=== PATIENT | male | born 1945 | race Caucasian/White ===

== ENCOUNTER → 2016-09-01 | Outpatient (CLI) | payer MEDICARE, OTHER ==
[2016-09-01 11:27] LABS: Non-African American GFR(MDRD) >60 (>60 ml/min/1.73 sqM)
--- NOTE | 2016-09-01 15:11 | MR ---
EXAMINATION TYPE: MR lumbar spine wo/w con DATE OF EXAM: 09/01/2016 12:59 PM COMPARISON: NONE HISTORY: Low back pain TECHNIQUE: T1 and T2 axial and sagittal images of the lumbar spine are submitted. FINDINGS: There is no abnormal signal seen within the visualized spinal cord or paraspinal soft tissu es. At L1-2 there is mild facet arthropathy but no disc herniation or canal stenosis. No foraminal encroa chment. At L2-3 there is abnormal signal within the L4 vertebral body may be related to a hemangioma. There i s a superior endplate chronic appearing compression fracture. Neural foramina are patent. There is br oad-based central minimal disc bulging but no canal stenosis or foraminal encroachment. Mild facet ar thropathy. At L3-4 there is degenerative disc disease and facet arthropathy. No disc herniation or foraminal enc roachment. No Canal stenosis At L4-5 there is no disc herniation or canal stenosis. No foraminal encroachment. At L5-S1 there is no disc herniation or canal stenosis. No foraminal encroachment. IMPRESSION: 1. Multilevel mild degenerative disc disease and facet arthropathy with no discrete herniation or can al stenosis. 2. Chronic appearing superior endplate compression fracture L3. Marrow signal within the L3 vertebral body suggesting hemangioma. 3. Minimal disc bulging L2-L3 but no canal stenosis or nerve root impingement.
--- NOTE | 2016-09-01 15:23 | MR ---
EXAMINATION TYPE: MR cervical spine wo/w con DATE OF EXAM: 09/01/2016 12:59 PM COMPARISON: NONE HISTORY: Neck pain, baudilio disc, hx of surgery on c spine TECHNIQUE: Multiplanar, multisequence images of the cervical spine were acquired utilizing 15 mL intravenous Mul tiHance gadolinium contrast. C2-C3: No evidence for degenerative disc disease. No disc bulge/herniation or protrusion. No Canal stenosis. Foramina are patent bilaterally. C3-C4: There is central broad-based disc bulging with uncovertebral joint hypertrophy and facet arthr opathy. Moderate to severe bilateral foraminal encroachment mild/moderate canal stenosis or disc bulg ing or protrusion is capped by spur encroaches upon and abuts the anterior margin of the spinal cord. C4-C5: Postsurgical change and uncovertebral joint hypertrophy with facet arthropathy and moderate bi lateral foraminal encroachment. C5-C6: Motion artifact. Cannot exclude central disc bulging. There is facet arthropathy and uncoverte bral joint hypertrophy with moderate bilateral foraminal encroachment. Could not exclude a degree of Canal stenosis based on the axial image. There does appear to be artifact from the surgical hardware. C6-C7: Right paracentral disc bulging or small protrusion which abuts the anterior margin the spinal cord. Facet arthropathy is seen. Mild bilateral foraminal encroachment. C7-T1: No evidence for degenerative disc disease. No disc bulge/herniation or protrusion. No Canal stenosis. Foramina are patent bilaterally. Cervical segments are intact. There is normal alignment. Artifact from levels C4-C6 limits evaluatio n obscures these levels vertebral bodies. Spinal canal at this level is limited. Assessment spinal co rd limited due to motion artifact and artifact from the patient's surgical hardware. No obvious area of abnormal enhancement. IMPRESSION: 1. Markedly limited exam due to artifact from the patient's surgical hardware. Disc protrusion C3-C4 results in canal stenosis. Hypertrophic changes at this level result in foraminal encroachment as dis cussed above. 2. Findings are suspicious for right paracentral disc bulging or small protrusion C6-C7 which abuts t he anterior margin of the spinal cord. 3. Cannot exclude central disc bulging or canal stenosis at C5-C6 which is a surgical level. Extensiv e artifact.
== END | disposition home or self-care (01) ==
LOC: RADMRIMAIN 10:32
PROVIDERS: ATTEND Family Medicine
DX: M51.26 Other intervertebral disc displacement, lumbar region (principal); M48.02 Spinal stenosis, cervical region; M50.21 Other cervical disc displacement, high cervical region; M51.36 Other intervertebral disc degeneration, lumbar region; M48.56XA Collapsed vertebra, not elsewhere classified, lumbar region, initial encounter for fracture; M46.86 Other specified inflammatory spondylopathies, lumbar region
CPT/HCPCS: 82565; 72156; 72158; A9577

== ENCOUNTER 2018-05-03 20:19 | Inpatient (IN) | payer MEDICARE, OTHER ==
[2018-05-03] MEDS ORDERED: NITROGLYCERIN OINT 1 INCH/GM PACKET TOPICAL STA (20:52)
[2018-05-03] MEDS ORDERED: ASPIRIN 81 MG PO STA (20:52)
--- NOTE | 2018-05-03 20:55 | ED ---
General Adult HPI - General Chief complaint: Chest Pain Stated complaint: Chest Pain Time Seen by Provider: 05/03/18 20:45 Source: patient, EMS, RN notes reviewed Mode of arrival: EMS Limitations: no limitations - History of Present Illness Initial comments: Patient is a pleasant 72-year-old male presenting to the emergency Department with complaints of chest discomfort. Onset of symptoms was prior to arrival. Symptoms lasted around a half an hour and then resolved following nitroglycerin provided by staff at the rehab facility. Patient states discomfort felt sharp with some radiation towards the arm. No associated dyspnea, nausea, diaphoresis. No history of similar symptoms previously. Patient is currently symptom-free. Patient states he was also in the emergency department this morning for generalized fatigue. Patient states he did have left hip surgery done around 3 weeks ago. No confusion or isolated area of weakness. - Related Data Home Medications Medication Instructions Recorded Confirmed Aspirin 81 mg PO DAILY@1700 04/12/16 05/03/18 Atorvastatin [Lipitor] 40 mg PO HS@2100 05/03/18 05/03/18 Bisacodyl [Dulcolax] 10 mg RECTAL DAILY PRN 05/03/18 05/03/18 Carbidopa-Levodopa 25-100 mg 1 tab PO TID@0600,1400,209905/03/18 05/03/18 [Sinemet 25-100 mg] Cyanocobalamin [Vitamin B-12] 1,000 mcg PO DAILY@1700 05/03/18 05/03/18 Dexlansoprazole [Dexilant] 60 mg PO DAILY 05/03/18 05/03/18 Docusate [Colace] 100 mg PO BID@0800,1700 05/03/18 05/03/18 Dutasteride 0.5 mg PO DAILY@0800 05/03/18 05/03/18 Ergocalciferol [Vitamin D2] 50,000 unit PO MO 05/03/18 05/03/18 Ezetimibe [Zetia] 10 mg PO DAILY@2100 05/03/18 05/03/18 FLUoxetine HCL [PROzac] 20 mg PO DAILY@0800 05/03/18 05/03/18 Ferrous Sulfate [Feosol] 325 mg PO BID@0800,1700 05/03/18 05/03/18 HYDROcodone/APAP 10-325MG [Culver 1 tab PO Q4HR PRN 05/03/18 05/03/18 10-325] Ipratropium-Albuterol Nebulize 3 ml INHALATION RT-QID PRN 05/03/18 05/03/18 [Duoneb 0.5 mg-3 mg/3 ml Soln] Lactose-Reduced Food [Ensure Plus] 1 can PO TID 05/03/18 05/03/18 Magnesium Hydroxide [Milk of 30 ml PO DAILY PRN 05/03/18 05/03/18 Magnesia] Meclizine [Antivert] 12.5 mg PO BID PRN 05/03/18 05/03/18 Melatonin 3 mg PO HS PRN 05/03/18 05/03/18 Metoprolol Tartrate [Lopressor] 25 mg PO BID@0800,1700 05/03/18 05/03/18 Multivitamins, Thera [Multivitamin 1 tab PO DAILY 05/03/18 05/03/18 (formulary)] Na Phos,M-B/Na Phos,Di-Ba [Fleet 1 unit RECTAL DAILY PRN 05/03/18 05/03/18 Adult] Pregabalin [Lyrica] 100 mg PO BID@0800,2100 05/03/18 05/03/18 Primidone [Mysoline] 50 mg PO Q8HR 05/03/18 05/03/18 QUEtiapine XR [SEROquel XR] 200 mg PO HS@2100 05/03/18 05/03/18 Ranitidine HCl [Zantac] 150 mg PO BID@0800,1700 05/03/18 05/03/18 Sennosides [Senna] 11.2 mg PO BID@0800,1700 05/03/18 05/03/18 Umeclidinium Brm/Vilanterol Tr 1 puff INHALATION RT-DAILY@0800 05/03/18 05/03/18 [Anoro Ellipta 62.5-25 Mcg INH] Warfarin [Coumadin] 2 mg PO SUMOTHFRSA 05/03/18 05/03/18 Warfarin [Coumadin] 2.5 mg PO DIRECTED 05/03/18 05/03/18 amLODIPine [Norvasc] 5 mg PO DAILY@0800 05/03/18 05/03/18 Allergies Allergy/AdvReac Type Severity Reaction Status Date / Time morphine Allergy Itching Verified 05/03/18 20:52 oxycodone [From OxyContin] Allergy Itching Verified 05/03/18 20:52 propoxyphene Allergy Unknown Verified 05/03/18 20:52 [From Darvocet-N] Review of Systems ROS Statement: Those systems with pertinent positive or pertinent negative responses have been documented in the HPI. ROS Other: All systems not noted in ROS Statement are negative. Constitutional: Denies: fever Eyes: Denies: eye pain ENT: Denies: ear pain Respiratory: Denies: cough, dyspnea Cardiovascular: Reports: chest pain Gastrointestinal: Denies: abdominal pain, nausea, vomiting Genitourinary: Denies: dysuria Musculoskeletal: Denies: back pain Skin: Denies: rash Neurological: Denies: headache Past Medical History Past Medical History: COPD, GERD/Reflux, Hyperlipidemia, Hypertension, Prostate Disorder Additional Past Medical History / Comment(s): LAST SEIZURE -2002. PT STATES NO CHANGES TO HEALTH HX SINCE 04/12/16 EXCEPT FOR CATARACT SURGERY 04/13/16. History of Any Multi-Drug Resistant Organisms: None Reported Past Surgical History: Cholecystectomy, Hernia Repair, Orthopedic Surgery Additional Past Surgical History / Comment(s): NOSE SURGERY X3, RIGHT SHOULDER, NECK, RIGHT CATARACT 04/13/16 Past Anesthesia/Blood Transfusion Reactions: Motion Sickness Past Psychological History: Depression Smoking Status: Former smoker Past Alcohol Use History: None Reported Past Drug Use History: None Reported - Past Family History Father Family Medical History: Cancer Additional Family Medical History / Comment(s): STOMACH CANCER Mother Family Medical History: Cancer Additional Family Medical History / Comment(s): BREAST CANCER General Exam Limitations: no limitations General appearance: alert, in no apparent distress Head exam: Present: atraumatic Eye exam: Present: normal appearance, PERRL ENT exam: Present: normal oropharynx Neck exam: Present: normal inspection Respiratory exam: Present: normal lung sounds bilaterally. Absent: chest wall tenderness Cardiovascular Exam: Present: regular rate, normal rhythm Expanded Peripheral pulses: 2+: Radial (R), Radial (L), Dorsalis Pedis (R), Dorsalis Pedis (L) GI/Abdominal exam: Present: soft. Absent: distended, tenderness Extremities exam: Present: normal inspection. Absent: pedal edema, calf tenderness Neurological exam: Present: alert. Absent: motor sensory deficit Expanded Motor strength exam: RUE: 5, LUE: 5, RLE: 5, LLE: 5 Psychiatric exam: Present: normal affect, normal mood Skin exam: Present: normal color Course Vital Signs 05/03/18 05/03/18 05/03/18 20:21 20:30 21:00 Temperature 98.8 F Pulse Rate 65 62 Respiratory 16 16 Rate Blood Pressure 141/62 141/62 138/61 O2 Sat by Pulse 96 Oximetry - Reevaluation(s) Reevaluation #1: 05/03/18 22:13 Repeat EKG shows normal sinus rhythm 76. HI 162. QRS 80. QT 390. QTC 438. Normal axis. Normal QRS. ST depression in lead 2 as well as leads V3 through V5. Borderline ST depression in V6. There is some ST elevation in aVR. Case was discussed in detail with Dr. Maciel. He recommends treating patient's pain. Patient remains uncomfortable than give him a call back. 05/03/18 22:21 Patient is now symptom-free. Patient is made aware that if his symptoms worsen he will need to make staff aware of his discomfort who will need to let the gate watch become aware of the discomfort continuing. Heparin is started. EKG Findings - EKG Comments: EKG Findings:: Normal sinus rhythm 64. HI 154. QRS 80. QT 428. QTC 441. Left axis. Normal QRS. No acute ST change. Medical Decision Making - Medical Decision Making Patient reevaluated and updated. Case was discussed in detail with Dr. Anderson , covering for Dr. Lee, who will admit. - Lab Data Result diagrams: 05/03/18 20:28 05/03/18 20:28 Lab Results 05/03/18 05/03/18 05/03/18 Range/Units 20:28 20:28 20:28 WBC 9.4 (3.8-10.6) k/uL RBC 3.05 L (4.30-5.90) m/uL Hgb 9.0 L (13.0-17.5) gm/dL Hct 28.0 L (39.0-53.0) % MCV 91.5 (80.0-100.0) fL MCH 29.6 (25.0-35.0) pg MCHC 32.4 (31.0-37.0) g/dL RDW 15.7 H (11.5-15.5) % Plt Count 302 (150-450) k/uL Neutrophils % 75 % Lymphocytes % 15 % Monocytes % 6 % Eosinophils % 2 % Basophils % 0 % Neutrophils # 7.0 (1.3-7.7) k/uL Lymphocytes # 1.4 (1.0-4.8) k/uL Monocytes # 0.5 (0-1.0) k/uL Eosinophils # 0.2 (0-0.7) k/uL Basophils # 0.0 (0-0.2) k/uL Hypochromasia Moderate PT (9.0-12.0) sec INR (<1.2) APTT (22.0-30.0) sec D-Dimer (<0.60) mg/L FEU Sodium 140 (137-145) mmol/L Potassium 4.6 (3.5-5.1) mmol/L Chloride 109 H (98-107) mmol/L Carbon Dioxide 24 (22-30) mmol/L Anion Gap 7 mmol/L BUN 33 H (9-20) mg/dL Creatinine 1.04 (0.66-1.25) mg/dL Est GFR (CKD-EPI)AfAm 84 (>60 ml/min/1.73 sqM) Est GFR (CKD-EPI)NonAf 73 (>60 ml/min/1.73 sqM) Glucose 100 H (74-99) mg/dL Calcium 8.7 (8.4-10.2) mg/dL Magnesium 1.9 (1.6-2.3) mg/dL Total Bilirubin 0.2 (0.2-1.3) mg/dL AST 24 (17-59) U/L ALT 29 (21-72) U/L Alkaline Phosphatase 127 H (38-126) U/L Total Creatine Kinase 23 L (55-170) U/L CK-MB (CK-2) 0.9 (0.0-2.4) ng/mL CK-MB (CK-2) Rel Index 3.9 Troponin I 0.014 (0.000-0.034) ng/mL Total Protein 6.7 (6.3-8.2) g/dL Albumin 3.1 L (3.5-5.0) g/dL //18 Range/Units 20:28 WBC (3.8-10.6) k/uL RBC (4.30-5.90) m/uL Hgb (13.0-17.5) gm/dL Hct (39.0-53.0) % MCV (80.0-100.0) fL MCH (25.0-35.0) pg MCHC (31.0-37.0) g/dL RDW (11.5-15.5) % Plt Count (150-450) k/uL Neutrophils % % Lymphocytes % % Monocytes % % Eosinophils % % Basophils % % Neutrophils # (1.3-7.7) k/uL Lymphocytes # (1.0-4.8) k/uL Monocytes # (0-1.0) k/uL Eosinophils # (0-0.7) k/uL Basophils # (0-0.2) k/uL Hypochromasia PT 12.2 H (9.0-12.0) sec INR 1.3 H (<1.2) APTT 28.2 (22.0-30.0) sec D-Dimer 1.43 H (<0.60) mg/L FEU Sodium (137-145) mmol/L Potassium (3.5-5.1) mmol/L Chloride (98-107) mmol/L Carbon Dioxide (22-30) mmol/L Anion Gap mmol/L BUN (9-20) mg/dL Creatinine (0.66-1.25) mg/dL Est GFR (CKD-EPI)AfAm (>60 ml/min/1.73 sqM) Est GFR (CKD-EPI)NonAf (>60 ml/min/1.73 sqM) Glucose (74-99) mg/dL Calcium (8.4-10.2) mg/dL Magnesium (1.6-2.3) mg/dL Total Bilirubin (0.2-1.3) mg/dL AST (17-59) U/L ALT (21-72) U/L Alkaline Phosphatase (38-126) U/L Total Creatine Kinase (55-170) U/L CK-MB (CK-2) (0.0-2.4) ng/mL CK-MB (CK-2) Rel Index Troponin I (0.000-0.034) ng/mL Total Protein (6.3-8.2) g/dL Albumin (3.5-5.0) g/dL - Radiology Data Radiology results: report reviewed (Computed tomography scan of the chest does show some fibrosis. No pulmonary embolism.), image reviewed (X-ray shows fibrosis) Critical Care Time Critical Care Time: Yes Total Critical Care Time: 33 Disposition Clinical Impression: ACS (acute coronary syndrome) Disposition: ADMITTED IP TO THIS [facility] Condition: Serious Is patient prescribed a controlled substance at d/c from ED?: No Referrals: Jean Lee DO [Primary Care Provider] - 1-2 days Decision Time: 22:22
[2018-05-03 21:10] LABS: Basophils % (A) 0 %; Eosinophils # (A) 0.2 k/uL (0-0.7); Eosinophils % (A) 2 %; Hypochromasia Moderate; Lymphocytes # (A) 1.4 k/uL (1.0-4.8); Lymphocytes % (A) 15 %; MCH 29.6 pg (25.0-35.0); MCHC 32.4 g/dL (31.0-37.0); MCV 91.5 fL (80.0-100.0); Mean Platelet Volume 6.5; Monocytes # (A) 0.5 k/uL (0-1.0); Monocytes % (A) 6 %; Neutrophils % (A) 75 %; Platelet Count 302 k/uL (150-450); RBC 3.05 m/uL (4.30-5.90); RDW 15.7 % (11.5-15.5); WBC 9.4 k/uL (3.8-10.6)
[2018-05-03 21:13] LABS: Albumin 3.1 g/dL (3.5-5.0); Calcium 8.7 mg/dL (8.4-10.2); Magnesium 1.9 mg/dL (1.6-2.3); Potassium 4.6 mmol/L (3.5-5.1); Total Bilirubin 0.2 mg/dL (0.2-1.3); Total Protein 6.7 g/dL (6.3-8.2)
--- NOTE | 2018-05-03 21:14 | XR ---
EXAMINATION TYPE: XR chest 2V DATE OF EXAM: 05/03/2018 COMPARISON: Today HISTORY: Chest pain TECHNIQUE: Frontal and lateral views of the chest are obtained. FINDINGS: There is no heart failure nor confluent pneumonic infiltrate. Costophrenic angles are marie r. There is coarsening of interstitial markings. Heart size is normal. There is cervical spine fusion surgery. Diaphragm is normal. IMPRESSION: Pulmonary interstitial fibrosis. No active cardiopulmonary disease. No change. No heart failure.
[2018-05-03 21:17] LABS: INR 1.3 (<1.2); Partial Thromboplastin Time 28.2 sec (22.0-30.0); Prothrombin Time 12.2 sec (9.0-12.0)
[2018-05-03 21:20] LABS: D-Dimer 1.43 mg/L FEU (<0.60)
[2018-05-03 21:45] LABS: Creatine Kinase MB 0.9 ng/mL (0.0-2.4); Troponin I 0.014 ng/mL (0.000-0.034)
--- NOTE | 2018-05-03 22:07 | CT ---
EXAMINATION TYPE: CT angio chest DATE OF EXAM: 05/03/2018 9:47 PM COMPARISON: None HISTORY: Chest pain and shortness of breath. CT DLP: 235.5 mGycm Automated exposure control for dose reduction was used. CONTRAST: CTA scan of the thorax is performed with IV Contrast, patient injected with 66ml mL of Isovue M300, p ulmonary embolism protocol. There are 3-D post processed images.. FINDINGS: There is no mediastinal adenopathy. There are no hilar masses. Thoracic aorta is atheromatous. There is no evidence of aneurysm or dissection. There are a few paratracheal and mediastinal lymph nodes th at measure less than 1 cm. I see no filling defects in the pulmonary arteries. Thoracic aorta shows some atherosclerotic plaque. There is patchy pulmonary interstitial infiltrates at the lung bases and more on the right side. The re is no evidence of a pulmonary mass. IMPRESSION: NO EVIDENCE OF PULMONARY EMBOLISM. INTERSTITIAL PULMONARY FIBROTIC CHANGES. NONSPECIFIC SMALL MEDIAST INAL LYMPH NODES.
[2018-05-03] MEDS ORDERED: NITROGLYCERIN SL TABS 0.4 MG TAB SUBLINGUAL STA (22:10)
[2018-05-03] MEDS ORDERED: HEPARIN SODIUM,PORCINE 5,000 UNIT/ML 1 ML VIAL IV ONE (22:18)
[2018-05-03] MEDS ORDERED: HEPARIN SODIUM,PORCINE 5,000 UNIT/ML 1 ML VIAL IV PRN (22:18)
[2018-05-03] MEDS ORDERED: HEPARIN SOD,PORK IN 0.45% NACL 25,000 UNIT in 0.45% NACL 1 500ML.BAG IV SCH (22:30)
[2018-05-03] MEDS ORDERED: ACETAMINOPHEN TAB 325 MG TAB PO PRN (23:28)
[2018-05-03] MEDS ORDERED: MECLIZINE 12.5 MG TAB PO PRN (23:48)
[2018-05-03] MEDS ORDERED: MAGNESIUM HYDROXIDE 2,400 MG/10 ML CUP PO PRN (23:48)
[2018-05-03] MEDS ORDERED: NA PHOS,M-B/NA PHOS,DI-BA 133 ML ENEMA RECTAL PRN (23:48)
[2018-05-03] MEDS ORDERED: BISACODYL 10 MG SUPP RECTAL PRN (23:48)
[2018-05-04] MEDS: NITROGLYCERIN OINT 1 INCH/GM PACKET TOPICAL SCH ×4 (00:11→17:57)
[2018-05-04] MEDS: HYDROcodone/APAP 10-325MG 1 EACH TAB PO PRN ×3 (00:11→18:00)
[2018-05-04] MEDS: PRIMIDONE 50 MG TAB PO SCH ×4 (00:18→23:50)
[2018-05-04] MEDS: CARBIDOPA-LEVODOPA 25-100 MG 1 EACH TAB PO SCH ×3 (04:35→19:58)
[2018-05-04 04:36] LABS: Basophils % (A) 0 %; Eosinophils # (A) 0.1 k/uL (0-0.7); Eosinophils % (A) 1 %; HCT 25.6 % (39.0-53.0); HGB 8.1 gm/dL (13.0-17.5); Hypochromasia Moderate; Lymphocytes # (A) 1.9 k/uL (1.0-4.8); Lymphocytes % (A) 19 %; MCH 29.3 pg (25.0-35.0); MCHC 31.7 g/dL (31.0-37.0); MCV 92.3 fL (80.0-100.0); Mean Platelet Volume 6.6; Monocytes # (A) 0.5 k/uL (0-1.0); Monocytes % (A) 5 %; Neutrophils # (A) 7.1 k/uL (1.3-7.7); Neutrophils % (A) 71 %; Platelet Count 279 k/uL (150-450); RBC 2.77 m/uL (4.30-5.90); RDW 15.6 % (11.5-15.5)
[2018-05-04 04:46] LABS: Cholesterol 103 mg/dL (<200); HDL Cholesterol 35 mg/dL (40-60); LDL Cholesterol,Calculated 50 mg/dL (0-99); Triglycerides 89 mg/dL (<150)
[2018-05-04 04:48] LABS: INR 1.4 (<1.2); Partial Thromboplastin Time 30.8 sec (22.0-30.0); Prothrombin Time 13.5 sec (9.0-12.0)
[2018-05-04 05:13] LABS: Creatine Kinase MB 1.2 ng/mL (0.0-2.4)
[2018-05-04 05:33] LABS: Troponin I 0.076 ng/mL (0.000-0.034)
[2018-05-04] MEDS ORDERED: FORMOTEROL FUMARATE 20 MCG/2 ML NEBU INHALATION SCH ×2 (08:00→08:05)
[2018-05-04] MEDS: IPRATROPIUM-ALBUTEROL 3 ML NEB INHALATION PRN ×4 (08:02→18:15)
[2018-05-04] MEDS ORDERED: SODIUM CHLORIDE 0.9% 1,000 ML in EMPTY BAG 1 BAG IV ONE (08:38)
[2018-05-04] MEDS ORDERED: NON-FORMULARY DRUG (Lactose-Reduced Food [Ensure Plus] 1 CAN) PO SCH (09:00)
[2018-05-04 09:47] LABS: Creatine Kinase MB 1.4 ng/mL (0.0-2.4)
--- NOTE | 2018-05-04 09:54 | ECHOF ---
Referral Reason:acs MEASUREMENTS -------- HEIGHT: 167.6 cm WEIGHT: 63.0 kg BP: 134/57 RVIDd: 3.5 cm (< 3.3) IVSd: 1.3 cm (0.6 - 1.1) LVIDd: 5.1 cm (3.9 - 5.3) LVPWd: 1.3 cm (0.6 - 1.1) IVSs: 2.0 cm LVIDs: 3.9 cm LVPWs: 1.8 cm LA Diam: 3.2 cm (2.7 - 3.8) LAESV Index (A-L): 27.59 ml/m Ao Diam: 3.5 cm (2.0 - 3.7) AV Cusp: 1.8 cm (1.5 - 2.6) MV EXCURSION: 13.536 mm (> 18.000) MV EF SLOPE: 87 mm/s (70 - 150) EPSS: 0.8 cm MV E Law: 1.08 m/s MV DecT: 237 ms MV A Law: 1.01 m/s MV E/A Ratio: 1.06 AV maxP.20 mmHg AV meanP.63 mmHg AR PHT: 509 ms RAP: 5.00 mmHg RVSP: 38.18 mmHg FINDINGS -------- Sinus rhythm. This was a technically good study. The left ventricular size is normal. There is mild concentric left ventricular hypertrophy. Overa ll left ventricular systolic function is normal with, an EF between 55 - 60 %. Basal inferior LV wa ll motion is hypokinetic. The right ventricle is mildly enlarged. Normal LA size by volume 22+/-6 ml/m2. The right atrium is normal in size. There is mild to moderate aortic valve sclerosis. There is mild aortic regurgitation. There is mi ld aortic stenosis present. Peak/mean gradient across the Aortic Valve is 15.20mmHg / 7.63mmHg. Mild mitral annular calcification present. Mild mitral regurgitation is present. Mild tricuspid regurgitation present. There is mild pulmonary hypertension. The right ventricular systolic pressure, as measured by Doppler, is 38.18mmHg. Trace/mild (physiologic) pulmonic regurgitation. The aortic root size is normal. Normal inferior vena cava with normal inspiratory collapse consistent with estimated right atrial pre ssure of 5 mmHg. There is no pericardial effusion. CONCLUSIONS -------- 1. Sinus rhythm. 2. This was a technically good study. 3. The left ventricular size is normal. 4. There is mild concentric left ventricular hypertrophy. 5. Overall left ventricular systolic function is normal with, an EF between 55 - 60 %. 6. Basal inferior LV wall motion is hypokinetic. 7. The right ventricle is mildly enlarged. 8. Normal LA size by volume 22+/-6 ml/m2. 9. The right atrium is normal in size. 10. There is mild to moderate aortic valve sclerosis. 11. There is mild aortic regurgitation. 12. There is mild aortic stenosis present. 13. Peak/mean gradient across the Aortic Valve is 15.20mmHg / 7.63mmHg. 14. Mild mitral annular calcification present. 15. Mild mitral regurgitation is present. 16. Mild tricuspid regurgitation present. 17. There is mild pulmonary hypertension. 18. The right ventricular systolic pressure, as measured by Doppler, is 38.18mmHg. 19. Trace/mild (physiologic) pulmonic regurgitation. 20. The aortic root size is normal. 21. Normal inferior vena cava with normal inspiratory collapse consistent with estimated right atrial pressure of 5 mmHg. 22. There is no pericardial effusion. FLATWORK CATCHER: Natalie Díaz RDCS
[2018-05-04 10:01] LABS: Troponin I 0.047 ng/mL (0.000-0.034)
[2018-05-04] MEDS: QUEtiapine 100 MG TAB PO SCH ×2 (11:25→19:57)
[2018-05-04] MEDS: FINASTERIDE 5 MG TAB PO SCH (11:25)
[2018-05-04] MEDS: ASPIRIN 325 MG TAB PO SCH (11:27)
[2018-05-04] MEDS: DOCUSATE 100 MG CAP PO SCH ×2 (11:27→17:57)
[2018-05-04] MEDS: PREGABALIN 100 MG CAP PO SCH ×2 (11:27→19:57)
[2018-05-04] MEDS: PANTOPRAZOLE 40 MG TABLET PO SCH (11:28)
[2018-05-04] MEDS: amLODIPine 5 MG TAB PO SCH (11:28)
[2018-05-04] MEDS: FLUoxetine HCL 20 MG CAP PO SCH (11:28)
[2018-05-04] MEDS: FAMOTIDINE 20 MG TAB PO SCH ×2 (11:28→17:23)
[2018-05-04] MEDS: FERROUS SULFATE 325 MG TAB PO SCH ×2 (11:28→17:23)
[2018-05-04] MEDS: MULTIVITAMINS, THERA 1 EACH TAB PO SCH (11:28)
[2018-05-04] MEDS: METOPROLOL TARTRATE 25 MG TAB PO SCH ×2 (11:28→17:24)
[2018-05-04] MEDS: SENNOSIDES 8.6 MG TAB PO SCH ×2 (11:32→17:57)
--- NOTE | 2018-05-04 11:42 | P.CRDCN ---
History of Present Illness History of present illness: This is a pleasant 72-year-old male past medical history significant for hypertension, dyslipdemia, COPD, chronic nicotine dependence and chronic nicotine dependence. He states he underwent left hip surgery 3 weeks ago at [facility] and is currently undergoing rehab at [facility]. He denies history of coronary artery disease and has never seen a brand designer for any reason. We have been asked to see him in consultation for chest pain. He states yesterday while he was sitting in bed he felt a pain across the chest described as a heavy pressure sensation with radiation down both arms that lasted approximately 25-30 minutes. He denies shortness of breath, dizziness, palpitations, nausea, vomiting or diaphoresis. She was given SL nitro and the pain went away. On review of hospital records it appears that he came to the ED earlier in the day yesterday around 1120 with symptoms of weakness and fatigue. At that time an EKG was obtained revealing sinus mechanism with no acute ST or T -wave abnormalities. He was started on levaquin for a pulmonary density and sent back to [facility]. He then returned at 2049 with chest pain and EKG changes. EKG at that time showed ST depression in inferior leads, mild ST elevation in aVR, ST depression and T-wave inversion anterior-laterally. CTA chest negative for pulmonary embolism with evidence of pulmonary fibrotic changes as well as nonspecific small mediastinal lymph nodes noted. He was started on coumadin after hip surgery and presents with sub-therapeutic INR. Laboratory data reviewed, WBC 10, hemoglobin 8.1, platelets 279, d-dimer 1.43, INR 1.4, sodium 140, potassium 4.6, magnesium 1.9, creatinine 1.04, troponin 0.014, 0.076, 0.047, LDL 50 and HDL 35. Current cardiac medications include amlodipine 5 mg daily, aspirin 81 mg daily, atorvastatin 40 mg daily, Lopressor 25 mg twice a day, zeita 10 mg daily and he was started on coumadin since hip surgery. At the time of my exam: CONSTITUTIONAL: Denies fever. Denies chills. EYES: Denies blurred vision. Denies vision changes. Denies eye pain. EARS, NOSE, MOUTH & THROAT: Denies headache. Denies sore throat. Denies ear pain. CARDIOVASCULAR: Denies chest pain. Denies shortness of breath. Denies orthopnea. Denies PND. Denies palpitations. RESPIRATORY: Denies cough. GASTROINTESTINAL: Denies abdominal pain. Denies diarrhea. Denies constipation. Denies nausea. Denies vomiting. MUSCULOSKELETAL: Denies myalgias. INTEGUMENTARY: Denies pruitis. Denies rash. NEUROLOGIC: Denies numbness. Denies tingling. Denies weakness. PSYCHIATRIC: Denies anxiety. Denies depression. ENDOCRINE: Denies fatigue. Denies weight change. Denies polydipsia. Denies polyurina. GENITOURINARY: Denies burning, hematuria or urgency with micturation. HEMATOLOGIC: Denies history of anemia. Denies bleeding. Blood pressure 149/68 heart rate 60 afebrile maintaining oxygen saturation on room air GENERAL: This is a 72-year-old male in no apparent distress at the time of my examination. HEENT: Head is atraumatic, normocephalic. Pupils are equal, round. Sclerae anicteric. Conjunctivae are clear. Mucous membranes of the mouth are moist. Neck is supple. There is no jugular venous distention. No carotid bruit is heard. LUNGS: Clear to auscultation no wheezes, rales or rhonchi. No chest wall tenderness is noted on palpation or with deep breathing. HEART: Regular rate and rhythm without murmurs, rubs or gallops. S1 and S2 heard. ABDOMEN: Soft, nontender. Bowel sounds are heard. No organomegaly noted. EXTREMITIES: No evidence of peripheral edema and no calf tenderness noted. VASCULAR: Radial and dorsalis pedis pulses palpated, no evidence of clubbing. NEUROLOGIC: Patient is awake, alert and oriented x3. ASSESSMENT Unstable angina with EKG changes and positive troponins Non-ST elevated TN Hypertension Dyslipidemia COPD Recent left hip replacement approximately 3 weeks ago at [facility] Chronic anemia Chronic nicotine dependence PLAN Obtain 2D echocardiogram and doppler study to assess cardiac structure and function. EKG abnormalities are concerning with mild troponin elevation indicating non-ST- elevated TN. Recommend proceeding with coronary angiography to further assess coronary arteries. I have discussed the risks, benefits and alternative therapies for the above- mentioned procedure and for both sedation/analgesia as well as necessary blood product administration, if indicated, as they pertain to this patient. The patient has indicated understanding and acceptance of the risks and procedures discussed. Questions have been answered appropriately and he is agreeable to move forward with above stated procedure. Hold coumadin, INR is sub-therapeutic on admission. Further recommendations to follow based on clinical course. Thank you kindly for this consultation. Nurse Practitioner note has been reviewed, I agree with a documented findings and plan of care. Patient was seen and examined. Past Medical History Past Medical History: COPD, GERD/Reflux, Hyperlipidemia, Hypertension, Prostate Disorder Additional Past Medical History / Comment(s): LAST SEIZURE -2002. PT STATES NO CHANGES TO HEALTH HX SINCE 04/12/16 EXCEPT FOR CATARACT SURGERY 04/13/16. History of Any Multi-Drug Resistant Organisms: None Reported Past Surgical History: Cholecystectomy, Hernia Repair, Orthopedic Surgery Additional Past Surgical History / Comment(s): NOSE SURGERY X3, RIGHT SHOULDER, NECK, RIGHT CATARACT 04/13/16 Past Anesthesia/Blood Transfusion Reactions: Motion Sickness Smoking Status: Former smoker - Past Family History Father Family Medical History: Cancer Additional Family Medical History / Comment(s): STOMACH CANCER Mother Family Medical History: Cancer Additional Family Medical History / Comment(s): BREAST CANCER Medications and Allergies Home Medications Medication Instructions Recorded Confirmed Type Aspirin 81 mg PO DAILY@1700 04/12/16 05/03/18 History Atorvastatin [Lipitor] 40 mg PO HS@209905/03/18 05/03/18 History Bisacodyl [Dulcolax] 10 mg RECTAL DAILY PRN 05/03/18 05/03/18 History Carbidopa-Levodopa 25-100 mg 1 tab PO TID@0600,1400,2100 05/03/18 05/03/18 History [Sinemet 25-100 mg] Cyanocobalamin [Vitamin B-12] 1,000 mcg PO DAILY@1700 05/03/18 05/03/18 History Dexlansoprazole [Dexilant] 60 mg PO DAILY 05/03/18 05/03/18 History Docusate [Colace] 100 mg PO BID@0800,1700 05/03/18 05/03/18 History Dutasteride 0.5 mg PO DAILY@0800 05/03/18 05/03/18 History Ergocalciferol [Vitamin D2] 50,000 unit PO MO 05/03/18 05/03/18 History Ezetimibe [Zetia] 10 mg PO DAILY@2100 05/03/18 05/03/18 History FLUoxetine HCL [PROzac] 20 mg PO DAILY@0800 05/03/18 05/03/18 History Ferrous Sulfate [Feosol] 325 mg PO BID@0800,1700 05/03/18 05/03/18 History HYDROcodone/APAP 10-325MG [[place] 1 tab PO Q4HR PRN 05/03/18 05/03/18 History 10-325] Ipratropium-Albuterol Nebulize 3 ml INHALATION RT-QID PRN 05/03/18 05/03/18 History [Duoneb 0.5 mg-3 mg/3 ml Soln] Lactose-Reduced Food [Ensure Plus] 1 can PO TID 05/03/18 05/03/18 History Magnesium Hydroxide [Milk of 30 ml PO DAILY PRN 05/03/18 05/03/18 History Magnesia] Meclizine [Antivert] 12.5 mg PO BID PRN 05/03/18 05/03/18 History Melatonin 3 mg PO HS PRN 05/03/18 05/03/18 History Metoprolol Tartrate [Lopressor] 25 mg PO BID@0800,1700 05/03/18 05/03/18 History Multivitamins, Thera [Multivitamin 1 tab PO DAILY 05/03/18 05/03/18 History (formulary)] Na Phos,M-B/Na Phos,Di-Ba [Fleet 1 unit RECTAL DAILY PRN 05/03/18 05/03/18 History Adult] Pregabalin [Lyrica] 100 mg PO BID@0800,209905/03/18 05/03/18 History Primidone [Mysoline] 50 mg PO Q8HR 05/03/18 05/03/18 History QUEtiapine XR [SEROquel XR] 200 mg PO HS@209905/03/18 05/03/18 History Ranitidine HCl [Zantac] 150 mg PO BID@0800,1700 05/03/18 05/03/18 History Sennosides [Senna] 11.2 mg PO BID@0800,1700 05/03/18 05/03/18 History Umeclidinium Brm/Vilanterol Tr 1 puff INHALATION RT-DAILY@0800 05/03/18 History [Anoro Ellipta 62.5-25 Mcg INH] Warfarin [Coumadin] 2 mg PO SUMOTHFRSA 05/03/18 05/03/18 History Warfarin [Coumadin] 2.5 mg PO DIRECTED 05/03/18 05/03/18 History amLODIPine [Norvasc] 5 mg PO DAILY@0800 05/03/18 05/03/18 History Allergies Allergy/AdvReac Type Severity Reaction Status Date / Time morphine Allergy Itching Verified 05/03/18 23:35 oxycodone [From OxyContin] Allergy Itching Verified 05/03/18 23:35 propoxyphene Allergy Unknown Verified 05/03/18 23:35 [From Darvocet-N] Physical Exam Vitals: Vital Signs Temp Pulse Pulse Resp BP BP Pulse Ox 05/04/18 04:00 97.4 F L 62 18 134/57 99 05/04/18 00:00 16 05/03/18 23:25 98.3 F 74 16 120/54 98 05/03/18 22:00 75 14 139/66 100 05/03/18 21:00 138/61 05/03/18 20:30 62 16 141/62 05/03/18 20:21 98.8 F 65 16 141/62 96 Intake and Output 05/03/18 05/04/18 05/04/18 22:59 06:59 14:59 Other: # Voids 1 Weight 63.503 kg 63.5 kg Results 05/04/18 03:56 05/03/18 20:28 Cardiac Enzymes 05/03/18 05/03/18 05/04/18 Range/Units 20:28 20:28 03:56 AST 24 (17-59) U/L CK-MB (CK-2) 0.9 1.2 (0.0-2.4) ng/mL Troponin I 0.014 0.076 H* (0.000-0.034) ng/mL Coagulation 05/03/18 05/04/18 Range/Units 20:28 03:56 PT 12.2 H 13.5 H (9.0-12.0) sec APTT 28.2 30.8 H (22.0-30.0) sec Lipids 05/04/18 Range/Units 03:56 Triglycerides 89 (<150) mg/dL Cholesterol 103 (<200) mg/dL HDL Cholesterol 35 L (40-60) mg/dL CBC 05/03/18 05/04/18 Range/Units 20:28 03:56 WBC 9.4 10.0 (3.8-10.6) k/uL RBC 3.05 L 2.77 L (4.30-5.90) m/uL Hgb 9.0 L 8.1 L (13.0-17.5) gm/dL Hct 28.0 L 25.6 L (39.0-53.0) % Plt Count 302 279 (150-450) k/uL Comprehensive Metabolic Panel 05/03/18 Range/Units 20:28 Sodium 140 (137-145) mmol/L Potassium 4.6 (3.5-5.1) mmol/L Chloride 109 H (98-107) mmol/L Carbon Dioxide 24 (22-30) mmol/L BUN 33 H (9-20) mg/dL Creatinine 1.04 (0.66-1.25) mg/dL Glucose 100 H (74-99) mg/dL Calcium 8.7 (8.4-10.2) mg/dL AST 24 (17-59) U/L ALT 29 (21-72) U/L Alkaline Phosphatase 127 H (38-126) U/L Total Protein 6.7 (6.3-8.2) g/dL Albumin 3.1 L (3.5-5.0) g/dL Current Medications Generic Name Dose Route Start Last Admin Trade Name Freq PRN Reason Stop Dose Admin Acetaminophen 650 mg 05/03/18 23:28 Tylenol Tab PO Q4HR PRN Fever and/ or Pain Hydrocodone Bitart/Acetaminophen 1 each 05/03/18 23:48 05/04/18 04:34 [place] 10 PO 1 each Q4HR PRN Administration Pain Albuterol/Ipratropium 3 ml 05/03/18 23:48 Duoneb 0.5 Mg-3 Mg/3 Ml Soln INHALATION RT-QID PRN Shortness Of Breath Or Wheezing Amlodipine Besylate 5 mg 05/04/18 08:00 Norvasc PO DAILY@0800 [facility] Aspirin 325 mg 05/04/18 09:00 Aspirin PO DAILY [facility] Atorvastatin Calcium 40 mg 05/04/18 21:00 Lipitor PO HS@2100 [facility] Bisacodyl 10 mg 05/03/18 23:48 Dulcolax RECTAL DAILY PRN Constipation Carbidopa/Levodopa 1 each 05/04/18 06:00 05/04/18 04:35 Sinemet 25-100 PO 1 each TID@0600,1400,2100 [facility] Administration Cyanocobalamin 1,000 mcg 05/04/18 17:00 Vitamin B-12 PO DAILY@1700 [facility] Docusate Sodium 100 mg 05/04/18 08:00 Colace PO BID@0800,1700 [facility] Ezetimibe 10 mg 05/04/18 21:00 Zetia PO DAILY@2100 [facility] Ergocalciferol 50,000 unit 05/30/18 09:00 Vitamin D2 PO MO [facility] Famotidine 20 mg 05/04/18 08:00 Pepcid PO BID@0800,1700 [facility] Ferrous Sulfate 325 mg 05/04/18 08:00 Feosol PO BID@0800,1700 [facility] Finasteride 5 mg 05/04/18 08:00 Proscar PO DAILY@0800 [facility] Fluoxetine HCl 20 mg 05/04/18 08:00 Prozac PO DAILY@0800 [facility] Formoterol Fumarate 1 mcg 05/04/18 08:00 Perforomist INHALATION RT-BID [facility] Heparin Sodium (Porcine) 0 unit 05/03/18 22:18 Heparin IV PER PROTOCOL PRN Low PTT Protocol Heparin Sodium/Sodium Chloride 500 mls @ 15.24 mls/hr 05/03/18 22:30 22:28 25,000 unit/ Sodium Chloride IV 12 units/kg/hr .Q24H [facility] 15.24 mls/hr Administration Protocol 12 UNITS/KG/HR Magnesium Hydroxide 30 mg 05/03/18 23:48 Milk Of Magnesia PO DAILY PRN Constipation Meclizine HCl 12.5 mg 05/03/18 23:48 Antivert PO BID PRN Vertigo Melatonin 3 mg 05/03/18 23:48 Melatonin PO HS PRN Insomnia Metoprolol Tartrate 25 mg 05/04/18 08:00 Lopressor PO BID@0800,1700 [facility] Multivitamins 1 each 05/04/18 12:00 Theragran PO DAILY@1200 [facility] Nitroglycerin 1 inch 05/04/18 00:00 05/04/18 04:32 Nitro-Bid Oint TOPICAL Not Given Q6HR [facility] Nitroglycerin 0.4 mg 05/03/18 22:22 Nitrostat SUBLINGUAL Q5M PRN Chest Pain Pantoprazole Sodium 40 mg 05/04/18 09:00 Protonix PO DAILY [facility] Pregabalin 100 mg 05/04/18 08:00 Lyrica PO BID@0800,2100 [facility] Primidone 50 mg 05/04/18 00:30 05/04/18 00:18 Mysoline PO Not Given Q8HR [facility] Quetiapine Fumarate 100 mg 05/04/18 09:00 Seroquel PO BID [facility] Senna 11.2 mg 05/04/18 08:00 Senokot PO BID@0800,1700 [facility] Sodium Biphosphate/Sodium Phosphate 133 ml 05/03/18 23:48 Fleet Adult RECTAL DAILY PRN Constipation Warfarin Sodium 2.5 mg 05/08/18 18:00 Coumadin PO TuWe@1800 [facility] Warfarin Sodium 2 mg 05/04/18 18:00 Coumadin PO SuMoThFrSa@1800 [facility] Intake and Output 05/03/18 05/04/18 05/04/18 22:59 06:59 14:59 Other: # Voids 1 Weight 63.503 kg 63.5 kg 05/04/18 03:56 05/03/18 20:28
[2018-05-04] MEDS ORDERED: HEPARIN SODIUM,PORCINE 5,000 UNIT/ML 1 ML VIAL IV PRN (15:12)
[2018-05-04] MEDS: LISINOPRIL 2.5 MG TAB PO SCH (15:40)
[2018-05-04] MEDS: HEPARIN SOD,PORK IN 0.45% NACL 25,000 UNIT in 0.45% NACL 1 500ML.BAG IV SCH (15:44)
[2018-05-04] MEDS: CYANOCOBALAMIN 500 MCG TAB PO SCH (17:23)
[2018-05-04] MEDS ORDERED: WARFARIN 2 MG TAB PO SCH (18:00)
--- NOTE | 2018-05-04 19:40 | HP ---
HISTORY AND PHYSICAL DATE OF ADMISSION: 05/04/2018 DATE OF SERVICE: 05/04/2018 PRESENTING COMPLAINT: Chest pain. HISTORY OF PRESENTING COMPLAINT: This is a pleasant 72-year-old patient of Dr. Lee. Currently at [facility]. Chronic stable medical conditions include COPD, GERD, hyperlipidemia, hypertension, seizure disorder, depression. Patient about 2 weeks ago had a left hip fracture that was repaired at [facility]. The patient is currently at [facility]. He is using a walker to get about. Patient presented with pain across the chest going down his left arm. He had presented to the ER yesterday, was seen in the ER and then discharged. Patient again had a further episode where there was more pressure across the chest that again went down to the left arm. It lasted for at least over half an hour. Patient did get some nitroglycerin, with which he had some relief. There was no dizziness. No lightheadedness. No shortness of breath. Because of the nature of the presentation, he was admitted to the hospital for further cardiac workup. Patient denies any cardiac history. Patient's troponin did come back positive, ruling in for possible acute non-Q- wave myocardial infarction. Earlier he was seen by Cardiology, now planning to take him down for cardiac catheterization. Patient has been on IV heparin. Patient stopped smoking 3 weeks ago. REVIEW OF SYSTEMS: CONSTITUTIONAL: Tired. HEENT: None. RESPIRATORY: Baseline shortness of breath. CARDIOVASCULAR: As above. GASTROINTESTINAL: Heartburn. GENITOURINARY: Some urinary incontinence. DERMATOLOGICAL: None. HEMATOLOGICAL: None. LYMPHATICS: None. PSYCHIATRY: Depression, controlled. NEUROLOGICAL: None. MUSCULOSKELETAL: Arthritic pain in the joints. Recent left hip fracture. PAST MEDICAL HISTORY: 1. COPD. 2. GERD. 3. Hyperlipidemia. 4. Hypertension. 5. Prostate disorder. 6. Recent left hip fracture. PAST SURGICAL HISTORY: 1. Cholecystectomy. 2. Hernia repair. 3. Left hip surgery 2 weeks ago. 4. Nose surgery. 5. Right shoulder surgery. 6. Neck surgery. PSYCH HISTORY: Depression. SOCIAL HISTORY: Patient smoked for close to 50 years, about 3/4 pack a day, until about 3 weeks ago. Otherwise lives alone. Currently at [facility]. FAMILY HISTORY: Stomach cancer. HOME MEDICATIONS: 1. Amlodipine 5 mg p.o. daily. 2. Coumadin 2 mg Monday, Monday, , Monday, Monday and then 2.5 as directed. 3. Anoro Ellipta 62.5/25 one puff daily. 4. Senna 11.2 mg p.o. b.i.d. 5. Zantac 150 mg p.o. b.i.d. 6. Seroquel XR 200 mg p.o. at bedtime. 7. Mysoline 50 mg p.o. q.8. 8. Lyrica 100 mg p.o. b.i.d. 9. Adult Fleet 1 unit rectally daily p.r.n. 10.Multivitamin 1 tablet p.o. daily. 11.Lopressor 25 p.o. b.i.d. 12.Melatonin 3 mg p.o. at bedtime p.r.n. 13.Antivert 12.5 p.o. b.i.d. 14.Milk of Magnesia 30 mL p.o. daily p.r.n. 15.Ensure Plus 1 can p.o. t.i.d. 16.DuoNeb q.i.d. p.r.n. 17.[place] 1 tablet q.4 p.r.n. 18.Iron 325 p.o. b.i.d. 19.Prozac 20 mg p.o. daily. 20.Zetia 10 mg p.o. daily. 21.Vitamin D2 50,000 units p.o. Monday. 22.Dutasteride 0.5 mg p.o. daily. 23.Colace 100 mg p.o. b.i.d. 24.Dexilant 60 mg p.o. daily. 25.Vitamin B12 1000 mcg p.o. daily. 26.Sinemet 25/100 one tablet p.o. t.i.d. 27.Dulcolax. 28.Lipitor 40 mg at bedtime. 29.Aspirin 81 mg p.o. daily. ALLERGIES: 1. MORPHINE. 2. OXYCODONE. 3. DARVOCET-N 100. PHYSICAL EXAMINATION: VITAL SIGNS ON PRESENTATION: Temperature 98.8, pulse 65, respiration 16, blood pressure 141/62, pulse ox 96% on 2 L. GENERAL APPEARANCE: Average build. Sitting up, not in distress. EYES: Pupils equal. Conjunctivae normal. HEENT: External appearance of nose and ears normal. Oral cavity normal. NECK: JVD not raised. Mass not palpable. RESPIRATORY: Effort normal. LUNGS: Diminished breath sounds. CARDIOVASCULAR: First and second sounds normal. No edema. ABDOMEN: Soft, non-tender. Liver and spleen not palpable. LYMPHATIC: No lymph node palpable in neck or axillae. PSYCHIATRY: Alert and oriented x3. Mood and affect normal. NEUROLOGICAL: Pupils equal. Cranial nerves grossly intact. Power and sensation grossly intact. MUSCULOSKELETAL: Evidence of osteoarthritis, especially in the hands. INVESTIGATIONS: White count count 10, hemoglobin 8.1, INR 1.4, BUN 33, creatinine 1.04. Troponin 0.014, 0.076, 0.047. EKG tracing, personally reviewed by me, shows ST-segment depression from lead I, V2 through V6, and also in the inferior leads. Patient's EKG from 05/[address] segments were more upright from V1 through V6. Chest x-ray film, personally reviewed by me, shows slight cardiomegaly. No obvious infiltrate. Report shows possible pulmonary fibrosis. Chest CTA reports no pulmonary embolism, some pulmonary fibrotic changes. ASSESSMENT: 1. Acute non-Q-wave myocardial infarction. 2. Chronic obstructive pulmonary disease in an ex-smoker. 3. Gastroesophageal reflux disease. 4. Hyperlipidemia. 5. Essential hypertension. 6. Benign prostatic hypertrophy. 7. History of seizure disorder. 8. Depression not otherwise specified. 9. Recent left hip fracture about 2 weeks ago. 10.Normocytic anemia, cause undetermined. PLAN: Patient is on IV heparin and aspirin. Home medications are resumed. Cardiology was consulted. Plan is to proceed with cardiac catheterization. Care was discussed with the patient. Questions were answered. MMODL / IJN: [id number] /
[2018-05-04] MEDS: ATORVASTATIN 40 MG TAB PO SCH (19:57)
[2018-05-04] MEDS: EZETIMIBE 10 MG TAB PO SCH (19:57)
[2018-05-05] MEDS: NITROGLYCERIN OINT 1 INCH/GM PACKET TOPICAL SCH ×5 (03:54→23:25)
[2018-05-05] MEDS: HYDROcodone/APAP 10-325MG 1 EACH TAB PO PRN ×3 (06:00→23:46)
[2018-05-05] MEDS: CARBIDOPA-LEVODOPA 25-100 MG 1 EACH TAB PO SCH ×3 (06:01→20:17)
[2018-05-05] MEDS: FORMOTEROL FUMARATE 20 MCG/2 ML NEBU INHALATION SCH ×2 (07:20→19:14)
[2018-05-05] MEDS: IPRATROPIUM-ALBUTEROL 3 ML NEB INHALATION PRN ×2 (07:21→19:14)
[2018-05-05 07:26] LABS: Basophils % (A) 0 %; Eosinophils # (A) 0.2 k/uL (0-0.7); Eosinophils % (A) 1 %; HCT 30.1 % (39.0-53.0); HGB 9.3 gm/dL (13.0-17.5); Hypochromasia Moderate; Lymphocytes # (A) 2.1 k/uL (1.0-4.8); Lymphocytes % (A) 16 %; MCH 28.4 pg (25.0-35.0); MCHC 30.8 g/dL (31.0-37.0); Mean Platelet Volume 6.6; Monocytes # (A) 0.6 k/uL (0-1.0); Monocytes % (A) 4 %; Neutrophils % (A) 76 %; Platelet Count 311 k/uL (150-450); RBC 3.28 m/uL (4.30-5.90); RDW 15.3 % (11.5-15.5); WBC 13.2 k/uL (3.8-10.6)
[2018-05-05 08:28] LABS: INR 1.9 (<1.2); Partial Thromboplastin Time 52.2 sec (22.0-30.0); Prothrombin Time 17.2 sec (9.0-12.0)
[2018-05-05] MEDS: amLODIPine 5 MG TAB PO SCH (08:40)
[2018-05-05] MEDS: ASPIRIN 325 MG TAB PO SCH (08:40)
[2018-05-05] MEDS: METOPROLOL TARTRATE 25 MG TAB PO SCH ×2 (08:40→15:45)
[2018-05-05] MEDS: FINASTERIDE 5 MG TAB PO SCH (08:41)
[2018-05-05] MEDS: PANTOPRAZOLE 40 MG TABLET PO SCH (08:41)
[2018-05-05] MEDS: LISINOPRIL 2.5 MG TAB PO SCH (08:41)
[2018-05-05] MEDS: FLUoxetine HCL 20 MG CAP PO SCH (08:41)
[2018-05-05] MEDS: PREGABALIN 100 MG CAP PO SCH ×2 (08:42→20:17)
[2018-05-05] MEDS: FAMOTIDINE 20 MG TAB PO SCH ×2 (08:42→15:45)
[2018-05-05] MEDS ORDERED: LIDOCAINE 1% INJ 10MG/ML (20 ML MDV) ONE (11:22)
[2018-05-05] MEDS ORDERED: VERAPAMIL 2.5 MG/ML 2 ML AMP ONE (11:26)
[2018-05-05] MEDS ORDERED: fentaNYL (PF) 50 MCG/ML 2 ML AMP ONE (11:38)
[2018-05-05] MEDS ORDERED: SODIUM CHLORIDE 0.9% 500 ML 500 ML IV ONE (11:41)
[2018-05-05] MEDS: fentaNYL (PF) 50 MCG/ML 2 ML AMP IVP ONE ×3 (11:42→12:09)
[2018-05-05] MEDS ORDERED: LIDOCAINE 1% INJ 10MG/ML (20 ML MDV) SQ ONE (11:57)
[2018-05-05] MEDS ORDERED: MIDAZOLAM 2 MG/2 ML VIAL ONE (11:58)
[2018-05-05] MEDS ORDERED: MIDAZOLAM 2 MG/2 ML VIAL IVP ONE (11:58)
[2018-05-05] MEDS ORDERED: VERAPAMIL SYRINGE (5 MG/10 ML) INTRAARTER ONE (11:59)
[2018-05-05] MEDS ORDERED: NITROGLYCERIN 1000MCG/10ML SYRINGE INTRACORON ONE (12:02)
[2018-05-05] MEDS ORDERED: HEPARIN SODIUM 1,000 UN/ML (10ML VL) IV ONE (12:11)
[2018-05-05] MEDS ORDERED: IOPAMIDOL-370 125ML BTL INJ ONE (12:14)
[2018-05-05] MEDS ORDERED: RX INFO: IV CONTRAST WAS GIVEN 1 EACH MISC MISCELLANE PRN (12:24)
[2018-05-05] MEDS ORDERED: SODIUM CHLORIDE 0.9% 1,000 ML IV SCH (12:30)
[2018-05-05] MEDS: MULTIVITAMINS, THERA 1 EACH TAB PO SCH (15:38)
[2018-05-05] MEDS: QUEtiapine 100 MG TAB PO SCH ×2 (15:38→20:17)
[2018-05-05] MEDS: PRIMIDONE 50 MG TAB PO SCH ×3 (15:38→23:44)
[2018-05-05] MEDS: DOCUSATE 100 MG CAP PO SCH ×2 (15:38→17:48)
[2018-05-05] MEDS: FERROUS SULFATE 325 MG TAB PO SCH ×2 (15:38→17:48)
[2018-05-05] MEDS: SENNOSIDES 8.6 MG TAB PO SCH ×2 (15:38→15:46)
[2018-05-05] MEDS: CYANOCOBALAMIN 500 MCG TAB PO SCH (15:45)
--- NOTE | 2018-05-05 15:46 | CC ---
CARDIAC CATHETERIZATION REPORT DATE OF SERVICE: 05/05/2018 PERFORMING PHYSICIAN: Chaparro Mendez MD, banking and finance instructor. PROCEDURES PERFORMED: 1. Selective right and left coronary angiogram. 2. Left heart catheterization. INDICATION: This is a pleasant 72-year-old gentleman with hypertension, dyslipidemia and chronic nicotine use who underwent 3 weeks ago surgery at [facility], where he underwent hip surgery, and currently he is residing at [facility]. He was brought to the emergency room because he was experiencing chest discomfort. He was ruled in for acute euj-RD-dneedqtod myocardial infarction. The enzymes came in to be slightly elevated. The EKG showed ST changes quite concerning for ischemia. Because of that, a heart catheterization was advised. APPROACH: Right radial artery. COMPLICATIONS: None. LEVEL OF SEDATION: Moderate, with sedation length of 15 minutes. PROCEDURE DESCRIPTION: After obtaining informed consent, the patient was brought to the cardiac mine laborer. The right radial artery was cannulated using micropuncture technique, and the micropuncture wire passed easily. Then I placed a 6-Icelandic sheath in the right radial artery. After that I gave the patient 2 mg of Verapamil IA and 6000 units of heparin IV. Selective right and left coronary angiogram was performed using JR4 and JL3.5 catheters. Left heart catheterization was performed using 6-Icelandic pigtail catheter. The procedure was completed without any complication. SELECTIVE CORONARY ANGIOGRAM: 1. The right coronary artery is a large-caliber vessel and it is a dominant vessel. The RCA is calcified. The ostial RCA has a lesion that appeared to be in the range of 80% to 90%. There was dampening in the waveform in the RCA upon engaging it. The RCA in the mid portion has a tight lesion that appeared to be in the range of 80% to 90%. Distally the RCA has intermediate lesion, then bifurcates into PDA and PLV branches. The PLV branch is occluded and fills by collaterals from the left coronary system. 2. The left main is calcified with a distal lesion very complex involving the bifurcation of the LAD, ramus intermedius and circumflex, and the lesion appeared to be in the range of 80%. The lesion was best seen on the HILL cranial view. 3. The left circumflex is a moderate-caliber vessel and it is a nondominant vessel. The ostial left circumflex is involved in the lesion from the left main coronary artery. The ostial left circumflex appeared to be diseased in the range of 70% as well. The proximal circumflex is also diffusely diseased up to about 50% to 60%. Then the circumflex gives rise to a large first OM branch which has mild disease only. The circumflex continues after that as a small-caliber vessel in the AV groove. 4. The ramus intermedius is a large-caliber vessel as well with ostial lesion that appeared to be in the range of 70% to 80%. The mid and distal ramus are angiographically normal. 5. The LAD. The ostial LAD is involved in the lesion from the left main and also appeared to be diseased in the range of 70%. The mid LAD and distal LAD appeared to have mild disease only. The LAD gives rise to a medium-sized diagonal branch which appeared to have disease in the proximal portion in the range of 70% to 80%. CONCLUSION: 1. Acute qfo-TO-umvbkyyfh myocardial infarction. 2. Calcified right and left coronary systems. 3. Critical disease involving the ostial as well as mid right coronary artery with occluded PLV branch of the right coronary artery. The distal RCA fills by collaterals from the left coronary system. 4. Severe disease involving the distal left main with a complex lesion involving the trifurcation of the left circumflex, ramus intermedius and left anterior descending artery. HEMODYNAMICS: The left ventricular end-diastolic pressure was about 10 mmHg without significant gradient across the aortic valve. POST-PROCEDURE MANAGEMENT: Given his anatomy, I did recommend consulting surgeon for the evaluation of coronary artery bypass grafting. Meanwhile, the patient will be transferred to his room. There is no family to be updated here. He does have a granddaughter, whom I am going to contact later on today via phone. MMODL / IJN: [id number] /
--- NOTE | 2018-05-05 15:52 | LTR ---
May 05, 2018 To: Dr. Lee Re: Nehemiah Tucker (1945) Dear Dr. Lee, Mr. Nehemiah Tucker was brought to the emergency room at [facility] with chest discomfort and he was ruled in for acute esu-TV-ilkebzsna myocardial infarction. His cardiac enzymes as well as his EKG were quite concerning for ischemia. Because of that, a heart catheterization was advised. I did perform a heart catheterization on him and that revealed severe triple-vessel coronary artery disease. I did recommend proceeding with coronary artery bypass grafting, given his anatomy. I want to thank you for allowing me to participate in his care. Please do not hesitate to call if you have any question or concern. Sincerely, MD NAN Lee / ARCELIA: [id number] /
--- NOTE | 2018-05-05 17:00 | US ---
EXAMINATION TYPE: US carotid duplex BILAT DATE OF EXAM: 05/05/2018 COMPARISON: NONE CLINICAL HISTORY: PreOp Cardiac Surgery. EXAM MEASUREMENTS: RIGHT: Peak Systolic Velocity (PSV) cm/sec ----- Right CCA: 98.7 ----- Right ICA: 85.7 ----- Right ECA: 129.8 ICA/CCA ratio: 0.9 RIGHT: End Diastole cm/sec ----- Right CCA: 14.4 ----- Right ICA: 20.0 ----- Right ECA: 0.0 LEFT: Peak Systolic Velocity (PSV) cm/sec ----- Left CCA: 87.1 ----- Left ICA: 114.5 ----- Left ECA: 235.7 ICA/CCA ratio: 1.3 LEFT: End Diastole cm/sec ----- Left CCA: 9.1 ----- Left ICA: 20.8 ----- Left ECA: 48.2 VERTEBRALS (direction of flow): Right Vertebral: diminished, antegrade Left Vertebral: Antegrade Moderate to severe bilateral plaque, does not elevate velocities in either ICA, no significant stenos is by numerical values. IMPRESSION: Although there are no values to suggest hemodynamically significant stenosis other than within the left external carotid artery, the degree of grayscale plaquing raises suspicion for multif ocal stenosis. CTA neck could be performed for further evaluation. Criteria for Assigning % of Stenosis / Diameter reduction (Estimation based on the indirect measurements of the internal carotid artery velocities (ICA PSV). 1. Normal (no stenosis)=ICA PSV < 125 cm/s: ratio < 2.0: ICA EDV<40 cm/s. 2. Less than 50% stenosis=ICA PSV < 125 cm/s: ratio < 2.0: ICA EDV<40 cm/s. 3. 50 to 69% stenosis=ICA PSV of 125 to 230 cm/s: ration 2.0 ? 4.0: ICA EDV 40-100 cm/s. 4. Greater than 70% stenosis to near occlusion= ICA PSV > 230 cm/s: ratio > 4.0: ICA EDV > 100 cm/s. 5. Near occlusion= ICA PSV velocities may be low or undetectable: variable ratio and ICA EDV. 6. Total occlusion=unable to detect flow.
[2018-05-05 17:11] LABS: Appearance,Urine Clear (Clear); Bilirubin,Urine Negative (Negative); Blood,Urine Negative (Negative); Color,Urine Light Yellow; Glucose,Urine (UA) Negative (Negative); Ketones,Urine Negative (Negative); Leukocyte Esterase,Urine Negative (Negative); Nitrite,Urine Negative (Negative); Protein,Urine Negative (Negative); Specific Gravity,Urine 1.024 (1.001-1.035); Urobilinogen,Urine <2.0 mg/dL (<2.0)
--- NOTE | 2018-05-05 19:43 | PN ---
PROGRESS NOTE DATE OF SERVICE: 05/05/2018. PRESENTING COMPLAINT: Chest pain. INTERVAL HISTORY: The patient with multiple medical problems, resident of [facility], who 2 weeks ago had left hip fracture, presented with acute PR. Had a cardiac catheterization showing significant disease, not amenable to angioplasty/stenting. Cardiothoracic surgery has been consulted. The patient did have episode of chest pain earlier today. Lying in bed. REVIEW OF SYSTEMS: Done for constitutional, cardiovascular, GI, pulmonary; relevant findings as above. CURRENT MEDICATIONS: Reviewed, include IV heparin. PHYSICAL EXAMINATION: Temperature 97.4, pulse 60, respiratory 18, blood pressure 122/57, pulse ox 93 percent. GENERAL APPEARANCE: Lying in bed, awake. EYES: Pupils equal. Conjunctivae normal. Sclarea normal. HEENT: External nose and ears normal. Oral cavity normal. JVD not raised. Mass not palpable. RESPIRATORY: Effort. LUNGS: Diminished breath sounds. CARDIOVASCULAR: 1st and 2nd sounds, no edema. ABDOMEN: Soft, nontender. Liver and spleen not palpable. PSYCHIATRY: Alert and oriented x3. Mood and affect normal. INVESTIGATIONS: White count 13.2, hemoglobin 9.3, INR 1.9. ASSESSMENT: 1. Acute non-Q-wave myocardial infarction. 2. Cardiac catheterization showing significant triple-vessel disease, not amenable to angioplasty/stenting. 3. Chronic obstructive pulmonary disease in an ex-smoker. 4. Gastroesophageal reflux disease. 5. Hyperlipidemia. 6. Essential hypertension. 7. Benign prostatic hypertrophy. 8. History of seizure disorder. 9. Depression, not otherwise specified. 10.Recent left hip fracture about 2 weeks ago with arthroplasty. 11.Normocytic anemia, cause undetermined. 12.IV heparin monitoring. PLAN: The patient continues to have post infarct angina. Cardiothoracic surgery has been consulted. The patient rather benefit sooner than later intervention. Will let Cardiology and Cardiothoracic surgery finalize that. No family is present. MMODL / IJN: [id number] /
[2018-05-05 19:45] LABS: Magnesium 1.8 mg/dL (1.6-2.3)
[2018-05-05] MEDS: HEPARIN SOD,PORK IN 0.45% NACL 25,000 UNIT in 0.45% NACL 1 500ML.BAG IV SCH (19:57)
[2018-05-05] MEDS: EZETIMIBE 10 MG TAB PO SCH (20:17)
[2018-05-05] MEDS: MUPIROCIN 2% OINT 22 GM TUBE NASAL SCH (20:17)
[2018-05-05] MEDS: ATORVASTATIN 40 MG TAB PO SCH (20:17)
[2018-05-06] MEDS: HYDROcodone/APAP 10-325MG 1 EACH TAB PO PRN ×5 (03:42→23:52)
[2018-05-06] MEDS: NITROGLYCERIN OINT 1 INCH/GM PACKET TOPICAL SCH ×3 (05:03→17:14)
[2018-05-06] MEDS: CARBIDOPA-LEVODOPA 25-100 MG 1 EACH TAB PO SCH ×3 (05:14→21:28)
[2018-05-06] MEDS: IPRATROPIUM-ALBUTEROL 3 ML NEB INHALATION PRN ×2 (07:28→19:15)
[2018-05-06] MEDS: FORMOTEROL FUMARATE 20 MCG/2 ML NEBU INHALATION SCH ×2 (07:28→19:15)
[2018-05-06 08:07] LABS: INR 1.4 (<1.2); Partial Thromboplastin Time 31.4 sec (22.0-30.0); Prothrombin Time 13.4 sec (9.0-12.0)
[2018-05-06 08:09] LABS: ALT 23 U/L (21-72); AST 18 U/L (17-59); Albumin 2.6 g/dL (3.5-5.0); Alkaline Phosphatase 89 U/L (38-126); Anion Gap 4 mmol/L; Blood Urea Nitrogen 21 mg/dL (9-20); Calcium 8.3 mg/dL (8.4-10.2); Carbon Dioxide 26 mmol/L (22-30); Chloride 110 mmol/L (98-107); Glucose 81 mg/dL (74-99); Potassium 4.1 mmol/L (3.5-5.1); Sodium 140 mmol/L (137-145); Total Bilirubin 0.2 mg/dL (0.2-1.3); Total Protein 5.8 g/dL (6.3-8.2)
[2018-05-06] MEDS: ASPIRIN 325 MG TAB PO SCH (08:27)
[2018-05-06] MEDS: QUEtiapine 100 MG TAB PO SCH ×2 (08:27→21:28)
[2018-05-06] MEDS: LISINOPRIL 2.5 MG TAB PO SCH (08:27)
[2018-05-06] MEDS: FERROUS SULFATE 325 MG TAB PO SCH ×2 (08:27→17:13)
[2018-05-06] MEDS: FLUoxetine HCL 20 MG CAP PO SCH (08:27)
[2018-05-06] MEDS: amLODIPine 5 MG TAB PO SCH (08:27)
[2018-05-06] MEDS: FINASTERIDE 5 MG TAB PO SCH (08:27)
[2018-05-06] MEDS: FAMOTIDINE 20 MG TAB PO SCH ×2 (08:27→17:13)
[2018-05-06] MEDS: METOPROLOL TARTRATE 25 MG TAB PO SCH ×2 (08:27→17:14)
[2018-05-06] MEDS: SENNOSIDES 8.6 MG TAB PO SCH ×2 (08:28→17:12)
[2018-05-06] MEDS: PRIMIDONE 50 MG TAB PO SCH ×2 (08:28→17:13)
[2018-05-06] MEDS: PREGABALIN 100 MG CAP PO SCH ×2 (08:28→21:28)
[2018-05-06] MEDS: PANTOPRAZOLE 40 MG TABLET PO SCH (08:28)
[2018-05-06] MEDS: DOCUSATE 100 MG CAP PO SCH ×2 (08:32→17:12)
[2018-05-06 08:47] LABS: Basophils % (A) 0 %; Eosinophils # (A) 0.2 k/uL (0-0.7); Eosinophils % (A) 2 %; HCT 23.6 % (39.0-53.0); Hypochromasia Slight; Lymphocytes # (A) 1.8 k/uL (1.0-4.8); Lymphocytes % (A) 20 %; MCH 29.8 pg (25.0-35.0); MCHC 32.8 g/dL (31.0-37.0); MCV 90.9 fL (80.0-100.0); Mean Platelet Volume 6.8; Monocytes # (A) 0.5 k/uL (0-1.0); Monocytes % (A) 5 %; Neutrophils # (A) 6.2 k/uL (1.3-7.7); Neutrophils % (A) 70 %; Platelet Count 265 k/uL (150-450); RBC 2.59 m/uL (4.30-5.90); RDW 15.5 % (11.5-15.5); WBC 8.9 k/uL (3.8-10.6)
[2018-05-06 08:53] LABS: HGB 7.7 gm/dL (13.0-17.5)
--- NOTE | 2018-05-06 12:14 | P.GSCN ---
History of Present Illness Consult date: 05/05/18 Reason for Consult: Non-ST elevated myocardial infarction this admission, coronary artery disease with left main disease. Requesting physician: Chaparro Mendez History of present illness: This is 72-year-old gentleman who is followed by Dr. Angela Lee on an outpatient basis. His past medical history significant for hypertension, hyperlipidemia, major depressive disorder with anxiety, chronic obstructive pulmonary disease, chronic normocytic anemia, benign prostatic hypertrophy, Parkinson's disease, chronic nicotine dependence, gastroesophageal reflux disease, osteoarthritis, cataracts, recent history of fall from standing and subsequent left hip replacement 3 weeks ago at [facility] and was complicated by an acute pulmonary embolus postoperatively and has a history of TIA. The patient has been at [facility] rehab facility for the past week status post left hip replacement for further rehabilitation needs. Yesterday while at [facility] he complained of generalized weakness and chest pain which radiated down both of his arms. He reports that the pain came on while at rest. He denies any complaints of shortness of breath, nausea, vomiting, diaphoresis or syncope. Subsequently he was transferred to [facility] emergency department where a 12-lead EKG was completed which showed normal sinus rhythm with ST and T wave abnormalities with heart rate of 76. A chest x-ray was completed which showed pulmonary interstitial fibrosis with no active cardiopulmonary disease. For further evaluation and a CT of his chest was completed which was negative for pulmonary embolus, but did demonstrate interstitial pulmonary fibrotic changes and a a few paratracheal and mediastinal lymph nodes that measure less than 1 cm. Lab work was obtained which showed a hemoglobin of 9.0, hematocrit 28.0, platelet count 302, BUN 33, creatinine 1.04, initial troponin 0.014 and as high as 0.76. Due to the patient 's presenting symptoms and elevated troponins a consult was placed to Dr. Mendez from cardiology for further workup and evaluation. A 2-D echocardiogram was completed which showed an overall left ventricular systolic function to be normal with an ejection fraction between 55 and 60%, basal inferior LV wall motion to be hypokinetic, mild to moderate aortic valve sclerosis, mild aortic valve regurgitation, mild aortic valve stenosis, a peak/millimeter gradient across the aortic valve showed him to be 15.0 mmHg\7.63 mmHg, mild mitral valve regurgitation, mild tricuspid valve regurgitation and trace to mild pulmonic valve regurgitation. This morning after obtaining consent the patient underwent a cardiac catheterization which demonstrated a left main stenosis of 80%, a 70% stenosis to his proximal left anterior descending coronary artery, a 70% stenosis to his circumflex coronary artery, and a 90% stenosis to his right coronary artery. The heart catheterization results were reviewed with the patient by Dr. Mendez a consult was placed to Dr. Salinas from cardiothoracic surgery for further evaluation and recommendations for possible myocardial revascularization surgery. Review of Systems A 14 point review of systems was completed and was negative except as mentioned in HPI. Past Medical History Past Medical History: COPD, CVA/TIA, GERD/Reflux, Hyperlipidemia, Hypertension, Neurologic Disorder (Parkinson's disease), Prostate Disorder, Pulmonary Embolus (PE) Additional Past Medical History / Comment(s): LAST SEIZURE -2002. PT STATES NO CHANGES TO HEALTH HX SINCE 04/12/16 EXCEPT FOR CATARACT SURGERY 04/13/16. History of Any Multi-Drug Resistant Organisms: None Reported Past Surgical History: Cholecystectomy, Heart Catheterization, Hernia Repair, Joint Replacement (Left hip.), Orthopedic Surgery Additional Past Surgical History / Comment(s): NOSE SURGERY X3, RIGHT SHOULDER ROTATOR cuff, cervical fusion, bilateral CATARACT surgery. Past Anesthesia/Blood Transfusion Reactions: Motion Sickness Past Psychological History: Anxiety, Depression Smoking Status: Current every day smoker (Has not smoked since his left hip surgery.) Past Alcohol Use History: None Reported Past Drug Use History: None Reported - Past Family History Father Family Medical History: Cancer Additional Family Medical History / Comment(s): STOMACH CANCER, at age 46. Mother Family Medical History: No Reported History Additional Family Medical History / Comment(s): Reports he does not know his mother's history. Medications and Allergies Home Medications Medication Instructions Recorded Confirmed Type Aspirin 81 mg PO DAILY@1700 04/12/16 05/03/18 History Atorvastatin [Lipitor] 40 mg PO HS@2100 05/03/18 05/03/18 History Bisacodyl [Dulcolax] 10 mg RECTAL DAILY PRN 05/03/18 05/03/18 History Carbidopa-Levodopa 25-100 mg 1 tab PO TID@0600,1400,2100 05/03/18 05/03/18 History [Sinemet 25-100 mg] Cyanocobalamin [Vitamin B-12] 1,000 mcg PO DAILY@1700 05/03/18 05/03/18 History Dexlansoprazole [Dexilant] 60 mg PO DAILY 05/03/18 05/03/18 History Docusate [Colace] 100 mg PO BID@0800,1700 05/03/18 05/03/18 History Dutasteride 0.5 mg PO DAILY@0800 05/03/18 05/03/18 History Ergocalciferol [Vitamin D2] 50,000 unit PO MO 05/03/18 05/03/18 History Ezetimibe [Zetia] 10 mg PO DAILY@2100 05/03/18 05/03/18 History FLUoxetine HCL [PROzac] 20 mg PO DAILY@0800 05/03/18 05/03/18 History Ferrous Sulfate [Feosol] 325 mg PO BID@0800,1700 05/03/18 05/03/18 History HYDROcodone/APAP 10-325MG [[place] 1 tab PO Q4HR PRN 05/03/18 05/03/18 History 10-325] Ipratropium-Albuterol Nebulize 3 ml INHALATION RT-QID PRN 05/03/18 05/03/18 History [Duoneb 0.5 mg-3 mg/3 ml Soln] Lactose-Reduced Food [Ensure Plus] 1 can PO TID 05/03/18 05/03/18 History Magnesium Hydroxide [Milk of 30 ml PO DAILY PRN 05/03/18 05/03/18 History Magnesia] Meclizine [Antivert] 12.5 mg PO BID PRN 05/03/18 05/03/18 History Melatonin 3 mg PO HS PRN 05/03/18 05/03/18 History Metoprolol Tartrate [Lopressor] 25 mg PO BID@0800,1700 05/03/18 05/03/18 History Multivitamins, Thera [Multivitamin 1 tab PO DAILY 05/03/18 05/03/18 History (formulary)] Na Phos,M-B/Na Phos,Di-Ba [Fleet 1 unit RECTAL DAILY PRN 05/03/18 05/03/18 History Adult] Pregabalin [Lyrica] 100 mg PO BID@0800,2100 05/03/18 05/03/18 History Primidone [Mysoline] 50 mg PO Q8HR 05/03/18 05/03/18 History QUEtiapine XR [SEROquel XR] 200 mg PO HS@2100 05/03/18 05/03/18 History Ranitidine HCl [Zantac] 150 mg PO BID@0800,1700 05/03/18 05/03/18 History Sennosides [Senna] 11.2 mg PO BID@0800,1700 05/03/18 05/03/18 History Umeclidinium Brm/Vilanterol Tr 1 puff INHALATION RT-DAILY@0800 05/03/18 History [Anoro Ellipta 62.5-25 Mcg INH] Warfarin [Coumadin] 2 mg PO SUMOTHFRSA 05/03/18 05/03/18 History Warfarin [Coumadin] 2.5 mg PO DIRECTED 05/03/18 05/03/18 History amLODIPine [Norvasc] 5 mg PO DAILY@0800 05/03/18 05/03/18 History Allergies Allergy/AdvReac Type Severity Reaction Status Date / Time morphine Allergy Itching Verified 05/03/18 23:35 oxycodone [From OxyContin] Allergy Itching Verified 05/03/18 23:35 propoxyphene Allergy Unknown Verified 05/03/18 23:35 [From Darvocet-N] Surgical - Exam Vital Signs Temp Pulse Resp BP Pulse Ox 98.8 F 65 16 141/62 96 05/03/18 20:21 05/03/18 20:21 05/03/18 20:21 05/03/18 20:21 05/03/18 20:21 - General well nourished, no distress, no pain, chronically ill - Eyes PERRL, normal ocular movement - ENT normal pinna, normal nares, normal mucosa, no hearing loss, no congestion, dentures (Operative) - Neck Bilateral bruits, neck is supple, no lymphadenopathy. no masses, trachea midline, no venous distension carotid bruit: bilateral - Respiratory Lungs sounds essentially clear throughout. Respirations are symmetrical and nonlabored. Oxygen saturation are 94% on room air. - Cardiovascular Regular rhythm and rate. S1 and S2 present, negative for S3, gallop or murmur. No edema present. - Abdomen Abdomen is soft, nontender and nondistended. Active bowel sounds all 4 abdominal quadrants. No organomegaly. No guarding or rigidity. - Genitourinary Deferred - Rectum Deferred - Integumentary no rash, no growths, no abnormal pigmentation - Neurologic normal coordination, normal sensation - Musculoskeletal Generalized weakness normal posture - Psychiatric oriented to time, oriented to person, oriented to place, speech is normal, memory intact Results - Labs 05/06/18 06:52 05/06/18 06:52 Abnormal Lab Results - Last 24 Hours (Table) 05/04/18 05/05/18 05/05/18 Range/Units 22:02 06:43 06:43 WBC 13.2 H (3.8-10.6) k/uL RBC 3.28 L (4.30-5.90) m/uL Hgb 9.3 L (13.0-17.5) gm/dL Hct 30.1 L (39.0-53.0) % MCHC 30.8 L (31.0-37.0) g/dL Neutrophils # 10.0 H (1.3-7.7) k/uL PT 17.2 H (9.0-12.0) sec INR 1.9 H (<1.2) APTT 47.1 H 52.2 H (22.0-30.0) sec - Imaging Comments: Heart catheterization results were reviewed. 2-D echocardiogram results reviewed. Chest x-ray: report reviewed, image reviewed CT scan - chest: report reviewed, image reviewed Assessment and Plan (1) Non-ST elevated myocardial infarction Current Visit: Yes Status: Acute Code(s): I21.4 - NON-ST ELEVATION (NSTEMI) MYOCARDIAL INFARCTION SNOMED Code(s): 315992007 (2) Coronary artery disease Current Visit: Yes Status: Acute Code(s): I25.10 - ATHSCL HEART DISEASE OF [place] CORONARY ARTERY W/O ANG PCTRS SNOMED Code(s): 46849859 (3) Hypertension Current Visit: Yes Status: Acute Code(s): I10 - ESSENTIAL (PRIMARY) HYPERTENSION SNOMED Code(s): 55403455 (4) Hyperlipidemia Current Visit: Yes Status: Acute Code(s): E78.5 - HYPERLIPIDEMIA, UNSPECIFIED SNOMED Code(s): 13871438 (5) History of pulmonary embolus (PE) Current Visit: Yes Status: Acute Code(s): Z86.711 - PERSONAL HISTORY OF PULMONARY EMBOLISM SNOMED Code(s): 274847925 (6) Fall from standing Current Visit: Yes Status: Acute Code(s): W19.XXXA - UNSPECIFIED FALL, INITIAL ENCOUNTER SNOMED Code(s): 9593949 (7) Major depressive disorder Current Visit: Yes Status: Acute Code(s): F32.9 - MAJOR DEPRESSIVE DISORDER , SINGLE EPISODE, UNSPECIFIED SNOMED Code(s): 899787168 (8) Anxiety Current Visit: Yes Status: Acute Code(s): F41.9 - ANXIETY DISORDER, UNSPECIFIED SNOMED Code(s): 15087818 (9) Nicotine dependence Current Visit: Yes Status: Acute Code(s): F17.200 - NICOTINE DEPENDENCE, UNSPECIFIED, UNCOMPLICATED SNOMED Code(s): 01888829 (10) COPD (chronic obstructive pulmonary disease) Current Visit: Yes Status: Acute Code(s): J44.9 - CHRONIC OBSTRUCTIVE PULMONARY DISEASE, UNSPECIFIED SNOMED Code(s): 54063198 (11) BPH (benign prostatic hyperplasia) Current Visit: Yes Status: Acute Code(s): N40.0 - BENIGN PROSTATIC HYPERPLASIA WITHOUT LOWER URINRY TRACT SYMP SNOMED Code(s): 368331935 (12) Normocytic anemia Current Visit: Yes Status: Acute Code(s): D64.9 - ANEMIA, UNSPECIFIED SNOMED Code(s): 388938512 (13) GERD (gastroesophageal reflux disease) Current Visit: Yes Status: Acute Code(s): K21.9 - GASTRO-ESOPHAGEAL REFLUX DISEASE WITHOUT ESOPHAGITIS SNOMED Code(s): 790174546 (14) Osteoarthritis Current Visit: Yes Status: Acute Code(s): M19.90 - UNSPECIFIED OSTEOARTHRITIS, UNSPECIFIED SITE SNOMED Code(s): 141088539 (15) History of TIA (transient ischemic attack) Current Visit: Yes Status: Acute Code(s): Z86.73 - PRSNL HX OF TIA (TIA), AND CEREB INFRC W/O RESID DEFICITS SNOMED Code(s): 832381058 Plan: The patient was seen and examined. His chart and diagnostics were reviewed. The case was discussed with Dr. Salinas from cardiothoracic surgery. Preoperative testing was initiated. Preoperative teaching was initiated. Continue to optimize medical management at this time, continue aspirin, statin, beta carla, Lico inhibitor and heparin drip. Medical management per primary care service recommendations. Cardiology recommendations per Dr. Mendez. The patient's carotid duplex study is suggestive of a degree of varghese scale plaquing which is suspicious for multifocal stenosis. We will obtain a CTA of his neck as recommended. The patient was seen and examined by Dr. Salinas, risks and benefits of myocardial revascularization surgery was discussed with the patient. Once his preoperative workup has all been obtained he will be scheduled for myocardial revascularization surgery as the patient wishes to proceed with surgery. Thank you Dr. Mendez for this consult and we'll look forward to working with you in the care of your patient. Time with Patient: Greater than 30
--- NOTE | 2018-05-06 13:27 | P.CNPUL ---
History of Present Illness Consult date: 05/06/18 Reason for consult: COPD, other (Preoperative evaluation for cardiac surgery) History of present illness: 72-year-old male patient who came into the hospital because of an acute non-ST segment elevation myocardial infarction. The patient is being considered for cardiac bypass surgery and I was asked to evaluate the patient's pulmonary status preoperatively. This patient has multiple medical problems and comorbidities. Most significant of which is a recent fall and the left hip fracture for which the patient was taken to [facility] and the patient underwent ORIF and his postoperative course was long and slow to recover and the patient also had a pulmonary embolism and he was discharged to [facility] where the patient has been there for the past 3 weeks undergoing rehabilitation. Yet again, his recovery has been slow and the patient has not been able to regain back his normal mobility. Currently is on anticoagulation. 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 He has a previous history of TIA, major depression and the patient is a smoker and has a component of COPD. He has been able to smoke as the patient got transferred to rehabilitation/ECF. This patient came into the hospital because of chest pain. He was diagnosed having an acute non-ST segment elevation myocardial infarction. Cardiac catheterization showed severe triple-vessel disease. CT angios the chest was done and showed no evidence of any pulmonary embolism. Nevertheless, the patient had some COPD and some limited interstitial patches bilaterally which could be essentially chronic and not reflective of any acute pneumonia or interstitial lung disease. His FEV1 is in order of 80% of predicted. He has poor insight on his condition. He is currently free of any chest pain. He'll be seen by cardiothoracic surgery. Review of Systems CONSTITUTIONAL: Denies fever. Denies chills. EYES: Denies blurred vision. Denies vision changes. Denies eye pain. EARS, NOSE, MOUTH & THROAT: Denies headache. Denies sore throat. Denies ear pain. CARDIOVASCULAR: Denies chest pain. Denies shortness of breath. Denies orthopnea. Denies PND. Denies palpitations. RESPIRATORY: Denies cough. GASTROINTESTINAL: Denies abdominal pain. Denies diarrhea. Denies constipation. Denies nausea. Denies vomiting. MUSCULOSKELETAL: Denies myalgias. The patient is recovering from a left hip ORIF and the surgical site is clean for now. He does have history of falls. INTEGUMENTARY: Denies pruitis. Denies rash. NEUROLOGIC: Denies numbness. Denies tingling. The patient is still weak. The patient is also having tremors related to the previous history of Parkinson's disease. PSYCHIATRIC: Denies anxiety. He does have history of depression ENDOCRINE: Denies fatigue. Denies weight change. Denies polydipsia. Denies polyurina. GENITOURINARY: Denies burning, hematuria or urgency with micturation. HEMATOLOGIC: Denies history of anemia. Denies bleeding. Past Medical History Past Medical History: COPD, CVA/TIA, GERD/Reflux, Hyperlipidemia, Hypertension, Neurologic Disorder (Parkinson's disease), Prostate Disorder, Pulmonary Embolus (PE) Additional Past Medical History / Comment(s): Coronary artery disease, COPD, hypertension, hyperlipidemia, Parkinson's disease, history of postsurgical pulmonary embolism, BPH, history of TIA, history of major depression, remote history of seizure disorder last seizure was in 2002 History of Any Multi-Drug Resistant Organisms: None Reported Past Surgical History: Cholecystectomy, Heart Catheterization, Hernia Repair, Joint Replacement (Left hip.), Orthopedic Surgery Additional Past Surgical History / Comment(s): NOSE SURGERY X3, RIGHT SHOULDER ROTATOR cuff, cervical fusion, bilateral CATARACT surgery. Past Anesthesia/Blood Transfusion Reactions: Motion Sickness Past Psychological History: Anxiety, Depression Smoking Status: Current every day smoker (Has not smoked since his left hip surgery.) Past Alcohol Use History: None Reported Past Drug Use History: None Reported - Past Family History Father Family Medical History: Cancer Additional Family Medical History / Comment(s): STOMACH CANCER, at age 46. Mother Family Medical History: No Reported History Additional Family Medical History / Comment(s): Reports he does not know his mother's history. Medications and Allergies Home Medications Medication Instructions Recorded Confirmed Type Aspirin 81 mg PO DAILY@1700 04/12/16 05/03/18 History Atorvastatin [Lipitor] 40 mg PO HS@2100 05/03/18 05/03/18 History Bisacodyl [Dulcolax] 10 mg RECTAL DAILY PRN 05/03/18 05/03/18 History Carbidopa-Levodopa 25-100 mg 1 tab PO TID@0600,1400,2100 05/03/18 05/03/18 History [Sinemet 25-100 mg] Cyanocobalamin [Vitamin B-12] 1,000 mcg PO DAILY@1700 05/03/18 05/03/18 History Dexlansoprazole [Dexilant] 60 mg PO DAILY 05/03/18 05/03/18 History Docusate [Colace] 100 mg PO BID@0800,1700 05/03/18 05/03/18 History Dutasteride 0.5 mg PO DAILY@0800 05/03/18 05/03/18 History Ergocalciferol [Vitamin D2] 50,000 unit PO MO 05/03/18 05/03/18 History Ezetimibe [Zetia] 10 mg PO DAILY@2100 05/03/18 05/03/18 History FLUoxetine HCL [PROzac] 20 mg PO DAILY@0800 05/03/18 05/03/18 History Ferrous Sulfate [Feosol] 325 mg PO BID@0800,1700 05/03/18 05/03/18 History HYDROcodone/APAP 10-325MG [Ripton 1 tab PO Q4HR PRN 05/03/18 05/03/18 History 10-325] Ipratropium-Albuterol Nebulize 3 ml INHALATION RT-QID PRN 05/03/18 05/03/18 History [Duoneb 0.5 mg-3 mg/3 ml Soln] Lactose-Reduced Food [Ensure Plus] 1 can PO TID 05/03/18 05/03/18 History Magnesium Hydroxide [Milk of 30 ml PO DAILY PRN 05/03/18 05/03/18 History Magnesia] Meclizine [Antivert] 12.5 mg PO BID PRN 05/03/18 05/03/18 History Melatonin 3 mg PO HS PRN 05/03/18 05/03/18 History Metoprolol Tartrate [Lopressor] 25 mg PO BID@0800,1700 05/03/18 05/03/18 History Multivitamins, Thera [Multivitamin 1 tab PO DAILY 05/03/18 05/03/18 History (formulary)] Na Phos,M-B/Na Phos,Di-Ba [Fleet 1 unit RECTAL DAILY PRN 05/03/18 05/03/18 History Adult] Pregabalin [Lyrica] 100 mg PO BID@0800,2100 05/03/18 05/03/18 History Primidone [Mysoline] 50 mg PO Q8HR 05/03/18 05/03/18 History QUEtiapine XR [SEROquel XR] 200 mg PO HS@2100 05/03/18 05/03/18 History Ranitidine HCl [Zantac] 150 mg PO BID@0800,1700 05/03/18 05/03/18 History Sennosides [Senna] 11.2 mg PO BID@0800,1700 05/03/18 05/03/18 History Umeclidinium Brm/Vilanterol Tr 1 puff INHALATION RT-DAILY@0800 05/03/18 History [Anoro Ellipta 62.5-25 Mcg INH] Warfarin [Coumadin] 2 mg PO SUMOTHFRSA 05/03/18 05/03/18 History Warfarin [Coumadin] 2.5 mg PO DIRECTED 05/03/18 05/03/18 History amLODIPine [Norvasc] 5 mg PO DAILY@0800 05/03/18 05/03/18 History Allergies Allergy/AdvReac Type Severity Reaction Status Date / Time morphine Allergy Itching Verified 05/03/18 23:35 oxycodone [From OxyContin] Allergy Itching Verified 05/03/18 23:35 propoxyphene Allergy Unknown Verified 05/03/18 23:35 [From Darvocet-N] Physical Exam Vitals: Vital Signs Temp Pulse Pulse Resp BP Pulse Ox 05/06/18 12:00 97.9 F 56 L 18 136/56 99 05/06/18 08:00 97.6 F 58 L 16 150/66 96 05/06/18 07:45 62 05/06/18 07:39 60 05/06/18 07:38 60 05/06/18 07:30 64 05/06/18 04:00 98.3 F 64 16 140/56 94 L 05/06/18 03:45 16 05/06/18 00:00 98.2 F 63 16 139/61 96 05/05/18 23:26 16 05/05/18 20:00 16 05/05/18 19:42 97.9 F 60 16 146/56 100 05/05/18 19:28 62 05/05/18 19:24 58 L 05/05/18 19:16 58 L 05/05/18 16:00 97.8 F 58 L 16 121/49 96 05/05/18 14:40 59 L 112/55 05/05/18 14:10 59 L 100/52 05/05/18 13:40 59 L 120/56 05/05/18 13:25 58 L 113/57 Intake and Output 05/05/18 05/06/18 05/06/18 22:59 06:59 14:59 Other: Voiding Method Diaper Diaper Diaper Incontinent Incontinent Incontinent # Voids 1 1 1 GENERAL: This is a 72-year-old male in no apparent distress at the time of my examination. HEENT: Head is atraumatic, normocephalic. Pupils are equal, round. Sclerae anicteric. Conjunctivae are clear. Mucous membranes of the mouth are moist. Neck is supple. There is no jugular venous distention. No carotid bruit is heard. LUNGS: Clear to auscultation no wheezes, rales or rhonchi. No chest wall tenderness is noted on palpation or with deep breathing. HEART: Regular rate and rhythm without murmurs, rubs or gallops. S1 and S2 heard. ABDOMEN: Soft, nontender. Bowel sounds are heard. No organomegaly noted. EXTREMITIES: No evidence of peripheral edema and no calf tenderness noted. VASCULAR: Radial and dorsalis pedis pulses palpated, no evidence of clubbing. NEUROLOGIC: Patient is awake, alert and oriented x3. He has resting tremors. He has difficulties with memory. He has poor balance and he has also history of recurrent falls. Results - Laboratory Findings CBC and BMP: 05/06/18 06:52 05/06/18 06:52 PT/INR, D-dimer PT 13.4 sec (9.0-12.0) H 05/06/18 06:52 INR 1.4 (<1.2) H 05/06/18 06:52 D-Dimer 1.43 mg/L FEU (<0.60) H 05/03/18 20:28 Abnormal lab findings: Abnormal Labs 05/03/18 05/03/18 05/03/18 20:28 20:28 20:28 WBC RBC 3.05 L Hgb 9.0 L Hct 28.0 L MCHC RDW 15.7 H Neutrophils # PT INR APTT D-Dimer Chloride 109 H BUN 33 H Glucose 100 H Calcium Alkaline Phosphatase 127 H Total Creatine Kinase 23 L Troponin I Total Protein Albumin 3.1 L HDL Cholesterol 05/03/18 05/04/18 05/04/18 20:28 03:56 03:56 WBC RBC 2.77 L Hgb 8.1 L Hct 25.6 L MCHC RDW 15.6 H Neutrophils # PT 12.2 H 13.5 H INR 1.3 H 1.4 H APTT 30.8 H D-Dimer 1.43 H Chloride BUN Glucose Calcium Alkaline Phosphatase Total Creatine Kinase Troponin I Total Protein Albumin HDL Cholesterol 05/04/18 05/04/18 05/04/18 03:56 03:56 08:38 WBC RBC Hgb Hct MCHC RDW Neutrophils # PT INR APTT D-Dimer Chloride BUN Glucose Calcium Alkaline Phosphatase Total Creatine Kinase 27 L 25 L Troponin I 0.076 H* 0.047 H* Total Protein Albumin HDL Cholesterol 35 L 05/04/18 05/04/18 05/05/18 11:35 22:02 06:43 WBC 13.2 H RBC 3.28 L Hgb 9.3 L Hct 30.1 L MCHC 30.8 L RDW Neutrophils # 10.0 H PT INR APTT 49.1 H 47.1 H D-Dimer Chloride BUN Glucose Calcium Alkaline Phosphatase Total Creatine Kinase Troponin I Total Protein Albumin HDL Cholesterol 05/05/18 05/05/18 05/05/18 06:43 19:01 19:01 WBC RBC Hgb Hct MCHC RDW Neutrophils # PT 17.2 H INR 1.9 H APTT 52.2 H D-Dimer Chloride BUN Glucose Calcium Alkaline Phosphatase Total Creatine Kinase Troponin I 0.050 H* Total Protein Albumin HDL Cholesterol 35 L 05/06/18 05/06/18 05/06/18 06:52 06:52 06:52 WBC RBC 2.59 L Hgb 7.7 L D Hct 23.6 L MCHC RDW Neutrophils # PT 13.4 H INR 1.4 H APTT 31.4 H D-Dimer Chloride 110 H BUN 21 H Glucose Calcium 8.3 L Alkaline Phosphatase Total Creatine Kinase Troponin I Total Protein 5.8 L Albumin 2.6 L HDL Cholesterol - Diagnostic Findings CT scan - chest: image reviewed Assessment and Plan Plan: Assessment 1 multivessel coronary artery disease status post acute non-ST segment elevation myocardial infarction, patient is being considered for cardiac bypass surgery. 2 recent history of fall and left femoral neck fracture, the patient is status post ORIF and the patient was at [facility] where he was undergoing rehabilitation following his hip surgery. 3 postsurgical pulmonary embolism mechanical ventilation with warfarin which was held for the purpose of cardiac catheterization. INR was 1.9 at time of admission currently subtherapeutic. Repeat CAT scan of the chest that was done during this current hospital stay showed no evidence of any pulmonary embolism. 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 I think overall we will do very poorly if surgeries performed. It seems that his baseline performance and functional status has been poor. The patient has been having issues with balance and fall and it has taken a more than 3 weeks to rehabilitate from the hip fracture surgery. In fact, the patient was still at [facility] at a time of this admission and he has not achieved good results in terms of recovering and getting back to normal movement and activity and ambulation. This is to be considered and I would suggest getting more time for this patient to is more recovered and this will hopefully help him to have an easy postoperative course regarding any film of cardiac surgery in the future. I also noted that the patient is currently off anticoagulation. There is drop in hemoglobin at that is no evidence of any acute bleeding. We'll put the patient on Lovenox therapeutic dose 1 mg per KG subcu twice a day regarding his recent history of pulmonary embolism. Monitor the hemoglobin. Anemia workup including iron studies. Provide the patient surface spirometer. He has been maintained on Anoro Ellipta once a day on outpatient basis. Fortunately has not been smoking for now. Computed tomography scan of the chest was noted and there is no evidence of any pulmonary embolism and there is background COPD and some limited interstitial patches, probably chronic. Will discuss these findings with the surgeon. Consider either medical treatment or multivessel stenting as initial approach the patient is further recuperated following his hip surgery. We'll continue to follow.
--- NOTE | 2018-05-06 14:40 | US ---
EXAMINATION TYPE: US venous doppler duplex LE BI DATE OF EXAM: 05/06/2018 2:02 PM COMPARISON: NONE CLINICAL HISTORY: Rule out DVT, history of recent pulmonary embolus.. Hx of PE, on blood thinners, no swelling or redness SIDE PERFORMED: Bilateral TECHNIQUE: The lower extremity deep venous system is examined utilizing real time linear array sonog monika with graded compression, doppler sonography and color-flow sonography. VESSELS IMAGED: External Iliac Vein (EIV) Common Femoral Vein Deep Femoral Vein Greater Saphenous Vein * Femoral Vein Popliteal Vein Small Saphenous Vein * Proximal Calf Veins (* superficial vessels) Right Leg: Negative for DVT Left Leg: Negative for DVT IMPRESSION: 1. Bilateral lower extremities ultrasound negative for deep venous thrombosis.
[2018-05-06] MEDS: MULTIVITAMINS, THERA 1 EACH TAB PO SCH (14:59)
--- NOTE | 2018-05-06 15:05 | P.PN ---
Subjective Progress Note Date: 05/06/18 Principal diagnosis: Non-ST elevated myocardial infarction this admission, coronary artery disease with left main disease, chronic obstructive pulmonary disease with a preoperative FEV1 of 80% of predicted, hypertension, hyperlipidemia, major depressive disorder with anxiety, normocytic anemia, benign prostatic hypertrophy, Parkinson's disease, chronic nicotine dependence, gastroesophageal reflux disease, osteoarthritis, cataracts, a recent history of a fall from standing and subsequent left hip replacement 3 weeks ago at [facility] which was complicated postoperatively with an acute pulmonary embolus, history of TIA, and peripheral vascular disease. Patient is on the observation unit and is laying in bed. He is in no acute distress. Currently denies any complaints of chest pain or shortness of breath. He reports he has not had any further episodes of chest pain since admission yesterday. He is achieving 1250 mL on his incentive spirometry with encouragement. Oxygen saturations are 96% on room air. Objective - Vital Signs Vital signs: Vital Signs Temp 97.9 F 05/06/18 12:00 Pulse 56 L 05/06/18 12:00 Resp 18 05/06/18 12:00 BP 136/56 05/06/18 12:00 Pulse Ox 99 05/06/18 12:00 Intake & Output 05/05/18 05/06/18 05/06/18 18:59 06:59 18:59 Intake Total 50 Output Total 100 Balance -50 Intake: IV 50 Output: Urine 100 Other: Voiding Method Diaper Diaper Diaper Incontinent Incontinent Incontinent # Voids 1 1 1 - Constitutional General appearance: Present: cooperative, no acute distress, obese - Respiratory Details: Lung sounds with a few scattered crackles throughout, diminished to his bilateral bases. Respirations are symmetrical and nonlabored. Oxygen saturation are 96% on room air. He is achieving 1250 mL on his incentive spirometry with encouragement. A bedside FEV1 was completed by the respiratory therapist which demonstrated an 80% of predicted value. - Cardiovascular Details: Regular rhythm and rate. S1 and S2 present, negative for S3, gallop or murmur. Remote telemetry showing sinus bradycardia heart rate 53. No edema present. - Gastrointestinal Gastrointestinal Comment(s): Abdomen is soft, nontender nondistended. Bowel sounds to all 4 abdominal quadrants. No guarding or rigidity. No organomegaly. - Genitourinary Genitourinary Comment(s): Voiding clear antionette urine. Occasional episodes of incontinence. - Integumentary Integumentary Comment(s): Skin is warm and dry. No clubbing or cyanosis present. No rash or abnormal pigmentation present. Left hip incision clean dry and approximated. No drainage or redness present. - Neurologic Neurologic: Present: CNII-XII intact - Musculoskeletal Musculoskeletal: Present: generalized weakness, strength equal bilaterally - Psychiatric Psychiatric: Present: A&O x's 3, appropriate affect - Allied health notes Allied health notes reviewed: nursing - Labs CBC & Chem 7: 05/06/18 06:52 05/06/18 06:52 Labs: Abnormal Lab Results - Last 24 Hours (Table) 05/05/18 05/05/18 05/06/18 Range/Units 19:01 19:01 06:52 RBC 2.59 L (4.30-5.90) m/uL Hgb 7.7 L D (13.0-17.5) gm/dL Hct 23.6 L (39.0-53.0) % PT (9.0-12.0) sec INR (<1.2) APTT (22.0-30.0) sec Chloride (98-107) mmol/L BUN (9-20) mg/dL Calcium (8.4-10.2) mg/dL Troponin I 0.050 H* (0.000-0.034) ng/mL Total Protein (6.3-8.2) g/dL Albumin (3.5-5.0) g/dL HDL Cholesterol 35 L (40-60) mg/dL 05/06/18 05/06/18 Range/Units 06:52 06:52 RBC (4.30-5.90) m/uL Hgb (13.0-17.5) gm/dL Hct (39.0-53.0) % PT 13.4 H (9.0-12.0) sec INR 1.4 H (<1.2) APTT 31.4 H (22.0-30.0) sec Chloride 110 H (98-107) mmol/L BUN 21 H (9-20) mg/dL Calcium 8.3 L (8.4-10.2) mg/dL Troponin I (0.000-0.034) ng/mL Total Protein 5.8 L (6.3-8.2) g/dL Albumin 2.6 L (3.5-5.0) g/dL HDL Cholesterol (40-60) mg/dL Microbiology - Last 24 Hours (Table) 05/05/18 16:31 Nasal Screen MRSA/MSSA - Preliminary Nasal Swab 05/05/18 16:52 Urine Culture - Preliminary Urine,Clean Catch - Imaging and Cardiology Chest x-ray: report reviewed, image reviewed Lower extremity Dopplers results and vein mapping results reviewed. Assessment and Plan (1) Non-ST elevated myocardial infarction Current Visit: Yes Status: Acute Code(s): I21.4 - NON-ST ELEVATION (NSTEMI) MYOCARDIAL INFARCTION SNOMED Code(s): 097088748 (2) Coronary artery disease Current Visit: Yes Status: Acute Code(s): I25.10 - ATHSCL HEART DISEASE OF [place] CORONARY ARTERY W/O ANG PCTRS SNOMED Code(s): 81263751 (3) Hypertension Current Visit: Yes Status: Acute Code(s): I10 - ESSENTIAL (PRIMARY) HYPERTENSION SNOMED Code(s): 11950652 (4) Hyperlipidemia Current Visit: Yes Status: Acute Code(s): E78.5 - HYPERLIPIDEMIA, UNSPECIFIED SNOMED Code(s): 70858878 (5) History of pulmonary embolus (PE) Current Visit: Yes Status: Acute Code(s): Z86.711 - PERSONAL HISTORY OF PULMONARY EMBOLISM SNOMED Code(s): 793123369 (6) Fall from standing Current Visit: Yes Status: Acute Code(s): W19.XXXA - UNSPECIFIED FALL, INITIAL ENCOUNTER SNOMED Code(s): 8999595 (7) Major depressive disorder Current Visit: Yes Status: Acute Code(s): F32.9 - MAJOR DEPRESSIVE DISORDER , SINGLE EPISODE, UNSPECIFIED SNOMED Code(s): 459452838 (8) Anxiety Current Visit: Yes Status: Acute Code(s): F41.9 - ANXIETY DISORDER, UNSPECIFIED SNOMED Code(s): 84002765 (9) Nicotine dependence Current Visit: Yes Status: Acute Code(s): F17.200 - NICOTINE DEPENDENCE, UNSPECIFIED, UNCOMPLICATED SNOMED Code(s): 65617467 (10) COPD (chronic obstructive pulmonary disease) Current Visit: Yes Status: Acute Code(s): J44.9 - CHRONIC OBSTRUCTIVE PULMONARY DISEASE, UNSPECIFIED SNOMED Code(s): 88726790 (11) BPH (benign prostatic hyperplasia) Current Visit: Yes Status: Acute Code(s): N40.0 - BENIGN PROSTATIC HYPERPLASIA WITHOUT LOWER URINRY TRACT SYMP SNOMED Code(s): 626423975 (12) Normocytic anemia Current Visit: Yes Status: Acute Code(s): D64.9 - ANEMIA, UNSPECIFIED SNOMED Code(s): 147554283 (13) GERD (gastroesophageal reflux disease) Current Visit: Yes Status: Acute Code(s): K21.9 - GASTRO-ESOPHAGEAL REFLUX DISEASE WITHOUT ESOPHAGITIS SNOMED Code(s): 301808595 (14) Osteoarthritis Current Visit: Yes Status: Acute Code(s): M19.90 - UNSPECIFIED OSTEOARTHRITIS, UNSPECIFIED SITE SNOMED Code(s): 912458164 (15) History of TIA (transient ischemic attack) Current Visit: Yes Status: Acute Code(s): Z86.73 - PRSNL HX OF TIA (TIA), AND CEREB INFRC W/O RESID DEFICITS SNOMED Code(s): 376422013 Plan: 1. Continue to maximize medical management, continue aspirin, statin, RAH inhibitor and beta carla. 2. Continue to encourage use of his incentive spirometry every hour while awake. 3. We will obtain a venous duplex study of his bilateral lower extremities to rule out DVT as he has a history of recent acute pulmonary embolus. 4. We will obtain a CT angiogram of his neck to rule out carotid stenosis as he has positive carotid bruits and per recommendations on the carotid duplex study. 5. Continue GI and DVT prophylaxis. 6. Medical management per Dr. Anderson's recommendations. 7. Once all of the preoperative testing has been completed, we will review the test results and discuss possible myocardial revascularization surgery with the patient. Time with Patient: Greater than 30
[2018-05-06] MEDS: HEPARIN SOD,PORK IN 0.45% NACL 25,000 UNIT in 0.45% NACL 1 500ML.BAG IV SCH (15:34)
[2018-05-06] MEDS: CYANOCOBALAMIN 500 MCG TAB PO SCH (17:14)
--- NOTE | 2018-05-06 18:04 | CT ---
EXAMINATION TYPE: CT angio neck DATE OF EXAM: 05/06/2018 5:19 PM COMPARISON: None HISTORY: PRE OP FOR OPEN HEART CT DLP: 339.5 mGycm Automated exposure control for dose reduction was used. TECHNIQUE: Performed with IV Contrast, patient injected with 65 mL of Isovue 370. . FINDINGS: There appears to be some compressive atelectasis or pulmonary edema within the superior dependent jennifer g apices within the [id number]. There is a three-vessel arch. The common carotid arteries appear normal. Carotid bifurcations appear normal. Significant flow-limiting stenosis is not identified. There is atheromatous plaquing at the r ight internal carotid artery origin with mild narrowing of less than 50%. Atheromatous plaquing is pr esent at the origin of the left internal carotid artery with less than 50% narrowing. IMPRESSION: 1. THREE-VESSEL ARCH. 2. ATHEROMATOUS PLAQUE AT THE BILATERAL CAROTID BIFURCATIONS WITH STENOSIS ESTIMATED AT LESS THAN 50% . 3. GROUNDGLASS OPACITIES IN THE UPPER LUNG SHANE. CORRELATE FOR PULMONARY EDEMA OR COMPRESSIVE ATELE CTASIS.
[2018-05-06] MEDS: NITROGLYCERIN SL TABS 0.4 MG TAB SUBLINGUAL PRN ×2 (21:27→21:32)
[2018-05-06] MEDS: EZETIMIBE 10 MG TAB PO SCH (21:28)
[2018-05-06] MEDS: ATORVASTATIN 40 MG TAB PO SCH (21:28)
[2018-05-06] MEDS: MUPIROCIN 2% OINT 22 GM TUBE NASAL SCH (23:52)
--- NOTE | 2018-05-07 00:10 | PN ---
PROGRESS NOTE . DATE OF SERVICE: 05/06/2018 PRESENTING COMPLAINT: Chest pain. INTERVAL HISTORY: This is a patient who presented from the [facility] with 2 weeks of a fracture presented with acute DC. Cardiac cath showing significant coronary artery disease. There is also the patient also had a PE for which she is on she is on Coumadin following his surgery. The patient is having some episodes of chest pain. REVIEW OF SYSTEMS: Done for constitutional, cardiovascular, GI, pulmonary; relevant findings as above. CURRENT MEDICATIONS: Reviewed that include IV heparin. PHYSICAL EXAMINATION: VITAL SIGNS: Temperature 97.6, pulse 72, respirations 18, blood pressure 150/60, pulse ox 96% on room air. GENERAL APPEARANCE: Sitting up, awake. EYES: Pupils equal. Conjunctivae normal. HEENT: External appearance of nose and ears normal. Oral cavity normal. NECK: JVD not raised. Mass not palpable. RESPIRATORY: Effort normal. LUNGS: Decreased breath sounds. CARDIOVASCULAR: 1st and 2nd sounds normal. No edema. ABDOMEN: Soft, nontender. Liver and spleen not palpable. PSYCHIATRY: Alert and oriented x3. Mood and affect normal. INVESTIGATIONS: White count 8.9, hemoglobin 7.7, potassium 4.1. ASSESSMENT: 1. Acute non-Q-wave myocardial infarction. 2. Severe triple-vessel coronary artery disease. The patient is being considered for surgery. 3. Chronic obstructive pulmonary disease in an ex-smoker. 4. Gastroesophageal reflux disease. 5. Hyperlipidemia. 6. Essential hypertension. 7. Benign prostatic hypertrophy. 8. History of seizure disorder. 9. Depression, not otherwise specified. 10.Recent left hip fracture 2 weeks ago with arthroplasty. 11.Normocytic anemia cause undetermined. 12.IV heparin monitoring. 13.Acute pulmonary embolism just 2 weeks ago for which patient has been on anticoagulation. PLAN: Continue current medication and treatment plan. Patient definitely patient is high risk for surgery. As discussed with Dr. Diaz, we will let cardiothoracic evaluate the patient. In the meantime, patient's hemoglobin is noted to drop. There is no evidence of any bleeding. We will repeat a CBC in the morning. We will switch the patient over to Lovenox 60 mg q.12 in the meantime. MMODL / IJN: [id number] /
[2018-05-07] MEDS: NITROGLYCERIN OINT 1 INCH/GM PACKET TOPICAL SCH ×5 (00:37→22:40)
[2018-05-07] MEDS: PRIMIDONE 50 MG TAB PO SCH ×4 (00:55→22:41)
[2018-05-07 04:58] LABS: Basophils % (A) 0 %; Eosinophils # (A) 0.2 k/uL (0-0.7); Eosinophils % (A) 3 %; HCT 23.3 % (39.0-53.0); HGB 7.4 gm/dL (13.0-17.5); Hypochromasia Slight; Lymphocytes # (A) 2.1 k/uL (1.0-4.8); Lymphocytes % (A) 22 %; MCH 28.9 pg (25.0-35.0); MCHC 31.8 g/dL (31.0-37.0); Mean Platelet Volume 7.2; Monocytes # (A) 0.5 k/uL (0-1.0); Monocytes % (A) 5 %; Neutrophils # (A) 6.2 k/uL (1.3-7.7); Neutrophils % (A) 68 %; Platelet Count 238 k/uL (150-450); RBC 2.56 m/uL (4.30-5.90); RDW 15.4 % (11.5-15.5); WBC 9.2 k/uL (3.8-10.6)
[2018-05-07 05:11] LABS: INR 1.2 (<1.2); Partial Thromboplastin Time 42.2 sec (22.0-30.0); Prothrombin Time 11.7 sec (9.0-12.0)
[2018-05-07] MEDS: CARBIDOPA-LEVODOPA 25-100 MG 1 EACH TAB PO SCH ×3 (05:47→19:45)
[2018-05-07] MEDS: HYDROcodone/APAP 10-325MG 1 EACH TAB PO PRN ×4 (05:47→21:21)
[2018-05-07] MEDS: FORMOTEROL FUMARATE 20 MCG/2 ML NEBU INHALATION SCH ×2 (08:51→20:32)
[2018-05-07] MEDS: FLUoxetine HCL 20 MG CAP PO SCH (09:09)
[2018-05-07] MEDS: METOPROLOL TARTRATE 25 MG TAB PO SCH ×2 (09:10→16:46)
[2018-05-07] MEDS: amLODIPine 5 MG TAB PO SCH (09:10)
[2018-05-07] MEDS: PANTOPRAZOLE 40 MG TABLET PO SCH (09:10)
[2018-05-07] MEDS: SENNOSIDES 8.6 MG TAB PO SCH ×2 (09:10→16:46)
[2018-05-07] MEDS: DOCUSATE 100 MG CAP PO SCH ×2 (09:10→16:45)
[2018-05-07] MEDS: FERROUS SULFATE 325 MG TAB PO SCH ×2 (09:10→16:45)
[2018-05-07] MEDS: FAMOTIDINE 20 MG TAB PO SCH ×2 (09:10→16:45)
[2018-05-07] MEDS: PREGABALIN 100 MG CAP PO SCH ×2 (09:10→19:45)
[2018-05-07] MEDS: ASPIRIN 325 MG TAB PO SCH (09:11)
[2018-05-07] MEDS: LISINOPRIL 2.5 MG TAB PO SCH (09:11)
[2018-05-07] MEDS: QUEtiapine 100 MG TAB PO SCH ×2 (09:11→19:47)
[2018-05-07] MEDS: FINASTERIDE 5 MG TAB PO SCH (09:11)
[2018-05-07] MEDS: MUPIROCIN 2% OINT 22 GM TUBE NASAL SCH ×3 (10:13→21:19)
[2018-05-07 10:22] LABS: Iron Saturation 21.69 (15.00-50.00)
--- NOTE | 2018-05-07 12:05 | P.PN ---
Subjective Progress Note Date: 05/07/18 Principal diagnosis: Multivessel coronary artery disease status post acute non-ST segment elevated [place] 72-year-old male patient who came into the hospital because of an acute non-ST segment elevation myocardial infarction. The patient is being considered for cardiac bypass surgery and I was asked to evaluate the patient's pulmonary status preoperatively. This patient has multiple medical problems and comorbidities. Most significant of which is a recent fall and the left hip fracture for which the patient was taken to [facility] and the patient underwent ORIF and his postoperative course was long and slow to recover and the patient also had a pulmonary embolism and he was discharged to [facility] where the patient has been there for the past 3 weeks undergoing rehabilitation. Yet again, his recovery has been slow and the patient has not been able to regain back his normal mobility. Currently is on anticoagulation. 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 He has a previous history of TIA, major depression and the patient is a smoker and has a component of COPD. He has been able to smoke as the patient got transferred to rehabilitation/ECF. This patient came into the hospital because of chest pain. He was diagnosed having an acute non-ST segment elevation myocardial infarction. Cardiac catheterization showed severe triple-vessel disease. CT angios the chest was done and showed no evidence of any pulmonary embolism. Nevertheless, the patient had some COPD and some limited interstitial patches bilaterally which could be essentially chronic and not reflective of any acute pneumonia or interstitial lung disease. His FEV1 is in order of 80% of predicted. He has poor insight on his condition. He is currently free of any chest pain. He'll be seen by cardiothoracic surgery. On 05/07/2018 patient seen in follow-up in the observation unit, he is resting comfortably in bed, no shortness of breath or chest pain, remains on heparin infusion currently at 17 units per kilo per hour. On sounds are positive for a few rales at the right lower base area. No swelling in bilateral lower extremities. Patient is being evaluated for coronary artery bypass grafting, he is completing his preop evaluation. Carotid artery ultrasound did not show hemodynamically significant stenosis doses degree of grayscale plaquing raising suspicion for multifocal stenosis. Neck CTA showed atheromatous plaque at the bilateral carotid bifurcations was stenosis at less than 50%, venous Dopplers were negative for DVTs. His labs have been reviewed, WBCs 9.2, hemoglobin is 7.4, INR is 1.2. Patient is working on his incentive spirometry. Currently on 2 L per nasal cannula his pulse ox is 99%, signs are stable, patient is afebrile. Objective - Vital Signs Vital signs: Vital Signs Temp 97.5 F L 05/07/18 07:25 Pulse 60 05/07/18 08:59 Resp 18 05/07/18 07:25 BP 148/66 05/07/18 07:25 Pulse Ox 99 05/07/18 07:25 Intake & Output 05/06/18 05/07/18 05/07/18 18:59 06:59 18:59 Intake Total 238.416 440 Output Total 300 Balance -61.584 440 Weight 62.7 kg Intake: Intake, IV Titration 238.416 Amount Heparin Sod,Pork in 0.45% 238.416 NaCl 25,000 unit In 0.45 % NaCl 1 500ml.bag @ 12 UNITS/KG/HR 15.24 mls/hr IV .Q24H [facility] Rx#: [id number] Oral 240 Other 200 Output: Urine 300 Other: Voiding Method Diaper Diaper Incontinent Incontinent # Voids 1 1 - Exam GENERAL: This is a 72-year-old male in no apparent distress at the time of my examination. HEENT: Head is atraumatic, normocephalic. Pupils are equal, round. Sclerae anicteric. Conjunctivae are clear. Mucous membranes of the mouth are moist. Neck is supple. There is no jugular venous distention. No carotid bruit is heard. LUNGS: Clear to auscultation no wheezes, rales or rhonchi. No chest wall tenderness is noted on palpation or with deep breathing. HEART: Regular rate and rhythm without murmurs, rubs or gallops. S1 and S2 heard. ABDOMEN: Soft, nontender. Bowel sounds are heard. No organomegaly noted. EXTREMITIES: No evidence of peripheral edema and no calf tenderness noted. VASCULAR: Radial and dorsalis pedis pulses palpated, no evidence of clubbing. NEUROLOGIC: Patient is awake, alert and oriented x3. He has resting tremors. He has difficulties with memory. He has poor balance and he has also history of recurrent falls. - Labs CBC & Chem 7: 05/07/18 04:45 05/06/18 06:52 Labs: Abnormal Lab Results - Last 24 Hours (Table) 05/06/18 05/06/18 05/07/18 Range/Units 06:52 20:59 04:45 RBC 2.56 L (4.30-5.90) m/uL Hgb 7.4 L (13.0-17.5) gm/dL Hct 23.3 L (39.0-53.0) % INR (<1.2) APTT 35.8 H (22.0-30.0) sec Iron 41 L (65-175) ug/dL TIBC 189 L (228-460) ug/dL Ferritin 594.0 H (22.0-322.0) ng/mL 05/07/18 Range/Units 04:45 RBC (4.30-5.90) m/uL Hgb (13.0-17.5) gm/dL Hct (39.0-53.0) % INR 1.2 H (<1.2) APTT 42.2 H (22.0-30.0) sec Iron (65-175) ug/dL TIBC (228-460) ug/dL Ferritin (22.0-322.0) ng/mL Microbiology - Last 24 Hours (Table) 05/05/18 16:31 Nasal Screen MRSA/MSSA - Final Nasal Swab 05/05/18 16:52 Urine Culture - Final Urine,Clean Catch Assessment and Plan Plan: 1 multivessel coronary artery disease status post acute non-ST segment elevation myocardial infarction, patient is being considered for cardiac bypass surgery. 2 recent history of fall and left femoral neck fracture, the patient is status post ORIF and the patient was at [facility] where he was undergoing rehabilitation following his hip surgery. 3 postsurgical pulmonary embolism mechanical ventilation with warfarin which was held for the purpose of cardiac catheterization. INR was 1.9 at time of admission currently subtherapeutic. Repeat CAT scan of the chest that was done during this current hospital stay showed no evidence of any pulmonary embolism. 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 Encourage incentive spirometry use, deep breathing and coughing, labs, neck CTA, venous Doppler of lower extremities, carotid Doppler study, CTA chest been reviewed by Dr. Mednes. Currently patient is in no distress, overall he is a poor surgical risk. He is being evaluated for possible myocardial revascularization surgery. We'll continue to follow I performed a history & physical examination of the patient and discussed their management with my nurse practitioner, Cat Lyn. I reviewed the nurse practitioner's note and agree with the documented findings and plan of care. Lung sounds are few crackles at the right lower base. The findings and the impression was discussed with the patient. I attest to the documentation by the nurse practitioner. Time with Patient: Less than 30
[2018-05-07 12:58] LABS: Hemoglobin A1C 5.2 % (4.0-6.0)
[2018-05-07] MEDS: MULTIVITAMINS, THERA 1 EACH TAB PO SCH (13:03)
--- NOTE | 2018-05-07 13:41 | P.PN ---
Subjective This is a pleasant 72-year-old male past medical history significant for hypertension, dyslipdemia, COPD, chronic nicotine dependence and chronic nicotine dependence. He states he underwent left hip surgery 3 weeks ago at [facility] and is currently undergoing rehab at [facility]. He denies history of coronary artery disease and has never seen a on air director for any reason. He presented to the hospital with chest discomfort and underwent cardiac catheterization revealing significant multi-vessel disease with critical disease involving the ostial and mid RCA with an occluded PLV branch, complex lesion at the bifurcation of the circumflex, LAD and ramus of approximately 80%, and a heavily calcified left main. He is currently being evaluated by CT surgery, recommendations pending. He continues to complain of chest discomfort and has been receiving nitroglycerin SL with relief last night. Carotid artery ultrasound did not show hemodynamically significant stenosis with degree of santiago scrotal plaquing raising suspicion of multifocal stenosis, CT of the neck showed of erythematous plaque at the carotid bifurcations with stenosis less than 50% and venous Dopplers are negative for DVT. Blood pressure 131/64 heart rate 54 afebrile maintaining oxygen saturation on nasal cannula. Laboratory data reviewed, WBC 9.2, hemoglobin 7.4 , platelets 238, INR 1.2. Currently maintained on heparin infusion, amlodipine 5 mg daily, aspirin 325 mg daily, atorvastatin 40 mg daily, Lisinopril 2.5 mg daily and metoprolol 25 mg twice a day. HEENT: Head is atraumatic, normocephalic. Pupils are equal, round. Sclerae anicteric. Conjunctivae are clear. Mucous membranes of the mouth are moist. Neck is supple. There is no jugular venous distention. No carotid bruit is heard. LUNGS: Clear to auscultation no wheezes, rales or rhonchi. No chest wall tenderness is noted on palpation or with deep breathing. HEART: Regular rate and rhythm without murmurs, rubs or gallops. S1 and S2 heard. EXTREMITIES: No evidence of peripheral edema and no calf tenderness noted. Right wrist site clean, dry and intact. No bleeding, minimal ecchymosis noted. ASSESSMENT Unstable angina with EKG changes and positive troponins Non-ST elevated AL Multi-vessel coronary artery disease, awaiting CT surgery recommendations History of PE post-operatively after recent hip surgery. Hypertension Dyslipidemia COPD Recent left hip replacement approximately 3 weeks ago at [facility] Chronic anemia Chronic nicotine dependence PLAN Ongoing chest discomfort in a patient with significant coronary artery disease. Will consider long acting nitrate addition. Awaiting CT surgery recommendations. Will continue to follow closely. Nurse Practitioner note has been reviewed, I agree with a documented findings and plan of care. Patient was seen and examined. Objective - Vital Signs Vital signs: Vital Signs Temp 97.7 F 05/07/18 11:25 Pulse 54 L 05/07/18 11:25 Resp 18 05/07/18 11:25 BP 131/64 05/07/18 11:25 Pulse Ox 99 05/07/18 11:25 Intake & Output 05/06/18 05/07/18 05/07/18 18:59 06:59 18:59 Intake Total 238.416 640 Output Total 300 200 Balance -61.584 440 Weight 62.7 kg Intake: Intake, IV Titration 238.416 Amount Heparin Sod,Pork in 0.45% 238.416 NaCl 25,000 unit In 0.45 % NaCl 1 500ml.bag @ 12 UNITS/KG/HR 15.24 mls/hr IV .Q24H [facility] Rx#: [id number] Oral 440 Other 200 Output: Urine 300 200 Other: Voiding Method Diaper Diaper Incontinent Incontinent # Voids 1 1 - Labs CBC & Chem 7: 05/07/18 04:45 05/06/18 06:52 Labs: Abnormal Lab Results - Last 24 Hours (Table) 05/06/18 05/06/18 05/07/18 Range/Units 06:52 20:59 04:45 RBC 2.56 L (4.30-5.90) m/uL Hgb 7.4 L (13.0-17.5) gm/dL Hct 23.3 L (39.0-53.0) % INR (<1.2) APTT 35.8 H (22.0-30.0) sec Iron 41 L (65-175) ug/dL TIBC 189 L (228-460) ug/dL Ferritin 594.0 H (22.0-322.0) ng/mL 05/07/18 05/07/18 Range/Units 04:45 12:39 RBC (4.30-5.90) m/uL Hgb (13.0-17.5) gm/dL Hct (39.0-53.0) % INR 1.2 H (<1.2) APTT 42.2 H 50.1 H (22.0-30.0) sec Iron (65-175) ug/dL TIBC (228-460) ug/dL Ferritin (22.0-322.0) ng/mL Microbiology - Last 24 Hours (Table) 05/05/18 16:31 Nasal Screen MRSA/MSSA - Final Nasal Swab 05/05/18 16:52 Urine Culture - Final Urine,Clean Catch
[2018-05-07] MEDS: HEPARIN SOD,PORK IN 0.45% NACL 25,000 UNIT in 0.45% NACL 1 500ML.BAG IV SCH (14:38)
[2018-05-07] MEDS: CYANOCOBALAMIN 500 MCG TAB PO SCH (16:45)
[2018-05-07] MEDS: ATORVASTATIN 40 MG TAB PO SCH (19:45)
[2018-05-07] MEDS: EZETIMIBE 10 MG TAB PO SCH (19:45)
[2018-05-07] MEDS: IPRATROPIUM-ALBUTEROL 3 ML NEB INHALATION PRN (20:33)
[2018-05-08] MEDS: NITROGLYCERIN SL TABS 0.4 MG TAB SUBLINGUAL PRN ×2 (04:43→04:49)
[2018-05-08] MEDS: HYDROcodone/APAP 10-325MG 1 EACH TAB PO PRN ×3 (04:59→20:10)
--- NOTE | 2018-05-08 05:36 | PN ---
PROGRESS NOTE DATE OF SERVICE: 05/07/2018. PRESENTING COMPLAINT: Chest pain. INTERVAL HISTORY: This patient presented with acute DE. Cardiac cath shows significant coronary artery disease, being evaluated for coronary bypass. Also had recent PE for which he is on Coumadin. Intermittent episodes of chest pain. Breathing is stable otherwise. REVIEW OF SYSTEMS: Done for constitutional, cardiovascular, GI, pulmonary; relevant findings as above. CURRENT MEDICATIONS: Current medications are reviewed. PHYSICAL EXAMINATION: On examination, temperature 97.9, pulse 48, respiration 18, blood pressure 129/58, pulse ox 98% GENERAL APPEARANCE: Sitting up, eating his lunch. EYES: Pupils equal. Conjunctivae normal. HENT: External appearance of nose and ears normal. Oral cavity normal. NECK: JVD not raised. Mass not palpable. RESPIRATORY: Effort normal. LUNGS: Decreased breath sounds. CARDIOVASCULAR: First and second sounds normal. No edema. ABDOMEN: Soft, nontender. Liver and spleen not palpable. PSYCHIATRY: Alert and oriented x3. Mood and affect normal. CT angio of the neck shows no critical stenosis of the neck arteries. ASSESSMENT: 1. Acute non-Q-wave myocardial infarction. 2. Severe triple-vessel disease pending evaluation for coronary bypass. 3. Chronic obstructive pulmonary disease in an ex-smoker. 4. Gastroesophageal reflux disease. 5. Hyperlipidemia. 6. Essential hypertension. 7. Benign prostatic hypertrophy. 8. History of seizure disorder. 9. Depression, not otherwise specified. 10.Recent hip fracture 2 weeks ago with arthroplasty. 11.Normocytic anemia, cause unknown. 12.Acute pulmonary embolism 2 weeks ago for which patient has been on anticoagulation. PLAN: Continue current medication and treatment plan. Because of his multiple comorbidities, patient is a high risk for coronary bypass. Will let cardiothoracic and pulmonary finally determine his overall risk profile. Will follow. MMODL / IJN: [id number] /
[2018-05-08] MEDS: NITROGLYCERIN OINT 1 INCH/GM PACKET TOPICAL SCH ×4 (06:18→23:02)
[2018-05-08] MEDS: CARBIDOPA-LEVODOPA 25-100 MG 1 EACH TAB PO SCH ×3 (06:18→20:10)
[2018-05-08 06:34] LABS: Basophils % (A) 0 %; Eosinophils # (A) 0.2 k/uL (0-0.7); Eosinophils % (A) 2 %; HCT 22.8 % (39.0-53.0); HGB 7.3 gm/dL (13.0-17.5); Hypochromasia Slight; Lymphocytes # (A) 2.1 k/uL (1.0-4.8); Lymphocytes % (A) 20 %; MCH 29.1 pg (25.0-35.0); MCV 90.8 fL (80.0-100.0); Mean Platelet Volume 6.8; Monocytes # (A) 0.5 k/uL (0-1.0); Monocytes % (A) 5 %; Neutrophils # (A) 7.5 k/uL (1.3-7.7); Neutrophils % (A) 71 %; Platelet Count 257 k/uL (150-450); RBC 2.51 m/uL (4.30-5.90); RDW 15.6 % (11.5-15.5); WBC 10.6 k/uL (3.8-10.6)
[2018-05-08 06:43] LABS: INR 1.2 (<1.2); Partial Thromboplastin Time 51.7 sec (22.0-30.0); Prothrombin Time 11.2 sec (9.0-12.0)
[2018-05-08] MEDS: FLUoxetine HCL 20 MG CAP PO SCH (09:24)
[2018-05-08] MEDS: HEPARIN SOD,PORK IN 0.45% NACL 25,000 UNIT in 0.45% NACL 1 500ML.BAG IV SCH (09:24)
[2018-05-08] MEDS: FERROUS SULFATE 325 MG TAB PO SCH ×2 (09:24→17:46)
[2018-05-08] MEDS: FINASTERIDE 5 MG TAB PO SCH (09:24)
[2018-05-08] MEDS: DOCUSATE 100 MG CAP PO SCH ×2 (09:25→17:46)
[2018-05-08] MEDS: amLODIPine 5 MG TAB PO SCH (09:25)
[2018-05-08] MEDS: FAMOTIDINE 20 MG TAB PO SCH ×2 (09:26→17:46)
[2018-05-08] MEDS: IPRATROPIUM-ALBUTEROL 3 ML NEB INHALATION PRN ×2 (09:28→20:05)
[2018-05-08] MEDS: FORMOTEROL FUMARATE 20 MCG/2 ML NEBU INHALATION SCH ×2 (09:29→20:05)
[2018-05-08] MEDS: SENNOSIDES 8.6 MG TAB PO SCH ×2 (09:33→17:44)
[2018-05-08] MEDS: LISINOPRIL 2.5 MG TAB PO SCH (09:34)
[2018-05-08] MEDS: ASPIRIN 325 MG TAB PO SCH (09:34)
[2018-05-08] MEDS: PRIMIDONE 50 MG TAB PO SCH ×3 (09:34→23:02)
[2018-05-08] MEDS: METOPROLOL TARTRATE 25 MG TAB PO SCH ×2 (09:34→17:46)
[2018-05-08] MEDS: QUEtiapine 100 MG TAB PO SCH ×2 (09:35→23:01)
[2018-05-08] MEDS: PANTOPRAZOLE 40 MG TABLET PO SCH (09:35)
[2018-05-08] MEDS: PREGABALIN 100 MG CAP PO SCH ×2 (09:35→20:10)
[2018-05-08] MEDS: MUPIROCIN 2% OINT 22 GM TUBE NASAL SCH ×2 (09:48→20:10)
--- NOTE | 2018-05-08 11:42 | P.PN ---
Subjective Progress Note Date: 05/08/18 Principal diagnosis: Multivessel coronary artery disease status post acute non-ST segment elevated [place] 72-year-old male patient who came into the hospital because of an acute non-ST segment elevation myocardial infarction. The patient is being considered for cardiac bypass surgery and I was asked to evaluate the patient's pulmonary status preoperatively. This patient has multiple medical problems and comorbidities. Most significant of which is a recent fall and the left hip fracture for which the patient was taken to [facility] and the patient underwent ORIF and his postoperative course was long and slow to recover and the patient also had a pulmonary embolism and he was discharged to [facility] where the patient has been there for the past 3 weeks undergoing rehabilitation. Yet again, his recovery has been slow and the patient has not been able to regain back his normal mobility. Currently is on anticoagulation. 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 He has a previous history of TIA, major depression and the patient is a smoker and has a component of COPD. He has been able to smoke as the patient got transferred to rehabilitation/ECF. This patient came into the hospital because of chest pain. He was diagnosed having an acute non-ST segment elevation myocardial infarction. Cardiac catheterization showed severe triple-vessel disease. CT angios the chest was done and showed no evidence of any pulmonary embolism. Nevertheless, the patient had some COPD and some limited interstitial patches bilaterally which could be essentially chronic and not reflective of any acute pneumonia or interstitial lung disease. His FEV1 is in order of 80% of predicted. He has poor insight on his condition. He is currently free of any chest pain. He'll be seen by cardiothoracic surgery. On 05/07/2018 patient seen in follow-up in the observation unit, he is resting comfortably in bed, no shortness of breath or chest pain, remains on heparin infusion currently at 17 units per kilo per hour. On sounds are positive for a few rales at the right lower base area. No swelling in bilateral lower extremities. Patient is being evaluated for coronary artery bypass grafting, he is completing his preop evaluation. Carotid artery ultrasound did not show hemodynamically significant stenosis doses degree of grayscale plaquing raising suspicion for multifocal stenosis. Neck CTA showed atheromatous plaque at the bilateral carotid bifurcations was stenosis at less than 50%, venous Dopplers were negative for DVTs. His labs have been reviewed, WBCs 9.2, hemoglobin is 7.4, INR is 1.2. Patient is working on his incentive spirometry. Currently on 2 L per nasal cannula his pulse ox is 99%, signs are stable, patient is afebrile. On 05/08/2018 patient seen in follow-up on selective care unit. he did have an episode of chest pain last night which was relieved 2 nitroglycerin. His morning he is awake and alert, sitting up in bed, in no acute distress, denies any chest pain or shortness of breath. On heparin infusion at 17 units per kilo per hour. Lung sounds are positive for a few rhonchi. Today's labs have been reviewed, diabetes he is 10.6, hemoglobin of 7.3, INR of 1.2. Patient has been evaluated by CT surgery, and patient is considered to be a poor surgical risk, recommendation was made to maximize medical management, and possibly proceed with coronary artery stenting and reevaluation for surgery at a later date. Objective - Vital Signs Vital signs: Vital Signs Temp 97.8 F 05/08/18 08:30 Pulse 60 05/08/18 09:40 Resp 18 05/08/18 08:30 BP 125/60 05/08/18 08:30 Pulse Ox 97 05/08/18 08:30 Intake & Output 05/07/18 05/08/18 05/08/18 18:59 06:59 18:59 Intake Total 850.002 30 407.237 Output Total 400 150 Balance 450.002 -120 407.237 Weight 65.5 kg Intake: IV 10 30 Invasive Line 2 10 30 Intake, IV Titration 200.002 407.237 Amount Heparin Sod,Pork in 0.45% 200.002 407.237 NaCl 25,000 unit In 0.45 % NaCl 1 500ml.bag @ 12 UNITS/KG/HR 15.24 mls/hr IV .Q24H [facility] Rx#: [id number] Oral 440 0 Other 200 Output: Urine 400 150 Other: Voiding Method Urinal Diaper Incontinent # Voids 1 2 # Bowel Movements 1 - Exam GENERAL: This is a 72-year-old male in no apparent distress at the time of my examination. HEENT: Head is atraumatic, normocephalic. Pupils are equal, round. Sclerae anicteric. Conjunctivae are clear. Mucous membranes of the mouth are moist. Neck is supple. There is no jugular venous distention. No carotid bruit is heard. LUNGS: Clear to auscultation no wheezes, positive for some scattered rhonchi. No chest wall tenderness is noted on palpation or with deep breathing. HEART: Regular rate and rhythm without murmurs, rubs or gallops. S1 and S2 heard. ABDOMEN: Soft, nontender. Bowel sounds are heard. No organomegaly noted. EXTREMITIES: No evidence of peripheral edema and no calf tenderness noted. VASCULAR: Radial and dorsalis pedis pulses palpated, no evidence of clubbing. NEUROLOGIC: Patient is awake, alert and oriented x3. He has resting tremors. He has difficulties with memory. He has poor balance and he has also history of recurrent falls. - Labs CBC & Chem 7: 05/08/18 06:01 05/06/18 06:52 Labs: Abnormal Lab Results - Last 24 Hours (Table) 05/07/18 05/08/18 05/08/18 Range/Units 12:39 06:01 06:01 RBC 2.51 L (4.30-5.90) m/uL Hgb 7.3 L (13.0-17.5) gm/dL Hct 22.8 L (39.0-53.0) % RDW 15.6 H (11.5-15.5) % INR 1.2 H (<1.2) APTT 50.1 H 51.7 H (22.0-30.0) sec Assessment and Plan Plan: 1 multivessel coronary artery disease status post acute non-ST segment elevation myocardial infarction, patient is being considered for cardiac bypass surgery. 2 recent history of fall and left femoral neck fracture, the patient is status post ORIF and the patient was at [facility] where he was undergoing rehabilitation following his hip surgery. 3 postsurgical pulmonary embolism mechanical ventilation with warfarin which was held for the purpose of cardiac catheterization. INR was 1.9 at time of admission currently subtherapeutic. Repeat CAT scan of the chest that was done during this current hospital stay showed no evidence of any pulmonary embolism. 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 Encourage deep breathing and coughing, encourage patient to sit up in the chair. We'll continue to follow cardiology, and CT surgery. I performed a history & physical examination of the patient and discussed their management with my nurse practitioner, Cat Lyn. I reviewed the nurse practitioner's note and agree with the documented findings and plan of care. Lung sounds are diffuse scattered rhonchi. The findings and the impression was discussed with the patient. I attest to the documentation by the nurse practitioner. Time with Patient: Less than 30
[2018-05-08] MEDS: MULTIVITAMINS, THERA 1 EACH TAB PO SCH (12:39)
[2018-05-08 15:52] LABS: Hepatitis A Antibody IgM Non-Reactive (Non-Reactive); Hepatitis B Core IgM Non-Reactive (Non-Reactive)
--- NOTE | 2018-05-08 15:53 | P.PN ---
Subjective Progress Note Date: 05/08/18 This is a pleasant 72-year-old male past medical history significant for hypertension, dyslipdemia, COPD, chronic nicotine dependence and chronic nicotine dependence. He states he underwent left hip surgery 3 weeks ago at and is currently undergoing rehab at [facility]. He denies history of coronary artery disease and has never seen a quencher operator for any reason. He presented to the hospital with chest discomfort and underwent cardiac catheterization revealing significant multi-vessel disease with critical disease involving the ostial and mid RCA with an occluded PLV branch, complex lesion at the bifurcation of the circumflex, LAD and ramus of approximately 80%, and a heavily calcified left main. Patient had been seen in consultation by cardiothoracic surgery and was felt to be high risk for surgery at this time. He did have an episode of chest pain earlier this morning, the time of my examination he is pain-free. Patient will go to the cardiac catheterization lab tomorrow and undergo angioplasty and stenting of the RCA. The plan is then for him to be discharged home and possibly undergo coronary artery bypass grafting surgery within a month or so. I pressure today 140/60, heart rate in the 60s, 100% on 2 L of oxygen. Objective - Vital Signs Vital signs: Vital Signs Temp 98.1 F 05/08/18 12:40 Pulse 60 05/08/18 12:40 Resp 18 05/08/18 12:40 BP 140/63 05/08/18 12:40 Pulse Ox 100 05/08/18 12:40 Intake & Output 05/07/18 05/08/18 05/08/18 18:59 06:59 18:59 Intake Total 850.002 30 407.237 Output Total 400 150 Balance 450.002 -120 407.237 Weight 65.5 kg Intake: IV 10 30 Invasive Line 2 10 30 Intake, IV Titration 200.002 407.237 Amount Heparin Sod,Pork in 0.45% 200.002 407.237 NaCl 25,000 unit In 0.45 % NaCl 1 500ml.bag @ 12 UNITS/KG/HR 15.24 mls/hr IV .Q24H ABBY Rx#: [id number] Oral 440 0 Other 200 Output: Urine 400 150 Other: Voiding Method Urinal Diaper Incontinent # Voids 1 2 # Bowel Movements 1 - Exam PHYSICAL EXAMINATION: GENERAL: 72-year-old gentleman in no acute distress at the time of my examination HEENT: Head is atraumatic, normocephalic. Pupils equal, round. Sclera anicteric. Conjunctiva are clear. Mucous membranes of the mouth are moist. Neck is supple. There is no elevated jugular venous pressure.] bruit is heard. HEART EXAMINATION: Heart S1, S2 normal. No murmur or gallop heard. CHEST EXAMINATION: Lungs are clear to auscultation and precussion. No chest wall tenderness is noted on palpation or with deep breathing. ABDOMEN: Soft, nontender. Bowel sounds are heard. No organomegaly noted. EXTREMITIES: 2+ peripheral pulses with no evidence of peripheral edema and no calf tenderness noted. NEUROLOGIC patient is awake, alert and oriented ?-3. . - Labs CBC & Chem 7: 05/08/18 06:01 05/06/18 06:52 Labs: Abnormal Lab Results - Last 24 Hours (Table) 05/08/18 05/08/18 Range/Units 06:01 06:01 RBC 2.51 L (4.30-5.90) m/uL Hgb 7.3 L (13.0-17.5) gm/dL Hct 22.8 L (39.0-53.0) % RDW 15.6 H (11.5-15.5) % INR 1.2 H (<1.2) APTT 51.7 H (22.0-30.0) sec Assessment and Plan Plan: Assessment and plan #1 Non-ST elevated SD #2 Multi-vessel coronary artery disease #3 History of PE post-operatively after recent hip surgery. #4 Hypertension #5 Dyslipidemia #6 COPD #7 Recent left hip replacement approximately 3 weeks ago at #8 Chronic anemia #9 Chronic nicotine dependence Plan Patient had been seen in consultation by cardiothoracic surgery and felt to be high risk. For this reason patient will undergo angioplasty and stenting of the right coronary artery tomorrow, he will then be discharged home the following day, plan for possible bypass surgery within a month or so. DNP note has been reviewed, I agree with a documented findings and plan of care. Patient was seen and examined.
[2018-05-08] MEDS: CYANOCOBALAMIN 500 MCG TAB PO SCH (17:45)
[2018-05-08] MEDS ORDERED: WARFARIN 2.5 MG TAB PO SCH (18:00)
--- NOTE | 2018-05-08 18:03 | P.PN ---
Subjective Progress Note Date: 05/08/18 Principal diagnosis: Non-ST elevated myocardial infarction this admission, coronary artery disease with left main disease, chronic obstructive pulmonary disease with a preoperative FEV1 of 80% of predicted, hypertension, hyperlipidemia, major depressive disorder with anxiety, normocytic anemia, benign prostatic hypertrophy, Parkinson's disease, chronic nicotine dependence, gastroesophageal reflux disease, osteoarthritis, cataracts, a recent history of a fall from standing and subsequent left hip replacement 3 weeks ago at [facility] which was complicated postoperatively with an acute pulmonary embolus, history of TIA, and peripheral vascular disease. The patient is laying in bed on the [address] [place] [address] cardiac care unit. He is in no acute distress. Currently denies any complaints of chest pain or shortness of breath. He denies any further complaints of chest pain. He is achieving 1250 mL on his incentive spirometry with encouragement. Oxygen saturations are 97% on 2 L nasal cannula. Objective - Vital Signs Vital signs: Vital Signs Temp 97.4 F L 05/08/18 15:30 Pulse 54 L 05/08/18 15:30 Resp 18 05/08/18 15:30 BP 134/62 05/08/18 15:30 Pulse Ox 92 L 05/08/18 15:30 Intake & Output 05/07/18 05/08/18 05/08/18 18:59 06:59 18:59 Intake Total 850.002 30 407.237 Output Total 400 150 Balance 450.002 -120 407.237 Weight 65.5 kg Intake: IV 10 30 Invasive Line 2 10 30 Intake, IV Titration 200.002 407.237 Amount Heparin Sod,Pork in 0.45% 200.002 407.237 NaCl 25,000 unit In 0.45 % NaCl 1 500ml.bag @ 12 UNITS/KG/HR 15.24 mls/hr IV .Q24H ABBY Rx#: [id number] Oral 440 0 Other 200 Output: Urine 400 150 Other: Voiding Method Urinal Diaper Incontinent # Voids 1 2 # Bowel Movements 1 - Constitutional General appearance: Present: cooperative, no acute distress - Respiratory Details: Lungs sounds are essentially clear throughout, diminished to his bilateral bases. Respirations are symmetrical and nonlabored. Oxygen saturation are 97% on 2 L nasal cannula. He is achieving 1250 mm on incentive spirometry. - Cardiovascular Details: Regular rhythm and rate. S1 and S2 present, negative for S3, gallop or murmur. Remote telemetry showing sinus bradycardia heart rate 54. No edema present. - Gastrointestinal Gastrointestinal Comment(s): Abdomen is soft, nontender nondistended. Active bowel sounds all 4 abdominal quadrants. No organomegaly. No guarding or rigidity. - Genitourinary Genitourinary Comment(s): Incontinent of urine. - Integumentary Integumentary Comment(s): Skin is warm and dry. No clubbing or cyanosis present. No rash or abnormal pigmentation present. Left hip incision clean dry and approximated. No drainage or redness present. - Neurologic Neurologic: Present: CNII-XII intact - Musculoskeletal Musculoskeletal: Present: generalized weakness, left sided weakness (Left leg weakness) - Psychiatric Psychiatric: Present: A&O x's 3, appropriate affect, intact judgment & insight - Allied health notes Allied health notes reviewed: nursing - Labs CBC & Chem 7: 05/08/18 06:01 05/06/18 06:52 Labs: Abnormal Lab Results - Last 24 Hours (Table) 05/08/18 05/08/18 Range/Units 06:01 06:01 RBC 2.51 L (4.30-5.90) m/uL Hgb 7.3 L (13.0-17.5) gm/dL Hct 22.8 L (39.0-53.0) % RDW 15.6 H (11.5-15.5) % INR 1.2 H (<1.2) APTT 51.7 H (22.0-30.0) sec Assessment and Plan (1) Non-ST elevated myocardial infarction Current Visit: Yes Status: Acute Code(s): I21.4 - NON-ST ELEVATION (NSTEMI) MYOCARDIAL INFARCTION SNOMED Code(s): 776252972 (2) Coronary artery disease Current Visit: Yes Status: Acute Code(s): I25.10 - ATHSCL HEART DISEASE OF [place] CORONARY ARTERY W/O ANG PCTRS SNOMED Code(s): 04075690 (3) Hypertension Current Visit: Yes Status: Acute Code(s): I10 - ESSENTIAL (PRIMARY) HYPERTENSION SNOMED Code(s): 10527609 (4) Hyperlipidemia Current Visit: Yes Status: Acute Code(s): E78.5 - HYPERLIPIDEMIA, UNSPECIFIED SNOMED Code(s): 47231509 (5) History of pulmonary embolus (PE) Current Visit: Yes Status: Acute Code(s): Z86.711 - PERSONAL HISTORY OF PULMONARY EMBOLISM SNOMED Code(s): 835029471 (6) Fall from standing Current Visit: Yes Status: Acute Code(s): W19.XXXA - UNSPECIFIED FALL, INITIAL ENCOUNTER SNOMED Code(s): 4294495 (7) Major depressive disorder Current Visit: Yes Status: Acute Code(s): F32.9 - MAJOR DEPRESSIVE DISORDER , SINGLE EPISODE, UNSPECIFIED SNOMED Code(s): 209761211 (8) Anxiety Current Visit: Yes Status: Acute Code(s): F41.9 - ANXIETY DISORDER, UNSPECIFIED SNOMED Code(s): 19011355 (9) Nicotine dependence Current Visit: Yes Status: Acute Code(s): F17.200 - NICOTINE DEPENDENCE, UNSPECIFIED, UNCOMPLICATED SNOMED Code(s): 10394714 (10) COPD (chronic obstructive pulmonary disease) Current Visit: Yes Status: Acute Code(s): J44.9 - CHRONIC OBSTRUCTIVE PULMONARY DISEASE, UNSPECIFIED SNOMED Code(s): 22070463 (11) BPH (benign prostatic hyperplasia) Current Visit: Yes Status: Acute Code(s): N40.0 - BENIGN PROSTATIC HYPERPLASIA WITHOUT LOWER URINRY TRACT SYMP SNOMED Code(s): 432370501 (12) Normocytic anemia Current Visit: Yes Status: Acute Code(s): D64.9 - ANEMIA, UNSPECIFIED SNOMED Code(s): 862734001 (13) GERD (gastroesophageal reflux disease) Current Visit: Yes Status: Acute Code(s): K21.9 - GASTRO-ESOPHAGEAL REFLUX DISEASE WITHOUT ESOPHAGITIS SNOMED Code(s): 389023274 (14) Osteoarthritis Current Visit: Yes Status: Acute Code(s): M19.90 - UNSPECIFIED OSTEOARTHRITIS, UNSPECIFIED SITE SNOMED Code(s): 894026944 (15) History of TIA (transient ischemic attack) Current Visit: Yes Status: Acute Code(s): Z86.73 - PRSNL HX OF TIA (TIA), AND CEREB INFRC W/O RESID DEFICITS SNOMED Code(s): 278928073 Plan: Dr. Portillo spoke with Dr. Hughes and the patient will undergo a heart catheterization with possible stent placement to his right coronary artery. Due to his debilitated state it is felt that the patient is too high of a risk to undergo coronary artery bypass grafting surgery at this time. After his stent placement he will be reevaluated after extensive rehab for possible future myocardial revascularization surgery. We will follow patient on a when necessary basis. Time with Patient: Greater than 30
[2018-05-08] MEDS: BUDESONIDE 1 MG/2 ML NEBU INHALATION SCH (20:05)
[2018-05-08] MEDS: ATORVASTATIN 40 MG TAB PO SCH (20:10)
[2018-05-08] MEDS: EZETIMIBE 10 MG TAB PO SCH (23:01)
--- NOTE | 2018-05-08 23:28 | PN ---
PROGRESS NOTE DATE OF SERVICE: 05/08/2018. PRESENTING COMPLAINT: Chest pain. INTERVAL HISTORY: Patient presented with acute UT. Cardiac cath showed coronary artery disease. At this point it was felt that the patient was not stable to proceed for coronary bypass; will need to be more physically stronger for the same. Coronary intervention with stent will be carried out. Patient also has recent PE, for which the patient has been on Coumadin. The patient has been getting intermittent episodes of chest pain. Otherwise, tolerating a diet. Sitting up. Cardiac intervention is planned for tomorrow. REVIEW OF SYSTEMS: Done for constitutional, cardiovascular, GI, pulmonary; relevant findings as above. CURRENT MEDICATIONS: Reviewed, include IV heparin. PHYSICAL EXAMINATION: Temperature 98.1, pulse 80, respiratory rate 18, blood pressure 140/63 pulse 100% on 2 L. GENERAL APPEARANCE: Sitting up in a chair, awake. EYES: Pupils equal. Conjunctivae normal. HEENT: External appearance of ears and nose normal. Oral cavity normal. NECK: JVD not raised. Mass not palpable. Respiratory effort normal. LUNGS: Decreased breath sounds. CARDIOVASCULAR: 1st and 2nd heart sounds normal. No edema. ABDOMEN: Soft, nontender. Liver and spleen not palpable. PSYCHIATRY: Alert and oriented x3. Mood and affect normal. INVESTIGATIONS: White count 10.6, hemoglobin 7.3. ASSESSMENT: 1. Acute non-Q-wave myocardial infarction. 2. Triple-vessel disease. Patient felt not to be ready for coronary bypass right now. 3. Chronic obstructive pulmonary disease in an ex-smoker. 4. Gastroesophageal reflux disease. 5. Hyperlipidemia. 6. Essential hypertension. 7. Benign prostatic hypertrophy. 8. History of seizure disorder. 9. Depression, not otherwise specified. 10.Recent hip fracture 2 weeks ago with arthroplasty. 11.Normocytic anemia, cause unknown. 12.Acute pulmonary embolism 2 weeks ago for which patient had been on anticoagulation. 13.IV heparin monitoring. 14.Symptomatic normocytic anemia in the setting of active coronary artery disease is indication for blood transfusion. We will go ahead and give a unit of blood that itself will help with the patient's symptoms. Recheck a hemoglobin in the morning of the blood transfusion today. MMODL / IJN: [id number] /
[2018-05-09] MEDS: CARBIDOPA-LEVODOPA 25-100 MG 1 EACH TAB PO SCH ×3 (05:18→20:44)
[2018-05-09] MEDS: NITROGLYCERIN OINT 1 INCH/GM PACKET TOPICAL SCH ×4 (05:18→21:58)
[2018-05-09 07:00] LABS: Basophils % (A) 0 %; Eosinophils # (A) 0.2 k/uL (0-0.7); Eosinophils % (A) 2 %; HCT 27.6 % (39.0-53.0); HGB 8.7 gm/dL (13.0-17.5); Hypochromasia Slight; Lymphocytes # (A) 1.8 k/uL (1.0-4.8); Lymphocytes % (A) 21 %; MCH 28.6 pg (25.0-35.0); MCHC 31.7 g/dL (31.0-37.0); MCV 90.1 fL (80.0-100.0); Mean Platelet Volume 6.5; Monocytes # (A) 0.5 k/uL (0-1.0); Monocytes % (A) 5 %; Neutrophils # (A) 6.2 k/uL (1.3-7.7); Neutrophils % (A) 69 %; Platelet Count 265 k/uL (150-450); RBC 3.06 m/uL (4.30-5.90); RDW 15.9 % (11.5-15.5)
[2018-05-09 07:02] LABS: INR 1.1 (<1.2); Partial Thromboplastin Time 62.7 sec (22.0-30.0); Prothrombin Time 10.7 sec (9.0-12.0)
[2018-05-09] MEDS: FORMOTEROL FUMARATE 20 MCG/2 ML NEBU INHALATION SCH ×2 (07:05→20:35)
[2018-05-09] MEDS: IPRATROPIUM-ALBUTEROL 3 ML NEB INHALATION PRN ×2 (07:05→20:33)
[2018-05-09] MEDS: BUDESONIDE 1 MG/2 ML NEBU INHALATION SCH ×2 (07:05→20:33)
[2018-05-09 07:31] LABS: Anion Gap 5 mmol/L; Blood Urea Nitrogen 20 mg/dL (9-20); Calcium 8.6 mg/dL (8.4-10.2); Carbon Dioxide 26 mmol/L (22-30); Chloride 109 mmol/L (98-107); Glucose 83 mg/dL (74-99); Potassium 4.2 mmol/L (3.5-5.1); Sodium 140 mmol/L (137-145)
[2018-05-09] MEDS: FLUoxetine HCL 20 MG CAP PO SCH ×2 (07:41→07:42)
[2018-05-09] MEDS: ASPIRIN 325 MG TAB PO SCH (07:41)
[2018-05-09] MEDS: amLODIPine 5 MG TAB PO SCH (07:41)
[2018-05-09] MEDS: METOPROLOL TARTRATE 25 MG TAB PO SCH ×2 (07:42→15:55)
[2018-05-09] MEDS: PRIMIDONE 50 MG TAB PO SCH ×3 (07:42→23:25)
[2018-05-09] MEDS: FAMOTIDINE 20 MG TAB PO SCH ×2 (07:42→15:49)
[2018-05-09] MEDS: PANTOPRAZOLE 40 MG TABLET PO SCH (07:42)
[2018-05-09] MEDS: QUEtiapine 100 MG TAB PO SCH ×2 (07:42→20:44)
[2018-05-09] MEDS: FERROUS SULFATE 325 MG TAB PO SCH ×2 (07:42→15:49)
[2018-05-09] MEDS: PREGABALIN 100 MG CAP PO SCH ×2 (07:42→20:44)
[2018-05-09] MEDS: FINASTERIDE 5 MG TAB PO SCH (07:42)
[2018-05-09] MEDS: LISINOPRIL 2.5 MG TAB PO SCH (07:43)
[2018-05-09] MEDS: SENNOSIDES 8.6 MG TAB PO SCH ×2 (07:45→15:49)
[2018-05-09] MEDS: DOCUSATE 100 MG CAP PO SCH ×2 (07:45→15:49)
[2018-05-09] MEDS: HYDROcodone/APAP 10-325MG 1 EACH TAB PO PRN ×2 (07:46→20:44)
[2018-05-09] MEDS: MUPIROCIN 2% OINT 22 GM TUBE NASAL SCH ×2 (07:46→19:43)
[2018-05-09] MEDS: HEPARIN SOD,PORK IN 0.45% NACL 25,000 UNIT in 0.45% NACL 1 500ML.BAG IV SCH (08:11)
[2018-05-09] MEDS: SODIUM CHLORIDE 0.9% 1,000 ML IV SCH ×2 (11:00→20:43)
[2018-05-09] MEDS: MULTIVITAMINS, THERA 1 EACH TAB PO SCH (11:41)
--- NOTE | 2018-05-09 14:35 | P.ARTDOP ---
Arterial Doppler LOWER EXTREMITY ARTERIAL DOPPLER: DATE OF SERVICE: 05/06/2018 Reason for study: Preop CABG. Doppler waveforms: Multiphasic at both femoral. Atypical below the femoral on the right. Multiphasic at the left popliteal and atypical below.. Pulse volume recording: []. Pressure gradients: []. Ankle-brachial indices: Bilaterally. Toe pressures: [] on the right, [] on the left Impression: Moderate bilateral femoral popliteal occlusive disease. Clinical correlation recommended..
--- NOTE | 2018-05-09 14:38 | P.VSCSTY ---
Greater Saphenous Vein Mapping This is bilateral lower extremity greater saphenous vein mapping. Date of service 05/05/2018 Vein quality and ultrasound appearance no intraluminal thrombus or wall changes are seen. Vein size groin right 5 x 6.8 groin left 6.2 x 5.1 High thigh right 4.5 x 4.7 high thigh left 4.4 x 4.1 Mid thigh right 4.1 x 3.5 mid thigh left 3.5 x 3.2 Above-knee right 4.4 x 3.2 above- knee left 3.6 x 2.5 Below knee right 4.8 x 3.6 below-knee left 3.6 x 2.3 Mid calf right 4.1 x 2.7 mid calf left 3.9 x 2.4 Ankle right 3.8 x 2.3 ankle left 4.3 x 2.9 Impression usable bilateral greater saphenous veins.
[2018-05-09] MEDS: CYANOCOBALAMIN 500 MCG TAB PO SCH (15:49)
[2018-05-09] MEDS ORDERED: IV FLUID CONTINUATION 400 ML IV ONE (18:15)
[2018-05-09] MEDS ORDERED: LIDOCAINE 1% INJ 10MG/ML (20 ML MDV) ONE (18:16)
[2018-05-09] MEDS ORDERED: MIDAZOLAM 2 MG/2 ML VIAL ONE (18:16)
[2018-05-09] MEDS: MIDAZOLAM 2 MG/2 ML VIAL IVP ONE ×2 (18:21→18:33)
[2018-05-09] MEDS ORDERED: LIDOCAINE 1% INJ 10MG/ML (20 ML MDV) SQ ONE (18:22)
[2018-05-09] MEDS ORDERED: BIVALIRUDIN BOLUS 250 MG/50 ML IV ONE (18:27)
[2018-05-09] MEDS ORDERED: BIVALIRUDIN 250 MG in SODIUM CHLORIDE 0.9% 50 ML IV ONE (18:28)
[2018-05-09] MEDS ORDERED: hydrALAZINE HCL 20 MG/ML 1 ML VIAL ONE (18:38)
[2018-05-09] MEDS ORDERED: NITROGLYCERIN 1000MCG/10ML SYRINGE INTRACORON ONE (18:39)
[2018-05-09] MEDS: hydrALAZINE HCL 20 MG/ML 1 ML VIAL IVP ONE ×2 (18:39→19:11)
[2018-05-09] MEDS ORDERED: TICAGRELOR 90 MG TAB ONE (18:54)
[2018-05-09] MEDS ORDERED: IOPAMIDOL-370 125ML BTL INJ ONE (19:04)
[2018-05-09] MEDS ORDERED: TICAGRELOR 90 MG TAB PO ONE (19:04)
[2018-05-09] MEDS ORDERED: ZOLPIDEM 5 MG TAB PO PRN (19:07)
[2018-05-09] MEDS ORDERED: NITROGLYCERIN SL TABS 0.4 MG TAB SUBLINGUAL PRN (19:07)
[2018-05-09] MEDS ORDERED: MAG HYDROX/AL HYDROX/SIMETH 30 ML CUP PO PRN (19:07)
[2018-05-09] MEDS ORDERED: ATROPINE SULFATE 0.1 MG/ML 10ML SYRINGE IV PRN (19:07)
[2018-05-09] MEDS ORDERED: RX INFO: IV CONTRAST WAS GIVEN 1 EACH MISC MISCELLANE PRN (19:07)
[2018-05-09] MEDS ORDERED: fentaNYL (PF) 50 MCG/ML 2 ML AMP ONE (19:13)
[2018-05-09] MEDS ORDERED: fentaNYL (PF) 50 MCG/ML 2 ML AMP IVP ONE (19:14)
[2018-05-09] MEDS ORDERED: SODIUM CHLORIDE 0.9% 1,000 ML IV SCH (19:15)
--- NOTE | 2018-05-09 19:32 | PN ---
PROGRESS NOTE DATE OF SERVICE: 05/09/2018 PRESENTING COMPLAINT: Chest pain. INTERVAL HISTORY: This patient presented with acute HI. Cardiac cath showed severe coronary artery disease. Patient is not felt to be physically strong for coronary artery bypass. Patient will have coronary intervention with a stent this evening. Because of symptomatic anemia in the setting of coronary artery disease, patient was given a unit of blood yesterday. Patient feels better. Also patient had a recent PE, for which patient had been on Coumadin. Lying in bed. REVIEW OF SYSTEMS: Done for constitutional, cardiovascular, GI, pulmonary; relevant findings as above. CURRENT MEDICATIONS: Reviewed. They include IV heparin. PHYSICAL EXAMINATION: Temperature 97, pulse 69, respiration 17, blood pressure 152/66, pulse ox 95% on 2 L. GENERAL APPEARANCE: Lying in bed, awake. EYES: Pupils equal. Conjunctivae pale. HEENT: External appearance of nose and ears normal. Oral cavity normal. NECK: JVD not raised. Mass not palpable. RESPIRATORY: Effort normal. LUNGS: Decreased breath sounds. CARDIOVASCULAR: First and second sounds normal. No edema. ABDOMEN: Soft, non-tender. Liver and spleen not palpable. PSYCHIATRY: Alert and oriented x3. Mood and affect normal. INVESTIGATIONS: White count 9, hemoglobin 8.7, potassium 4.2. ASSESSMENT: 1. Acute non-Q-wave myocardial infarction. 2. Triple-vessel disease. Patient is due to go down for coronary artery bypass in due course. 3. Chronic obstructive pulmonary disease in an ex-smoker. 4. Gastroesophageal reflux disease. 5. Hyperlipidemia. 6. Essential hypertension. 7. Benign prostatic hypertrophy. 8. History of seizure disorder. 9. Depression not otherwise specified. 10.Recent hip fracture 2 weeks ago with arthroplasty. 11.Normocytic anemia, cause unknown. 12.Acute pulmonary embolism 2 weeks ago, for which patient has been on anticoagulation. 13.IV heparin monitoring. 14.Symptomatic anemia, for which patient was given a unit of blood, in the setting of acute coronary syndrome. PLAN: Continue current medication and treatment plan. Patient remains on IV heparin. The patient is going down for cardiac catheterization today. Overall prognosis is guarded. MMODL / IJN: [id number] /
[2018-05-09] MEDS: TICAGRELOR 90 MG TAB PO SCH (20:44)
[2018-05-09] MEDS: EZETIMIBE 10 MG TAB PO SCH (20:44)
[2018-05-09] MEDS: ATORVASTATIN 40 MG TAB PO SCH (20:44)
--- NOTE | 2018-05-09 21:56 | PTCA ---
PERCUTANEOUSTRANS CORORONARY ANGIOGRAPHY DATE OF SERVICE: 05/09/2018 PERFORMING PHYSICIAN: Chaparro Mendez MD, wet finisher. PROCEDURE PERFORMED: 1. Successful stenting of the mid right coronary artery using 2.75 x 33 mm Xience drug- eluting stent with good angiographic results and reduction of stenosis from 99% to 0%. 2. Successful stenting of the ostial/proximal right coronary artery using 3.5 x 15 mm Xience drug-eluting stent with an excellent angiographic result and reduction of stenosis from 80% to 0%. INDICATION: This is a very pleasant 72-year-old gentleman with hypertension as well as dyslipidemia who underwent hip surgery about 6 weeks ago. This surgery was performed at [facility]. He presented to the hospital here complaining of chest discomfort and ruled in for acute ibq-KA-litdkibny myocardial infarction. Because of that, a heart catheterization was advised. The patient underwent heart catheterization 3 days ago and that revealed critical disease involving the mid RCA and severe disease involving the ostial and proximal RCA as well as severe disease involving the distal left main coronary artery. The patient was referred for coronary artery bypass grafting, but it was felt that the patient is too frail at this stage to undergo coronary artery bypass grafting. The decision was made for percutaneous coronary intervention of the right coronary artery in view of the ongoing chest discomfort and to perform coronary artery bypass grafting down the line, once the patient physically is in better shape. APPROACH: Right common femoral artery. COMPLICATIONS: None. LEVEL OF SEDATION: Moderate with sedation length of 45 minutes. PROCEDURE DESCRIPTION: After obtaining informed consent, the patient was brought to the cardiac label drier. The right common femoral artery was cannulated using micropuncture technique, and the micropuncture wire passed easily. Then I placed a 6-Vietnamese sheath in the right common femoral artery. I did start anticoagulation using Angiomax. Subsequently I did engage the right coronary artery using JR3.5 with a side hole. After that I did wire the right coronary artery using 2 wires. The first wire was a Whisper wire and the second wire was a run-through wire as a claudia wire to give more anchoring and support. After that I did balloon angioplasty of the mid RCA using 2.5 x 15 mm balloon where the balloon was inflated under 16 atmospheres for 30 seconds. After that I did stent the mid RCA using 2.75 x 33 mm Xience drug-eluting stent where the stent was positioned under fluoroscopy guidance and deployed under 18 atmospheres for 20 seconds. I post dilated the mid and proximal portion of the stent using 3.0 NC balloon which was inflated under 18 atmospheres for 20 seconds. The following angiogram showed good angiographic results without any evidence of any dissection or perforation in the right coronary artery. Of course, the stent was deployed in the mid RCA after pulling the claudia wire out. For the lesion in the ostial right coronary artery, I did balloon angioplasty using 3.0 mm NC balloon and after that I deployed a 3.5 x 15 mm Xience drug-eluting stent where the stent was positioned under fluoroscopy guidance and deployed under 16 atmospheres for 20 seconds. The following angiogram showed excellent angiographic results and the procedure was completed without any complication. There was good contrast reflux from the ostial right coronary artery. POST-PROCEDURE MANAGEMENT: 1. Dual anti-platelet therapy. 2. Risk factor modifications. 3. The patient will need to undergo coronary artery bypass grafting down the line. MMODL / IJN: [id number] /
[2018-05-09] MEDS ORDERED: ENALAPRILAT 1.25 MG/ML 1 ML VIAL IVP STA (22:05)
[2018-05-09] MEDS ORDERED: hydrALAZINE HCL 20 MG/ML 1 ML VIAL IVP STA (22:05)
[2018-05-09] MEDS ORDERED: HYDROmorphone 1 MG/ML 1 ML SYRINGE IVP STA (22:12)
--- NOTE | 2018-05-09 23:02 | LTR ---
May 09, 2018 To: Dr. Jean Lee Re: Nehemiah Tucker (49) Dear Dr. Lee, Mr. Nehemiah Tucker underwent today successful balloon angioplasty and stenting of the right coronary artery with good angiographic results and without any complication. I want to thank you for allowing me to participate in his care. Please do not hesitate to call if you have any question or concern. Sincerely, Chaparro Mendez MD MMMARQUESL / PERLITAN: [id number] /
[2018-05-09] MEDS: MELATONIN 3 MG TABLET PO PRN (23:25)
[2018-05-10] MEDS: NITROGLYCERIN OINT 1 INCH/GM PACKET TOPICAL SCH ×4 (06:07→23:58)
[2018-05-10] MEDS: CARBIDOPA-LEVODOPA 25-100 MG 1 EACH TAB PO SCH ×3 (06:07→20:03)
[2018-05-10] MEDS: IPRATROPIUM-ALBUTEROL 3 ML NEB INHALATION PRN ×2 (07:47→20:37)
[2018-05-10] MEDS: BUDESONIDE 1 MG/2 ML NEBU INHALATION SCH ×2 (07:47→20:37)
[2018-05-10] MEDS: FORMOTEROL FUMARATE 20 MCG/2 ML NEBU INHALATION SCH ×2 (07:47→20:37)
[2018-05-10] MEDS: PANTOPRAZOLE 40 MG TABLET PO SCH (08:20)
[2018-05-10] MEDS: LISINOPRIL 10 MG TAB PO SCH (08:20)
[2018-05-10] MEDS: PRIMIDONE 50 MG TAB PO SCH ×3 (08:20→23:58)
[2018-05-10] MEDS: PREGABALIN 100 MG CAP PO SCH ×2 (08:20→20:03)
[2018-05-10] MEDS: METOPROLOL TARTRATE 25 MG TAB PO SCH ×2 (08:20→15:57)
[2018-05-10] MEDS: DOCUSATE 100 MG CAP PO SCH ×2 (08:21→15:57)
[2018-05-10] MEDS: TICAGRELOR 90 MG TAB PO SCH ×2 (08:21→20:03)
[2018-05-10] MEDS: ASPIRIN 81 MG PO SCH (08:21)
[2018-05-10] MEDS: amLODIPine 5 MG TAB PO SCH (08:21)
[2018-05-10] MEDS: FINASTERIDE 5 MG TAB PO SCH (08:21)
[2018-05-10] MEDS: FERROUS SULFATE 325 MG TAB PO SCH ×2 (08:21→15:57)
[2018-05-10] MEDS: FAMOTIDINE 20 MG TAB PO SCH ×2 (08:21→15:57)
[2018-05-10] MEDS: SENNOSIDES 8.6 MG TAB PO SCH ×2 (08:21→15:57)
[2018-05-10] MEDS: HYDROcodone/APAP 10-325MG 1 EACH TAB PO PRN ×4 (08:22→23:58)
[2018-05-10] MEDS: MUPIROCIN 2% OINT 22 GM TUBE NASAL SCH ×2 (08:22→20:03)
[2018-05-10] MEDS: QUEtiapine 100 MG TAB PO SCH ×2 (08:22→20:03)
[2018-05-10 11:28] VITALS: BMI 22.1
[2018-05-10] MEDS: MULTIVITAMINS, THERA 1 EACH TAB PO SCH (11:40)
[2018-05-10] MEDS: SODIUM CHLORIDE 0.9% 1,000 ML IV SCH (11:40)
--- NOTE | 2018-05-10 13:27 | PN ---
PROGRESS NOTE HISTORY: Mr. Tucker is 72-year-old male who presented with non ST-segment elevation myocardial infarction, was found to have severe triple-vessel coronary artery disease. Was felt to be too high of his surgical risk. Underwent stenting of his right coronary artery yesterday. He is feeling well this morning. His breathing is stable. He denies symptoms of chest pain. He denies any dizziness or palpitations. He denies any nausea. He continues to be on aspirin once a day, amlodipine 5 mg daily, Lipitor 40 mg daily, Sinemet, lisinopril 10 mg daily metoprolol tartrate 25 mg twice a day, Brilinta 90 mg twice a day. PHYSICAL EXAMINATION: Blood pressure 107/50 with a heart in the 70s. LUNGS: Clear. HEART: Regular rate and rhythm. S1, S2. No S3. No rub. ABDOMEN: Soft, nontender. Right groin hematoma. LAB DATA: Revealed BUN and creatinine of 1.04 and 84. IMPRESSION: 1. Status post stenting of the right coronary artery. 2. Severe triple-vessel coronary disease. 3. Debilitation. RECOMMENDATIONS: We will continue present therapy. Follow his rhythm and blood pressure. If stable, the patient can be discharged once stabilized, to be readmitted to undergo coronary artery bypass grafting for the left coronary system. MMODL / IJN: [id number] /
[2018-05-10] MEDS: CYANOCOBALAMIN 500 MCG TAB PO SCH (15:57)
--- NOTE | 2018-05-10 17:03 | P.PN ---
Subjective on-call hospitalist covering Dr. Anderson over the holidays and weekend this is a pleasant 73 years old male with past medical history of COPD, CVA, hyperlipidemia, hypertension, Parkinson disease, BPH, recent PE,cigarette smoker. Who presents because of chest discomfort. Patient status post left hip surgery about 4 weeks ago at [facility] from there he went to [facility] for rehab and physical therapy. Was sent for the hospital for chest pain. Patient has been evaluated by cardiology team and found to have non-ST elevated myocardial infarction secondary to multivessel coronary artery disease. Patient was on warfarin prior to admission to this hospital.patient underwent cardiac cath which showed extensive multivessel coronary artery disease involving the circumflex artery and LAD. Cardiothoracic surgery has been consulted for CABG however patient is at high risk of surgery at this time.status post cardiac cath yesterday and stent placement. Today patient denies chest pain to me. No dyspnea. No abdominal pain no change in bowel habits or urine habits. No fever.vitals stable. CBC and BMP were unremarkable yesterday except for mild anemia with hemoglobin 8.7.patient is already on aspirin and Brilinta Objective - Vital Signs Vital signs: Vital Signs Temp 97.4 F L 05/10/18 15:56 Pulse 67 05/10/18 15:56 Resp 16 05/10/18 15:56 BP 115/57 05/10/18 15:56 Pulse Ox 98 05/10/18 15:56 Intake & Output 05/09/18 05/10/18 05/10/18 18:59 06:59 18:59 Intake Total 177.857 1622 360 Output Total 800 200 400 Balance -28.402 1400 -40 Weight 62.3 kg 62.3 kg Intake: IV 277.2 1600 0.9 1600 Intake, IV Titration 494.398 Amount Heparin Sod,Pork in 0.45% 494.398 NaCl 25,000 unit In 0.45 % NaCl 1 500ml.bag @ 12 UNITS/KG/HR 15.24 mls/hr IV .Q24H ABBY Rx#: [id number] Oral 360 Output: Urine 800 200 400 Other: Voiding Method Urinal Urinal Urinal Diaper Diaper Incontinent Incontinent # Voids 1 - Exam GENERAL: The patient is alert and oriented x3, not in any acute distress. Well developed, well nourished. HEENT: Pupils are round and equally reacting to light. EOMI. No scleral icterus. No conjunctival pallor. Normocephalic, atraumatic. No pharyngeal erythema. No thyromegaly. CARDIOVASCULAR: S1 and S2 present. No murmurs, rubs, or gallops. PULMONARY: Chest is clear to auscultation, no wheezing or crackles. ABDOMEN: Soft, nontender, nondistended, normoactive bowel sounds. No palpable organomegaly. MUSCULOSKELETAL: No joint swelling or deformity. EXTREMITIES: No cyanosis, clubbing, or pedal edema. NEUROLOGICAL: Gross neurological examination did not reveal any focal deficits. SKIN: No rashes. - Labs CBC & Chem 7: 05/09/18 06:27 05/10/18 06:23 Assessment and Plan Assessment: none STEMI extensive multivessel coronary artery disease, involving the circumflex and LAD arteries. Essential hypertension Hyperlipidemia history of COPD not in exacerbation History of recent pulmonary embolism History of recent fall and hip fracture status post surgery history of Depressionand anxiety Nicotine dependence Plan: this is a pleasant 72 years old male who presents with non-STEMI. Cardiology are following the case, patient status post cardiac cath yesterday and stent placement. Continue with aspirin and the Brilinta, cardiothoracic surgery has been consulted. Labs and medication were reviewed.. Continue same treatment. Continue with symptomatic treatment. Resume home medication. Monitor lytes and vitals. DVT and GI prophylaxis. Further recommendations of the clinical course of the patient Prognosis is guarded
[2018-05-10] MEDS: EZETIMIBE 10 MG TAB PO SCH (20:03)
[2018-05-10] MEDS: ATORVASTATIN 40 MG TAB PO SCH (20:03)
[2018-05-11] MEDS: SODIUM CHLORIDE 0.9% 1,000 ML IV SCH ×2 (02:40→18:09)
[2018-05-11] MEDS: HYDROcodone/APAP 10-325MG 1 EACH TAB PO PRN ×5 (05:25→22:51)
[2018-05-11] MEDS: NITROGLYCERIN OINT 1 INCH/GM PACKET TOPICAL SCH (05:25)
[2018-05-11] MEDS: CARBIDOPA-LEVODOPA 25-100 MG 1 EACH TAB PO SCH ×3 (05:25→19:18)
[2018-05-11] MEDS: IPRATROPIUM-ALBUTEROL 3 ML NEB INHALATION PRN ×2 (07:14→20:40)
[2018-05-11] MEDS: FORMOTEROL FUMARATE 20 MCG/2 ML NEBU INHALATION SCH ×2 (07:14→20:40)
[2018-05-11] MEDS: BUDESONIDE 1 MG/2 ML NEBU INHALATION SCH ×2 (07:14→20:40)
[2018-05-11] MEDS: FAMOTIDINE 20 MG TAB PO SCH ×2 (09:26→17:21)
[2018-05-11] MEDS: FERROUS SULFATE 325 MG TAB PO SCH ×2 (09:26→17:21)
[2018-05-11] MEDS: FINASTERIDE 5 MG TAB PO SCH (09:26)
[2018-05-11] MEDS: DOCUSATE 100 MG CAP PO SCH ×2 (09:26→17:21)
[2018-05-11] MEDS: LISINOPRIL 10 MG TAB PO SCH (09:26)
[2018-05-11] MEDS: amLODIPine 5 MG TAB PO SCH (09:26)
[2018-05-11] MEDS: ASPIRIN 81 MG PO SCH (09:26)
[2018-05-11] MEDS: FLUoxetine HCL 20 MG CAP PO SCH (09:26)
[2018-05-11] MEDS: TICAGRELOR 90 MG TAB PO SCH ×2 (09:31→19:18)
[2018-05-11] MEDS: PRIMIDONE 50 MG TAB PO SCH ×3 (09:31→22:51)
[2018-05-11] MEDS: PREGABALIN 100 MG CAP PO SCH ×2 (09:31→19:18)
[2018-05-11] MEDS: PANTOPRAZOLE 40 MG TABLET PO SCH (09:31)
[2018-05-11] MEDS: MULTIVITAMINS, THERA 1 EACH TAB PO SCH (09:31)
[2018-05-11] MEDS: SENNOSIDES 8.6 MG TAB PO SCH ×2 (09:34→17:20)
[2018-05-11] MEDS: QUEtiapine 100 MG TAB PO SCH ×2 (09:34→19:18)
[2018-05-11] MEDS: METOPROLOL TARTRATE 25 MG TAB PO SCH ×2 (09:45→17:21)
--- NOTE | 2018-05-11 11:05 | P.PN ---
Subjective Progress Note Date: 05/11/18 This is a pleasant 72-year-old gentleman who presented with non-ST elevation DC and found to have severe triple vessel CAD. Was felt to be too high risk for surgery. Underwent stenting of his right coronary artery. Upon examination, patient is feeling quite a bit better. His breathing is stable. He denies complaints of chest discomfort, dizziness or palpitations. He is currently on Norvasc 5 mg daily, aspirin 81 mg daily, atorvastatin 40 mg daily at bedtime, steady at 10 mg daily, lisinopril 10 mg daily, metoprolol tartrate 25 mg by mouth twice a day, Nitro-Bid ointment and Brilinta. Objective - Vital Signs Vital signs: Vital Signs Temp 97.8 F 05/11/18 04:00 Pulse 69 05/11/18 07:35 Resp 18 05/11/18 04:00 BP 129/60 05/11/18 04:00 Pulse Ox 96 05/11/18 04:00 Intake & Output 05/10/18 05/11/18 05/11/18 18:59 06:59 18:59 Intake Total 360 300 240 Output Total 400 400 Balance -40 -100 240 Weight 62.3 kg 66 kg Intake: Oral 360 300 240 Output: Urine 400 400 Other: Voiding Method Urinal Urinal Diaper Diaper Incontinent Incontinent - Exam PHYSICAL EXAMINATION: HEENT: Head is atraumatic, normocephalic. Pupils equal, round. Neck is supple. There is no elevated jugular venous pressure. HEART EXAMINATION: Heart sounds regular, S1 and S2 normal. No murmur or gallop heard. CHEST EXAMINATION: Lungs are clear to auscultation and precussion. No chest wall tenderness is noted on palpation or with deep breathing. ABDOMEN: Soft, nontender. No organomegaly noted. EXTREMITIES: 2+ peripheral pulses with no evidence of peripheral edema and no calf tenderness noted. NEUROLOGIC patient is awake, alert and orientedx3. . - Labs CBC & Chem 7: 05/09/18 06:27 05/10/18 06:23 Assessment and Plan Assessment: #1 non-ST elevation DC #2 severe triple-vessel CAD #3 status post stenting of the RCA #4 dilatation Plan: From cardiology's perspective, we will discontinue Nitro-Bid Ointment insert the patient on Imdur 30 mg by mouth daily. Patient will follow-up in the office with Dr. Hughes. He'll be readmitted to undergo coronary artery bypass grafting for left coronary system. BOW MACHINE OPERATOR note has been reviewed, I agree with a documented findings and plan of care. Patient was seen and examined.
[2018-05-11] MEDS: ISOSORBIDE MONONITRATE ER 30 MG TAB.ER.24H PO SCH (12:44)
--- NOTE | 2018-05-11 15:22 | P.PN ---
Subjective on-call hospitalist covering Dr. Anderson over the holidays and weekend this is a pleasant 73 years old male with past medical history of COPD, CVA, hyperlipidemia, hypertension, Parkinson disease, BPH, recent PE,cigarette smoker. Who presents because of chest discomfort. Patient status post left hip surgery about 4 weeks ago at [facility] from there he went to [facility] for rehab and physical therapy. Was sent for the hospital for chest pain. Patient has been evaluated by cardiology team and found to have non-ST elevated myocardial infarction secondary to multivessel coronary artery disease. Patient was on warfarin prior to admission to this hospital.patient underwent cardiac cath which showed extensive multivessel coronary artery disease involving the circumflex artery and LAD. Cardiothoracic surgery has been consulted for CABG however patient is at high risk of surgery at this time.status post cardiac cath yesterday and stent placement. Today patient denies chest pain to me. No dyspnea. No abdominal pain no change in bowel habits or urine habits. No fever.vitals stable. CBC and BMP were unremarkable yesterday except for mild anemia with hemoglobin 8.7.patient is already on aspirin and Brilinta 05/11/2018 Patient was lying in bed complaining of from generalized weakness, however he denies chest pain. No dyspnea. No change in urine or bowel habits. No fever. No nausea vomiting. Patient is eating well. IV fluids are stopped. Patient was on Coumadin prior to admission to the hospital. Anticoagulation is on hold. Patient was told me he was taking Coumadin since 2002 after his been told that he has decreased circulation to the brain. Patient was not sure if he had he had Stroke before but states he had some weakness on the left side before from brain insult. However patient denies history of PE or DVT for him before. Currently his on Brilinta. Is also on subcutaneous heparin. Decreased IV fluid to 50 mL/h. Patient is eating and drinking. Patient might benefit from subacute rehab. Objective - Vital Signs Vital signs: Vital Signs Temp 97.8 F 05/11/18 04:00 Pulse 69 05/11/18 07:35 Resp 18 05/11/18 04:00 BP 129/60 05/11/18 04:00 Pulse Ox 96 05/11/18 04:00 Intake & Output 05/10/18 05/11/18 05/11/18 18:59 06:59 18:59 Intake Total 360 300 480 Output Total 400 400 700 Balance -40 -100 -220 Weight 62.3 kg 66 kg Intake: Oral 360 300 480 Output: Urine 400 400 700 Other: Voiding Method Urinal Urinal Diaper Diaper Incontinent Incontinent - Exam GENERAL: The patient is alert and oriented x3, not in any acute distress. Well developed, well nourished. HEENT: Pupils are round and equally reacting to light. EOMI. No scleral icterus. No conjunctival pallor. Normocephalic, atraumatic. No pharyngeal erythema. No thyromegaly. CARDIOVASCULAR: S1 and S2 present. No murmurs, rubs, or gallops. PULMONARY: Chest is clear to auscultation, no wheezing or crackles. ABDOMEN: Soft, nontender, nondistended, normoactive bowel sounds. No palpable organomegaly. MUSCULOSKELETAL: No joint swelling or deformity. EXTREMITIES: No cyanosis, clubbing, or pedal edema. NEUROLOGICAL: Gross neurological examination did not reveal any focal deficits. SKIN: No rashes. - Labs CBC & Chem 7: 05/09/18 06:27 05/10/18 06:23 Assessment and Plan Assessment: none STEMI extensive multivessel coronary artery disease, involving the circumflex and LAD arteries. Essential hypertension Hyperlipidemia history of COPD not in exacerbation History of recent pulmonary embolism History of recent fall and hip fracture status post surgery history of Depressionand anxiety Nicotine dependence Plan: this is a pleasant 72 years old male who presents with non-STEMI. Cardiology are following the case, patient status post cardiac cath yesterday and stent placement. Continue with aspirin and the Brilinta, cardiothoracic surgery has been consulted. Labs and medication were reviewed.. Continue same treatment. Continue with symptomatic treatment. Resume home medication. Monitor lytes and vitals. DVT and GI prophylaxis. Further recommendations of the clinical course of the patient Prognosis is guarded
[2018-05-11] MEDS: CYANOCOBALAMIN 500 MCG TAB PO SCH (17:20)
[2018-05-11] MEDS: HEPARIN SODIUM,PORCINE 5,000 UNIT/ML 1 ML VIAL SQ SCH ×2 (17:21→22:51)
[2018-05-11] MEDS: EZETIMIBE 10 MG TAB PO SCH (19:18)
[2018-05-11] MEDS: ATORVASTATIN 40 MG TAB PO SCH (19:18)
[2018-05-12] MEDS: SODIUM CHLORIDE 0.9% 1,000 ML IV SCH ×2 (04:48→19:18)
[2018-05-12] MEDS: CARBIDOPA-LEVODOPA 25-100 MG 1 EACH TAB PO SCH ×3 (05:26→20:16)
[2018-05-12] MEDS: HYDROcodone/APAP 10-325MG 1 EACH TAB PO PRN ×4 (05:26→20:16)
[2018-05-12 07:38] LABS: Anisocytosis Slight; Basophils # (A) 0.1 k/uL (0-0.2); Basophils % (A) 1 %; Eosinophils # (A) 0.2 k/uL (0-0.7); Eosinophils % (A) 2 %; HCT 28.5 % (39.0-53.0); HGB 9.1 gm/dL (13.0-17.5); Hypochromasia Slight; Lymphocytes % (A) 23 %; MCH 29.2 pg (25.0-35.0); MCHC 32.1 g/dL (31.0-37.0); MCV 91.1 fL (80.0-100.0); Mean Platelet Volume 6.5; Monocytes # (A) 0.5 k/uL (0-1.0); Monocytes % (A) 6 %; Neutrophils # (A) 5.8 k/uL (1.3-7.7); Neutrophils % (A) 66 %; Platelet Count 304 k/uL (150-450); RBC 3.12 m/uL (4.30-5.90); RDW 16.6 % (11.5-15.5); WBC 8.8 k/uL (3.8-10.6)
[2018-05-12 07:48] LABS: Anion Gap 6 mmol/L; Blood Urea Nitrogen 24 mg/dL (9-20); Calcium 8.8 mg/dL (8.4-10.2); Carbon Dioxide 25 mmol/L (22-30); Chloride 107 mmol/L (98-107); Glucose 84 mg/dL (74-99); Potassium 4.2 mmol/L (3.5-5.1); Sodium 138 mmol/L (137-145)
[2018-05-12] MEDS: IPRATROPIUM-ALBUTEROL 3 ML NEB INHALATION PRN ×4 (08:10→20:26)
[2018-05-12] MEDS: FORMOTEROL FUMARATE 20 MCG/2 ML NEBU INHALATION SCH ×2 (08:11→20:25)
[2018-05-12] MEDS: BUDESONIDE 1 MG/2 ML NEBU INHALATION SCH ×2 (08:11→20:26)
[2018-05-12] MEDS: DOCUSATE 100 MG CAP PO SCH ×2 (09:08→15:55)
[2018-05-12] MEDS: FAMOTIDINE 20 MG TAB PO SCH ×2 (09:08→15:55)
[2018-05-12] MEDS: amLODIPine 5 MG TAB PO SCH (09:08)
[2018-05-12] MEDS: FINASTERIDE 5 MG TAB PO SCH (09:09)
[2018-05-12] MEDS: FERROUS SULFATE 325 MG TAB PO SCH ×2 (09:09→15:55)
[2018-05-12] MEDS: FLUoxetine HCL 20 MG CAP PO SCH (09:09)
[2018-05-12] MEDS: HEPARIN SODIUM,PORCINE 5,000 UNIT/ML 1 ML VIAL SQ SCH ×2 (09:09→15:53)
[2018-05-12] MEDS: METOPROLOL TARTRATE 25 MG TAB PO SCH ×2 (09:10→15:55)
[2018-05-12] MEDS: PRIMIDONE 50 MG TAB PO SCH ×2 (09:10→15:54)
[2018-05-12] MEDS: PREGABALIN 100 MG CAP PO SCH ×2 (09:10→20:16)
[2018-05-12] MEDS: SENNOSIDES 8.6 MG TAB PO SCH ×2 (09:11→15:55)
[2018-05-12] MEDS: ISOSORBIDE MONONITRATE ER 30 MG TAB.ER.24H PO SCH (09:12)
[2018-05-12] MEDS: ASPIRIN 81 MG PO SCH (09:12)
[2018-05-12] MEDS: PANTOPRAZOLE 40 MG TABLET PO SCH (09:12)
[2018-05-12] MEDS: MULTIVITAMINS, THERA 1 EACH TAB PO SCH (09:12)
[2018-05-12] MEDS: LISINOPRIL 10 MG TAB PO SCH (09:12)
[2018-05-12] MEDS: TICAGRELOR 90 MG TAB PO SCH ×2 (09:12→20:16)
[2018-05-12] MEDS: QUEtiapine 100 MG TAB PO SCH ×2 (09:20→20:16)
--- NOTE | 2018-05-12 13:14 | P.PN ---
Subjective Progress Note Date: 05/12/18 This is a pleasant 72-year-old male past medical history significant for hypertension, dyslipdemia, COPD, chronic nicotine dependence and chronic nicotine dependence. He states he underwent left hip surgery 3 weeks ago at [facility] and is currently undergoing rehab at [facility]. He denies history of coronary artery disease and has never seen a extrusion process operator for any reason. He presented to the hospital with chest discomfort and underwent cardiac catheterization revealing significant multi-vessel disease with critical disease involving the ostial and mid RCA with an occluded PLV branch, complex lesion at the bifurcation of the circumflex, LAD and ramus of approximately 80%, and a heavily calcified left main. Patient had been seen in consultation by cardiothoracic surgery and was felt to be high risk for surgery at this time. He did have an episode of chest pain earlier this morning, the time of my examination he is pain-free. Patient will go to the cardiac catheterization lab tomorrow and undergo angioplasty and stenting of the RCA. The plan is then for him to be discharged home and possibly undergo coronary artery bypass grafting surgery within a month or so. I pressure today 140/60, heart rate in the 60s, 100% on 2 L of oxygen. 05/12/2018 Patient was seen and examined this morning, denies any further chest discomfort , hemodynamically he is stable. From our perspective he may be transferred to rehab for home with rehab, once cleared by primary. We'll make sure he has a follow-up appointment in the office post discharge. Objective - Vital Signs Vital signs: Vital Signs Temp 97.7 F 05/12/18 08:55 Pulse 85 05/12/18 11:34 Resp 16 05/12/18 11:25 BP 104/44 05/12/18 08:55 Pulse Ox 96 05/12/18 08:55 Intake & Output 05/11/18 05/12/18 05/12/18 18:59 06:59 18:59 Intake Total 702 180 Output Total 700 500 150 Balance 2 -500 30 Weight 65.5 kg Intake: Oral 702 180 Output: Urine 700 500 150 Other: Voiding Method Urinal Urinal Urinal Diaper Diaper Diaper Incontinent Incontinent Incontinent # Voids 1 - Exam PHYSICAL EXAMINATION: GENERAL: 72-year-old gentleman in no acute distress at the time of my examination HEENT: Head is atraumatic, normocephalic. Pupils equal, round. Sclera anicteric. Conjunctiva are clear. Mucous membranes of the mouth are moist. Neck is supple. There is no elevated jugular venous pressure.] bruit is heard. HEART EXAMINATION: Heart S1, S2 normal. No murmur or gallop heard. CHEST EXAMINATION: Lungs are clear to auscultation and precussion. No chest wall tenderness is noted on palpation or with deep breathing. ABDOMEN: Soft, nontender. Bowel sounds are heard. No organomegaly noted. EXTREMITIES: 2+ peripheral pulses with no evidence of peripheral edema and no calf tenderness noted. NEUROLOGIC patient is awake, alert and oriented ?-3. . - Labs CBC & Chem 7: 05/12/18 06:47 05/12/18 06:47 Labs: Abnormal Lab Results - Last 24 Hours (Table) 05/12/18 05/12/18 Range/Units 06:47 06:47 RBC 3.12 L (4.30-5.90) m/uL Hgb 9.1 L (13.0-17.5) gm/dL Hct 28.5 L (39.0-53.0) % RDW 16.6 H (11.5-15.5) % BUN 24 H (9-20) mg/dL Assessment and Plan Plan: Assessment and plan #1 Non-ST elevated SC, status post stenting of the RCA. #2 Multi-vessel coronary artery disease #3 History of PE post-operatively after recent hip surgery. #4 Hypertension #5 Dyslipidemia #6 COPD #7 Recent left hip replacement approximately 3 weeks ago at [facility] #8 Chronic anemia #9 Chronic nicotine dependence Plan From cardiology's perspective, patient may be able to be discharged home or to rehab once cleared by primary. Plan down the road is to proceed with coronary artery bypass grafting surgery once the patient becomes stronger. DNP note has been reviewed, I agree with a documented findings and plan of care. Patient was seen and examined.
[2018-05-12] MEDS: CYANOCOBALAMIN 500 MCG TAB PO SCH (15:54)
--- NOTE | 2018-05-12 17:02 | P.PN ---
Subjective on-call hospitalist covering Dr. Anderson over the holidays and weekend this is a pleasant 73 years old male with past medical history of COPD, CVA, hyperlipidemia, hypertension, Parkinson disease, BPH, recent PE,cigarette smoker. Who presents because of chest discomfort. Patient status post left hip surgery about 4 weeks ago at [facility] from there he went to [facility] for rehab and physical therapy. Was sent for the hospital for chest pain. Patient has been evaluated by cardiology team and found to have non-ST elevated myocardial infarction secondary to multivessel coronary artery disease. Patient was on warfarin prior to admission to this hospital.patient underwent cardiac cath which showed extensive multivessel coronary artery disease involving the circumflex artery and LAD. Cardiothoracic surgery has been consulted for CABG however patient is at high risk of surgery at this time.status post cardiac cath yesterday and stent placement. Today patient denies chest pain to me. No dyspnea. No abdominal pain no change in bowel habits or urine habits. No fever.vitals stable. CBC and BMP were unremarkable yesterday except for mild anemia with hemoglobin 8.7.patient is already on aspirin and Brilinta 05/11/2018 Patient was lying in bed complaining of from generalized weakness, however he denies chest pain. No dyspnea. No change in urine or bowel habits. No fever. No nausea vomiting. Patient is eating well. IV fluids are stopped. Patient was on Coumadin prior to admission to the hospital. Anticoagulation is on hold. Patient was told me he was taking Coumadin since 2002 after his been told that he has decreased circulation to the brain. Patient was not sure if he had he had Stroke before but states he had some weakness on the left side before from brain insult. However patient denies history of PE or DVT for him before. Currently his on Brilinta. Is also on subcutaneous heparin. Decreased IV fluid to 50 mL/h. Patient is eating and drinking. Patient might benefit from subacute rehab. 05/12/2018 Patient still lying in bed generally weak. Denies chest pain or dyspnea. No change in bowel habits. Patient is planned to go to rehab with evaluated For Possible strengthening, followed by possible CABG surgery. His were contacted discussed with cardiology for starting the patient on anticoagulation. Currently he is on Brilinta no aspirin. And his many blood pressure medication and Vitas looks stable. Hemoglobin 9.1. Duricef CBC and BMP was unremarkable Objective - Vital Signs Vital signs: Vital Signs Temp 97.7 F 05/12/18 08:55 Pulse 82 05/12/18 16:30 Resp 16 05/12/18 11:25 BP 104/44 05/12/18 08:55 Pulse Ox 96 05/12/18 08:55 Intake & Output 05/11/18 05/12/18 05/12/18 18:59 06:59 18:59 Intake Total 702 402 Output Total 700 500 150 Balance 2 -500 252 Weight 65.5 kg Intake: Oral 702 402 Output: Urine 700 500 150 Other: Voiding Method Urinal Urinal Urinal Diaper Diaper Diaper Incontinent Incontinent Incontinent # Voids 1 - Exam GENERAL: The patient is alert and oriented x3, not in any acute distress. Well developed, well nourished. HEENT: Pupils are round and equally reacting to light. EOMI. No scleral icterus. No conjunctival pallor. Normocephalic, atraumatic. No pharyngeal erythema. No thyromegaly. CARDIOVASCULAR: S1 and S2 present. No murmurs, rubs, or gallops. PULMONARY: Chest is clear to auscultation, no wheezing or crackles. ABDOMEN: Soft, nontender, nondistended, normoactive bowel sounds. No palpable organomegaly. MUSCULOSKELETAL: No joint swelling or deformity. EXTREMITIES: No cyanosis, clubbing, or pedal edema. NEUROLOGICAL: Gross neurological examination did not reveal any focal deficits. SKIN: No rashes. - Labs CBC & Chem 7: 05/12/18 06:47 05/12/18 06:47 Labs: Abnormal Lab Results - Last 24 Hours (Table) 05/12/18 05/12/18 Range/Units 06:47 06:47 RBC 3.12 L (4.30-5.90) m/uL Hgb 9.1 L (13.0-17.5) gm/dL Hct 28.5 L (39.0-53.0) % RDW 16.6 H (11.5-15.5) % BUN 24 H (9-20) mg/dL Assessment and Plan Assessment: none STEMI extensive multivessel coronary artery disease, involving the circumflex and LAD arteries. Essential hypertension Hyperlipidemia history of COPD not in exacerbation History of recent pulmonary embolism History of recent fall and hip fracture status post surgery history of Depressionand anxiety Nicotine dependence Plan: this is a pleasant 72 years old male who presents with non-STEMI. Cardiology are following the case, patient status post cardiac cath yesterday and stent placement. Continue with aspirin and the Brilinta, cardiothoracic surgery has been consulted. Labs and medication were reviewed.. Continue same treatment. Continue with symptomatic treatment. Resume home medication. Monitor lytes and vitals. DVT and GI prophylaxis. Further recommendations of the clinical course of the patient Prognosis is guarded
[2018-05-12] MEDS: ATORVASTATIN 40 MG TAB PO SCH (20:16)
[2018-05-12] MEDS: EZETIMIBE 10 MG TAB PO SCH (20:23)
[2018-05-13] MEDS: HYDROcodone/APAP 10-325MG 1 EACH TAB PO PRN ×6 (00:29→23:35)
[2018-05-13] MEDS: HEPARIN SODIUM,PORCINE 5,000 UNIT/ML 1 ML VIAL SQ SCH ×4 (00:29→23:31)
[2018-05-13] MEDS: PRIMIDONE 50 MG TAB PO SCH ×4 (00:29→23:31)
[2018-05-13] MEDS: CARBIDOPA-LEVODOPA 25-100 MG 1 EACH TAB PO SCH ×3 (05:06→20:36)
[2018-05-13] MEDS: IPRATROPIUM-ALBUTEROL 3 ML NEB INHALATION PRN ×2 (08:08→20:30)
[2018-05-13] MEDS: BUDESONIDE 1 MG/2 ML NEBU INHALATION SCH ×2 (08:08→20:30)
[2018-05-13] MEDS: FORMOTEROL FUMARATE 20 MCG/2 ML NEBU INHALATION SCH ×2 (08:08→20:30)
[2018-05-13] MEDS: SODIUM CHLORIDE 0.9% 1,000 ML IV SCH ×2 (08:47→19:51)
[2018-05-13] MEDS: amLODIPine 5 MG TAB PO SCH (08:47)
[2018-05-13] MEDS: FINASTERIDE 5 MG TAB PO SCH (08:48)
[2018-05-13] MEDS: FLUoxetine HCL 20 MG CAP PO SCH (08:48)
[2018-05-13] MEDS: FERROUS SULFATE 325 MG TAB PO SCH ×2 (08:48→17:05)
[2018-05-13] MEDS: DOCUSATE 100 MG CAP PO SCH ×2 (08:48→17:04)
[2018-05-13] MEDS: FAMOTIDINE 20 MG TAB PO SCH ×2 (08:48→17:04)
[2018-05-13] MEDS: PREGABALIN 100 MG CAP PO SCH ×2 (08:49→20:36)
[2018-05-13] MEDS: METOPROLOL TARTRATE 25 MG TAB PO SCH ×2 (08:49→17:05)
[2018-05-13] MEDS: SENNOSIDES 8.6 MG TAB PO SCH ×2 (08:50→17:05)
[2018-05-13] MEDS: ISOSORBIDE MONONITRATE ER 30 MG TAB.ER.24H PO SCH (08:51)
[2018-05-13] MEDS: ASPIRIN 81 MG PO SCH (08:51)
[2018-05-13] MEDS: LISINOPRIL 10 MG TAB PO SCH (08:51)
[2018-05-13] MEDS: PANTOPRAZOLE 40 MG TABLET PO SCH (08:51)
[2018-05-13] MEDS: TICAGRELOR 90 MG TAB PO SCH ×2 (08:51→20:36)
[2018-05-13] MEDS: MULTIVITAMINS, THERA 1 EACH TAB PO SCH (08:52)
[2018-05-13] MEDS: QUEtiapine 100 MG TAB PO SCH ×2 (08:57→20:36)
--- NOTE | 2018-05-13 12:25 | P.PN ---
Subjective Progress Note Date: 05/13/18 This is a pleasant 72-year-old gentleman who presented with non-ST elevation MA and found to have severe triple vessel CAD. Was felt to be too high risk for surgery. Underwent stenting of his right coronary artery. Upon examination, patient is feeling quite a bit better. His breathing is stable. He denies complaints of chest discomfort, dizziness or palpitations. He is currently on Norvasc 5 mg daily, aspirin 81 mg daily, atorvastatin 40 mg daily at bedtime, Zetia 10 mg daily, lisinopril 10 mg daily, metoprolol tartrate 25 mg by mouth twice a day, isosorbide 30mg BID and Brilinta. Objective - Vital Signs Vital signs: Vital Signs Temp 97.7 F 05/13/18 11:25 Pulse 58 L 05/13/18 11:25 Resp 16 05/13/18 11:25 BP 116/53 05/13/18 11:25 Pulse Ox 98 05/13/18 11:25 Intake & Output 05/12/18 05/13/18 05/13/18 18:59 06:59 18:59 Intake Total 624 200 240 Output Total 350 100 450 Balance 274 100 -210 Weight 65.6 kg Intake: Oral 624 200 240 Output: Urine 350 100 450 Other: Voiding Method Urinal Urinal Urinal Diaper Diaper Diaper Incontinent Incontinent Incontinent # Voids 1 # Bowel Movements 1 - Exam PHYSICAL EXAMINATION: HEENT: Head is atraumatic, normocephalic. Pupils equal, round. Neck is supple. There is no elevated jugular venous pressure. HEART EXAMINATION: Heart sounds regular, S1 and S2 normal. No murmur or gallop heard. CHEST EXAMINATION: Lungs are clear to auscultation and precussion. No chest wall tenderness is noted on palpation or with deep breathing. ABDOMEN: Soft, nontender. No organomegaly noted. EXTREMITIES: 2+ peripheral pulses with no evidence of peripheral edema and no calf tenderness noted. NEUROLOGIC patient is awake, alert and orientedx3. . - Labs CBC & Chem 7: 05/12/18 06:47 05/12/18 06:47 Assessment and Plan Assessment: #1 non-ST elevation MA #2 severe triple-vessel CAD #3 status post stenting of the RCA #4 debility Plan: From cardiology's perspective, medications were reviewed and we will continue the same. Patient may be discharged to [facility] for rehab once cleared by primary. Patient will follow-up in the office with Dr. Mendez. He'll be readmitted to undergo coronary artery bypass grafting once he becomes stronger. BILINGUAL TRAINER note has been reviewed, I agree with a documented findings and plan of care. Patient was seen and examined.
[2018-05-13] MEDS: CYANOCOBALAMIN 500 MCG TAB PO SCH (17:04)
[2018-05-13] MEDS: ATORVASTATIN 40 MG TAB PO SCH (20:36)
[2018-05-13] MEDS: EZETIMIBE 10 MG TAB PO SCH (20:36)
[2018-05-13] MEDS: MELATONIN 3 MG TABLET PO PRN (23:35)
--- NOTE | 2018-05-14 00:07 | P.PN ---
Subjective on-call hospitalist covering Dr. Anderson over the holidays and weekend this is a pleasant 73 years old male with past medical history of COPD, CVA, hyperlipidemia, hypertension, Parkinson disease, BPH, recent PE,cigarette smoker. Who presents because of chest discomfort. Patient status post left hip surgery about 4 weeks ago at [facility] from there he went to [facility] for rehab and physical therapy. Was sent for the hospital for chest pain. Patient has been evaluated by cardiology team and found to have non-ST elevated myocardial infarction secondary to multivessel coronary artery disease. Patient was on warfarin prior to admission to this hospital.patient underwent cardiac cath which showed extensive multivessel coronary artery disease involving the circumflex artery and LAD. Cardiothoracic surgery has been consulted for CABG however patient is at high risk of surgery at this time.status post cardiac cath yesterday and stent placement. Today patient denies chest pain to me. No dyspnea. No abdominal pain no change in bowel habits or urine habits. No fever.vitals stable. CBC and BMP were unremarkable yesterday except for mild anemia with hemoglobin 8.7.patient is already on aspirin and Brilinta 05/11/2018 Patient was lying in bed complaining of from generalized weakness, however he denies chest pain. No dyspnea. No change in urine or bowel habits. No fever. No nausea vomiting. Patient is eating well. IV fluids are stopped. Patient was on Coumadin prior to admission to the hospital. Anticoagulation is on hold. Patient was told me he was taking Coumadin since 2002 after his been told that he has decreased circulation to the brain. Patient was not sure if he had he had Stroke before but states he had some weakness on the left side before from brain insult. However patient denies history of PE or DVT for him before. Currently his on Brilinta. Is also on subcutaneous heparin. Decreased IV fluid to 50 mL/h. Patient is eating and drinking. Patient might benefit from subacute rehab. 05/12/2018 Patient still lying in bed generally weak. Denies chest pain or dyspnea. No change in bowel habits. Patient is planned to go to rehab with evaluated For Possible strengthening, followed by possible CABG surgery. His were contacted discussed with cardiology for starting the patient on anticoagulation. Currently he is on Brilinta no aspirin. And his many blood pressure medication and Vitas looks stable. Hemoglobin 9.1. Duricef CBC and BMP was unremarkable 05/13/2018 Patient clinically looks the same however he is generally weak. Today patient confirmed to me he was on Plavix for his suture/TIA many years ago, his anticoagulation was a started to 3 weeks ago for after his hip surgery. No need to start anticoagulation currently, confirmed with taping machine operator team who agreed with this plan. Still the plan for the patient to go to rehab and follow -up with cardiothoracic surgery upon discharge for possible bypass surgery. No chest pain or dyspnea. Labs and vitals remained stable Objective - Vital Signs Vital signs: Vital Signs Temp 97.7 F 05/13/18 11:25 Pulse 58 L 05/13/18 11:25 Resp 16 05/13/18 11:25 BP 116/53 05/13/18 11:25 Pulse Ox 98 05/13/18 11:25 Intake & Output 05/12/18 05/13/18 05/13/18 18:59 06:59 18:59 Intake Total 624 200 480 Output Total 350 100 450 Balance 274 100 30 Weight 65.6 kg Intake: Oral 624 200 480 Output: Urine 350 100 450 Other: Voiding Method Urinal Urinal Urinal Diaper Diaper Diaper Incontinent Incontinent Incontinent # Voids 1 # Bowel Movements 1 - Exam GENERAL: The patient is alert and oriented x3, not in any acute distress. Well developed, well nourished. HEENT: Pupils are round and equally reacting to light. EOMI. No scleral icterus. No conjunctival pallor. Normocephalic, atraumatic. No pharyngeal erythema. No thyromegaly. CARDIOVASCULAR: S1 and S2 present. No murmurs, rubs, or gallops. PULMONARY: Chest is clear to auscultation, no wheezing or crackles. ABDOMEN: Soft, nontender, nondistended, normoactive bowel sounds. No palpable organomegaly. MUSCULOSKELETAL: No joint swelling or deformity. EXTREMITIES: No cyanosis, clubbing, or pedal edema. NEUROLOGICAL: Gross neurological examination did not reveal any focal deficits. SKIN: No rashes. - Labs CBC & Chem 7: 05/12/18 06:47 05/12/18 06:47 Assessment and Plan Assessment: none STEMI extensive multivessel coronary artery disease, involving the circumflex and LAD arteries. Essential hypertension Hyperlipidemia history of COPD not in exacerbation History of recent pulmonary embolism History of recent fall and hip fracture status post surgery history of Depressionand anxiety Nicotine dependence Plan: this is a pleasant 72 years old male who presents with non-STEMI. Cardiology are following the case, patient status post cardiac cath yesterday and stent placement. Continue with aspirin and the Brilinta, cardiothoracic surgery has been consulted. Labs and medication were reviewed.. Continue same treatment. Continue with symptomatic treatment. Resume home medication. Monitor lytes and vitals. DVT and GI prophylaxis. Further recommendations of the clinical course of the patient Prognosis is guarded
[2018-05-14] MEDS: CARBIDOPA-LEVODOPA 25-100 MG 1 EACH TAB PO SCH ×3 (05:28→20:59)
[2018-05-14] MEDS: IPRATROPIUM-ALBUTEROL 3 ML NEB INHALATION PRN ×3 (08:48→19:41)
[2018-05-14] MEDS: BUDESONIDE 1 MG/2 ML NEBU INHALATION SCH ×2 (08:48→19:41)
[2018-05-14] MEDS: FORMOTEROL FUMARATE 20 MCG/2 ML NEBU INHALATION SCH ×2 (08:48→19:41)
[2018-05-14] MEDS: FAMOTIDINE 20 MG TAB PO SCH ×2 (09:36→16:45)
[2018-05-14] MEDS: FERROUS SULFATE 325 MG TAB PO SCH ×2 (09:37→16:45)
[2018-05-14] MEDS: PRIMIDONE 50 MG TAB PO SCH ×3 (09:37→20:58)
[2018-05-14] MEDS: PREGABALIN 100 MG CAP PO SCH ×2 (09:37→20:59)
[2018-05-14] MEDS: QUEtiapine 100 MG TAB PO SCH ×2 (09:37→23:39)
[2018-05-14] MEDS: DOCUSATE 100 MG CAP PO SCH ×2 (09:37→16:45)
[2018-05-14] MEDS: SENNOSIDES 8.6 MG TAB PO SCH ×2 (09:37→16:45)
[2018-05-14] MEDS: PANTOPRAZOLE 40 MG TABLET PO SCH (09:37)
[2018-05-14] MEDS: FLUoxetine HCL 20 MG CAP PO SCH (09:38)
[2018-05-14] MEDS: FINASTERIDE 5 MG TAB PO SCH (09:38)
[2018-05-14] MEDS: HEPARIN SODIUM,PORCINE 5,000 UNIT/ML 1 ML VIAL SQ SCH ×2 (09:38→16:44)
[2018-05-14] MEDS: METOPROLOL TARTRATE 25 MG TAB PO SCH ×2 (09:38→16:45)
[2018-05-14] MEDS: TICAGRELOR 90 MG TAB PO SCH ×2 (09:38→20:59)
[2018-05-14] MEDS: ASPIRIN 81 MG PO SCH (09:38)
[2018-05-14] MEDS: HYDROcodone/APAP 10-325MG 1 EACH TAB PO PRN ×3 (09:46→20:58)
[2018-05-14] MEDS: ISOSORBIDE MONONITRATE ER 30 MG TAB.ER.24H PO SCH (09:46)
--- NOTE | 2018-05-14 10:10 | P.PN ---
Subjective Progress Note Date: 05/14/18 This is a pleasant 72-year-old male past medical history significant for hypertension, dyslipdemia, COPD, chronic nicotine dependence and chronic nicotine dependence. He states he underwent left hip surgery 3 weeks ago at [facility] and is currently undergoing rehab at [facility]. He denies history of coronary artery disease and has never seen a group controller for any reason. He presented to the hospital with chest discomfort and underwent cardiac catheterization revealing significant multi-vessel disease with critical disease involving the ostial and mid RCA with an occluded PLV branch, complex lesion at the bifurcation of the circumflex, LAD and ramus of approximately 80%, and a heavily calcified left main. Patient had been seen in consultation by cardiothoracic surgery and was felt to be high risk for surgery at this time. He did have an episode of chest pain earlier this morning, the time of my examination he is pain-free. Patient will go to the cardiac catheterization lab tomorrow and undergo angioplasty and stenting of the RCA. The plan is then for him to be discharged home and possibly undergo coronary artery bypass grafting surgery within a month or so. I pressure today 140/60, heart rate in the 60s, 100% on 2 L of oxygen. 05/12/2018 Patient was seen and examined this morning, denies any further chest discomfort , hemodynamically he is stable. From our perspective he may be transferred to rehab for home with rehab, once cleared by primary. We'll make sure he has a follow-up appointment in the office post discharge. 05/14/2018 Patient was seen and examined this morning, overall doing well. Denies any chest discomfort and is breathing overall is stable. Blood pressure this morning 118/56 with a heart rate in the 60s, 95% on room air. White blood cell count 8.8, hemoglobin 9.1, platelet count 304. Sodium 138, potassium 4.2, BUN 24, creatinine 0.9. Objective - Vital Signs Vital signs: Vital Signs Temp 98.7 F 05/14/18 08:30 Pulse 66 05/14/18 09:09 Resp 16 05/14/18 08:30 BP 118/55 05/14/18 08:30 Pulse Ox 95 05/14/18 08:30 Intake & Output 05/13/18 05/14/18 05/14/18 18:59 06:59 18:59 Intake Total 480 240 Output Total 700 625 50 Balance -220 -625 190 Intake: Oral 480 240 Output: Urine 700 625 50 Other: Voiding Method Urinal Urinal Diaper Diaper Incontinent Incontinent - Exam PHYSICAL EXAMINATION: GENERAL: 72-year-old gentleman in no acute distress at the time of my examination HEENT: Head is atraumatic, normocephalic. Pupils equal, round. Sclera anicteric. Conjunctiva are clear. Mucous membranes of the mouth are moist. Neck is supple. There is no elevated jugular venous pressure.] bruit is heard. HEART EXAMINATION: Heart S1, S2 normal. No murmur or gallop heard. CHEST EXAMINATION: Lungs are clear to auscultation and precussion. No chest wall tenderness is noted on palpation or with deep breathing. ABDOMEN: Soft, nontender. Bowel sounds are heard. No organomegaly noted. EXTREMITIES: 2+ peripheral pulses with no evidence of peripheral edema and no calf tenderness noted. NEUROLOGIC patient is awake, alert and oriented ?-3. . - Labs CBC & Chem 7: 05/12/18 06:47 05/12/18 06:47 Assessment and Plan Plan: Assessment and plan #1 Non-ST elevated NE, status post stenting of the RCA. #2 Multi-vessel coronary artery disease #3 History of PE post-operatively after recent hip surgery. #4 Hypertension #5 Dyslipidemia #6 COPD #7 Recent left hip replacement approximately 3 weeks ago at [facility] #8 Chronic anemia #9 Chronic nicotine dependence Plan From cardiology's perspective, patient may be able to be discharged home or to rehab once cleared by primary. Plan down the road is to proceed with coronary artery bypass grafting surgery once the patient becomes stronger. DNP note has been reviewed, I agree with a documented findings and plan of care. Patient was seen and examined.
[2018-05-14] MEDS: LISINOPRIL 10 MG TAB PO SCH (14:16)
[2018-05-14] MEDS: amLODIPine 5 MG TAB PO SCH (14:16)
[2018-05-14] MEDS: MULTIVITAMINS, THERA 1 EACH TAB PO SCH (15:18)
--- NOTE | 2018-05-14 15:34 | DS ---
DISCHARGE SUMMARY DATE OF ADMISSION: 05/04/18. DATE OF DISCHARGE: 05/14/18. FINAL DIAGNOSIS: 1. Acute non-Q-wave myocardial infarction. 2. Chronic obstructive pulmonary disease in an ex-smoker. 3. Gastroesophageal reflux disease. 4. Hyperlipidemia. 5. Essential hypertension. 6. Benign prostatic hypertrophy. 7. History of seizure disorder. 8. Depression, not otherwise specified. 9. Recent hip fracture 2 weeks prior to admission with arthroplasty. 10.Normocytic anemia cause unknown. 11.Acute pulmonary embolism following hip fracture for which patient is now on anticoagulation. HOSPITAL COURSE: This is a 72-year-old patient with multiple medical problems presented from [facility]. The patient 2 weeks ago prior to admission had a left hip fracture was then repaired at [facility]. The patient also had acute PE for which he was put on Coumadin. The patient ruled in for an acute HI. Cardiac cath shows significant disease. The patient initially evaluated for coronary bypass, but overall was felt not a candidate at present time, weak t, o go for a bypass needed down the road. The patient had coronary intervention with 2 stents to the RCA by Dr. Mendez. The patient also had a carotid Doppler which did not show any critical stenosis. The patient also had a neck CT angio that did not show any significant stenosis. The patient is started back on Eliquis today. The patient is getting Coumadin from prior to admission for the PE that was discontinued. CONSULTATIONS: Dr. Mendez and colleagues from Cardiology Dr. Salinas from Cardiothoracic surgery, Dr. Diaz from Pulmonary Critical Care. PHYSICAL EXAMINATION: Temperature 98.1 pulse , respirations 18, blood pressure 116/54 pulse 96% on room air. Lungs decreased breath sounds. Cardiovascular 1st and 2nd sounds normal. LABS: White count 8.8, hemoglobin 9.1, platelets 304, potassium 4.2, BUN 24, creatinine 0.96. DISPOSITION: [facility] follow up with Dr. Tipton 05/15/2018; Dr. Mendez in 2 weeks , Randy Ace in 3 weeks. Jean Lee after DC from the [facility], Dr. Diaz in 2 weeks 2 weeks. DISCHARGE MEDICATIONS: 1. Aspirin 81 mg a day. 2. Lipitor 40 mg q.h.s. 3. Dulcolax 10 mg rectal daily p.r.n. 4. Sinemet 25/100 one tablet p.o. t.i.d. 5. Vitamin B12 1000 mcg p.o. daily. 6. 60 mg p.o. daily. 7. Dutasteride 0.5 mg p.o. daily. 8. Vitamin D2 50,000 units p.o. Mondays. 9. Zetia 10 mg p.o. daily. 10.Prozac 20 mg p.o. daily. 11.Iron 325 p.o. b.i.d. 12.[place] 10, 1 tablet p.o. q.4 p.r.n. 13.DuoNeb q.i.d. p.r.n. 14.Ensure Plus 1 can p.o. t.i.d. 15.Milk of magnesia 30 mL p.o. daily p.r.n. 16.Melatonin 3 mg q.h.s. 17.Lopressor 25 mg b.i.d. 18.Multivitamin tablet p.o. da. 19. p.r.n. 20.Michelin 50 mg q.8. 21.Seroquel XR 200 mg q.h.s. 22.Zantac 150 mg p.o. b.i.d. 23.Anoro Ellipta 62.5/25 1 puff daily. 24.Norvasc 5 mg p.o. daily. 25.Eliquis 5 mg p.o. b.i.d. 26.Imdur ER 30 mg p.o. daily. 27.Zestril 10 mg p.o. daily. 28.Nitrostat 0.4 sublingual q.5 p.r.n. 29.Lyrica 100 mg p.o. b.i.d. 30.Senokot S 1 tablet p.o. daily. Discussion discharge planning more than 35 minutes . MMODL / IJN: [id number] /
[2018-05-14] MEDS: CYANOCOBALAMIN 500 MCG TAB PO SCH (16:44)
[2018-05-14 20:51] VITALS: RESP 18
[2018-05-14] MEDS: ATORVASTATIN 40 MG TAB PO SCH (20:58)
[2018-05-14] MEDS: MELATONIN 3 MG TABLET PO PRN (20:58)
[2018-05-14] MEDS: APIXABAN 5 MG TAB PO SCH (20:59)
[2018-05-14] MEDS: EZETIMIBE 10 MG TAB PO SCH (23:39)
[2018-05-15] MEDS: CARBIDOPA-LEVODOPA 25-100 MG 1 EACH TAB PO SCH (06:57)
[2018-05-15] MEDS: HYDROcodone/APAP 10-325MG 1 EACH TAB PO PRN ×2 (06:57→11:33)
[2018-05-15] MEDS: FORMOTEROL FUMARATE 20 MCG/2 ML NEBU INHALATION SCH (08:36)
[2018-05-15] MEDS: BUDESONIDE 1 MG/2 ML NEBU INHALATION SCH (08:36)
[2018-05-15] MEDS: IPRATROPIUM-ALBUTEROL 3 ML NEB INHALATION PRN (08:36)
[2018-05-15] MEDS: SENNOSIDES 8.6 MG TAB PO SCH (10:16)
[2018-05-15] MEDS: amLODIPine 5 MG TAB PO SCH (10:17)
[2018-05-15] MEDS: FERROUS SULFATE 325 MG TAB PO SCH (10:17)
[2018-05-15] MEDS: FAMOTIDINE 20 MG TAB PO SCH (10:18)
[2018-05-15] MEDS: APIXABAN 5 MG TAB PO SCH (10:18)
[2018-05-15] MEDS: LISINOPRIL 10 MG TAB PO SCH (10:18)
[2018-05-15] MEDS: DOCUSATE 100 MG CAP PO SCH (10:18)
[2018-05-15] MEDS: PREGABALIN 100 MG CAP PO SCH (10:19)
[2018-05-15] MEDS: FINASTERIDE 5 MG TAB PO SCH (10:19)
[2018-05-15] MEDS: METOPROLOL TARTRATE 25 MG TAB PO SCH (10:19)
[2018-05-15] MEDS: TICAGRELOR 90 MG TAB PO SCH (10:19)
[2018-05-15] MEDS: ISOSORBIDE MONONITRATE ER 30 MG TAB.ER.24H PO SCH (10:19)
[2018-05-15] MEDS: ASPIRIN 81 MG PO SCH (10:19)
[2018-05-15] MEDS: FLUoxetine HCL 20 MG CAP PO SCH (10:19)
[2018-05-15] MEDS: PRIMIDONE 50 MG TAB PO SCH (10:19)
[2018-05-15] MEDS: PANTOPRAZOLE 40 MG TABLET PO SCH (10:19)
[2018-05-15] MEDS: QUEtiapine 100 MG TAB PO SCH (10:23)
[2018-05-15] MEDS: MULTIVITAMINS, THERA 1 EACH TAB PO SCH (11:36)
[2018-05-15 12:13] VITALS: BP 89/44; PULSE 55; TEMP 97.9
[2018-05-30] MEDS ORDERED: ERGOCALCIFEROL 50,000 UNIT CAP PO SCH (09:00)
== END 2018-05-15 13:24 | DRG 247 ==
LOC: EC 20:19 → 1SOBS 22:38 → OBSVTOIN 05-04 13:59 → 3SCARD 05-07 17:00
PROVIDERS: ADMIT Hospitalist; ATTEND Hospitalist
PROC: 4A023N7 Measurement of Cardiac Sampling and Pressure, Left Heart, Percutaneous Approach (ICD-10-PCS; 2018-05-05)
PROC: B2111ZZ Fluoroscopy of Multiple Coronary Arteries using Low Osmolar Contrast (ICD-10-PCS; 2018-05-05)
PROC: B44HZZZ Ultrasonography of Bilateral Lower Extremity Arteries (ICD-10-PCS; 2018-05-06)
PROC: 30233N1 Transfusion of Nonautologous Red Blood Cells into Peripheral Vein, Percutaneous Approach (ICD-10-PCS; 2018-05-09)
PROC: 027035Z Dilation of Coronary Artery, One Artery with Two Drug-eluting Intraluminal Devices, Percutaneous Approach (ICD-10-PCS; principal; 2018-05-09 17:45)
DX: I21.4 Non-ST elevation (NSTEMI) myocardial infarction (principal); I23.7 Postinfarction angina; E11.51 Type 2 diabetes mellitus with diabetic peripheral angiopathy without gangrene; G20 Parkinson's disease; J84.10 Pulmonary fibrosis, unspecified; J44.9 Chronic obstructive pulmonary disease, unspecified; I08.3 Combined rheumatic disorders of mitral, aortic and tricuspid valves; D64.9 Anemia, unspecified; G40.909 Epilepsy, unspecified, not intractable, without status epilepticus; R54 Age-related physical debility; I25.118 Atherosclerotic heart disease of native coronary artery with other forms of angina pectoris; E78.5 Hyperlipidemia, unspecified; F32.9 Major depressive disorder, single episode, unspecified; F41.9 Anxiety disorder, unspecified; K21.9 Gastro-esophageal reflux disease without esophagitis; I10 Essential (primary) hypertension; N40.1 Benign prostatic hyperplasia with lower urinary tract symptoms; N39.498 Other specified urinary incontinence; M19.042 Primary osteoarthritis, left hand; M19.041 Primary osteoarthritis, right hand; R79.1 Abnormal coagulation profile; F17.200 Nicotine dependence, unspecified, uncomplicated; Z71.6 Tobacco abuse counseling; Z79.82 Long term (current) use of aspirin; Z79.01 Long term (current) use of anticoagulants; Z79.899 Other long term (current) drug therapy; Z90.49 Acquired absence of other specified parts of digestive tract; Z86.711 Personal history of pulmonary embolism; Z96.642 Presence of left artificial hip joint; Z91.81 History of falling; Z86.73 Personal history of transient ischemic attack (TIA), and cerebral infarction without residual deficits; Z91.89 Other specified personal risk factors, not elsewhere classified; Z98.1 Arthrodesis status; Z98.41 Cataract extraction status, right eye; Z88.5 Allergy status to narcotic agent; Z88.8 Allergy status to other drugs, medicaments and biological substances; Z80.0 Family history of malignant neoplasm of digestive organs; Z80.3 Family history of malignant neoplasm of breast
CPT/HCPCS: 36415; 70498; 71046; 71275; 80048; 80053; 80061; 80074; 81001; 81003; 82550; 82553; 82565; 82728; 83036; 83540; 83550; 83605; 83735; 84443; 84484; 85025; 85379; 85610; 85730; 86850; 86900; 86901; 86920; 87070; 87086; 93005; 93306; 93458; 93880; 93922; 93970; 94150; 94640; 94760; 96360; 96361; 96365; 96376; 99285; 99291; C1874

== ENCOUNTER 2018-06-27 23:21 | Inpatient (IN) | payer MEDICARE, OTHER ==
--- NOTE | 2018-06-28 01:03 | XR ---
EXAMINATION TYPE: XR chest 2V DATE OF EXAM: 06/28/2018 COMPARISON: 05/03/2018 HISTORY: Chest pain TECHNIQUE: Frontal and lateral views of the chest are obtained. FINDINGS: Heart and mediastinum are normal. Lungs are clear. Diaphragm is normal. Bony thorax is nor mal. There are chest leads. IMPRESSION: Normal chest. No adverse change.
[2018-06-28 01:20] LABS: Anisocytosis Slight; Basophils % (A) 0 %; Eosinophils # (A) 0.1 k/uL (0-0.7); Eosinophils % (A) 1 %; Lymphocytes # (A) 1.2 k/uL (1.0-4.8); Lymphocytes % (A) 11 %; MCH 29.4 pg (25.0-35.0); MCHC 32.7 g/dL (31.0-37.0); Mean Platelet Volume 7.3; Monocytes # (A) 0.6 k/uL (0-1.0); Monocytes % (A) 5 %; Neutrophils # (A) 9.6 k/uL (1.3-7.7); Neutrophils % (A) 82 %; Platelet Count 258 k/uL (150-450); RBC 2.03 m/uL (4.30-5.90); RDW 16.7 % (11.5-15.5); WBC 11.7 k/uL (3.8-10.6)
[2018-06-28 01:26] LABS: HCT 18.3 % (39.0-53.0)
[2018-06-28 01:31] LABS: Partial Thromboplastin Time 24.8 sec (22.0-30.0); Prothrombin Time 10.8 sec (9.0-12.0)
[2018-06-28 01:44] LABS: ALT 45 U/L (21-72); AST 40 U/L (17-59); Albumin 3.3 g/dL (3.5-5.0); Alkaline Phosphatase 91 U/L (38-126); Anion Gap 8 mmol/L; Blood Urea Nitrogen 45 mg/dL (9-20); Calcium 8.8 mg/dL (8.4-10.2); Carbon Dioxide 25 mmol/L (22-30); Chloride 109 mmol/L (98-107); Glucose 154 mg/dL (74-99); Potassium 4.9 mmol/L (3.5-5.1); Sodium 142 mmol/L (137-145); Total Bilirubin 0.2 mg/dL (0.2-1.3); Total Protein 6.6 g/dL (6.3-8.2)
[2018-06-28 01:48] LABS: D-Dimer 1.06 mg/L FEU (<0.60)
[2018-06-28] MEDS ORDERED: SODIUM CHLORIDE 0.9% 500 ML 500 ML IV STA (02:04)
[2018-06-28 02:05] LABS: Troponin I 0.705 ng/mL (0.000-0.034)
--- NOTE | 2018-06-28 03:09 | CT ---
EXAMINATION TYPE: CT chest angio for PE DATE OF EXAM: 06/28/2018 COMPARISON: 05/03/2018 HISTORY: cchest pain and elevated D-dimer CT DLP: 305 mGycm Automated exposure control for dose reduction was used. CONTRAST: CT Chest for pulmonary embolism performed with with IV Contrast, patient injected with 65 mL of Isovu e 370. FINDINGS: There are 3-D post processed images. There is coarse interstitial infiltrate in the mid and lower lung hayes. Heart appears slightly enla rged. There is no pericardial effusion. There are no hilar masses. There are bronchial and paratrache al lymph nodes that measure up to 1 cm. Thoracic aorta shows no aneurysm or dissection. There is normal contrast opacification of the pulmonary arteries. I see no filling defect. There is m inor spurring in the thoracic spine. Bony thorax is intact. There is old healed right-sided rib fract ure. IMPRESSION: No evidence of pulmonary embolism. Pulmonary interstitial infiltrates increased slightly compared to old exam. No pulmonary mass seen.
--- NOTE | 2018-06-28 03:32 | ED ---
Chest Pain HPI - General Chief Complaint: Chest Pain Stated Complaint: chest pain Time Seen by Provider: 06/27/18 23:55 Source: patient Mode of arrival: EMS - History of Present Illness Initial Comments: This patient is 72-year-old man transferred here from long-term to be evaluated for chest pain. The patient states that he is currently having pain in the upper right chest that goes to his shoulder and then the right arm. He describes it as an aching pain when asking if anything affects the pain, he states that he had been given 2 nitroglycerin and a Deep Run at the long-term. When asked if this helped he states that it get rid of pain in the left chest which she had not previously described. He also states that the pain in the right shoulder and arm has subsequently gone away following the Deep Run though it took longer. The pain in the left chest seem to go away shortly after the nitroglycerin. The patient states that he was at rest when the symptoms came on. This is the second night of the symptoms in the right shoulder and arm. He denies anginal type symptoms, including no dyspnea, diaphoresis, palpitations , syncope, nausea or vomiting. MD Complaint: chest pain Onset/Timin -: hour(s) Onset: during rest Pain Location: left chest, right chest Pain Radiation: RUE Severity: moderate Quality: dull Consistency: now resolved Improves With: nitroglycerin, other (Deep Run) Worsens With: nothing Treatments Prior to Arrival: nitroglycerin, other (Deep Run) - Related Data Home Medications Medication Instructions Recorded Confirmed Atorvastatin [Lipitor] 40 mg PO HS@2100 05/03/18 06/27/18 Bisacodyl [Dulcolax] 10 mg RECTAL DAILY PRN 05/03/18 06/27/18 Carbidopa-Levodopa 25-100 mg 1 tab PO TID@0600,1400,2100 05/03/18 06/27/18 [Sinemet 25-100 mg] Cyanocobalamin [Vitamin B-12] 1,000 mcg PO DAILY@1700 05/03/18 06/27/18 Dexlansoprazole [Dexilant] 60 mg PO DAILY 05/03/18 06/27/18 Dutasteride 0.5 mg PO DAILY@0800 05/03/18 06/27/18 Ergocalciferol [Vitamin D2 50,000 unit PO MO 05/03/18 06/27/18 (DRISDOL)] Ezetimibe [Zetia] 10 mg PO DAILY@2100 05/03/18 06/27/18 FLUoxetine HCL [PROzac] 20 mg PO DAILY@0800 05/03/18 06/27/18 Ferrous Sulfate [Feosol] 325 mg PO BID@0800,1700 05/03/18 06/27/18 HYDROcodone/APAP 10-325MG [Deep Run 1 tab PO Q6HR PRN 05/03/18 06/27/18 10-325] Ipratropium-Albuterol Nebulize 3 ml INHALATION RT-QID PRN 05/03/18 06/27/18 [Duoneb 0.5 mg-3 mg/3 ml Soln] Lactose-Reduced Food [Ensure Plus] 1 can PO TID 05/03/18 06/27/18 Magnesium Hydroxide [Milk of 30 ml PO DAILY PRN 05/03/18 06/27/18 Magnesia] Melatonin 3 mg PO HS PRN 05/03/18 06/27/18 Metoprolol Tartrate [Lopressor] 25 mg PO BID@0800,1700 05/03/18 06/27/18 Multivitamins, Thera [Multivitamin 1 tab PO DAILY 05/03/18 06/27/18 (formulary)] Na Phos,M-B/Na Phos,Di-Ba [Fleet 1 unit RECTAL DAILY PRN 05/03/18 06/27/18 Adult] Primidone [Mysoline] 50 mg PO Q8HR 05/03/18 06/27/18 QUEtiapine XR [SEROquel XR] 200 mg PO HS@2130 05/03/18 06/27/18 Ranitidine HCl [Zantac] 150 mg PO BID@0800,1700 05/03/18 06/27/18 Umeclidinium Brm/Vilanterol Tr 1 puff INHALATION RT-DAILY@0800 05/03/18 06/27/18 [Anoro Ellipta 62.5-25 Mcg INH] Clopidogrel [Plavix] 75 mg PO DAILY@1700 06/27/18 06/27/18 Lisinopril [Zestril] 2.5 mg PO DAILY 06/27/18 06/27/18 Rivaroxaban [Xarelto] 15 mg PO DAILY@0800 06/27/18 06/27/18 Sennosides-Docusate Sodium 1 tab PO DAILY@0800 06/27/18 06/27/18 [Senokot-S] Previous Rx's Medication Instructions Recorded Nitroglycerin Sl Tabs [Nitrostat] 0.4 mg SUBLINGUAL Q5M PRN tab 05/14/18 Pregabalin [Lyrica] 100 mg PO BID@0800,2100 #10 cap 05/14/18 Allergies Allergy/AdvReac Type Severity Reaction Status Date / Time morphine Allergy Itching Verified 06/27/18 23:25 oxycodone [From OxyContin] Allergy Itching Verified 06/27/18 23:25 propoxyphene Allergy Unknown Verified 06/27/18 23:25 [From Darvocet-N] Review of Systems ROS Statement: Those systems with pertinent positive or pertinent negative responses have been documented in the HPI. ROS Other: All systems not noted in ROS Statement are negative. Constitutional: Denies: fever, chills, weakness Respiratory: Denies: cough, dyspnea Cardiovascular: Reports: as per HPI, chest pain. Denies: palpitations, orthopnea, edema, syncope Gastrointestinal: Denies: abdominal pain, nausea, vomiting Genitourinary: Denies: dysuria Musculoskeletal: Denies: back pain Skin: Denies: rash Neurological: Denies: headache, weakness, numbness, paresthesias Past Medical History Past Medical History: COPD, CVA/TIA, GERD/Reflux, Hyperlipidemia, Hypertension, Neurologic Disorder, Prostate Disorder, Pulmonary Embolus (PE) Additional Past Medical History / Comment(s): Coronary artery disease, COPD, hypertension, hyperlipidemia, Parkinson's disease, history of postsurgical pulmonary embolism, BPH, history of TIA, history of major depression, remote history of seizure disorder last seizure was in 2002 History of Any Multi-Drug Resistant Organisms: None Reported Past Surgical History: Cholecystectomy, Heart Catheterization, Hernia Repair, Joint Replacement, Orthopedic Surgery Additional Past Surgical History / Comment(s): NOSE SURGERY X3, RIGHT SHOULDER ROTATOR cuff, cervical fusion, bilateral CATARACT surgery. Past Anesthesia/Blood Transfusion Reactions: Motion Sickness Past Psychological History: Anxiety, Depression Smoking Status: Former smoker Past Alcohol Use History: None Reported Past Drug Use History: None Reported - Past Family History Father Family Medical History: Cancer Additional Family Medical History / Comment(s): STOMACH CANCER, at age 46. Mother Family Medical History: No Reported History Additional Family Medical History / Comment(s): Reports he does not know his mother's history. General Exam General appearance: alert, in no apparent distress Head exam: Present: atraumatic, normocephalic Eye exam: Present: normal appearance, other (Conjunctival pallor). Absent: scleral icterus, conjunctival injection ENT exam: Present: normal oropharynx, mucous membranes moist, other (Mucosal pallor) Neck exam: Present: normal inspection Respiratory exam: Present: normal lung sounds bilaterally. Absent: respiratory distress, wheezes, rales, rhonchi, stridor Cardiovascular Exam: Present: regular rate, normal rhythm, systolic murmur ( Grade 1/6 systolic ejection murmur). Absent: diastolic murmur, rubs, gallop GI/Abdominal exam: Present: soft. Absent: distended, tenderness, guarding, rebound, rigid, mass Rectal exam: Present: normal rectal tone, other (There is firm stool that is dark in appearance). Absent: hemorrhoids, tenderness Extremities exam: Present: normal inspection, normal capillary refill. Absent: pedal edema, calf tenderness Back exam: Present: normal inspection. Absent: CVA tenderness (R), CVA tenderness (L) Neurological exam: Present: alert Skin exam: Present: warm, dry, intact, pallor. Absent: rash Course Vital Signs 06/27/18 06/27/18 06/28/18 23:41 23:42 00:00 Temperature 99.0 F Pulse Rate 91 86 Respiratory 22 22 20 Rate Blood Pressure 127/62 117/58 O2 Sat by Pulse 92 L 98 98 Oximetry 06/28/18 06/28/18 06/28/18 01:00 01:20 02:00 Temperature Pulse Rate 71 82 75 Respiratory 20 9 L 20 Rate Blood Pressure 119/54 119/54 114/48 O2 Sat by Pulse 99 98 99 Oximetry 06/28/18 06/28/18 06/28/18 02:30 03:00 03:10 Temperature Pulse Rate 74 80 84 Respiratory 12 16 17 Rate Blood Pressure 114/48 110/54 137/64 O2 Sat by Pulse 99 99 99 Oximetry 06/28/18 06/28/18 06/28/18 03:15 03:40 03:48 Temperature 98.6 F Pulse Rate 85 80 81 Respiratory 20 15 16 Rate Blood Pressure 137/64 129/58 129/58 O2 Sat by Pulse 98 96 96 Oximetry 06/28/18 06/28/18 06/28/18 03:58 04:24 04:28 Temperature 98.3 F 98.6 F 98.6 F Pulse Rate 77 79 73 Respiratory 16 16 18 Rate Blood Pressure 92/46 93/49 O2 Sat by Pulse 98 100 96 Oximetry 06/28/18 06/28/18 06/28/18 04:30 05:10 05:40 Temperature Pulse Rate 71 68 65 Respiratory 12 16 15 Rate Blood Pressure 92/46 106/49 111/50 O2 Sat by Pulse 99 100 99 Oximetry 06/28/18 06/28/18 06/28/18 06:28 06:30 06:40 Temperature 98.4 F Pulse Rate 66 65 64 Respiratory 16 14 15 Rate Blood Pressure 120/54 120/54 114/49 O2 Sat by Pulse 100 100 Oximetry 06/28/18 06/28/18 06/28/18 07:10 09:18 09:55 Temperature Pulse Rate 64 61 62 Respiratory 15 18 18 Rate Blood Pressure 107/48 103/47 103/48 O2 Sat by Pulse 98 96 96 Oximetry Chest Pain [facility] Patient is 72-year-old man from long-term with complaint of what sounded like to different components of chest pain. The first component was relieved with nitroglycerin, the other component was relieved with Deep Run. His workup does reveal marked anemia, and there is Hemoccult stool. The patient's troponin was mildly elevated. Patient having transfusion. Case discussed with cardiology. Dr. Morfin's recommendations are incorporated. Patient admitted for further evaluation and treatment of the GI bleeding, the elevated troponin, and anemia. Critical Care Time Critical Care Time: Yes (40 minutes) Disposition Clinical Impression: Non-ST elevated myocardial infarction, Anemia, GI bleeding Disposition: ADMITTED IP TO THIS [facility] Condition: Serious
[2018-06-28] MEDS ORDERED: ACETAMINOPHEN TAB 325 MG TAB PO PRN (06:27)
[2018-06-28] MEDS ORDERED: NALOXONE 0.4 MG/ML 1 ML VIAL IV PRN (06:27)
[2018-06-28] MEDS ORDERED: ONDANSETRON 4 MG/2 ML VIAL IVP PRN (06:27)
[2018-06-28] MEDS ORDERED: BISACODYL 10 MG SUPP RECTAL PRN (06:30)
[2018-06-28] MEDS ORDERED: NITROGLYCERIN SL TABS 0.4 MG TAB SUBLINGUAL PRN (06:30)
[2018-06-28] MEDS ORDERED: MAGNESIUM HYDROXIDE 2,400 MG/10 ML CUP PO PRN (06:30)
[2018-06-28] MEDS ORDERED: NA PHOS,M-B/NA PHOS,DI-BA 133 ML ENEMA RECTAL PRN (07:00)
[2018-06-28 07:45] LABS: Anisocytosis Slight; Basophils # (A) 0.1 k/uL (0-0.2); Basophils % (A) 0 %; Eosinophils # (A) 0.1 k/uL (0-0.7); Eosinophils % (A) 1 %; Lymphocytes # (A) 1.8 k/uL (1.0-4.8); Lymphocytes % (A) 18 %; MCH 29.5 pg (25.0-35.0); MCHC 33.1 g/dL (31.0-37.0); MCV 89.2 fL (80.0-100.0); Mean Platelet Volume 6.6; Monocytes # (A) 0.6 k/uL (0-1.0); Monocytes % (A) 5 %; Neutrophils # (A) 7.4 k/uL (1.3-7.7); Neutrophils % (A) 72 %; Platelet Count 217 k/uL (150-450); RBC 2.23 m/uL (4.30-5.90); RDW 16.2 % (11.5-15.5); WBC 10.2 k/uL (3.8-10.6)
[2018-06-28 07:51] LABS: HGB 6.6 gm/dL (13.0-17.5)
[2018-06-28 07:52] LABS: HCT 19.9 % (39.0-53.0)
[2018-06-28 08:27] LABS: Anion Gap 6 mmol/L; Blood Urea Nitrogen 46 mg/dL (9-20); Calcium 8.5 mg/dL (8.4-10.2); Carbon Dioxide 23 mmol/L (22-30); Chloride 113 mmol/L (98-107); Glucose 110 mg/dL (74-99); Sodium 142 mmol/L (137-145)
[2018-06-28 08:28] LABS: Potassium 5.6 mmol/L (3.5-5.1)
[2018-06-28] MEDS: CARBIDOPA-LEVODOPA 25-100 MG 1 EACH TAB PO SCH ×3 (08:31→20:11)
[2018-06-28] MEDS: FAMOTIDINE 20 MG TAB PO SCH ×2 (08:31→16:49)
[2018-06-28] MEDS: FLUoxetine HCL 20 MG CAP PO SCH (08:32)
[2018-06-28] MEDS: FINASTERIDE 5 MG TAB PO SCH (08:32)
[2018-06-28] MEDS: FERROUS SULFATE 325 MG TAB PO SCH ×2 (08:32→16:49)
[2018-06-28] MEDS: SENNOSIDES-DOCUSATE SODIUM 1 EACH TAB PO SCH (08:33)
[2018-06-28] MEDS: METOPROLOL TARTRATE 25 MG TAB PO SCH ×2 (08:33→16:49)
[2018-06-28] MEDS: PRIMIDONE 50 MG TAB PO SCH ×3 (08:33→23:53)
[2018-06-28] MEDS: PREGABALIN 100 MG CAP PO SCH ×2 (08:33→20:11)
[2018-06-28] MEDS: QUEtiapine 100 MG TAB PO SCH ×2 (08:34→21:49)
[2018-06-28] MEDS: PANTOPRAZOLE 40 MG/10 ML VIAL IV SCH (08:34)
[2018-06-28] MEDS: LISINOPRIL 2.5 MG TAB PO SCH (08:34)
[2018-06-28] MEDS: SODIUM CHLORIDE 0.9% 1,000 ML IV SCH ×2 (08:40→16:50)
[2018-06-28] MEDS ORDERED: NON-FORMULARY DRUG (Lactose-Reduced Food [Ensure Plus] 1 CAN) PO SCH (09:00)
[2018-06-28] MEDS ORDERED: NON-FORMULARY DRUG (Dexlansoprazole [Dexilant] 60 MG) PO SCH (09:00)
--- NOTE | 2018-06-28 11:12 | P.CONS ---
History of Present Illness - Reason for Consult Consult date: 06/28/18 GI bleed anemia Requesting physician: Arnie Anderson - Chief Complaint Chest pain - History of Present Illness 72-year-old gentleman ECF resident admitted with acute chest pain shoulder arm. Past medical history non-ST elevated MT April 2018; status post heart catheterization PTCA stent 2, hip surgery March 2018. Admission hemoglobin 6 positive FOBT without overt bleeding such as hematemesis hematochezia melena consult requested for GI bleed evaluation. Patient denies abdominal or epigastric pain. No history of peptic ulcer disease. No history of recent EGD or colonoscopy both have been performed previously but has been several years. No history of of gastric or bowel surgeries. MCV 90. Platelet 258. INR 1.0. BUN 45. Creatinine 0.9. Troponin 0.7 increase to 2.1. LFTs within normal limits. Status post transfusion 1 unit of blood. Received previous blood transfusion in April 2018. CT chest no evidence of PE. Previous hemoglobin a week ago was 8.1. Over the course of the past year hemoglobin averages between 7.8-9.7. ECF medications reviewed patient takes Xarelto Plavix. Dexilent 60 mg daily. Review of Systems Constitutional: Denies fever, chills, sweats, weight gain, or loss. HEENT: Negative for migraines, blurred vision or loss, earaches, drainage, tinnitus, oral mucosal lesions, dysphagia, or odynophagia. Cardiac: Admitted with chest pain, denies arrhythmias, or palpitation. Respiratory: Negative for shortness of breath, hemoptysis, cough, or sputum production. Gastrointestinal: See HPI for pertinent findings. Genitourinary: Negative for hematuria, urgency, frequency, polyuria, dysuria, or penile discharge. Musculoskeletal: Negative for muscle aches, swelling, arthritis, and arthralgias. Neurologic: Negative for stroke or TIA. Endocrine: Negative for thyroid problems. Skin: Negative for rash or itching. Psychiatric: Negative history for depression and anxiety Past Medical History Past Medical History: Coronary Artery Disease (CAD), COPD, CVA/TIA, GERD/Reflux , Hyperlipidemia, Hypertension, Myocardial Infarction (MT), Musculoskeletal Disorder, Neurologic Disorder, Prostate Disorder, Pulmonary Embolus (PE) Additional Past Medical History / Comment(s): Parkinson's disease, L hip fracture with surgery, postsurgical pulmonary embolism 04/2018, BPH, history of TIA, history of major depression, remote history of seizure disorder last seizure was in 2002, pt states that at senior living they have him wearing oxygen at 2L/NC ATC, urine and stool incontinence, constipation Last Myocardial Infarction Date:: 05/04/18 History of Any Multi-Drug Resistant Organisms: None Reported Past Surgical History: Cholecystectomy, Heart Catheterization, Heart Catheterization With Stent, Hernia Repair, Orthopedic Surgery Additional Past Surgical History / Comment(s): 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 Past Anesthesia/Blood Transfusion Reactions: Motion Sickness Additional Past Anesthesia/Blood Transfusion Reaction / Comm: Pt has received blood in past without reaction. Date of Last Stent Placement:: 05/07/18 Smoking Status: Former smoker - Past Family History Father Family Medical History: Cancer Additional Family Medical History / Comment(s): STOMACH CANCER, at age 46. Mother Family Medical History: No Reported History Additional Family Medical History / Comment(s): Reports he does not know his mother's history, she abandoned them. Medications and Allergies Home Medications Medication Instructions Recorded Confirmed Type Atorvastatin [Lipitor] 40 mg PO HS@2100 05/03/18 06/27/18 History Bisacodyl [Dulcolax] 10 mg RECTAL DAILY PRN 05/03/18 06/27/18 History Carbidopa-Levodopa 25-100 mg 1 tab PO TID@0600,1400,2100 05/03/18 06/27/18 History [Sinemet 25-100 mg] Cyanocobalamin [Vitamin B-12] 1,000 mcg PO DAILY@1700 05/03/18 06/27/18 History Dexlansoprazole [Dexilant] 60 mg PO DAILY 05/03/18 06/27/18 History Dutasteride 0.5 mg PO DAILY@0800 05/03/18 06/27/18 History Ergocalciferol [Vitamin D2 50,000 unit PO MO 05/03/18 06/27/18 History (DRISDOL)] Ezetimibe [Zetia] 10 mg PO DAILY@2100 05/03/18 06/27/18 History FLUoxetine HCL [PROzac] 20 mg PO DAILY@0800 05/03/18 06/27/18 History Ferrous Sulfate [Feosol] 325 mg PO BID@0800,1700 05/03/18 06/27/18 History HYDROcodone/APAP 10-325MG [[place] 1 tab PO Q6HR PRN 05/03/18 06/27/18 History 10-325] Ipratropium-Albuterol Nebulize 3 ml INHALATION RT-QID PRN 05/03/18 06/27/18 History [Duoneb 0.5 mg-3 mg/3 ml Soln] Lactose-Reduced Food [Ensure Plus] 1 can PO TID 05/03/18 06/27/18 History Magnesium Hydroxide [Milk of 30 ml PO DAILY PRN 05/03/18 06/27/18 History Magnesia] Melatonin 3 mg PO HS PRN 05/03/18 06/27/18 History Metoprolol Tartrate [Lopressor] 25 mg PO BID@0800,1700 05/03/18 06/27/18 History Multivitamins, Thera [Multivitamin 1 tab PO DAILY 05/03/18 06/27/18 History (formulary)] Na Phos,M-B/Na Phos,Di-Ba [Fleet 1 unit RECTAL DAILY PRN 05/03/18 06/27/18 History Adult] Primidone [Mysoline] 50 mg PO Q8HR 05/03/18 06/27/18 History QUEtiapine XR [SEROquel XR] 200 mg PO HS@2130 05/03/18 06/27/18 History Ranitidine HCl [Zantac] 150 mg PO BID@0800,1700 05/03/18 06/27/18 History Umeclidinium Brm/Vilanterol Tr 1 puff INHALATION RT-DAILY@0800 05/03/18 History [Anoro Ellipta 62.5-25 Mcg INH] Nitroglycerin Sl Tabs [Nitrostat] 0.4 mg SUBLINGUAL Q5M PRN tab 05/14/18 Rx Pregabalin [Lyrica] 100 mg PO BID@0800,2100 #10 cap 05/14/18 06/27/18 Rx Clopidogrel [Plavix] 75 mg PO DAILY@1700 06/27/18 06/27/18 History Lisinopril [Zestril] 2.5 mg PO DAILY 06/27/18 06/27/18 History Rivaroxaban [Xarelto] 15 mg PO DAILY@0800 06/27/18 06/27/18 History Sennosides-Docusate Sodium 1 tab PO DAILY@0800 06/27/18 06/27/18 History [Senokot-S] Allergies Allergy/AdvReac Type Severity Reaction Status Date / Time morphine Allergy Itching Verified 06/27/18 23:25 oxycodone [From OxyContin] Allergy Itching Verified 06/27/18 23:25 propoxyphene Allergy Unknown Verified 06/27/18 23:25 [From Darvocet-N] Physical Exam Vitals: Vital Signs Temp Pulse Resp BP Pulse Ox 06/28/18 09:55 62 18 103/48 96 06/28/18 09:18 61 18 103/47 96 06/28/18 07:10 64 15 107/48 98 06/28/18 06:40 64 15 114/49 100 06/28/18 06:30 65 14 120/54 100 06/28/18 06:28 98.4 F 66 16 120/54 06/28/18 05:40 65 15 111/50 99 06/28/18 05:10 68 16 106/49 100 06/28/18 04:30 71 12 92/46 99 06/28/18 04:28 98.6 F 73 18 93/49 96 06/28/18 04:24 98.6 F 79 16 92/46 100 06/28/18 03:58 98.3 F 77 16 98 06/28/18 03:48 98.6 F 81 16 129/58 96 06/28/18 03:40 80 15 129/58 96 06/28/18 03:15 85 20 137/64 98 06/28/18 03:10 84 17 137/64 99 06/28/18 03:00 80 16 110/54 99 06/28/18 02:30 74 12 114/48 99 06/28/18 02:00 75 20 114/48 99 06/28/18 01:20 82 9 L 119/54 98 06/28/18 01:00 71 20 119/54 99 06/28/18 00:00 86 20 117/58 98 06/27/18 23:42 99.0 F 91 22 127/62 98 06/27/18 23:41 22 92 L Intake and Output 06/27/18 06/28/18 06/28/18 22:59 06:59 14:59 Intake Total 310 Balance 310 Intake: Blood Product 310 Rc Cpda-1 Unit 310 [id number] Other: Weight 68.039 kg General appearance: The patient is alert, oriented, in no acute distress. HET: Head is normocephalic and atraumatic. Pupils are equal and reactive. Oropharynx is clear without lesions. Neck: Supple without lymphadenopathy. Trachea midline. Heart: S1 S2. Regular rate and rhythm. Lungs: No crackles or wheezes are heard. Abdomen: Soft, nontender, nondistended with bowel sounds. No peritoneal signs. No palpable organomegaly or masses. Extremities: Normal skin color and turgor. No cyanosis, rash, ulceration, clubbing, or edema. Radial and pedal pulses are 2/4 bilaterally. Neurological: No focal deficits. Strength and sensation are grossly intact. Results CBC & Chem 7: 06/28/18 07:04 06/28/18 07:04 Labs: Abnormal Lab Results - Last 24 Hours (Table) 06/27/18 06/27/18 06/27/18 Range/Units 23:55 23:55 23:55 WBC 11.7 H (3.8-10.6) k/uL RBC 2.03 L (4.30-5.90) m/uL Hgb 6.0 L* D (13.0-17.5) gm/dL Hct 18.3 L* (39.0-53.0) % RDW 16.7 H (11.5-15.5) % Neutrophils # 9.6 H (1.3-7.7) k/uL D-Dimer (<0.60) mg/L FEU Potassium (3.5-5.1) mmol/L Chloride 109 H (98-107) mmol/L BUN 45 H (9-20) mg/dL Glucose 154 H (74-99) mg/dL Total Creatine Kinase 51 L (55-170) U/L CK-MB (CK-2) 5.0 H (0.0-2.4) ng/mL Troponin I 0.705 H* (0.000-0.034) ng/mL Albumin 3.3 L (3.5-5.0) g/dL Crossmatch 06/27/18 06/27/18 06/28/18 Range/Units 23:55 23:55 07:04 WBC (3.8-10.6) k/uL RBC 2.23 L (4.30-5.90) m/uL Hgb 6.6 L* (13.0-17.5) gm/dL Hct 19.9 L* (39.0-53.0) % RDW 16.2 H (11.5-15.5) % Neutrophils # (1.3-7.7) k/uL D-Dimer 1.06 H (<0.60) mg/L FEU Potassium (3.5-5.1) mmol/L Chloride (98-107) mmol/L BUN (9-20) mg/dL Glucose (74-99) mg/dL Total Creatine Kinase (55-170) U/L CK-MB (CK-2) (0.0-2.4) ng/mL Troponin I (0.000-0.034) ng/mL Albumin (3.5-5.0) g/dL Crossmatch See Detail 06/28/18 06/28/18 Range/Units 07:04 07:04 WBC (3.8-10.6) k/uL RBC (4.30-5.90) m/uL Hgb (13.0-17.5) gm/dL Hct (39.0-53.0) % RDW (11.5-15.5) % Neutrophils # (1.3-7.7) k/uL D-Dimer (<0.60) mg/L FEU Potassium 5.6 H (3.5-5.1) mmol/L Chloride 113 H (98-107) mmol/L BUN 46 H (9-20) mg/dL Glucose 110 H (74-99) mg/dL Total Creatine Kinase (55-170) U/L CK-MB (CK-2) (0.0-2.4) ng/mL Troponin I 2.140 H* (0.000-0.034) ng/mL Albumin (3.5-5.0) g/dL Crossmatch CT scan - chest: report reviewed (Dr. Sanchez) Assessment and Plan (1) Normocytic hypochromic anemia Narrative/Plan: 72-year-old male admitted with acute chest pain with a history non-ST elevated MT CAD with previous PCI stent maintained on Xarelto and Plavix and previous hip surgery March 2018 presents with normocytic hypochromic anemia positive FOBT without overt bleeding such as hematemesis hematochezia melena hemoglobin of 6 suggestive of acute GI bleed acute blood loss anemia with elevated BUN and troponin. Possible peptic ulcer disease possible small bowel source possible colonic. Current Visit: Yes Status: Acute Code(s): D50.9 - IRON DEFICIENCY ANEMIA, UNSPECIFIED SNOMED Code(s): 09236351 (2) Occult blood positive stool Current Visit: Yes Status: Acute Code(s): R19.5 - OTHER FECAL ABNORMALITIES SNOMED Code(s): 33803496 (3) Chest pain Current Visit: Yes Status: Acute Code(s): R07.9 - CHEST PAIN, UNSPECIFIED SNOMED Code(s): 98074521 (4) Elevated troponin Current Visit: Yes Status: Acute Code(s): R74.8 - ABNORMAL LEVELS OF OTHER SERUM ENZYMES SNOMED Code(s): 876689935 (5) Elevated BUN Current Visit: Yes Status: Acute Code(s): R79.9 - ABNORMAL FINDING OF BLOOD CHEMISTRY, UNSPECIFIED SNOMED Code(s): 034426946 (6) Coronary artery disease Narrative/Plan: PTCA stent times 04/20/2018 Current Visit: No Status: Acute Code(s): I25.10 - ATHSCL HEART DISEASE OF [place] CORONARY ARTERY W/O ANG PCTRS SNOMED Code(s): 85411151 (7) Non-ST elevated myocardial infarction Narrative/Plan: History of MT April 2018. Current Visit: Yes Status: Acute Code(s): I21.4 - NON-ST ELEVATION (NSTEMI) MYOCARDIAL INFARCTION SNOMED Code(s): 93306213 (8) Status post hip surgery Narrative/Plan: March 2018 Current Visit: Yes Status: Acute Code(s): Z98.890 - OTHER SPECIFIED POSTPROCEDURAL STATES SNOMED Code(s): 617205663 Plan: 1. Cardiology consult recent PCI stent elevated troponin. Anticoagulation on hold. CBC monitoring blood transfusion as necessary. Iron indices. Protonix 40 mg daily. EGD colonoscopy advised timing will be determined on clinical course and evaluation by cardiology. Agreeable for clear liquids after seen by cardiology. Will follow closely with you. Thank you for this kind referral and the opportunity to participate in the care of your patient. This consultation was discussed with Dr. Sanchez. The impression and plan of care have been directed as dictated.
[2018-06-28] MEDS: IPRATROPIUM 0.5 MG/2.5 ML NEBU INHALATION SCH ×4 (11:14→20:36)
[2018-06-28] MEDS: FORMOTEROL FUMARATE 20 MCG/2 ML NEBU INHALATION SCH ×2 (11:14→20:36)
[2018-06-28] MEDS: CYANOCOBALAMIN 500 MCG TAB PO SCH (16:49)
[2018-06-28] MEDS: NITROGLYCERIN OINT 1 INCH/GM PACKET TOPICAL SCH ×2 (16:49→23:53)
[2018-06-28] MEDS: CLOPIDOGREL 75 MG TAB PO SCH (16:50)
[2018-06-28] MEDS: HYDROcodone/APAP 10-325MG 1 EACH TAB PO PRN (16:56)
--- NOTE | 2018-06-28 17:55 | HP ---
HISTORY AND PHYSICAL DATE OF ADMISSION: 06/28/2018. PRESENTING COMPLAINT: Chest pain. HISTORY OF PRESENTING COMPLAINT: This is a 72-year-old patient who was last here in April of 2018. Patient then presented with acute non-Q-wave myocardial infarction. Two weeks prior to that admission, the patient had hip arthroplasty that was complicated by acute pulmonary embolism, for which patient had been on anticoagulation. Last admission patient was seen by Cardiology, Cardiothoracic Surgery and Pulmonary. Because of overall poor functional status and recent acute PE, the patient was not felt to be candidate for bypass surgery. Patient did undergo 2 stent placements to RCA by Dr. Mendez. Patient's CT angio of the neck was unremarkable. The patient was put back on Eliquis. Patient is currently at rehab, able to walk a few steps. Patient presented with chest pain, more in the center and right side of the chest going down the right arm, rather significant. It lasted for close to 2 hours. The patient was a bit short of breath, perspiring, tired, and the patient presented for the same. Consultation was made to Cardiology as patient started ruling in for [place]. Also patient's hemoglobin was found to be 6, down from 9.1 in April of 2018. Patient initially was ordered one, then did get a second unit of blood; I ordered this early this morning. When I saw the patient this morning there was no further chest pain, but troponins were coming up. REVIEW OF SYSTEMS: CONSTITUTIONAL: Tired. HEENT: None. RESPIRATORY: Some shortness of breath. CARDIOVASCULAR: As above. GASTROINTESTINAL: Heartburn. GENITOURINARY: Some incontinence. DERMATOLOGICAL: None. HEMATOLOGICAL: None. LYMPHATICS: None. PSYCHIATRY: None. NEUROLOGICAL: None. MUSCULOSKELETAL: Arthritic pain in joints. Recent left hip fracture with repair. PAST MEDICAL HISTORY: 1. COPD. 2. GERD. 3. Hyperlipidemia. 4. Hypertension. 5. Prostate disorder. 6. Recent left hip fracture with replacement. 7. Pulmonary embolism in April of 2018. 8. Coronary artery disease with 2 stents to the RCA. PAST SURGICAL HISTORY: 1. Cholecystectomy. 2. Hernia repair. 3. Left hip surgery. 4. Nose surgery. 5. Right shoulder surgery. 6. Neck surgery. PSYCH HISTORY: Depression. SOCIAL HISTORY: Patient smoked less than a pack a day for close to 50 years until April of 2018. Currently a resident of [facility]. FAMILY HISTORY: Stomach cancer. HOME MEDICATIONS: 1. Senokot S one tablet p.o. daily. 2. Primidone 50 mg p.o. q.8. 3. Vitamin D2 50,000 units p.o. on Monday. 4. Nitrostat 0.4 sublingually q.5 p.r.n. 5. [place] 10 one tablet q.6 p.r.n. 6. Adult Fleet daily p.r.n. 7. Melatonin 3 mg at bedtime p.r.n. 8. Milk of Magnesia 30 mL p.o. daily p.r.n. 9. DuoNeb q.i.d. p.r.n. 10.Sinemet 25/100 one tablet p.o. t.i.d. 11.Dulcolax. 12.Zantac 150 mg b.i.d. 13.Ensure Plus 1 can p.o. t.i.d. 14.Lyrica 100 mg p.o. b.i.d. 15.Lopressor 25 mg b.i.d. 16.Iron 325 p.o. b.i.d. 17.Xarelto 15 mg p.o. daily. 18.Zetia 10 mg p.o. daily. 19.Seroquel XR 1 mg at bedtime. 20.Vitamin B12 1000 mcg a day. 21.Prozac 20 mg a day. 22.Plavix 75 mg a day. 23.Multivitamin 1 tablet p.o. daily. 24.Zestril 2.5 mg a day. 25.Lipitor 40 mg at bedtime. 26.Anoro Ellipta 1 puff daily. 27.Dutasteride 0.5 mg p.o. daily. 28.Dexilant 60 mg p.o. daily. ALLERGIES: 1. MORPHINE. 2. OXYCODONE. 3. DARVOCET-N 100. PHYSICAL EXAMINATION: VITAL SIGNS ON PRESENTATION: Temperature 99, pulse 91, respiration 22, blood pressure 127/62, pulse ox 985 on room air. GENERAL APPEARANCE: Average build. Sitting up, tired-appearing. EYES: Pupils equal. Conjunctivae pale. HEENT: External appearance of nose and ears normal. Oral cavity normal. NECK: JVD not raised. Mass not palpable. RESPIRATORY: Effort normal. LUNGS: Decreased breath sounds. CARDIOVASCULAR: First and second sounds normal. No edema. ABDOMEN: Soft, non-tender. Liver and spleen not palpable. LYMPHATIC: No lymph node palpable in neck or axillae. PSYCHIATRY: Alert and oriented x3. Mood and affect normal. NEUROLOGICAL: Pupils equal. Cranial nerves grossly intact. Power and sensation grossly intact. MUSCULOSKELETAL: Evidence of osteoarthritis, especially in the hands. PSYCHIATRY: Alert and oriented x3. Mood and affect normal neurological pupils equal. Cranial nerves grossly intact. Power and sensation grossly intact. MUSCULOSKELETAL: Evidence of osteoarthritis, especially in the hands. INVESTIGATIONS: LABS ON PRESENTATION: White count 11.7, hemoglobin 6, hematocrit 18.3, platelets 258. Repeat hemoglobin was 6.6 this morning. Potassium 4.9, repeat 5.6, BUN 45, creatinine 0.92. Troponin 0.7, 2.1, 2.3. Stool occult blood positive. EKG showing nonspecific T-wave abnormality personally reviewed by me. Chest x-ray film personally reviewed by me shows some cardiomegaly, possible minimal venous prominence. Chest CTA shows no evidence of PE. ASSESSMENT: 1. Acute non-Q-wave myocardial infarction in a patient with known coronary artery disease. 2. Recent non-Q-wave myocardial infarction in April of 2018. Patient not felt to be a coronary bypass candidate because of multiple medical problems. 3. Acute pulmonary embolism in April of 2018 following left hip replacement, for which patient has been on anticoagulation. 4. Acute gastrointestinal bleed in a patient who had been on Eliquis causing acute blood loss anemia requiring blood transfusion. 5. Chronic obstructive pulmonary disease in an ex-smoker. 6. Gastroesophageal reflux disease. 7. Hyperlipidemia. 8. Essential hypertension. 9. Benign prostatic hypertrophy. 10.Depression not otherwise specified. PLAN: Patient received blood transfusion. Home medications are resumed. Because of GI bleeding, he has been kept off IV heparin. Given his overall cardiac status, he is to be managed conservatively. Patient was recently evaluated, not felt to be a candidate for bypass, with overall poor functional status. GI also was consulted. MMODL / IJN: [id number] /
[2018-06-28] MEDS: ATORVASTATIN 40 MG TAB PO SCH (20:11)
[2018-06-28] MEDS ORDERED: MELATONIN 3 MG TABLET PO PRN (21:00)
[2018-06-28] MEDS: EZETIMIBE 10 MG TAB PO SCH (21:49)
[2018-06-28] MEDS ORDERED: SODIUM POLYSTYRENE SULFONATE 15 GM/60 ML BOTTLE PO STA (22:29)
[2018-06-28 23:51] LABS: Anisocytosis Slight; Basophils # (A) 0.1 k/uL (0-0.2); Basophils % (A) 1 %; Eosinophils # (A) 0.3 k/uL (0-0.7); Eosinophils % (A) 3 %; HCT 23.5 % (39.0-53.0); HGB 7.7 gm/dL (13.0-17.5); Hypochromasia Slight; Lymphocytes # (A) 2.2 k/uL (1.0-4.8); Lymphocytes % (A) 25 %; MCH 29.5 pg (25.0-35.0); MCHC 32.9 g/dL (31.0-37.0); MCV 89.4 fL (80.0-100.0); Mean Platelet Volume 8.5; Monocytes # (A) 0.8 k/uL (0-1.0); Monocytes % (A) 8 %; Neutrophils # (A) 5.4 k/uL (1.3-7.7); Neutrophils % (A) 60 %; Platelet Count 178 k/uL (150-450); Poikilocytosis Slight; RBC 2.63 m/uL (4.30-5.90); RDW 16.7 % (11.5-15.5); WBC 9.1 k/uL (3.8-10.6)
[2018-06-29 03:18] LABS: Iron Saturation 29.46 (15.00-50.00)
[2018-06-29] MEDS: SODIUM CHLORIDE 0.9% 1,000 ML IV SCH ×3 (06:13→23:04)
[2018-06-29] MEDS: CARBIDOPA-LEVODOPA 25-100 MG 1 EACH TAB PO SCH ×3 (06:16→20:07)
[2018-06-29] MEDS: FORMOTEROL FUMARATE 20 MCG/2 ML NEBU INHALATION SCH ×2 (07:20→21:01)
[2018-06-29] MEDS: IPRATROPIUM 0.5 MG/2.5 ML NEBU INHALATION SCH ×4 (07:20→21:01)
[2018-06-29 07:27] LABS: Anion Gap 3 mmol/L; Blood Urea Nitrogen 33 mg/dL (9-20); Calcium 8.5 mg/dL (8.4-10.2); Carbon Dioxide 27 mmol/L (22-30); Chloride 110 mmol/L (98-107); Glucose 82 mg/dL (74-99); Potassium 4.6 mmol/L (3.5-5.1); Sodium 140 mmol/L (137-145)
[2018-06-29 07:37] LABS: Anisocytosis Slight; Basophils # (A) 0.1 k/uL (0-0.2); Basophils % (A) 1 %; Eosinophils # (A) 0.6 k/uL (0-0.7); Eosinophils % (A) 5 %; HCT 26.3 % (39.0-53.0); HGB 8.4 gm/dL (13.0-17.5); Hypochromasia Slight; Lymphocytes # (A) 2.3 k/uL (1.0-4.8); Lymphocytes % (A) 19 %; MCH 28.9 pg (25.0-35.0); MCV 90.5 fL (80.0-100.0); Mean Platelet Volume 6.6; Monocytes # (A) 0.7 k/uL (0-1.0); Monocytes % (A) 6 %; Neutrophils # (A) 7.8 k/uL (1.3-7.7); Neutrophils % (A) 66 %; Platelet Count 220 k/uL (150-450); Poikilocytosis Slight; RDW 17.3 % (11.5-15.5); WBC 11.9 k/uL (3.8-10.6)
[2018-06-29] MEDS: PANTOPRAZOLE 40 MG/10 ML VIAL IV SCH (09:12)
[2018-06-29] MEDS: LISINOPRIL 2.5 MG TAB PO SCH (09:12)
[2018-06-29] MEDS: SENNOSIDES-DOCUSATE SODIUM 1 EACH TAB PO SCH (09:12)
[2018-06-29] MEDS: FAMOTIDINE 20 MG TAB PO SCH ×2 (09:12→17:34)
[2018-06-29] MEDS: METOPROLOL TARTRATE 25 MG TAB PO SCH ×2 (09:12→17:34)
[2018-06-29] MEDS: QUEtiapine 100 MG TAB PO SCH ×2 (09:12→20:07)
[2018-06-29] MEDS: PREGABALIN 100 MG CAP PO SCH ×2 (09:12→20:07)
[2018-06-29] MEDS: FERROUS SULFATE 325 MG TAB PO SCH ×2 (09:13→17:34)
[2018-06-29] MEDS: FLUoxetine HCL 20 MG CAP PO SCH (09:13)
[2018-06-29] MEDS: FINASTERIDE 5 MG TAB PO SCH (09:13)
[2018-06-29] MEDS: PRIMIDONE 50 MG TAB PO SCH ×3 (09:13→23:03)
[2018-06-29] MEDS: NITROGLYCERIN OINT 1 INCH/GM PACKET TOPICAL SCH ×3 (09:13→23:03)
[2018-06-29] MEDS: IPRATROPIUM-ALBUTEROL 3 ML NEB INHALATION PRN (11:17)
--- NOTE | 2018-06-29 11:17 | PN ---
PROGRESS NOTE This 72-year-old gentleman who is admitted to hospital with GI bleed and has known coronary artery disease and has had angioplasty. He has significant left main stenosis and he was supposed to come back and have a FFR done. He came in with GI bleed. This morning he is feeling better. Hemoglobin has improved to 8.4. His peak troponin was 2.3. PHYSICAL EXAMINATION: On exam, comfortable at rest. Vital signs are stable. Chest exam reveals good air entry bilaterally. Heart exam reveals first and second heart sounds. No gallop. Examination of the extremities did not reveal any edema. Peripheral pulses are palpable. EKG shows sinus rhythm with nonspecific ST-T wave changes. ASSESSMENT: 1. Non ST-segment elevation myocardial infarction. 2. Gastrointestinal bleed. PLAN: Will treat him with optimal medical therapy on this admission including Lipitor, Plavix, Lopressor, and nitro paste. The patient can proceed with an EGD. We will stop the Xarelto at this time. MMMARQUESL / IJN: [id number] /
--- NOTE | 2018-06-29 12:29 | CONS ---
CONSULTATION DATE OF CONSULTATION: 06/28/2018 My initial consultation is missing. I am redictating this. Clau is a 72-year-old gentleman with a history of coronary artery disease, pulmonary embolism, who presented to the hospital complaining of chest pain and patient ruled in for a myocardial infarction. He also had a hemoglobin of 6 on his initial presentation, underwent blood transfusion and his symptoms have gradually resolved. At the time of my evaluation, he appeared comfortable at rest and stable hemodynamically. EKG showed sinus rhythm with nonspecific ST-T wave changes. PAST MEDICAL HISTORY: Significant for coronary artery disease, status post angioplasty, hypertension, pulmonary embolism. CURRENT MEDICATIONS: Include [place], [place], aspirin, DuoNeb, Zantac, Lopressor, Xarelto 15 mg daily, Plavix 75 mg daily, Zestril, Lipitor. ALLERGIES: To MORPHINE, OXYCONTIN, and DARVOCET. FAMILY HISTORY: Negative for premature coronary artery disease. SOCIAL HISTORY: Negative for current smoking, EtOH abuse, or drug abuse. REVIEW OF SYSTEMS: HEENT is unremarkable. CARDIAC: As described above. RESPIRATORY: As described above. GI: Negative. GENITOURINARY: Negative. ALLERGY/IMMUNOLOGY: Negative. SKIN: Negative. MUSCULOSKELETAL: Significant for arthritis. PSYCHOSOCIAL: Negative. ENDOCRINE: Negative. DERM: Negative. CONSTITUTIONAL: Negative. ONCOLOGICAL: Negative. Rest of the system review is not relevant. PHYSICAL EXAM: Comfortable at rest. Vital signs are stable. There is no jugular venous distention. Chest exam reveals good air entry bilaterally. Heart exam reveals first and second heart sounds. No gallop. No murmur. No rub. Abdomen is soft, nontender. Exam of extremities did not reveal edema. Peripheral pulses are felt. LABS: Show a hemoglobin of 8.4, potassium is 4.6, creatinine is 0.86. The labs show that the troponin is at 2.1, 2.3 and 2.3. ASSESSMENT: 1. Acute non ST-segment elevation myocardial infarction. 2. Severe symptomatic anemia. PLAN: Patient is stable clinically, is on optimal medical therapy including nitro paste. Patient can undergo an EGD at this time to see if he has a source of bleeding that can be controlled. Will avoid colonoscopy at this time. MMODL / IJN: [id number] /
[2018-06-29] MEDS ORDERED: BISACODYL 5 MG TABLET.DR PO STA (13:32)
--- NOTE | 2018-06-29 13:33 | P.PN ---
Subjective Progress Note Date: 06/29/18 Principal diagnosis: anemia GI bleed acute NSTEMI 72-year-old gentleman admitted with acute non-ST elevated [place] recent PCI stent, anemia positive guaiac suspected GI bleed. Denies overt bleeding such as hematemesis hematochezia melena. Received 3 units of blood. Hemoglobin 8.4. Evaluated by cardiology cleared for endoscopic exams. Denies abdominal pain. Objective - Vital Signs Vital signs: Vital Signs Temp 97.7 F 06/29/18 09:02 Pulse 72 06/29/18 11:26 Resp 18 06/29/18 09:02 BP 127/61 06/29/18 09:02 Pulse Ox 99 06/29/18 09:02 Intake & Output 06/28/18 06/29/18 06/29/18 18:59 06:59 18:59 Intake Total 740 2400 0 Balance 740 2400 0 Weight 63.2 kg Intake: Intake, IV Titration 1100 Amount Sodium Chloride 0.9% 1, 1100 000 ml @ 100 mls/hr IV . Q[facility]H [facility] Rx#:[id number] Oral 120 1300 0 Blood Product 620 Rc As-1 Unit 310 [id number] Rc Pheresis 2 As3 Unit 310 [id number] Other: Voiding Method Diaper Diaper Diaper Incontinent Incontinent Incontinent # Voids 2 3 # Bowel Movements 1 - Exam General appearance: The patient is alert, oriented, in no acute distress. HET: Head is normocephalic and atraumatic. Pupils are equal and reactive. Oropharynx is clear without lesions. Neck: Supple without lymphadenopathy. Trachea midline. Heart: S1 S2. Regular rate and rhythm. Lungs: No crackles or wheezes are heard. Abdomen: Soft, nontender, nondistended with bowel sounds. No peritoneal signs. No palpable organomegaly or masses. Extremities: Normal skin color and turgor. No cyanosis, rash, ulceration, clubbing, or edema. Radial and pedal pulses are 2/4 bilaterally. Neurological: No focal deficits. Strength and sensation are grossly intact. - Labs CBC & Chem 7: 06/29/18 06:37 06/29/18 06:37 Labs: Abnormal Lab Results - Last 24 Hours (Table) 06/27/18 06/28/18 06/28/18 Range/Units 23:55 12:57 18:50 WBC (3.8-10.6) k/uL RBC (4.30-5.90) m/uL Hgb (13.0-17.5) gm/dL Hct (39.0-53.0) % RDW (11.5-15.5) % Neutrophils # (1.3-7.7) k/uL Chloride (98-107) mmol/L BUN (9-20) mg/dL Troponin I 2.350 H* 2.370 H* (0.000-0.034) ng/mL Crossmatch See Detail 06/28/18 06/29/18 06/29/18 Range/Units 23:31 06:37 06:37 WBC 11.9 H (3.8-10.6) k/uL RBC 2.63 L 2.90 L (4.30-5.90) m/uL Hgb 7.7 L 8.4 L (13.0-17.5) gm/dL Hct 23.5 L 26.3 L (39.0-53.0) % RDW 16.7 H 17.3 H (11.5-15.5) % Neutrophils # 7.8 H (1.3-7.7) k/uL Chloride 110 H (98-107) mmol/L BUN 33 H (9-20) mg/dL Troponin I (0.000-0.034) ng/mL Crossmatch Assessment and Plan (1) Normocytic hypochromic anemia Narrative/Plan: 72-year-old male admitted with acute chest pain with a history non-ST elevated [place] CAD with previous PCI stent maintained on Xarelto and Plavix and previous hip surgery March 2018 presents with normocytic hypochromic anemia positive FOBT without overt bleeding such as hematemesis hematochezia melena hemoglobin of 6 suggestive of acute GI bleed acute blood loss anemia with elevated BUN and troponin. Possible peptic ulcer disease possible small bowel source possible colonic. Current Visit: Yes Status: Acute Code(s): D50.9 - IRON DEFICIENCY ANEMIA, UNSPECIFIED SNOMED Code(s): 16934433 (2) Occult blood positive stool Current Visit: Yes Status: Acute Code(s): R19.5 - OTHER FECAL ABNORMALITIES SNOMED Code(s): 74211823 (3) Chest pain Current Visit: Yes Status: Acute Code(s): R07.9 - CHEST PAIN, UNSPECIFIED SNOMED Code(s): 40041396 (4) Elevated troponin Current Visit: Yes Status: Acute Code(s): R74.8 - ABNORMAL LEVELS OF OTHER SERUM ENZYMES SNOMED Code(s): 404420831 (5) Elevated BUN Current Visit: Yes Status: Acute Code(s): R79.9 - ABNORMAL FINDING OF BLOOD CHEMISTRY, UNSPECIFIED SNOMED Code(s): 472783138 (6) Coronary artery disease Narrative/Plan: PTCA stent times 04/20/2018 Current Visit: No Status: Acute Code(s): I25.10 - ATHSCL HEART DISEASE OF [place] CORONARY ARTERY W/O ANG PCTRS SNOMED Code(s): 78218610 (7) Non-ST elevated myocardial infarction Narrative/Plan: History of FL April 2018. Current Visit: Yes Status: Acute Code(s): I21.4 - NON-ST ELEVATION (NSTEMI) MYOCARDIAL INFARCTION SNOMED Code(s): 34365107 (8) Status post hip surgery Narrative/Plan: March 2018 Current Visit: Yes Status: Acute Code(s): Z98.890 - OTHER SPECIFIED POSTPROCEDURAL STATES SNOMED Code(s): 209945648 Plan: 1. EGD colonoscopy in a.m. CBC monitoring. Clear liquid diet. Nothing by mouth after midnight. The home health clinician has discussed the risks, benefits and alternative therapies for the above-mentioned procedure and for both sedation/analgesia as well as necessary blood product administration, if indicated, as they pertain to this patient. The patient has indicated understanding and acceptance of the risks and procedures discussed. Assessment and plan a care discussed with Dr. Sanchez
[2018-06-29] MEDS ORDERED: PEG 3350-NA SULF,BICARB,CL/KCL 4,000 ML BOTTLE PO ONE (15:00)
[2018-06-29] MEDS: CYANOCOBALAMIN 500 MCG TAB PO SCH (17:34)
[2018-06-29] MEDS: CLOPIDOGREL 75 MG TAB PO SCH (17:34)
[2018-06-29] MEDS: HYDROcodone/APAP 10-325MG 1 EACH TAB PO PRN (17:34)
[2018-06-29] MEDS: EZETIMIBE 10 MG TAB PO SCH (20:06)
[2018-06-29] MEDS: ATORVASTATIN 40 MG TAB PO SCH (20:07)
--- NOTE | 2018-06-30 02:05 | PN ---
PROGRESS NOTE DATE OF SERVICE: 06/29/2018 PRESENTING COMPLAINT: Chest pain. INTERVAL HISTORY: This patient with nonoperable coronary artery disease presented with acute [place], also with GI bleed. No chest pain today. The patient is due for endoscopy tomorrow. Lying in bed, tired appearing. REVIEW OF SYSTEMS: Done for constitutional, cardiovascular, GI, pulmonary and findings as above. CURRENT MEDICATIONS: Reviewed ( ) blood thinners. EXAMINATION: Temperature 97.5, pulse 64, respiration 18, blood pressure 103/53, pulse ox 96% on 2 L. GENERAL APPEARANCE: Lying in bed, tired appearing. EYES: Pupils equal. Conjunctivae pale. NECK: JVD not raised. Mass not palpable. Respiratory effort normal. LUNGS: Decreased breath sounds. CARDIOVASCULAR: First and second sounds normal. No edema. ABDOMEN: Soft, nontender. Liver and spleen not palpable. PSYCHIATRY: Awake, answering simple questions. INVESTIGATIONS: White count 9.9, hemoglobin 8.4, potassium 4.6. ASSESSMENT: 1. Acute non-Q-wave myocardial infarction in a patient with known coronary artery disease. 2. Recent non-Q-wave myocardial infarction in April of 2018. The patient is not a candidate for coronary bypass. 3. Acute pulmonary embolism in April of 2018, following left hip fracture. The patient has been on anticoagulation. 4. Acute gastrointestinal bleed in a patient on Eliquis causing acute blood loss anemia with blood transfusion. 5. Chronic obstructive pulmonary disease in an ex-smoker. 6. Hyperlipidemia. 7. Essential hypertension. 8. Benign prostatic hypertrophy. 9. Depression, not otherwise specified. PLAN: Continue current medication and treatment plan. The patient is awaiting EGD per GI. The patient's potassium was corrected. Given this patient's age and comorbidities, prognosis is guarded. The patient did get a total of 3 units of blood. MMODL / IJN: [id number] /
[2018-06-30] MEDS: CARBIDOPA-LEVODOPA 25-100 MG 1 EACH TAB PO SCH ×3 (06:36→20:33)
[2018-06-30 07:40] LABS: Anisocytosis Slight; Basophils % (A) 0 %; Eosinophils # (A) 0.1 k/uL (0-0.7); Eosinophils % (A) 1 %; HCT 25.6 % (39.0-53.0); HGB 8.3 gm/dL (13.0-17.5); Lymphocytes # (A) 1.7 k/uL (1.0-4.8); Lymphocytes % (A) 15 %; MCH 29.4 pg (25.0-35.0); MCHC 32.5 g/dL (31.0-37.0); MCV 90.4 fL (80.0-100.0); Mean Platelet Volume 7.2; Monocytes # (A) 0.6 k/uL (0-1.0); Monocytes % (A) 5 %; Neutrophils # (A) 8.1 k/uL (1.3-7.7); Neutrophils % (A) 75 %; Platelet Count 230 k/uL (150-450); Poikilocytosis Slight; RBC 2.84 m/uL (4.30-5.90); RDW 17.2 % (11.5-15.5); WBC 10.8 k/uL (3.8-10.6)
[2018-06-30 07:51] LABS: Anion Gap 7 mmol/L; Blood Urea Nitrogen 26 mg/dL (9-20); Calcium 8.8 mg/dL (8.4-10.2); Carbon Dioxide 24 mmol/L (22-30); Chloride 112 mmol/L (98-107); Glucose 90 mg/dL (74-99); Potassium 3.7 mmol/L (3.5-5.1); Sodium 143 mmol/L (137-145)
[2018-06-30] MEDS ORDERED: PROPOFOL 10 MG/ML 20 ML VIAL IV ONE (08:00)
[2018-06-30] MEDS ORDERED: IV FLUID CONTINUATION 700 ML IV ONE (08:19)
--- NOTE | 2018-06-30 09:03 | P.PCN ---
Date of Procedure: 06/30/18 Description of Procedure: BRIEF HISTORY: 72-year-old gentleman ECF resident admitted with acute chest pain shoulder arm. Past medical history non-ST elevated [place] April 2018; status post heart catheterization PTCA stent 2, hip surgery March 2018. Admission hemoglobin 6 positive FOBT without overt bleeding such as hematemesis hematochezia melena consult requested for GI bleed evaluation. Patient denies abdominal or epigastric pain. No history of peptic ulcer disease. No history of recent EGD or colonoscopy both have been performed previously but has been several years. No history of of gastric or bowel surgeries. Troponin 0.7 increase to 2.1. LFTs within normal limits. Status post transfusion 1 unit of blood. Received previous blood transfusion in April 2018. CT chest no evidence of PE. Previous hemoglobin a week ago was 8.1. Over the course of the past year hemoglobin averages between 7.8-9.7. ECF medications reviewed patient takes Xarelto Plavix. Dexilent 60 mg daily. PROCEDURE PERFORMED: Esophagogastroduodenoscopy. PREOPERATIVE DIAGNOSIS: Melena, anemia. ESTIMATED BLOOD LOSS: Minimal. IV sedation per anesthesia. PROCEDURE: After informed consent was obtained, the patient was brought into the endoscopy unit. IV sedation was administered by Anesthesia under continuous monitoring. Initially the Olympus GIF-190 video endoscope was inserted into the mouth. Esophagus intubated without any difficulty. It was gradually advanced into the stomach and duodenum and carefully examined. The bulb and the second part of the duodenum appeared normal. The scope at this time was withdrawn to the stomach, adequately insufflated with air, and upon careful examination, mucosa of the antrum, body, cardia and the fundus appeared normal, except for some mild scattered erythema suggestive of gastritis. The scope was then withdrawn into the esophagus. The GE junction was located at 39 cm from the incisors. The esophagus appeared normal. There were no erosions or ulcerations seen and the patient tolerated the procedure well. IMPRESSION: 1. No active bleeding, evidence of old blood or pathology to explain melena on upper endoscopy. 2. Mild scattered gastritis. RECOMMENDATIONS: The findings of this examination were discussed with the patient. Okay to start full liquid diet, advance as tolerated. Continue to monitor hemoglobin and transfuse as needed. Okay to continue anticoagulation as needed. Continue to monitor for signs of GI bleeding. Continue daily Protonix therapy. No plan for further endoscopic evaluation at this time given cardiac risk factors, however we'll investigate further if patient has further signs or symptoms of GI bleeding.
[2018-06-30] MEDS: NITROGLYCERIN OINT 1 INCH/GM PACKET TOPICAL SCH (09:10)
[2018-06-30] MEDS: FERROUS SULFATE 325 MG TAB PO SCH ×2 (09:13→17:26)
[2018-06-30] MEDS: QUEtiapine 100 MG TAB PO SCH ×2 (09:13→20:33)
[2018-06-30] MEDS: METOPROLOL TARTRATE 25 MG TAB PO SCH ×2 (09:13→17:26)
[2018-06-30] MEDS: PANTOPRAZOLE 40 MG/10 ML VIAL IV SCH (09:14)
[2018-06-30] MEDS: SODIUM CHLORIDE 0.9% 1,000 ML IV SCH ×2 (09:14→17:28)
[2018-06-30] MEDS: LISINOPRIL 2.5 MG TAB PO SCH (09:14)
[2018-06-30] MEDS: PRIMIDONE 50 MG TAB PO SCH ×3 (09:14→23:53)
[2018-06-30] MEDS: FINASTERIDE 5 MG TAB PO SCH (09:14)
[2018-06-30] MEDS: FLUoxetine HCL 20 MG CAP PO SCH (09:14)
[2018-06-30] MEDS: FAMOTIDINE 20 MG TAB PO SCH ×2 (09:14→17:26)
[2018-06-30] MEDS: SENNOSIDES-DOCUSATE SODIUM 1 EACH TAB PO SCH (09:14)
[2018-06-30] MEDS: PREGABALIN 100 MG CAP PO SCH ×2 (09:15→20:33)
[2018-06-30] MEDS: IPRATROPIUM 0.5 MG/2.5 ML NEBU INHALATION SCH ×4 (09:23→20:13)
[2018-06-30] MEDS: FORMOTEROL FUMARATE 20 MCG/2 ML NEBU INHALATION SCH ×2 (09:23→20:16)
--- NOTE | 2018-06-30 13:31 | P.PN ---
Subjective This is a 72-year-old male past medical history significant for coronary artery disease, PE and hypertension. Initially on presentation to the hospital he was complaining of chest discomfort and ruled in for myocardial infarction, he also had a hemoglobin of 6. He underwent a blood transfusion and his symptoms of chest discomfort resolved. He underwent EGD per Dr. Whitfield this morning which revealed evidence of gastritis with no acute bleeding noted. Laboratory data reviewed, WBC 10.8, hemoglobin 8.3, platelets 230, sodium 143, potassium 3.7, creatinine 0.86. Blood pressure 133/61 heart rate 71 afebrile maintaining oxygen saturation on room air. He denies symptoms of chest pain, shortness of breath, dizziness or palpitations. Currently maintained on atorvastatin 40 mg daily, Plavix 75 mg daily, lisinopril 2.5 mg daily, Lopressor 25 mg twice a day. GENERAL: Well-appearing, well-nourished and in no acute distress. NECK: Supple without JVD or thyromegaly. LUNGS: Breath sounds clear to auscultation bilaterally. Respiration equal and unlabored. No wheezes, rales or rhonchi. HEART: Regular rate and rhythm without murmurs, rubs or gallops. S1 and S2 heard. EXTREMITIES: Normal range of motion, no edema. No clubbing or cyanosis. Peripheral pulses intact. ASSESSMENT Acute non-ST elevated myocardial infarction Severe symptomatic anemia, EGD this morning reveals no evidence of acute bleeding PE on xarelto Dylsipidemia Hypertension Known coronary artery disease not a candidate for bypass surgery on maximum medical therapy PLAN Change nitropaste to imdur 15 mg daily. Continue with current medical regimen. Resume xarelto. Repeat CBC tomorrow. Stable from a cardiac perspective. The above impression and plan of care have been discussed and directed by the signing physician. Maryann Dowling, nurse practitioner, acting as scribe for signing physician. Objective - Vital Signs Vital signs: Vital Signs Temp 97.9 F 06/30/18 12:00 Pulse 72 06/30/18 12:53 Resp 18 06/30/18 12:00 BP 133/61 06/30/18 12:00 Pulse Ox 98 06/30/18 12:00 Intake & Output 06/29/18 06/30/18 06/30/18 18:59 06:59 18:59 Intake Total 5399 175 6200 Output Total 4 Balance 3020 310 9195 Weight 62 kg Intake: IV 400 Intake, IV Titration 800 1100 Amount Sodium Chloride 0.9% 1, 800 1100 000 ml @ 100 mls/hr IV . Q10H [facility] Rx#:[id number] Oral 1380 866 2974 Output: Urine/Stool Mix 4 Other: Voiding Method Diaper Diaper Incontinent Incontinent # Voids 2 2 # Bowel Movements 2 6 - Labs CBC & Chem 7: 06/30/18 07:02 06/30/18 07:02 Labs: Abnormal Lab Results - Last 24 Hours (Table) 06/30/18 06/30/18 Range/Units 07:02 07:02 WBC 10.8 H (3.8-10.6) k/uL RBC 2.84 L (4.30-5.90) m/uL Hgb 8.3 L (13.0-17.5) gm/dL Hct 25.6 L (39.0-53.0) % RDW 17.2 H (11.5-15.5) % Neutrophils # 8.1 H (1.3-7.7) k/uL Chloride 112 H (98-107) mmol/L BUN 26 H (9-20) mg/dL
[2018-06-30] MEDS: ISOSORBIDE MONONITRATE ER 15 MG TAB PO SCH (14:36)
[2018-06-30] MEDS: HYDROcodone/APAP 10-325MG 1 EACH TAB PO PRN (14:38)
[2018-06-30] MEDS: CYANOCOBALAMIN 500 MCG TAB PO SCH (17:26)
[2018-06-30] MEDS: CLOPIDOGREL 75 MG TAB PO SCH (17:26)
[2018-06-30] MEDS: EZETIMIBE 10 MG TAB PO SCH (20:33)
[2018-06-30] MEDS: ATORVASTATIN 40 MG TAB PO SCH (20:33)
[2018-07-01] MEDS: CARBIDOPA-LEVODOPA 25-100 MG 1 EACH TAB PO SCH ×3 (06:10→21:23)
[2018-07-01 06:59] LABS: Anisocytosis Slight; Basophils % (A) 0 %; Eosinophils # (A) 0.3 k/uL (0-0.7); Eosinophils % (A) 4 %; HCT 23.6 % (39.0-53.0); HGB 7.9 gm/dL (13.0-17.5); Lymphocytes # (A) 1.8 k/uL (1.0-4.8); Lymphocytes % (A) 24 %; MCH 30.3 pg (25.0-35.0); MCHC 33.5 g/dL (31.0-37.0); MCV 90.4 fL (80.0-100.0); Mean Platelet Volume 7.2; Monocytes # (A) 0.5 k/uL (0-1.0); Monocytes % (A) 7 %; Neutrophils # (A) 4.6 k/uL (1.3-7.7); Neutrophils % (A) 62 %; Platelet Count 205 k/uL (150-450); RBC 2.62 m/uL (4.30-5.90); RDW 17.2 % (11.5-15.5); WBC 7.5 k/uL (3.8-10.6)
--- NOTE | 2018-07-01 07:06 | PN ---
PROGRESS NOTE DATE OF SERVICE: 06/30/2018 PRESENTING COMPLAINT: Chest pain. INTERVAL HISTORY: This patient with nonoperable coronary presented with acute SD, also GI bleed. Did undergo EGD today and found to have some gastritis. GI okayed Xarelto to be resumed. The patient had no further chest pain. Did tolerate some diet. Lying in bed. REVIEW OF SYSTEMS: Done for constitutional, cardiovascular, GI, pulmonary; relevant findings as above. CURRENT MEDICATIONS: Reviewed. PHYSICAL EXAMINATION: Temperature 98, pulse 63, respirations 18, blood pressure 107/54, pulse ox 95% on room air. GENERAL APPEARANCE: Sitting on bed, awake. EYES: Pupils equal. Conjunctivae normal. NECK: JVD not raised. Mass not palpable. Respiratory effort normal. LUNGS: Decreased breath sounds. CARDIOVASCULAR: First and second sounds normal. No edema. ABDOMEN: Soft, nontender. Liver and spleen not palpable. PSYCHIATRY: Awake, answering questions. INVESTIGATIONS: Hemoglobin 8.3, potassium 3.7. ASSESSMENT: 1. Acute non-Q-wave myocardial infarction. The patient known coronary artery disease. 2. Recent non-Q-wave myocardial infarction in April 2018. The patient is not a candidate for coronary artery bypass. 3. Acute pulmonary embolism in April 2018 following left hip fracture. 4. Acute gastrointestinal bleed in a patient on Eliquis causing acute blood loss anemia with blood transfusion. 5. Chronic obstructive pulmonary disease in an ex-smoker. 6. Hyperlipidemia. 7. Essential hypertension. 8. Benign prostatic hypertrophy. 9. Depression, nos specified. PLAN: Patient will be started on Xarelto tomorrow morning. Diet is being advanced. We will discontinue the IV fluids. Prognosis guarded. MMODL / IJN: [id number] /
[2018-07-01 07:15] LABS: Anion Gap 6 mmol/L; Blood Urea Nitrogen 22 mg/dL (9-20); Calcium 8.3 mg/dL (8.4-10.2); Carbon Dioxide 23 mmol/L (22-30); Chloride 113 mmol/L (98-107); Glucose 96 mg/dL (74-99); Potassium 3.6 mmol/L (3.5-5.1); Sodium 142 mmol/L (137-145)
[2018-07-01] MEDS: FORMOTEROL FUMARATE 20 MCG/2 ML NEBU INHALATION SCH ×2 (08:55→20:57)
[2018-07-01] MEDS: IPRATROPIUM 0.5 MG/2.5 ML NEBU INHALATION SCH ×4 (08:57→20:57)
[2018-07-01] MEDS: HYDROcodone/APAP 10-325MG 1 EACH TAB PO PRN ×2 (09:24→21:22)
[2018-07-01] MEDS: FERROUS SULFATE 325 MG TAB PO SCH ×2 (09:25→17:14)
[2018-07-01] MEDS: QUEtiapine 100 MG TAB PO SCH ×2 (09:25→21:23)
[2018-07-01] MEDS: METOPROLOL TARTRATE 25 MG TAB PO SCH ×2 (09:25→17:14)
[2018-07-01] MEDS: SENNOSIDES-DOCUSATE SODIUM 1 EACH TAB PO SCH (09:25)
[2018-07-01] MEDS: FAMOTIDINE 20 MG TAB PO SCH ×2 (09:26→17:14)
[2018-07-01] MEDS: FLUoxetine HCL 20 MG CAP PO SCH (09:26)
[2018-07-01] MEDS: ISOSORBIDE MONONITRATE ER 15 MG TAB PO SCH (09:26)
[2018-07-01] MEDS: RIVAROXABAN 15 MG TAB PO SCH (09:26)
[2018-07-01] MEDS: PREGABALIN 100 MG CAP PO SCH ×2 (09:26→21:23)
[2018-07-01] MEDS: FINASTERIDE 5 MG TAB PO SCH (09:26)
[2018-07-01] MEDS: PRIMIDONE 50 MG TAB PO SCH ×3 (09:26→23:21)
[2018-07-01] MEDS: LISINOPRIL 2.5 MG TAB PO SCH (09:26)
--- NOTE | 2018-07-01 13:22 | P.PN ---
Subjective This is a 72-year-old male past medical history significant for coronary artery disease, PE and hypertension. Initially on presentation to the hospital he was complaining of chest discomfort and ruled in for myocardial infarction, he also had a hemoglobin of 6. He underwent a blood transfusion and his symptoms of chest discomfort resolved. He underwent EGD per Dr. Whitfield this morning which revealed evidence of gastritis with no acute bleeding noted. Xarelto resumed yesterday evening. Laboratory data reviewed, WBC 7.5, hemoglobin 7.9, platelets 205, sodium 142, potassium 3.6, creatinine 0.82. He is seen and examined resting comfortably laying flat in bed in no acute distress. He denies symptoms of chest discomfort, shortness of breath, dizziness or palpitations. Per the nursing staff he has had a bowel movement and there is no signs of marielena blood. GENERAL: Well-appearing, well-nourished and in no acute distress. NECK: Supple without JVD or thyromegaly. LUNGS: Breath sounds clear to auscultation bilaterally. Respiration equal and unlabored. No wheezes, rales or rhonchi. HEART: Regular rate and rhythm without murmurs, rubs or gallops. S1 and S2 heard. EXTREMITIES: Normal range of motion, no edema. No clubbing or cyanosis. Peripheral pulses intact. ASSESSMENT Acute non-ST elevated myocardial infarction Severe symptomatic anemia, EGD this morning reveals no evidence of acute bleeding PE on xarelto Dylsipidemia Hypertension Known coronary artery disease not a candidate for bypass surgery on maximum medical therapy PLAN This is a gentleman with extensive underlying coronary artery disease. He is not a candidate for invasive cardiac intervention or bypass surgery. We recommend optimizing his medical therapy. Increase activity and ambulation. Assess for ongoing chest discomfort. Stable from a cardiac perspective. The above impression and plan of care have been discussed and directed by the signing physician. Maryann Dowling, nurse practitioner, acting as scribe for signing physician. Objective - Vital Signs Vital signs: Vital Signs Temp 98.4 F 07/01/18 11:51 Pulse 76 07/01/18 12:03 Resp 18 07/01/18 11:51 BP 118/59 07/01/18 11:51 Pulse Ox 100 07/01/18 11:51 Intake & Output 06/30/18 07/01/18 07/01/18 18:59 06:59 18:59 Intake Total 5980 1180 240 Balance 5980 1180 240 Weight 62.5 kg Intake: IV 400 Intake, IV Titration 1100 780 Amount Sodium Chloride 0.9% 1, 1100 780 000 ml @ 100 mls/hr IV . Q10H [facility] Rx#:[id number] Oral 4480 400 240 Other: Voiding Method Diaper Diaper Incontinent Incontinent # Voids 3 # Bowel Movements 6 - Labs CBC & Chem 7: 07/01/18 06:16 07/01/18 06:16 Labs: Abnormal Lab Results - Last 24 Hours (Table) 07/01/18 07/01/18 Range/Units 06:16 06:16 RBC 2.62 L (4.30-5.90) m/uL Hgb 7.9 L (13.0-17.5) gm/dL Hct 23.6 L (39.0-53.0) % RDW 17.2 H (11.5-15.5) % Chloride 113 H (98-107) mmol/L BUN 22 H (9-20) mg/dL Calcium 8.3 L (8.4-10.2) mg/dL
[2018-07-01] MEDS: IPRATROPIUM-ALBUTEROL 3 ML NEB INHALATION PRN (16:06)
[2018-07-01] MEDS: CLOPIDOGREL 75 MG TAB PO SCH (17:14)
[2018-07-01] MEDS: CYANOCOBALAMIN 500 MCG TAB PO SCH (17:14)
--- NOTE | 2018-07-01 19:35 | P.PN ---
Subjective Progress Note Date: 07/01/18 Principal diagnosis: Anemia, stool positive for occult blood Patient lying in bed reporting he has tolerated his diet, with no abdominal pain. He did have bowel movement which was negative for any gross blood. Objective - Vital Signs Vital signs: Vital Signs Temp 98.6 F 07/01/18 15:37 Pulse 74 07/01/18 16:21 Resp 16 07/01/18 15:37 BP 116/58 07/01/18 15:37 Pulse Ox 96 07/01/18 15:37 Intake & Output 07/01/18 07/01/18 07/02/18 06:59 18:59 06:59 Intake Total 1180 720 Balance 1180 720 Weight 62.5 kg Intake: Intake, IV Titration 780 Amount Sodium Chloride 0.9% 1, 780 000 ml @ 100 mls/hr IV . Q10H [facility] Rx#:[id number] Oral 400 720 Other: Voiding Method Diaper Diaper Incontinent Incontinent # Voids 3 - Exam On physical examination, patient appears comfortable in no apparent distress. HEAD: Normocephalic, atraumatic. EYES: No scleral icterus. No conjunctival injection. MOUTH: No lesions, tongue midline. NECK: Trachea midline, no gross abnormalities. CHEST: Clear to auscultation with no wheezing or rhonchi appreciated. ABDOMEN: Soft. Bowel sounds are positive. No organomegaly. No guarding or rigidity. EXTREMITIES: No pedal edema. SKIN: No rashes, no jaundice. NEUROLOGIC: Alert and oriented x3. No focal deficits. - Labs CBC & Chem 7: 07/01/18 06:16 07/01/18 06:16 Labs: Abnormal Lab Results - Last 24 Hours (Table) 07/01/18 07/01/18 Range/Units 06:16 06:16 RBC 2.62 L (4.30-5.90) m/uL Hgb 7.9 L (13.0-17.5) gm/dL Hct 23.6 L (39.0-53.0) % RDW 17.2 H (11.5-15.5) % Chloride 113 H (98-107) mmol/L BUN 22 H (9-20) mg/dL Calcium 8.3 L (8.4-10.2) mg/dL Assessment and Plan (1) Normocytic hypochromic anemia Narrative/Plan: EGD performed and positive only for mild gastritis with no pathology to explain anemia. Hemoglobin has remained stable. Current Visit: Yes Status: Acute Code(s): D50.9 - IRON DEFICIENCY ANEMIA, UNSPECIFIED SNOMED Code(s): 19760132 (2) GI bleeding Narrative/Plan: Stool positive for occult blood. Bowel movement with no gross bleeding, and hemoglobin which has remained stable after restarting anticoagulation last night. Current Visit: Yes Status: Acute Code(s): K92.2 - GASTROINTESTINAL HEMORRHAGE, UNSPECIFIED SNOMED Code(s): 60595428 Plan: Supportive care Heart healthy diet Monitor H&H and transfuse as needed Monitor stool output for signs of bleeding Appreciate cardiology recommendations Thank you for allowing us to participate in the care of this patient, we will continue to follow
[2018-07-01] MEDS: EZETIMIBE 10 MG TAB PO SCH (21:22)
[2018-07-01] MEDS: ATORVASTATIN 40 MG TAB PO SCH (21:23)
--- NOTE | 2018-07-02 01:42 | PN ---
PROGRESS NOTE DATE OF SERVICE: July 01, 2018. PRESENTING COMPLAINT: Tired. INTERVAL HISTORY: This patient with known nonoperable coronary artery disease presented with acute [place] and GI bleed. EGD revealed some gastritis. Patient is stable. No further evidence of bleed. Anticoagulation has been started. No further episodes of chest pain. Did tolerate a diet. Lying in bed. REVIEW OF SYSTEMS: Done for constitutional, cardiovascular, GI, pulmonary and relevant findings as above. CURRENT MEDICATIONS: Reviewed. PHYSICAL EXAMINATION: VITAL SIGNS: Temperature 98.6, pulse 69, respirations 16, blood pressure 116/58. Pulse ox 96 percent on room air. GENERAL: Propped up in bed awake. EYES: Pupils equal. Conjunctivae pale. NECK JVD not raised. Mass not palpable. RESPIRATORY: Effort. LUNGS: Decreased breath sounds. CARDIOVASCULAR: 1st and 2nd sounds normal. No edema. ABDOMEN: Soft, nontender. Liver and spleen not palpable. PSYCHIATRY: Awake, answering questions appropriately. INVESTIGATIONS: Hemoglobin 7.9, potassium 3.6. ASSESSMENT: 1. Acute non-Q-wave myocardial infarction. 2. Recent non-Q-wave myocardial infarction April 2018. Patient not a candidate for coronary bypass because of poor functional and medical status. 3. Acute pulmonary embolism in April 2018 following left hip fracture. 4. Acute gastrointestinal bleed in a patient on Eliquis causing acute blood loss anemia with blood transfusions. 5. Chronic obstructive pulmonary disease in an ex-smoker. 6. Hyperlipidemia. 7. Essential hypertension. 8. Benign prostatic hypertrophy. 9. Depression, not otherwise specified. PLAN: Patient is being resumed on Xarelto. Hemodynamically stable. We will check a CBC in the morning. If stable, patient could not go back to the ECF. Prognosis guarded. MMODL / IJN: [id number] /
[2018-07-02] MEDS: HYDROcodone/APAP 10-325MG 1 EACH TAB PO PRN ×3 (04:10→16:18)
[2018-07-02 06:09] LABS: Anisocytosis Slight; Basophils % (A) 0 %; Eosinophils # (A) 0.3 k/uL (0-0.7); Eosinophils % (A) 4 %; HGB 7.5 gm/dL (13.0-17.5); Lymphocytes # (A) 1.5 k/uL (1.0-4.8); Lymphocytes % (A) 21 %; MCH 29.8 pg (25.0-35.0); MCHC 32.7 g/dL (31.0-37.0); MCV 91.3 fL (80.0-100.0); Mean Platelet Volume 7.1; Monocytes # (A) 0.5 k/uL (0-1.0); Monocytes % (A) 7 %; Neutrophils # (A) 4.8 k/uL (1.3-7.7); Neutrophils % (A) 65 %; Platelet Count 204 k/uL (150-450); RBC 2.52 m/uL (4.30-5.90); RDW 17.3 % (11.5-15.5); WBC 7.4 k/uL (3.8-10.6)
[2018-07-02] MEDS: CARBIDOPA-LEVODOPA 25-100 MG 1 EACH TAB PO SCH ×2 (06:21→14:19)
[2018-07-02 08:16] VITALS: RESP 16; TEMP 97.6
[2018-07-02] MEDS: SENNOSIDES-DOCUSATE SODIUM 1 EACH TAB PO SCH (08:16)
[2018-07-02] MEDS: RIVAROXABAN 15 MG TAB PO SCH (08:17)
[2018-07-02] MEDS: LISINOPRIL 2.5 MG TAB PO SCH (08:17)
[2018-07-02] MEDS: FERROUS SULFATE 325 MG TAB PO SCH ×2 (08:17→15:59)
[2018-07-02] MEDS: PRIMIDONE 50 MG TAB PO SCH ×2 (08:17→15:59)
[2018-07-02] MEDS: METOPROLOL TARTRATE 25 MG TAB PO SCH ×2 (08:17→15:59)
[2018-07-02] MEDS: PREGABALIN 100 MG CAP PO SCH (08:17)
[2018-07-02] MEDS: FAMOTIDINE 20 MG TAB PO SCH ×2 (08:17→15:59)
[2018-07-02] MEDS: FLUoxetine HCL 20 MG CAP PO SCH (08:17)
[2018-07-02] MEDS: FINASTERIDE 5 MG TAB PO SCH (08:17)
[2018-07-02] MEDS: ISOSORBIDE MONONITRATE ER 15 MG TAB PO SCH (08:18)
[2018-07-02] MEDS: QUEtiapine 100 MG TAB PO SCH (08:18)
[2018-07-02] MEDS: IPRATROPIUM 0.5 MG/2.5 ML NEBU INHALATION SCH ×3 (08:35→16:01)
[2018-07-02] MEDS: FORMOTEROL FUMARATE 20 MCG/2 ML NEBU INHALATION SCH (08:35)
[2018-07-02] MEDS ORDERED: ERGOCALCIFEROL 50,000 UNIT CAP PO SCH (09:00)
--- NOTE | 2018-07-02 12:38 | P.PN ---
Subjective Progress Note Date: 07/02/18 This is a 72-year-old male past medical history significant for coronary artery disease, PE and hypertension. Initially on presentation to the hospital he was complaining of chest discomfort and ruled in for myocardial infarction, he also had a hemoglobin of 6. He underwent a blood transfusion and his symptoms of chest discomfort resolved. He underwent EGD per Dr. Whitfield,which revealed evidence of gastritis with no acute bleeding noted. His blood pressure this morning 146/66, hemoglobin 7.5, hematocrit 23, platelets 204, white blood cell count 7.4. Objective - Vital Signs Vital signs: Vital Signs Temp 97.6 F 07/02/18 08:10 Pulse 64 07/02/18 12:05 Resp 16 07/02/18 11:30 BP 123/58 07/02/18 11:30 Pulse Ox 98 07/02/18 11:30 Intake & Output 07/01/18 07/02/18 07/02/18 18:59 06:59 18:59 Intake Total 720 20 240 Balance 720 20 240 Weight 67 kg Intake: IV 20 Invasive Line 1 20 Oral 720 240 Other: Voiding Method Diaper Diaper Diaper Incontinent Incontinent Incontinent # Voids 1 3 - Exam GENERAL: Well-appearing, well-nourished and in no acute distress. NECK: Supple without JVD or thyromegaly. LUNGS: Breath sounds clear to auscultation bilaterally. Respiration equal and unlabored. No wheezes, rales or rhonchi. HEART: Regular rate and rhythm without murmurs, rubs or gallops. S1 and S2 heard. EXTREMITIES: Normal range of motion, no edema. No clubbing or cyanosis. Peripheral pulses intact. - Labs CBC & Chem 7: 07/02/18 05:27 07/01/18 06:16 Labs: Abnormal Lab Results - Last 24 Hours (Table) 07/02/18 Range/Units 05:27 RBC 2.52 L (4.30-5.90) m/uL Hgb 7.5 L (13.0-17.5) gm/dL Hct 23.0 L (39.0-53.0) % RDW 17.3 H (11.5-15.5) % Assessment and Plan Plan: Assessment and plan #1 Acute non-ST elevated myocardial infarction #2 Severe symptomatic anemia, EGD revealed no evidence of acute bleeding #3 PE on xarelto #4 Dylsipidemia #5 Hypertension #6 Known coronary artery disease not a candidate for bypass surgery on maximum medical therapy Plan We will discontinue the patient's oxygen, his saturations are maintaining in the 90s without oxygen. We'll review his echocardiogram with Doppler study. He may be able to be discharged home to follow-up with his bow repairer custom post discharge. DNP note has been reviewed, I agree with a documented findings and plan of care. Patient was seen and examined.
--- NOTE | 2018-07-02 15:38 | P.GSCN ---
<Melissa Lindquist - Last Filed: 07/02/18 15:29> History of Present Illness Consult date: 07/02/18 Reason for Consult: Coronary artery disease, reevaluation for myocardial revascularization Requesting physician: Migue Bolden History of present illness: This is a 72-year-old male patient who follows with Dr. Angela Lee on an outpatient basis. He has a previous medical history of coronary artery disease with left main disease with myocardial infarction in April 2018 status post 2 drug-eluting stents to his RCA, hypertension, hyperlipidemia, depression/ anxiety, COPD, chronic anemia, BPH, Parkinson's, nicotine dependence, GERD, osteoarthritis, TIA, and fall in March 2018 with subsequent left hip replacement complicated by acute pulmonary emboli. He was admitted to [facility] in April 2018 from [facility] rehab facility where he was convalescing after left hip replacement with complaints of chest pain. He was ruled in for non-ST elevation myocardial infarction at that time and was taken to the cardiac catheterization lab which demonstrated left main stenosis 80%, proximal LAD stenosis 70%, circumflex stenosis 70%, and RCA stenosis 90%. He also had a transthoracic echocardiogram completed at that time demonstrating normal LV function with ejection fraction 55-60%, mild aortic insufficiency, mild aortic stenosis, mild mitral regurgitation, and mild tricuspid regurgitation. We were asked to see the patient at that time for surgical myocardial revascularization recommendations. As the patient was quite debilitated our recommendation was for PCI to the RCA, with plans for future follow-up once the patient had been rehabilitated. Dr. Mendez was able to place two drug-eluting stents, one to the mid RCA and one to the proximal RCA on May 09. The patient was discharged back to [facility] on maximal medical therapy including Plavix as well as Xarelto for history of pulmonary embolism. He presented again to [facility] emergency room on June 28 with complaints of chest pain. He was noted to be anemic with a hemoglobin of 6. Again, his troponins were elevated and he was ruled in for non-ST elevation myocardial infarction. He received 3 units packed red blood cells with resolution of his symptoms, and underwent EGD with diagnosis of gastritis, no active bleeding. He was restarted on his Plavix and Xarelto. Cardiothoracic surgery was again consulted for reevaluation and surgical recommendations. Review of Systems Review of systems was completed and was negative except as noted in the HPI. - Cardiovascular Reports chest pain Past Medical History Past Medical History: Coronary Artery Disease (CAD), Chest Pain / Angina, COPD, CVA/TIA, GERD/Reflux, Hyperlipidemia, Hypertension, Myocardial Infarction (DE), Neurologic Disorder, Prostate Disorder, Pulmonary Embolus (PE) Additional Past Medical History / Comment(s): Parkinson's disease, history of postsurgical pulmonary embolism, BPH, history of TIA, history of major depression, remote history of seizure disorder last seizure was in 2002 Last Myocardial Infarction Date:: 06/28/18 History of Any Multi-Drug Resistant Organisms: None Reported Past Surgical History: Cholecystectomy, Heart Catheterization With Stent, Hernia Repair, Joint Replacement, Orthopedic Surgery Additional Past Surgical History / Comment(s): NOSE SURGERY X3, RIGHT SHOULDER ROTATOR cuff, cervical fusion, bilateral CATARACT surgery. Past Anesthesia/Blood Transfusion Reactions: Motion Sickness Additional Past Anesthesia/Blood Transfusion Reaction / Comm: Pt has received blood in past without reaction. Date of Last Stent Placement:: 05/07/18 Past Psychological History: Anxiety, Depression Smoking Status: Former smoker Past Alcohol Use History: None Reported Past Drug Use History: None Reported - Past Family History Father Family Medical History: Cancer Additional Family Medical History / Comment(s): STOMACH CANCER, at age 46. Mother Family Medical History: No Reported History Additional Family Medical History / Comment(s): Reports he does not know his mother's history. Medications and Allergies Home Medications Medication Instructions Recorded Confirmed Type Atorvastatin [Lipitor] 40 mg PO HS@2100 05/03/18 06/27/18 History Bisacodyl [Dulcolax] 10 mg RECTAL DAILY PRN 05/03/18 06/27/18 History Carbidopa-Levodopa 25-100 mg 1 tab PO TID@0600,1400,2100 05/03/18 06/27/18 History [Sinemet 25-100 mg] Cyanocobalamin [Vitamin B-12] 1,000 mcg PO DAILY@1700 05/03/18 06/27/18 History Dexlansoprazole [Dexilant] 60 mg PO DAILY 05/03/18 06/27/18 History Dutasteride 0.5 mg PO DAILY@0800 05/03/18 06/27/18 History Ergocalciferol [Vitamin D2 50,000 unit PO MO 05/03/18 06/27/18 History (DRISDOL)] Ezetimibe [Zetia] 10 mg PO DAILY@2100 05/03/18 06/27/18 History FLUoxetine HCL [PROzac] 20 mg PO DAILY@0800 05/03/18 06/27/18 History Ferrous Sulfate [Feosol] 325 mg PO BID@0800,1700 05/03/18 06/27/18 History Ipratropium-Albuterol Nebulize 3 ml INHALATION RT-QID PRN 05/03/18 06/27/18 History [Duoneb 0.5 mg-3 mg/3 ml Soln] Lactose-Reduced Food [Ensure Plus] 1 can PO TID 05/03/18 06/27/18 History Magnesium Hydroxide [Milk of 30 ml PO DAILY PRN 05/03/18 06/27/18 History Magnesia] Metoprolol Tartrate [Lopressor] 25 mg PO BID@0800,1700 05/03/18 06/27/18 History Multivitamins, Thera [Multivitamin 1 tab PO DAILY 05/03/18 06/27/18 History (formulary)] Na Phos,M-B/Na Phos,Di-Ba [Fleet 1 unit RECTAL DAILY PRN 05/03/18 06/27/18 History Adult] Primidone [Mysoline] 50 mg PO Q8HR 05/03/18 06/27/18 History QUEtiapine XR [SEROquel XR] 200 mg PO HS@2130 05/03/18 06/27/18 History Ranitidine HCl [Zantac] 150 mg PO BID@0800,1700 05/03/18 06/27/18 History Umeclidinium Brm/Vilanterol Tr 1 puff INHALATION RT-DAILY@0800 05/03/18 History [Anoro Ellipta 62.5-25 Mcg INH] Nitroglycerin Sl Tabs [Nitrostat] 0.4 mg SUBLINGUAL Q5M PRN tab 05/14/18 Rx Clopidogrel [Plavix] 75 mg PO DAILY@1700 06/27/18 06/27/18 History Lisinopril [Zestril] 2.5 mg PO DAILY 06/27/18 06/27/18 History Rivaroxaban [Xarelto] 15 mg PO DAILY@0800 06/27/18 06/27/18 History Sennosides-Docusate Sodium 1 tab PO DAILY@0800 06/27/18 06/27/18 History [Senokot-S] Isosorbide Mononitrate ER [Imdur] 15 mg PO DAILY dose 07/02/18 Rx Pregabalin [Lyrica] 100 mg PO BID@0800,2100 #10 cap 07/02/18 Rx Allergies Allergy/AdvReac Type Severity Reaction Status Date / Time morphine Allergy Itching Verified 06/27/18 23:25 oxycodone [From OxyContin] Allergy Itching Verified 06/27/18 23:25 propoxyphene Allergy Unknown Verified 06/27/18 23:25 [From Darvocet-N] Surgical - Exam Vital Signs Resp Pulse Ox 22 92 L 06/27/18 23:41 06/27/18 23:41 - General well developed, well nourished, no distress, no pain, chronically ill - Eyes PERRL, normal ocular movement - ENT decreased hearing - Neck no masses, no bruits, trachea midline - Respiratory Lungs sounds diminished bilaterally. Respirations even, nonlabored. Currently on room air with oxygen saturation 98%. - Cardiovascular S1, S2 present. Regular rate and rhythm, sinus rhythm on telemetry. Palpable peripheral pulses bilaterally. No edema present. No calf pain or tenderness noted. - Abdomen Abdomen: soft, non tender, bowel sounds - Genitourinary Deferred - Rectum Deferred - Integumentary Left hip incision well healed no rash, no growths - Neurologic normal coordination, normal sensation - Musculoskeletal normal posture - Psychiatric oriented to time, oriented to person, oriented to place, speech is normal, memory intact Results - Labs 07/02/18 05:27 07/01/18 06:16 Abnormal Lab Results - Last 24 Hours (Table) 07/02/18 Range/Units 05:27 RBC 2.52 L (4.30-5.90) m/uL Hgb 7.5 L (13.0-17.5) gm/dL Hct 23.0 L (39.0-53.0) % RDW 17.3 H (11.5-15.5) % - Imaging Chest x-ray: report reviewed, image reviewed CT scan - chest: report reviewed, image reviewed EKG: image reviewed Assessment and Plan (1) Left main coronary artery disease Status: Chronic Code(s): I25.10 - ATHSCL HEART DISEASE OF [place] CORONARY ARTERY W/O ANG PCTRS SNOMED Code(s): 571572375 (2) H/O heart artery stent Status: Chronic Code(s): Z95.5 - PRESENCE OF CORONARY ANGIOPLASTY IMPLANT AND GRAFT SNOMED Code(s): 551296212 (3) Anemia Status: Chronic Code(s): D64.9 - ANEMIA, UNSPECIFIED SNOMED Code(s): 392691650 (4) Non-ST elevated myocardial infarction Status: Acute Code(s): I21.4 - NON-ST ELEVATION (NSTEMI) MYOCARDIAL INFARCTION SNOMED Code(s): 94747708 (5) Status post hip surgery Status: Chronic Code(s): Z98.890 - OTHER SPECIFIED POSTPROCEDURAL STATES SNOMED Code(s): 339122236 (6) BPH (benign prostatic hyperplasia) Status: Chronic Code(s): N40.0 - BENIGN PROSTATIC HYPERPLASIA WITHOUT LOWER URINRY TRACT SYMP SNOMED Code(s): 235166291 (7) COPD (chronic obstructive pulmonary disease) Status: Chronic Code(s): J44.9 - CHRONIC OBSTRUCTIVE PULMONARY DISEASE, UNSPECIFIED SNOMED Code(s): 29797232 (8) Coronary artery disease Status: Chronic Code(s): I25.10 - ATHSCL HEART DISEASE OF [place] CORONARY ARTERY W/O ANG PCTRS SNOMED Code(s): 53893695 (9) GERD (gastroesophageal reflux disease) Status: Chronic Code(s): K21.9 - GASTRO-ESOPHAGEAL REFLUX DISEASE WITHOUT ESOPHAGITIS SNOMED Code(s): 303190335 (10) History of TIA (transient ischemic attack) Status: Resolved Code(s): Z86.73 - PRSNL HX OF TIA (TIA), AND CEREB INFRC W/O RESID DEFICITS SNOMED Code(s): 814738292 (11) History of pulmonary embolus (PE) Status: Resolved Code(s): Z86.711 - PERSONAL HISTORY OF PULMONARY EMBOLISM SNOMED Code(s): 777386861 (12) Hyperlipidemia Status: Chronic Code(s): E78.5 - HYPERLIPIDEMIA, UNSPECIFIED SNOMED Code(s) : 88621071 (13) Hypertension Status: Chronic Code(s): I10 - ESSENTIAL (PRIMARY) HYPERTENSION SNOMED Code( s): 17373121 (14) Nicotine dependence Status: Chronic Code(s): F17.200 - NICOTINE DEPENDENCE, UNSPECIFIED, UNCOMPLICATED SNOMED Code(s): 76958685 (15) Osteoarthritis Status: Chronic Code(s): M19.90 - UNSPECIFIED OSTEOARTHRITIS, UNSPECIFIED SITE SNOMED Code(s): 563498075 Plan: The patient was seen and examined at the bedside. Chart/diagnostics were reviewed. As the patient just had stents placed less than 2 months ago he still needs maximal Plavix therapy to prevent occlusion of his stents. In addition he was admitted at this time with significant anemia requiring blood transfusion and remains quite anemic. He has not fully recovered from his hip surgery, he remains debilitated and has not completed his therapy. Once he has completed extensive rehab, his anemia has improved, and will be able to be taken off Plavix for a 5-7 day time period, we will reevaluate for possible surgical myocardial revascularization. This was explained in detail to the patient, was discussed with cardiology, and will be indicated and his discharge instructions. Thank you Dr. Bolden for this consult. Please call us with any further questions. Time with Patient: Greater than 30 <Yobani Lancaster - Last Filed: 07/02/18 18:01> Surgical - Exam Vital Signs Resp Pulse Ox 22 92 L 06/27/18 23:41 06/27/18 23:41 Results - Labs 07/02/18 05:27 07/01/18 06:16 Abnormal Lab Results - Last 24 Hours (Table) 07/02/18 Range/Units 05:27 RBC 2.52 L (4.30-5.90) m/uL Hgb 7.5 L (13.0-17.5) gm/dL Hct 23.0 L (39.0-53.0) % RDW 17.3 H (11.5-15.5) % Assessment and Plan Plan: The patient's chart, laboratory results, and recent imaging studies were personally reviewed. Unfortunately, the patient was already discharged back to his subacute rehab facility before I could personally examine him. The patient is a 72-year-old male, known to our service, who presented to the hospital in March 2018 for hip replacement after a fall. During his rehabilitation, he suffered a pulmonary embolus and was started on Xarelto. He subsequently developed chest pain and was found to have a non-ST elevation myocardial infarction. Heart catheterization revealed multivessel coronary artery disease. Unfortunately, he was felt to be too debilitated to withstand heart surgery. For that reason, PCI with drug-eluting stents was performed to the RCA and the patient was sent back to rehab on Plavix. He again presented to [facility] with complaints of chest pain. He was found to have a hemoglobin of 6 and ruled in for a non-ST elevation myocardial infarction. EGD was negative for active bleed. His chest pain seems to have resolved with correction of his anemia. The patient has since been restarted on his anticoagulation and was discharged back to rehab earlier today. We will have him follow-up as an outpatient in our clinic within the next 1-2 weeks for reevaluation regarding timing of surgical intervention.
[2018-07-02] MEDS: CYANOCOBALAMIN 500 MCG TAB PO SCH (15:59)
[2018-07-02] MEDS: CLOPIDOGREL 75 MG TAB PO SCH (15:59)
[2018-07-02 16:02] VITALS: BP 133/60
--- NOTE | 2018-07-02 16:07 | DS ---
DISCHARGE SUMMARY DATE OF ADMISSION: 06/28/2018 DATE OF DISCHARGE: 07/02/2018. FINAL DIAGNOSES: 1. Acute non-Q-wave myocardial infarction, POA. 2. Recent non-Q-wave myocardial infarction April 2018. Patient not a candidate for coronary bypass because of poor functional and medical status. 3. Acute pulmonary embolism April 2018 following left hip fracture. 4. Acute gastrointestinal bleed in a patient on Eliquis causing acute blood loss anemia with blood transfusions. 5. Chronic obstructive pulmonary disease in an ex-smoker. 6. Hyperlipidemia. 7. Essential hypertension. 8. Benign prostatic hypertrophy. 9. Depression, not otherwise specified. HOSPITAL COURSE: This pleasant 72-year-old patient with recent FL in April 2018, not felt to be cardiothoracic bypass because of his poor functional status. Recently had a hip surgery done prior to that and had acute PE for which patient is on anticoagulation. On the last admission, patient had 2 stents placed to the RCA by Dr. Mendez. The patient now presents with again an acute non-Q-wave myocardial infarction. Also had also had lower GI bleed. The patient did undergo EGD by Dr. Sanchez. Some gastritis was found. Both Dr. Sanchez and Cardiology decided to proceed with the anticoagulation including antiplatelet agents. The patient has remained stable for the same. The patient is tolerating a diet. No further chest pain. PHYSICAL EXAMINATION: VITAL SIGNS: Temperature 97.6, pulse 56, respiration 16, blood pressure 144/67, pulse ox 93 percent on room air. LUNGS: Decreased breath sounds. Cardiovascular: 1st and 2nd sounds normal. ABDOMEN: Soft, nontender. Psych: Answering questions. INVESTIGATIONS: White count 7.4, hemoglobin 7.5, BUN 22, creatinine 0.82. DISCHARGE MEDICATION: 1. Lipitor 40 mg q.h.s. 2. Dulcolax 10 mg rectally daily p.r.n. 3. Sinemet 25/100 one tablet p.o. t.i.d. 4. Vitamin B12 1000 mcg p.o. daily. 5. 60 mg p.o. daily. 6. Dutasteride 0.5 mg p.o. daily. 7. Vitamin D2 50,000 units on Monday. 8. Zetia 10 mg p.o. daily. 9. Prozac 20 mg p.o. daily. 10.Iron 325 p.o. b.i.d. 11.DuoNeb q.i.d. p.r.n. 12.Ensure Plus 1 can p.o. t.i.d. 13.Milk of magnesia 30 mL p.o. daily. 14.Lopressor 25 mg b.i.d. 15.Multivitamin 1 tablet p.o. daily. 16.Adult Fleet 1 unit rectally daily p.r.n. 17.Primidone 50 mg p.o. q.8. 18.Seroquel XR 200 mg q.h.s. 19.Zantac 150 mg p.o. b.i.d. 20.Anoro Ellipta 1 puff daily. 21.Nitrostat 0.4 sublingual q.5h p.r.n. 22.Plavix 75 mg p.o. daily. 23.Zestril 2.5 mg p.o. daily. 24.Xarelto 15 mg p.o. daily. 25.Senokot S 1 tablet p.o. daily. 26.Imdur ER 50 mg p.o. daily. 27.Lyrica 100 mg p.o. b.i.d. DISPOSITION: [facility]. FOLLOWUP: Follow up with Dr. Tipton at [facility]. Follow up with Dr. Mendez in 1 week. CODE CODE STATUS FULL. Copy to Dr. Tipton. MMMARQUESL / IJN: [id number] /
[2018-07-02 16:14] VITALS: PULSE 56
== END 2018-07-02 17:18 | DRG 377 ==
LOC: EC 23:21 → 3SCARD 06-28 06:27
PROVIDERS: ADMIT Hospitalist; ATTEND Hospitalist
PROC: 30233N1 Transfusion of Nonautologous Red Blood Cells into Peripheral Vein, Percutaneous Approach (ICD-10-PCS; 2018-06-28)
PROC: 0DJ08ZZ Inspection of Upper Intestinal Tract, Via Natural or Artificial Opening Endoscopic (ICD-10-PCS; principal; 2018-06-30 08:20)
DX: K92.2 Gastrointestinal hemorrhage, unspecified (principal); I21.4 Non-ST elevation (NSTEMI) myocardial infarction; D62 Acute posthemorrhagic anemia; E78.5 Hyperlipidemia, unspecified; F32.9 Major depressive disorder, single episode, unspecified; G20 Parkinson's disease; G40.909 Epilepsy, unspecified, not intractable, without status epilepticus; I10 Essential (primary) hypertension; I25.10 Atherosclerotic heart disease of native coronary artery without angina pectoris; K21.9 Gastro-esophageal reflux disease without esophagitis; I25.2 Old myocardial infarction; J44.9 Chronic obstructive pulmonary disease, unspecified; K29.70 Gastritis, unspecified, without bleeding; M19.90 Unspecified osteoarthritis, unspecified site; N40.0 Benign prostatic hyperplasia without lower urinary tract symptoms; F41.9 Anxiety disorder, unspecified; R15.9 Full incontinence of feces; R32 Unspecified urinary incontinence; Z79.01 Long term (current) use of anticoagulants; Z79.02 Long term (current) use of antithrombotics/antiplatelets; Z79.899 Other long term (current) drug therapy; Z96.642 Presence of left artificial hip joint; Z95.5 Presence of coronary angioplasty implant and graft; Z86.73 Personal history of transient ischemic attack (TIA), and cerebral infarction without residual deficits; Z86.711 Personal history of pulmonary embolism; Z87.891 Personal history of nicotine dependence; Z98.42 Cataract extraction status, left eye; Z98.41 Cataract extraction status, right eye; Z96.1 Presence of intraocular lens; Z98.1 Arthrodesis status; Z88.5 Allergy status to narcotic agent; Z90.49 Acquired absence of other specified parts of digestive tract; Z91.81 History of falling; Z80.0 Family history of malignant neoplasm of digestive organs
CPT/HCPCS: 36415; 43235; 71046; 71275; 80048; 80053; 82272; 82550; 82553; 82728; 83540; 83550; 83735; 84484; 85025; 85379; 85610; 85730; 86850; 86900; 86901; 86920; 93005; 94640; 94760; 96361; 96374; 99291

== ENCOUNTER 2018-07-18 13:56 | Inpatient (IN) | payer MEDICARE, OTHER ==
[2018-07-18] MEDS ORDERED: SODIUM CHLORIDE 0.9% 1,000 ML IV STA (14:01)
[2018-07-18] MEDS ORDERED: PANTOPRAZOLE 40 MG/10 ML VIAL IVP STA (14:01)
--- NOTE | 2018-07-18 14:35 | ED ---
General Adult HPI - General Chief complaint: GI Bleed Stated complaint: poss GI Bleed Time Seen by Provider: 07/18/18 13:56 Source: patient, EMS, RN notes reviewed Mode of arrival: EMS Limitations: no limitations - History of Present Illness Initial comments: This is a 72-year-old male who is brought in from a longterm by EMS with complaints of a hemoglobin 6.7, lab testing. He does also have a low blood pressure is been feeling fatigued and tired. He has of a history of a recent GI bleed and needed 3 units of blood but was found to be a poor risk for colonoscopy. He denies any head neck or back pain any abdominal pain nausea vomiting. He does say he's had dark stools he is unsure colored have been recently. No other modifying factors at this time he recently was on blood pressure medication but taken off them. - Related Data Home Medications Medication Instructions Recorded Confirmed Atorvastatin [Lipitor] 40 mg PO HS 05/03/18 07/18/18 Bisacodyl [Dulcolax] 10 mg RECTAL DAILY PRN 05/03/18 07/18/18 Carbidopa-Levodopa 25-100 mg 1 tab PO TID 05/03/18 07/18/18 [Sinemet 25-100 mg] Dexlansoprazole [Dexilant] 60 mg PO DAILY 05/03/18 07/18/18 Dutasteride 0.5 mg PO DAILY 05/03/18 07/18/18 Ergocalciferol [Vitamin D2 50,000 unit PO MO 05/03/18 07/18/18 (DRISDOL)] Ezetimibe [Zetia] 10 mg PO DAILY@2100 05/03/18 07/18/18 FLUoxetine HCL [PROzac] 20 mg PO DAILY 05/03/18 07/18/18 Ferrous Sulfate [Feosol] 325 mg PO BID@0800,1700 05/03/18 07/18/18 Ipratropium-Albuterol Nebulize 3 ml INHALATION RT-QID PRN 05/03/18 07/18/18 [Duoneb 0.5 mg-3 mg/3 ml Soln] Lactose-Reduced Food [Ensure Plus] 1 can PO TID 05/03/18 07/18/18 Magnesium Hydroxide [Milk of 30 ml PO DAILY PRN 05/03/18 07/18/18 Magnesia] Metoprolol Tartrate [Lopressor] 12.5 mg PO BID@0800,1700 05/03/18 07/18/18 Multivitamins, Thera [Multivitamin 1 tab PO W/SUPPER 05/03/18 07/18/18 (formulary)] Na Phos,M-B/Na Phos,Di-Ba [Fleet 1 unit RECTAL DAILY PRN 05/03/18 07/18/18 Adult] Primidone [Mysoline] 50 mg PO Q8HR 05/03/18 07/18/18 QUEtiapine XR [SEROquel XR] 200 mg PO HS@2130 05/03/18 07/18/18 Ranitidine HCl [Zantac] 150 mg PO BID@0800,1700 05/03/18 07/18/18 Umeclidinium Brm/Vilanterol Tr 1 puff INHALATION RT-DAILY 05/03/18 07/18/18 [Anoro Ellipta 62.5-25 Mcg INH] Clopidogrel [Plavix] 75 mg PO DAILY@1700 06/27/18 07/18/18 Lisinopril [Zestril] 2.5 mg PO DAILY 06/27/18 07/18/18 Rivaroxaban [Xarelto] 15 mg PO DAILY@0600 06/27/18 07/18/18 HYDROcodone/APAP 10-325MG [Mcdade 1 tab PO Q6HR PRN 07/18/18 07/18/18 10-325] Pregabalin [Lyrica] 100 mg PO BID@0800,1700 07/18/18 07/18/18 Previous Rx's Medication Instructions Recorded Nitroglycerin Sl Tabs [Nitrostat] 0.4 mg SUBLINGUAL Q5M PRN tab 05/14/18 Isosorbide Mononitrate ER [Imdur] 15 mg PO DAILY dose 07/02/18 Allergies Allergy/AdvReac Type Severity Reaction Status Date / Time morphine Allergy Itching Verified 07/18/18 14:19 oxycodone [From OxyContin] Allergy Itching Verified 07/18/18 14:19 propoxyphene Allergy Unknown Verified 07/18/18 14:19 [From Darvocet-N] Review of Systems ROS Statement: Those systems with pertinent positive or pertinent negative responses have been documented in the HPI. ROS Other: All systems not noted in ROS Statement are negative. Past Medical History Past Medical History: Coronary Artery Disease (CAD), Chest Pain / Angina, COPD, CVA/TIA, GERD/Reflux, Hyperlipidemia, Hypertension, Myocardial Infarction ([place]), Neurologic Disorder, Prostate Disorder, Pulmonary Embolus ([place]) Additional Past Medical History / Comment(s): Parkinson's disease, history of postsurgical pulmonary embolism, BPH, history of TIA, history of major depression, remote history of seizure disorder last seizure was in 2002 Last Myocardial Infarction Date:: 06/28/18 History of Any Multi-Drug Resistant Organisms: None Reported Past Surgical History: Cholecystectomy, Heart Catheterization With Stent, Hernia Repair, Joint Replacement, Orthopedic Surgery Additional Past Surgical History / Comment(s): NOSE SURGERY X3, RIGHT SHOULDER ROTATOR cuff, cervical fusion, bilateral CATARACT surgery. Past Anesthesia/Blood Transfusion Reactions: Motion Sickness Additional Past Anesthesia/Blood Transfusion Reaction / Comment(s): Pt has received blood in past without reaction. Date of Last Stent Placement:: 05/07/18 Past Psychological History: Anxiety, Depression Smoking Status: Former smoker Past Alcohol Use History: None Reported Past Drug Use History: None Reported - Past Family History Father Family Medical History: Cancer Additional Family Medical History / Comment(s): STOMACH CANCER, at age 46. Mother Family Medical History: No Reported History Additional Family Medical History / Comment(s): Reports he does not know his mother's history. General Exam - General Exam Comments Initial Comments: Is a well-developed well-nourished awake alert oriented x 3 male Limitations: no limitations General appearance: alert, in no apparent distress Head exam: Present: atraumatic, normocephalic, normal inspection Eye exam: Present: normal appearance, PERRL, EOMI. Absent: scleral icterus, conjunctival injection, periorbital swelling ENT exam: Present: normal exam, mucous membranes moist Neck exam: Present: normal inspection. Absent: tenderness, meningismus, lymphadenopathy Respiratory exam: Present: normal lung sounds bilaterally. Absent: respiratory distress, wheezes, rales, rhonchi, stridor Cardiovascular Exam: Present: regular rate, normal rhythm, normal heart sounds. Absent: systolic murmur, diastolic murmur, rubs, gallop, clicks GI/Abdominal exam: Present: soft, normal bowel sounds. Absent: distended, tenderness, guarding, rebound, rigid Rectal exam: Present: normal inspection, other (Heart brown stool no gross blood ) Extremities exam: Present: normal inspection, full ROM, normal capillary refill. Absent: tenderness, pedal edema, joint swelling, calf tenderness Back exam: Present: normal inspection Neurological exam: Present: alert, oriented X3, CN II-XII intact Psychiatric exam: Present: normal affect, normal mood Skin exam: Present: warm, dry, intact, pallor. Absent: rash Course Vital Signs 07/18/18 14:00 Temperature 97.7 F Pulse Rate 73 Respiratory 18 Rate Blood Pressure 132/72 O2 Sat by Pulse 100 Oximetry - Reevaluation(s) Reevaluation #1: 07/18/18 16:33 I did discuss the findings with the patient he does demonstrate anemia heme- positive stools. Medical Decision Making - Medical Decision Making I did discuss the case with Dr. Soheila wilson come to the emergency department see the patient. Patient will be admitted GI consultation will be obtained. - Lab Data Result diagrams: 07/18/18 14:15 07/18/18 14:15 Lab Results 07/18/18 07/18/18 07/18/18 Range/Units 14:15 14:15 14:15 WBC 8.0 (3.8-10.6) k/uL RBC 2.37 L (4.30-5.90) m/uL Hgb 7.1 L (13.0-17.5) gm/dL Hct 21.8 L (39.0-53.0) % MCV 92.0 (80.0-100.0) fL MCH 30.1 (25.0-35.0) pg MCHC 32.7 (31.0-37.0) g/dL RDW 16.1 H (11.5-15.5) % Plt Count 290 (150-450) k/uL Neutrophils % 63 % Lymphocytes % 22 % Monocytes % 6 % Eosinophils % 5 % Basophils % 1 % Neutrophils # 5.1 (1.3-7.7) k/uL Lymphocytes # 1.8 (1.0-4.8) k/uL Monocytes # 0.5 (0-1.0) k/uL Eosinophils # 0.4 (0-0.7) k/uL Basophils # 0.1 (0-0.2) k/uL Hypochromasia Slight Anisocytosis Slight PT 12.1 H (9.0-12.0) sec INR 1.2 H (<1.2) APTT 30.2 H (22.0-30.0) sec Sodium (137-145) mmol/L Potassium (3.5-5.1) mmol/L Chloride (98-107) mmol/L Carbon Dioxide (22-30) mmol/L Anion Gap mmol/L BUN (9-20) mg/dL Creatinine (0.66-1.25) mg/dL Est GFR (CKD-EPI)AfAm (>60 ml/min/1.73 sqM) Est GFR (CKD-EPI)NonAf (>60 ml/min/1.73 sqM) Glucose (74-99) mg/dL Calcium (8.4-10.2) mg/dL Magnesium (1.6-2.3) mg/dL Total Bilirubin (0.2-1.3) mg/dL AST (17-59) U/L ALT (21-72) U/L Alkaline Phosphatase (38-126) U/L Total Creatine Kinase 33 L (55-170) U/L CK-MB (CK-2) 2.8 H (0.0-2.4) ng/mL CK-MB (CK-2) Rel Index 8.5 Troponin I <0.012 (0.000-0.034) ng/mL Total Protein (6.3-8.2) g/dL Albumin (3.5-5.0) g/dL Stool Occult Blood (Negative) Blood Type Blood Type Recheck Antibody Screen Spec Expiration Date 07/18/18 07/18/18 07/18/18 Range/Units 14:15 14:15 14:50 WBC (3.8-10.6) k/uL RBC (4.30-5.90) m/uL Hgb (13.0-17.5) gm/dL Hct (39.0-53.0) % MCV (80.0-100.0) fL MCH (25.0-35.0) pg MCHC (31.0-37.0) g/dL RDW (11.5-15.5) % Plt Count (150-450) k/uL Neutrophils % % Lymphocytes % % Monocytes % % Eosinophils % % Basophils % % Neutrophils # (1.3-7.7) k/uL Lymphocytes # (1.0-4.8) k/uL Monocytes # (0-1.0) k/uL Eosinophils # (0-0.7) k/uL Basophils # (0-0.2) k/uL Hypochromasia Anisocytosis PT (9.0-12.0) sec INR (<1.2) APTT (22.0-30.0) sec Sodium 138 (137-145) mmol/L Potassium 4.5 (3.5-5.1) mmol/L Chloride 108 H (98-107) mmol/L Carbon Dioxide 24 (22-30) mmol/L Anion Gap 6 mmol/L BUN 38 H (9-20) mg/dL Creatinine 0.99 (0.66-1.25) mg/dL Est GFR (CKD-EPI)AfAm 89 (>60 ml/min/1.73 sqM) Est GFR (CKD-EPI)NonAf 77 (>60 ml/min/1.73 sqM) Glucose 143 H (74-99) mg/dL Calcium 8.8 (8.4-10.2) mg/dL Magnesium 1.7 (1.6-2.3) mg/dL Total Bilirubin 0.2 (0.2-1.3) mg/dL AST 22 (17-59) U/L ALT 30 (21-72) U/L Alkaline Phosphatase 86 (38-126) U/L Total Creatine Kinase (55-170) U/L CK-MB (CK-2) (0.0-2.4) ng/mL CK-MB (CK-2) Rel Index Troponin I (0.000-0.034) ng/mL Total Protein 6.3 (6.3-8.2) g/dL Albumin 3.2 L (3.5-5.0) g/dL Stool Occult Blood Positive (Negative) Blood Type O Negative Blood Type Recheck No Antibody Screen NEGATIVE Spec Expiration Date 07/21/2018 - 2214 - Radiology Data Radiology results: report reviewed (Imaging was reviewed no definite acute findings. Please see the complete report.), image reviewed Critical Care Time Critical Care Time: Yes Critical Care Time: 31 minutes of critical care time which includes initial presentation with history physical labs x-rays several reevaluation of the patient. Discussed with the main physician Dr. valdovinos review of old charting. Admission orders documentation the above Disposition Clinical Impression: Upper GI bleed, Anemia Disposition: ADMITTED IP TO THIS [facility] Condition: Serious Referrals: Michele Tipton DO [Primary Care Provider] - 1-2 days
[2018-07-18 14:49] LABS: Anisocytosis Slight; Basophils # (A) 0.1 k/uL (0-0.2); Basophils % (A) 1 %; Eosinophils # (A) 0.4 k/uL (0-0.7); Eosinophils % (A) 5 %; HCT 21.8 % (39.0-53.0); HGB 7.1 gm/dL (13.0-17.5); Hypochromasia Slight; Lymphocytes # (A) 1.8 k/uL (1.0-4.8); Lymphocytes % (A) 22 %; MCH 30.1 pg (25.0-35.0); MCHC 32.7 g/dL (31.0-37.0); Mean Platelet Volume 6.5; Monocytes # (A) 0.5 k/uL (0-1.0); Monocytes % (A) 6 %; Neutrophils # (A) 5.1 k/uL (1.3-7.7); Neutrophils % (A) 63 %; Platelet Count 290 k/uL (150-450); RBC 2.37 m/uL (4.30-5.90); RDW 16.1 % (11.5-15.5)
[2018-07-18 14:52] LABS: INR 1.2 (<1.2); Partial Thromboplastin Time 30.2 sec (22.0-30.0); Prothrombin Time 12.1 sec (9.0-12.0)
[2018-07-18 14:56] LABS: Albumin 3.2 g/dL (3.5-5.0); Calcium 8.8 mg/dL (8.4-10.2); Magnesium 1.7 mg/dL (1.6-2.3); Potassium 4.5 mmol/L (3.5-5.1); Total Bilirubin 0.2 mg/dL (0.2-1.3); Total Protein 6.3 g/dL (6.3-8.2)
[2018-07-18 15:00] LABS: Creatine Kinase 33 U/L (55-170)
[2018-07-18 15:13] LABS: Creatine Kinase MB 2.8 ng/mL (0.0-2.4); Troponin I <0.012 ng/mL (0.000-0.034)
--- NOTE | 2018-07-18 15:57 | XR ---
EXAMINATION TYPE: XR chest 1V portable DATE OF EXAM: 07/18/2018 Comparison: 06/28/2018 Clinical History: 72-year-old male with pain Findings: Heart normal size. Leftward patient rotation. ACDF hardware. Mild peribronchial cuffing is unchanged. No consolidation or pleural effusion. Impression: Chronic changes, possible bronchitis/asthma. No acute process seen.
[2018-07-18] MEDS ORDERED: NALOXONE 0.4 MG/ML 1 ML VIAL IV PRN (16:37)
[2018-07-18] MEDS ORDERED: IPRATROPIUM-ALBUTEROL 3 ML NEB INHALATION PRN (16:39)
[2018-07-18] MEDS ORDERED: NITROGLYCERIN SL TABS 0.4 MG TAB SUBLINGUAL PRN (16:39)
[2018-07-18] MEDS ORDERED: BISACODYL 10 MG SUPP RECTAL PRN (16:39)
--- NOTE | 2018-07-18 16:55 | P.HPIM ---
History of Present Illness This is a pleasant 72 years old male with past medical history of pulmonary embolus, coronary artery disease, COPD, CVA/TIA, GERD, upper lipidemia, hypertension, Parkinson disease, BPH, depression, seizure with last seizure was in 2002. As per patient he was recently in the hospital for low hemoglobin that needed a blood transfusion about 2-3 weeks ago, today he was sent from his snf because of abnormal lab and low hemoglobin. However patient denies any symptoms. He denies chest pain, no dyspnea. No abdominal pain. No nausea vomiting. He has constipation. No urinary complaints. No fever. Patient at baseline can walk for short distance using her walker. On admission Vitas looks stable. CBC showing WBC of 8K, hemoglobin 6.7, and 7.1 , previously was in between 7.5-9.7. INR 1.. Sodium 138, potassium 4.5, creatinine 0.9. Is a status post one unit of blood transfusion. Chest x-ray is done and report is pending. Patient was started on Protonix and gentle hydration. Review of Systems CONSTITUTIONAL: No fever, no malaise, no fatigue. HEENT: No recent visual problems or hearing problems. Denied any sore throat. CARDIOVASCULAR: No orthopnea, PND, no palpitations, no syncope. PULMONARY: No shortness of breath, no cough, no hemoptysis. GASTROINTESTINAL: No diarrhea, no nausea, no vomiting, no abdominal pain. Normoactive bowel sounds. NEUROLOGICAL: No headaches, no weakness, no numbness. HEMATOLOGICAL: Denies any bleeding or petechiae. GENITOURINARY: Denies any burning micturition, frequency, or urgency. MUSCULOSKELETAL/RHEUMATOLOGICAL: Denies any joint pain, swelling, or any muscle pain. ENDOCRINE: Denies any polyuria or polydipsia. Past Medical History Past Medical History: Coronary Artery Disease (CAD), Chest Pain / Angina, COPD, CVA/TIA, GERD/Reflux, Hyperlipidemia, Hypertension, Myocardial Infarction ([place]), Neurologic Disorder, Prostate Disorder, Pulmonary Embolus ([place]) Additional Past Medical History / Comment(s): Parkinson's disease, history of postsurgical pulmonary embolism, BPH, history of TIA, history of major depression, remote history of seizure disorder last seizure was in 2002 Last Myocardial Infarction Date:: 06/28/18 History of Any Multi-Drug Resistant Organisms: None Reported Past Surgical History: Cholecystectomy, Heart Catheterization With Stent, Hernia Repair, Joint Replacement, Orthopedic Surgery Additional Past Surgical History / Comment(s): NOSE SURGERY X3, RIGHT SHOULDER ROTATOR cuff, cervical fusion, bilateral CATARACT surgery. Past Anesthesia/Blood Transfusion Reactions: Motion Sickness Additional Past Anesthesia/Blood Transfusion Reaction / Comment(s): Pt has received blood in past without reaction. Date of Last Stent Placement:: 05/07/18 Past Psychological History: Anxiety, Depression Smoking Status: Former smoker Past Alcohol Use History: None Reported Past Drug Use History: None Reported - Past Family History Father Family Medical History: Cancer Additional Family Medical History / Comment(s): STOMACH CANCER, at age 46. Mother Family Medical History: No Reported History Additional Family Medical History / Comment(s): Reports he does not know his mother's history. Medications and Allergies Home Medications Medication Instructions Recorded Confirmed Type Atorvastatin [Lipitor] 40 mg PO HS 05/03/18 07/18/18 History Bisacodyl [Dulcolax] 10 mg RECTAL DAILY PRN 05/03/18 07/18/18 History Carbidopa-Levodopa 25-100 mg 1 tab PO TID 05/03/18 07/18/18 History [Sinemet 25-100 mg] Dexlansoprazole [Dexilant] 60 mg PO DAILY 05/03/18 07/18/18 History Dutasteride 0.5 mg PO DAILY 05/03/18 07/18/18 History Ergocalciferol [Vitamin D2 50,000 unit PO MO 05/03/18 07/18/18 History (DRISDOL)] Ezetimibe [Zetia] 10 mg PO DAILY@2100 05/03/18 07/18/18 History FLUoxetine HCL [PROzac] 20 mg PO DAILY 05/03/18 07/18/18 History Ferrous Sulfate [Feosol] 325 mg PO BID@0800,1700 05/03/18 07/18/18 History Ipratropium-Albuterol Nebulize 3 ml INHALATION RT-QID PRN 05/03/18 07/18/18 History [Duoneb 0.5 mg-3 mg/3 ml Soln] Lactose-Reduced Food [Ensure Plus] 1 can PO TID 05/03/18 07/18/18 History Magnesium Hydroxide [Milk of 30 ml PO DAILY PRN 05/03/18 07/18/18 History Magnesia] Metoprolol Tartrate [Lopressor] 12.5 mg PO BID@0800,1700 05/03/18 07/18/18 History Multivitamins, Thera [Multivitamin 1 tab PO W/SUPPER 05/03/18 07/18/18 History (formulary)] Na Phos,M-B/Na Phos,Di-Ba [Fleet 1 unit RECTAL DAILY PRN 05/03/18 07/18/18 History Adult] Primidone [Mysoline] 50 mg PO Q8HR 05/03/18 07/18/18 History QUEtiapine XR [SEROquel XR] 200 mg PO HS@2130 05/03/18 07/18/18 History Ranitidine HCl [Zantac] 150 mg PO BID@0800,1700 05/03/18 07/18/18 History Umeclidinium Brm/Vilanterol Tr 1 puff INHALATION RT-DAILY 05/03/18 07/18/18 History [Anoro Ellipta 62.5-25 Mcg INH] Nitroglycerin Sl Tabs [Nitrostat] 0.4 mg SUBLINGUAL Q5M PRN tab 05/14/18 Rx Clopidogrel [Plavix] 75 mg PO DAILY@1700 06/27/18 07/18/18 History Lisinopril [Zestril] 2.5 mg PO DAILY 06/27/18 07/18/18 History Rivaroxaban [Xarelto] 15 mg PO DAILY@0600 06/27/18 07/18/18 History Isosorbide Mononitrate ER [Imdur] 15 mg PO DAILY dose 07/02/18 07/18/18 Rx HYDROcodone/APAP 10-325MG [E[place] 1 tab PO Q6HR PRN 07/18/18 07/18/18 History 10-325] Pregabalin [Lyrica] 100 mg PO BID@0800,1700 07/18/18 07/18/18 History Allergies Allergy/AdvReac Type Severity Reaction Status Date / Time morphine Allergy Itching Verified 07/18/18 14:19 oxycodone [From OxyContin] Allergy Itching Verified 07/18/18 14:19 propoxyphene Allergy Unknown Verified 07/18/18 14:19 [From Darvocet-N] Physical Exam Vitals: Vital Signs Temp Pulse Resp BP Pulse Ox 07/18/18 14:00 97.7 F 73 18 132/72 100 Intake and Output 07/18/18 07/18/18 07/18/18 06:59 14:59 22:59 Other: Weight 104.326 kg GENERAL: The patient is alert and oriented x3, not in any acute distress. Well developed, well nourished. HEENT: Pupils are round and equally reacting to light. EOMI. No scleral icterus. No conjunctival pallor. Normocephalic, atraumatic. No pharyngeal erythema. No thyromegaly. CARDIOVASCULAR: S1 and S2 present. No murmurs, rubs, or gallops. PULMONARY: Chest is clear to auscultation, no wheezing or crackles. ABDOMEN: Soft, nontender, nondistended, normoactive bowel sounds. No palpable organomegaly. MUSCULOSKELETAL: No joint swelling or deformity. EXTREMITIES: No cyanosis, clubbing, or pedal edema. NEUROLOGICAL: Gross neurological examination did not reveal any focal deficits. SKIN: No rashes. Results CBC & Chem 7: 07/18/18 14:15 07/18/18 14:15 Labs: Abnormal Lab Results - Last 24 Hours (Table) 07/18/18 07/18/18 07/18/18 Range/Units 14:15 14:15 14:15 RBC 2.37 L (4.30-5.90) m/uL Hgb 7.1 L (13.0-17.5) gm/dL Hct 21.8 L (39.0-53.0) % RDW 16.1 H (11.5-15.5) % PT 12.1 H (9.0-12.0) sec INR 1.2 H (<1.2) APTT 30.2 H (22.0-30.0) sec Chloride (98-107) mmol/L BUN (9-20) mg/dL Glucose (74-99) mg/dL Total Creatine Kinase 33 L (55-170) U/L CK-MB (CK-2) 2.8 H (0.0-2.4) ng/mL Albumin (3.5-5.0) g/dL 07/18/18 Range/Units 14:15 RBC (4.30-5.90) m/uL Hgb (13.0-17.5) gm/dL Hct (39.0-53.0) % RDW (11.5-15.5) % PT (9.0-12.0) sec INR (<1.2) APTT (22.0-30.0) sec Chloride 108 H (98-107) mmol/L BUN 38 H (9-20) mg/dL Glucose 143 H (74-99) mg/dL Total Creatine Kinase (55-170) U/L CK-MB (CK-2) (0.0-2.4) ng/mL Albumin 3.2 L (3.5-5.0) g/dL Assessment and Plan Assessment: Anemia, rule out acute blood loss anemia. History of PE History of COPD History of CVA/TIA History of GERD Hyperlipidemia Essential hypertension History of Parkinson disease History of BPH History of major depression History of seizure. Plan: This is a pleasant 72 years old male who presents because of anemia. We'll monitor his hemoglobin, we'll do our unsteadiness also check vitamin B12 and folic acid level. Check occult blood in stool. Call GI consult. Labs and medication were reviewed.. Continue same treatment. Continue with symptomatic treatment. Resume home medication. Monitor lytes and vitals. DVT and GI prophylaxis. Further recommendations of the clinical course of the patient DVT prophylaxis: no heparin in view of possible GI bleed. GI Prophylaxis: Protonix daily PT/OT: Pending Prognosis is guarded
[2018-07-18] MEDS: SODIUM CHLORIDE 0.9% 1,000 ML IV SCH (19:23)
[2018-07-18] MEDS: PREGABALIN 100 MG CAP PO SCH (20:37)
[2018-07-18] MEDS: MULTIVITAMINS, THERA 1 EACH TAB PO SCH (20:37)
[2018-07-18] MEDS: FERROUS SULFATE 325 MG TAB PO SCH (20:37)
[2018-07-18] MEDS: CARBIDOPA-LEVODOPA 25-100 MG 1 EACH TAB PO SCH (20:37)
[2018-07-18] MEDS: PANTOPRAZOLE 40 MG/10 ML VIAL IV SCH (20:37)
[2018-07-18] MEDS: ATORVASTATIN 40 MG TAB PO SCH (20:37)
[2018-07-18] MEDS: METOPROLOL TARTRATE 12.5 MG TAB PO SCH (20:37)
[2018-07-18] MEDS: HYDROcodone/APAP 10-325MG 1 EACH TAB PO PRN (20:40)
[2018-07-18] MEDS: EZETIMIBE 10 MG TAB PO SCH (21:45)
[2018-07-18] MEDS: QUEtiapine 100 MG TAB PO SCH (21:45)
[2018-07-18] MEDS ORDERED: hydrALAZINE HCL 20 MG/ML 1 ML VIAL IVP PRN (22:08)
[2018-07-18] MEDS: PRIMIDONE 50 MG TAB PO SCH (22:57)
[2018-07-18 23:25] LABS: Iron Saturation 14.38 (15.00-50.00)
[2018-07-18 23:39] LABS: Folate, Serum 16.2 ng/mL
[2018-07-19] MEDS: SODIUM CHLORIDE 0.9% 1,000 ML IV SCH ×2 (05:20→22:04)
[2018-07-19 06:52] LABS: Basophils # (A) 0.1 k/uL (0-0.2); Basophils % (A) 1 %; Eosinophils # (A) 0.3 k/uL (0-0.7); Eosinophils % (A) 4 %; HCT 25.8 % (39.0-53.0); HGB 7.9 gm/dL (13.0-17.5); Hypochromasia Slight; Lymphocytes # (A) 1.8 k/uL (1.0-4.8); Lymphocytes % (A) 20 %; MCH 28.3 pg (25.0-35.0); MCHC 30.5 g/dL (31.0-37.0); MCV 92.7 fL (80.0-100.0); Mean Platelet Volume 6.7; Monocytes # (A) 0.5 k/uL (0-1.0); Monocytes % (A) 5 %; Neutrophils # (A) 6.2 k/uL (1.3-7.7); Neutrophils % (A) 67 %; Platelet Count 278 k/uL (150-450); RBC 2.78 m/uL (4.30-5.90); RDW 15.5 % (11.5-15.5); WBC 9.2 k/uL (3.8-10.6)
[2018-07-19] MEDS ORDERED: NON-FORMULARY DRUG (Dexlansoprazole [Dexilant] 60 MG) PO SCH (09:00)
--- NOTE | 2018-07-19 09:12 | P.CONS ---
History of Present Illness - Reason for Consult Consult date: 07/19/18 Anemia Requesting physician: Jakob Montes De Oca Sheet - Chief Complaint Low hemoglobin - History of Present Illness 72-year-old gentleman F resident history of CAD, PE maintained on Xarelto; last dose 07/18/2018, COPD, hypertension, Parkinson's, seizure disorder, hyperlipidemia admitted with reported low hemoglobin fatigue. Patient was hospitalized earlier this month non-ST elevated CO iron deficiency anemia hemoglobin of 6 and positive FOBT but without overt bleeding such as hematemesis hematochezia melena. At that time he had not had a recent EGD or colonoscopy. He underwent EGD evaluation June 30 with unremarkable findings colonoscopy was deferred secondary to poor risk. Discharge hemoglobin was 7.5. He returns with a hemoglobin of 6.7 received 1 unit of blood present hemoglobin is 7.9. He is receiving a total of 4 units of blood this month. Repeat FOBT positive. Denies overt bleeding such as hematemesis hematochezia melena. Chest x-ray no acute process. Denies fever chills abdominal pain. Review of Systems Constitutional: Denies fever, chills, sweats, weight gain, or loss. Reported fatigue weakness. HEENT: Negative for migraines, blurred vision or loss, earaches, drainage, tinnitus, oral mucosal lesions, dysphagia, or odynophagia. Cardiac: Negative for chest pain, arrhythmias, or palpitation. Respiratory: Negative for shortness of breath, hemoptysis, cough, or sputum production. Gastrointestinal: See HPI for pertinent findings. Genitourinary: Negative for hematuria, urgency, frequency, polyuria, dysuria, or penile discharge. Musculoskeletal: Negative for muscle aches, swelling, arthritis, and arthralgias. Neurologic: Negative for stroke or TIA. Endocrine: Negative for thyroid problems. Skin: Negative for rash or itching. Psychiatric: Negative history for depression and anxiety Past Medical History Past Medical History: Coronary Artery Disease (CAD), Chest Pain / Angina, COPD, CVA/TIA, GERD/Reflux, GI Bleed, Hyperlipidemia, Hypertension, Myocardial Infarction (CO), Neurologic Disorder, Prostate Disorder, Pulmonary Embolus (PE) Additional Past Medical History / Comment(s): pt denies having any chf .Parkinson's disease, history of postsurgical pulmonary embolism, BPH, history of TIA, history of major depression, remote history of seizure disorder last seizure was in 2002, incont urine/stool brief worn, Last Myocardial Infarction Date:: 06/28/18 History of Any Multi-Drug Resistant Organisms: None Reported Past Surgical History: Cholecystectomy, Heart Catheterization With Stent, Hernia Repair, Joint Replacement, Orthopedic Surgery Additional Past Surgical History / Comment(s): NOSE SURGERY X3, RIGHT SHOULDER ROTATOR cuff, cervical fusion, bilateral CATARACT surgery/lens implants.lt hip sx, egd Past Anesthesia/Blood Transfusion Reactions: Motion Sickness Additional Past Anesthesia/Blood Transfusion Reaction / Comm: Pt has received blood in past without reaction. Date of Last Stent Placement:: 05/07/18 Smoking Status: Former smoker - Past Family History Father Family Medical History: Cancer Additional Family Medical History / Comment(s): STOMACH CANCER, at age 46. Mother Family Medical History: No Reported History Additional Family Medical History / Comment(s): Reports he does not know his mother's history. Medications and Allergies Home Medications Medication Instructions Recorded Confirmed Type Atorvastatin [Lipitor] 40 mg PO HS 05/03/18 07/18/18 History Bisacodyl [Dulcolax] 10 mg RECTAL DAILY PRN 05/03/18 07/18/18 History Carbidopa-Levodopa 25-100 mg 1 tab PO TID 05/03/18 07/18/18 History [Sinemet 25-100 mg] Dexlansoprazole [Dexilant] 60 mg PO DAILY 05/03/18 07/18/18 History Dutasteride 0.5 mg PO DAILY 05/03/18 07/18/18 History Ergocalciferol [Vitamin D2 50,000 unit PO MO 05/03/18 07/18/18 History (DRISDOL)] Ezetimibe [Zetia] 10 mg PO DAILY@2100 05/03/18 07/18/18 History FLUoxetine HCL [PROzac] 20 mg PO DAILY 05/03/18 07/18/18 History Ferrous Sulfate [Feosol] 325 mg PO BID@0800,1700 05/03/18 07/18/18 History Ipratropium-Albuterol Nebulize 3 ml INHALATION RT-QID PRN 05/03/18 07/18/18 History [Duoneb 0.5 mg-3 mg/3 ml Soln] Lactose-Reduced Food [Ensure Plus] 1 can PO TID 05/03/18 07/18/18 History Magnesium Hydroxide [Milk of 30 ml PO DAILY PRN 05/03/18 07/18/18 History Magnesia] Metoprolol Tartrate [Lopressor] 12.5 mg PO BID@0800,1700 05/03/18 07/18/18 History Multivitamins, Thera [Multivitamin 1 tab PO W/SUPPER 05/03/18 07/18/18 History (formulary)] Na Phos,M-B/Na Phos,Di-Ba [Fleet 1 unit RECTAL DAILY PRN 05/03/18 07/18/18 History Adult] Primidone [Mysoline] 50 mg PO Q8HR 05/03/18 07/18/18 History QUEtiapine XR [SEROquel XR] 200 mg PO HS@2130 05/03/18 07/18/18 History Ranitidine HCl [Zantac] 150 mg PO BID@0800,1700 05/03/18 07/18/18 History Umeclidinium Brm/Vilanterol Tr 1 puff INHALATION RT-DAILY 05/03/18 07/18/18 History [Anoro Ellipta 62.5-25 Mcg INH] Nitroglycerin Sl Tabs [Nitrostat] 0.4 mg SUBLINGUAL Q5M PRN tab 05/14/18 Rx Clopidogrel [Plavix] 75 mg PO DAILY@1700 06/27/18 07/18/18 History Lisinopril [Zestril] 2.5 mg PO DAILY 06/27/18 07/18/18 History Rivaroxaban [Xarelto] 15 mg PO DAILY@0600 06/27/18 07/18/18 History Isosorbide Mononitrate ER [Imdur] 15 mg PO DAILY dose 07/02/18 07/18/18 Rx HYDROcodone/APAP 10-325MG [[place] 1 tab PO Q6HR PRN 07/18/18 07/18/18 History 10-325] Pregabalin [Lyrica] 100 mg PO BID@0800,1700 07/18/18 07/18/18 History Allergies Allergy/AdvReac Type Severity Reaction Status Date / Time morphine Allergy Itching Verified 07/18/18 14:19 oxycodone [From OxyContin] Allergy Itching Verified 07/18/18 14:19 propoxyphene Allergy Unknown Verified 07/18/18 14:19 [From [facility]] Physical Exam Vitals: Vital Signs Temp Pulse Pulse Resp BP BP Pulse Ox 07/19/18 03:45 70 18 07/19/18 03:44 98.0 F 70 18 127/60 97 07/18/18 23:47 62 18 07/18/18 23:45 98.4 F 62 18 138/64 97 07/18/18 20:00 97.8 F 77 18 175/76 97 07/18/18 19:30 98.2 F 72 16 155/62 96 07/18/18 19:18 98.2 F 73 15 152/61 96 07/18/18 19:00 72 144/59 95 07/18/18 18:01 98.4 F 75 18 139/58 07/18/18 17:31 98.5 F 75 18 128/51 07/18/18 17:21 98.5 F 75 18 127/56 07/18/18 17:18 98.5 F 75 18 136/53 07/18/18 17:00 71 18 142/58 97 07/18/18 16:30 71 18 138/55 95 07/18/18 16:00 71 18 131/55 95 07/18/18 15:30 74 18 125/58 98 07/18/18 15:00 75 18 124/46 97 07/18/18 14:30 76 18 130/54 95 07/18/18 14:00 97.7 F 73 18 132/72 100 Intake and Output 07/18/18 07/19/18 07/19/18 22:59 06:59 14:59 Intake Total 310 640 Balance 310 640 Intake: Intake, IV Titration 640 Amount Sodium Chloride 0.9% 1, 640 000 ml @ 80 mls/hr IV . [id number] [facility] Rx#:[id number] Blood Product 310 Rc Pheresis 2 As3 Unit 310 [id number] Other: Voiding Method Diaper Diaper Incontinent Incontinent Weight 76 kg General appearance: The patient is alert, oriented, in no acute distress. HET: Head is normocephalic and atraumatic. Pupils are equal and reactive. Oropharynx is clear without lesions. Neck: Supple without lymphadenopathy. Trachea midline. Heart: S1 S2. Regular rate and rhythm. Lungs: No crackles or wheezes are heard. Abdomen: Soft, nontender, nondistended with bowel sounds. No peritoneal signs. No palpable organomegaly or masses. Extremities: Normal skin color and turgor. No cyanosis, rash, ulceration, clubbing, or edema. Radial and pedal pulses are 2/4 bilaterally. Neurological: No focal deficits. Strength and sensation are grossly intact. Results CBC & Chem 7: 07/20/18 07:33 07/20/18 07:33 Labs: Abnormal Lab Results - Last 24 Hours (Table) 07/18/18 07/18/18 07/18/18 Range/Units 14:15 14:15 14:15 RBC 2.37 L (4.30-5.90) m/uL Hgb 7.1 L (13.0-17.5) gm/dL Hct 21.8 L (39.0-53.0) % MCHC (31.0-37.0) g/dL RDW 16.1 H (11.5-15.5) % PT 12.1 H (9.0-12.0) sec INR 1.2 H (<1.2) APTT 30.2 H (22.0-30.0) sec Chloride (98-107) mmol/L BUN (9-20) mg/dL Glucose (74-99) mg/dL Iron (65-175) ug/dL Iron Saturation (15.00-50.00) Total Creatine Kinase 33 L (55-170) U/L CK-MB (CK-2) 2.8 H (0.0-2.4) ng/mL Albumin (3.5-5.0) g/dL Crossmatch 07/18/18 07/18/18 07/18/18 Range/Units 14:15 14:15 14:15 RBC (4.30-5.90) m/uL Hgb (13.0-17.5) gm/dL Hct (39.0-53.0) % MCHC (31.0-37.0) g/dL RDW (11.5-15.5) % PT (9.0-12.0) sec INR (<1.2) APTT (22.0-30.0) sec Chloride 108 H (98-107) mmol/L BUN 38 H (9-20) mg/dL Glucose 143 H (74-99) mg/dL Iron 42 L (65-175) ug/dL Iron Saturation 14.38 L (15.00-50.00) Total Creatine Kinase (55-170) U/L CK-MB (CK-2) (0.0-2.4) ng/mL Albumin 3.2 L (3.5-5.0) g/dL Crossmatch See Detail 07/19/18 Range/Units 06:13 RBC 2.78 L (4.30-5.90) m/uL Hgb 7.9 L (13.0-17.5) gm/dL Hct 25.8 L (39.0-53.0) % MCHC 30.5 L (31.0-37.0) g/dL RDW (11.5-15.5) % PT (9.0-12.0) sec INR (<1.2) APTT (22.0-30.0) sec Chloride (98-107) mmol/L BUN (9-20) mg/dL Glucose (74-99) mg/dL Iron (65-175) ug/dL Iron Saturation (15.00-50.00) Total Creatine Kinase (55-170) U/L CK-MB (CK-2) (0.0-2.4) ng/mL Albumin (3.5-5.0) g/dL Crossmatch Chest x-ray: report reviewed (Dr. Sanchez) Assessment and Plan (1) Symptomatic anemia Current Visit: Yes Status: Acute Code(s): D64.9 - ANEMIA, UNSPECIFIED SNOMED Code(s): 529183752 (2) Stool guaiac positive Current Visit: Yes Status: Acute Code(s): R19.5 - OTHER FECAL ABNORMALITIES SNOMED Code(s): 39548630 (3) Iron deficiency anemia Current Visit: Yes Status: Acute Code(s): D50.9 - IRON DEFICIENCY ANEMIA, UNSPECIFIED SNOMED Code(s): 53242712 (4) Acute blood loss anemia Current Visit: Yes Status: Acute Code(s): D62 - ACUTE POSTHEMORRHAGIC ANEMIA SNOMED Code(s): 640080357 (5) CAD (coronary artery disease) Current Visit: Yes Status: Acute Code(s): I25.10 - ATHSCL HEART DISEASE OF [place] CORONARY ARTERY W/O ANG PCTRS SNOMED Code(s): 53303885 (6) History of pulmonary embolus (PE) Current Visit: Yes Status: Acute Code(s): Z86.711 - PERSONAL HISTORY OF PULMONARY EMBOLISM SNOMED Code(s): 653576147 (7) Parkinson disease Current Visit: Yes Status: Acute Code(s): G20 - PARKINSON'S DISEASE SNOMED Code(s): 32614902 (8) History of non-ST elevation myocardial infarction (NSTEMI) Current Visit: Yes Status: Acute Code(s): I25.2 - OLD MYOCARDIAL INFARCTION SNOMED Code(s): 514495509 Plan: 1. Further workup of iron deficiency anemia will require colonoscopy possible small bowel bowel endoscopy as early as Monday; [employer] requests holding Xarelto x 2 days. We'll discuss with attending for medical clearance. For now continue with light diet as tolerated. Anticoagulation on hold. CBC monitoring. Continue with iron supplementation. Thank you for this kind referral and the opportunity to participate in the care of your patient. This consultation was discussed with Dr. Sanchez. The impression and plan of care have been directed as dictated.
[2018-07-19] MEDS: QUEtiapine 100 MG TAB PO SCH ×2 (09:26→22:06)
[2018-07-19] MEDS: METOPROLOL TARTRATE 12.5 MG TAB PO SCH ×2 (09:26→17:03)
[2018-07-19] MEDS: ISOSORBIDE MONONITRATE ER 15 MG TAB PO SCH (09:26)
[2018-07-19] MEDS: FINASTERIDE 5 MG TAB PO SCH (09:26)
[2018-07-19] MEDS: CARBIDOPA-LEVODOPA 25-100 MG 1 EACH TAB PO SCH ×3 (09:26→22:05)
[2018-07-19] MEDS: LISINOPRIL 2.5 MG TAB PO SCH (09:26)
[2018-07-19] MEDS: PREGABALIN 100 MG CAP PO SCH ×2 (09:26→17:04)
[2018-07-19] MEDS: PRIMIDONE 50 MG TAB PO SCH ×3 (09:26→22:08)
[2018-07-19] MEDS: FLUoxetine HCL 20 MG CAP PO SCH (09:27)
[2018-07-19] MEDS: PANTOPRAZOLE 40 MG/10 ML VIAL IV SCH ×2 (09:27→22:05)
[2018-07-19] MEDS: FERROUS SULFATE 325 MG TAB PO SCH ×2 (09:27→17:04)
[2018-07-19] MEDS: HYDROcodone/APAP 10-325MG 1 EACH TAB PO PRN ×2 (09:32→22:03)
--- NOTE | 2018-07-19 09:50 | P.PN ---
Subjective This is a pleasant 72 years old male with past medical history of pulmonary embolus, coronary artery disease, COPD, CVA/TIA, GERD, upper lipidemia, hypertension, Parkinson disease, BPH, depression, seizure with last seizure was in 2002. As per patient he was recently in the hospital for low hemoglobin that needed a blood transfusion about 2-3 weeks ago, today he was sent from [facility] because of abnormal lab and low hemoglobin. However patient denies any symptoms. He denies chest pain, no dyspnea. No abdominal pain. No nausea vomiting. He has constipation. No urinary complaints. No fever. Patient at baseline can walk for short distance using her walker. On admission Vitas looks stable. CBC showing WBC of 8K, hemoglobin 6.7, and 7.1 , previously was in between 7.5-9.7. INR 1.. Sodium 138, potassium 4.5, creatinine 0.9. Is a status post one unit of blood transfusion. Chest x-ray is done and report is pending. Patient was started on Protonix and gentle hydration. 07/19/2018 Patient remains asymptomatic with no abdominal pain or nausea vomiting. He has 1 hard bowel movement this morning he wasn't sure with the color. He got one unit of blood yesterday and his hemoglobin went up from 7.1 to 7.9. Therefore recommend to hold 0 total for at least 2 days with proceeding with colonoscopy probably on this Monday. Due to recent history of numbness STEMI 2-3 weeks ago, cardiology consult and for pre-procedure evaluation and risk stratification CONSTITUTIONAL: No fever, no malaise, no fatigue. HEENT: No recent visual problems or hearing problems. Denied any sore throat. CARDIOVASCULAR: No orthopnea, PND, no palpitations, no syncope. PULMONARY: No shortness of breath, no cough, no hemoptysis. NEUROLOGICAL: No headaches, no weakness, no numbness. HEMATOLOGICAL: Denies any bleeding or petechiae. GENITOURINARY: Denies any burning micturition, frequency, or urgency. MUSCULOSKELETAL/RHEUMATOLOGICAL: Denies any joint pain, swelling, or any muscle pain. ENDOCRINE: Denies any polyuria or polydipsia. Medications reviewed and include: Lipitor, Dulcolax, Sinemet, vitamin D, Zetia, ferrous sulfate, finasteride, Prozac, hydralazine, Turner, albuterol, isosorbide mononitrate, lisinopril, metoprolol, multivitamin, nitroglycerin, Protonix, Lyrica, primidone, Seroquel, sodium chloride infusion Objective - Vital Signs Vital signs: Vital Signs Temp 98.2 F 07/19/18 09:35 Pulse 70 07/19/18 09:35 Resp 18 07/19/18 09:35 BP 152/66 07/19/18 09:35 Pulse Ox 98 07/19/18 09:35 Intake & Output 07/18/18 07/19/18 07/19/18 18:59 06:59 18:59 Intake Total 0 950 Balance 0 950 Weight 104.326 kg 76 kg Intake: Intake, IV Titration 640 Amount Sodium Chloride 0.9% 1, 640 000 ml @ 80 mls/hr IV . [id number] [facility] Rx#:[id number] Blood Product 0 310 Rc Pheresis 2 As3 Unit 0 310 [id number] Other: Voiding Method Diaper Diaper Incontinent Incontinent - Exam GENERAL: The patient is alert and oriented x3, not in any acute distress. Well developed, well nourished. HEENT: Pupils are round and equally reacting to light. EOMI. No scleral icterus. No conjunctival pallor. Normocephalic, atraumatic. No pharyngeal erythema. No thyromegaly. CARDIOVASCULAR: S1 and S2 present. No murmurs, rubs, or gallops. PULMONARY: Chest is clear to auscultation, no wheezing or crackles. ABDOMEN: Soft, nontender, nondistended, normoactive bowel sounds. No palpable organomegaly. MUSCULOSKELETAL: No joint swelling or deformity. EXTREMITIES: No cyanosis, clubbing, or pedal edema. NEUROLOGICAL: Gross neurological examination did not reveal any focal deficits. SKIN: No rashes. - Labs CBC & Chem 7: 07/19/18 06:13 07/18/18 14:15 Labs: Abnormal Lab Results - Last 24 Hours (Table) 07/18/18 07/18/18 07/18/18 Range/Units 14:15 14:15 14:15 RBC 2.37 L (4.30-5.90) m/uL Hgb 7.1 L (13.0-17.5) gm/dL Hct 21.8 L (39.0-53.0) % MCHC (31.0-37.0) g/dL RDW 16.1 H (11.5-15.5) % PT 12.1 H (9.0-12.0) sec INR 1.2 H (<1.2) APTT 30.2 H (22.0-30.0) sec Chloride (98-107) mmol/L BUN (9-20) mg/dL Glucose (74-99) mg/dL Iron (65-175) ug/dL Iron Saturation (15.00-50.00) Total Creatine Kinase 33 L (55-170) U/L CK-MB (CK-2) 2.8 H (0.0-2.4) ng/mL Albumin (3.5-5.0) g/dL Crossmatch 07/18/18 07/18/18 07/18/18 Range/Units 14:15 14:15 14:15 RBC (4.30-5.90) m/uL Hgb (13.0-17.5) gm/dL Hct (39.0-53.0) % MCHC (31.0-37.0) g/dL RDW (11.5-15.5) % PT (9.0-12.0) sec INR (<1.2) APTT (22.0-30.0) sec Chloride 108 H (98-107) mmol/L BUN 38 H (9-20) mg/dL Glucose 143 H (74-99) mg/dL Iron 42 L (65-175) ug/dL Iron Saturation 14.38 L (15.00-50.00) Total Creatine Kinase (55-170) U/L CK-MB (CK-2) (0.0-2.4) ng/mL Albumin 3.2 L (3.5-5.0) g/dL Crossmatch See Detail 07/19/18 Range/Units 06:13 RBC 2.78 L (4.30-5.90) m/uL Hgb 7.9 L (13.0-17.5) gm/dL Hct 25.8 L (39.0-53.0) % MCHC 30.5 L (31.0-37.0) g/dL RDW (11.5-15.5) % PT (9.0-12.0) sec INR (<1.2) APTT (22.0-30.0) sec Chloride (98-107) mmol/L BUN (9-20) mg/dL Glucose (74-99) mg/dL Iron (65-175) ug/dL Iron Saturation (15.00-50.00) Total Creatine Kinase (55-170) U/L CK-MB (CK-2) (0.0-2.4) ng/mL Albumin (3.5-5.0) g/dL Crossmatch Assessment and Plan Assessment: Anemia, rule out acute blood loss anemia. History of PE History of COPD History of CVA/TIA History of GERD Hyperlipidemia Essential hypertension History of Parkinson disease History of BPH History of major depression History of seizure. Plan: This is a pleasant 72 years old male who presents because of anemia. We'll monitor his hemoglobin, we'll do our unsteadiness also check vitamin B12 and folic acid level. Check occult blood in stool. Call GI consult. Labs and medication were reviewed.. Continue same treatment. Continue with symptomatic treatment. Resume home medication. Monitor lytes and vitals. DVT and GI prophylaxis. Further recommendations of the clinical course of the patient DVT prophylaxis: no heparin in view of possible GI bleed. GI Prophylaxis: Protonix daily PT/OT: Pending Prognosis is guarded
--- NOTE | 2018-07-19 11:36 | P.CRDCN ---
History of Present Illness Consult date: 07/19/18 Requesting physician: Jakob Parnell Chief complaint: Tiredness and fatigue History of present illness: This is a 72-year-old gentleman with history of coronary artery disease, he presented to our hospital in mid April with a non-ST elevation [place] , underwent successful stenting of the mid right coronary artery and ostial right coronary artery with a science stent. Patient has also history of hypertension, hyperlipidemia, pulmonary embolism, he presented most recently to the hospital earlier this month with symptomatic anemia, hemoglobin of 6. He was transfused 2 units of blood at that time. An EGD was also performed on that admission, on June 30, with unremarkable findings. A colonoscopy was deferred at that time secondary to his increased risk. On discharge to [facility] his hemoglobin was 7.5, he returns on this admission with hemoglobin of 6.7. Patient did receive a unit of packed red blood cells and hemoglobin came up to 7.9. In total the patient has received 4 units of packed red blood cells this month. At present the patient is off of Xarelto, he is also not on aspirin or Plavix. Chest x-ray on admission here revealed chronic changes with possible bronchitis or asthma. No acute process seen. Patient overall feels weak, but he denies any shortness of breath, no chest discomfort. Blood pressure 152/60 with a heart rate in the 70s, 98% on room air. White blood cell count 9.2, hemoglobin 7.9 this morning, platelet count 278. Sodium 138, potassium 4.5, BUN 38 and creatinine 0.9. Troponin 0.012. Stool for occult blood is positive. Past Medical History Past Medical History: Coronary Artery Disease (CAD), Chest Pain / Angina, COPD, CVA/TIA, GERD/Reflux, GI Bleed, Hyperlipidemia, Hypertension, Myocardial Infarction ([place]), Neurologic Disorder, Prostate Disorder, Pulmonary Embolus (PE) Additional Past Medical History / Comment(s): pt denies having any chf .Parkinson's disease, history of postsurgical pulmonary embolism, BPH, history of TIA, history of major depression, remote history of seizure disorder last seizure was in 2002, incont urine/stool brief worn, Last Myocardial Infarction Date:: 06/28/18 History of Any Multi-Drug Resistant Organisms: None Reported Past Surgical History: Cholecystectomy, Heart Catheterization With Stent, Hernia Repair, Joint Replacement, Orthopedic Surgery Additional Past Surgical History / Comment(s): NOSE SURGERY X3, RIGHT SHOULDER ROTATOR cuff, cervical fusion, bilateral CATARACT surgery/lens implants.lt hip sx, egd Past Anesthesia/Blood Transfusion Reactions: Motion Sickness Additional Past Anesthesia/Blood Transfusion Reaction / Comment(s): Pt has received blood in past without reaction. Date of Last Stent Placement:: 05/07/18 Smoking Status: Former smoker - Past Family History Father Family Medical History: Cancer Additional Family Medical History / Comment(s): STOMACH CANCER, at age 46. Mother Family Medical History: No Reported History Additional Family Medical History / Comment(s): Reports he does not know his mother's history. Medications and Allergies Home Medications Medication Instructions Recorded Confirmed Type Atorvastatin [Lipitor] 40 mg PO HS 05/03/18 07/18/18 History Bisacodyl [Dulcolax] 10 mg RECTAL DAILY PRN 05/03/18 07/18/18 History Carbidopa-Levodopa 25-100 mg 1 tab PO TID 05/03/18 07/18/18 History [Sinemet 25-100 mg] Dexlansoprazole [Dexilant] 60 mg PO DAILY 05/03/18 07/18/18 History Dutasteride 0.5 mg PO DAILY 05/03/18 07/18/18 History Ergocalciferol [Vitamin D2 50,000 unit PO MO 05/03/18 07/18/18 History (DRISDOL)] Ezetimibe [Zetia] 10 mg PO DAILY@2100 05/03/18 07/18/18 History FLUoxetine HCL [PROzac] 20 mg PO DAILY 05/03/18 07/18/18 History Ferrous Sulfate [Feosol] 325 mg PO BID@0800,1700 05/03/18 07/18/18 History Ipratropium-Albuterol Nebulize 3 ml INHALATION RT-QID PRN 05/03/18 07/18/18 History [Duoneb 0.5 mg-3 mg/3 ml Soln] Lactose-Reduced Food [Ensure Plus] 1 can PO TID 05/03/18 07/18/18 History Magnesium Hydroxide [Milk of 30 ml PO DAILY PRN 05/03/18 07/18/18 History Magnesia] Metoprolol Tartrate [Lopressor] 12.5 mg PO BID@0800,1700 05/03/18 07/18/18 History Multivitamins, Thera [Multivitamin 1 tab PO W/SUPPER 05/03/18 07/18/18 History (formulary)] Na Phos,M-B/Na Phos,Di-Ba [Fleet 1 unit RECTAL DAILY PRN 05/03/18 07/18/18 History Adult] Primidone [Mysoline] 50 mg PO Q8HR 05/03/18 07/18/18 History QUEtiapine XR [SEROquel XR] 200 mg PO HS@2130 05/03/18 07/18/18 History Ranitidine HCl [Zantac] 150 mg PO BID@0800,1700 05/03/18 07/18/18 History Umeclidinium Brm/Vilanterol Tr 1 puff INHALATION RT-DAILY 05/03/18 07/18/18 History [Anoro Ellipta 62.5-25 Mcg INH] Nitroglycerin Sl Tabs [Nitrostat] 0.4 mg SUBLINGUAL Q5M PRN tab 05/14/18 Rx Clopidogrel [Plavix] 75 mg PO DAILY@1700 06/27/18 07/18/18 History Lisinopril [Zestril] 2.5 mg PO DAILY 06/27/18 07/18/18 History Rivaroxaban [Xarelto] 15 mg PO DAILY@0600 06/27/18 07/18/18 History Isosorbide Mononitrate ER [Imdur] 15 mg PO DAILY dose 07/02/18 07/18/18 Rx HYDROcodone/APAP 10-325MG [Ong 1 tab PO Q6HR PRN 07/18/18 07/18/18 History 10-325] Pregabalin [Lyrica] 100 mg PO BID@0800,1700 07/18/18 07/18/18 History Allergies Allergy/AdvReac Type Severity Reaction Status Date / Time morphine Allergy Itching Verified 07/18/18 14:19 oxycodone [From OxyContin] Allergy Itching Verified 07/18/18 14:19 propoxyphene Allergy Unknown Verified 07/18/18 14:19 [From Darvocet-N] Physical Exam Vitals: Vital Signs Temp Pulse Pulse Resp BP BP Pulse Ox 07/19/18 09:35 98.2 F 70 18 152/66 98 07/19/18 03:45 70 18 07/19/18 03:44 98.0 F 70 18 127/60 97 07/18/18 23:47 62 18 07/18/18 23:45 98.4 F 62 18 138/64 97 07/18/18 20:00 97.8 F 77 18 175/76 97 07/18/18 19:30 98.2 F 72 16 155/62 96 07/18/18 19:18 98.2 F 73 15 152/61 96 07/18/18 19:00 72 144/59 95 07/18/18 18:01 98.4 F 75 18 139/58 07/18/18 17:31 98.5 F 75 18 128/51 07/18/18 17:21 98.5 F 75 18 127/56 07/18/18 17:18 98.5 F 75 18 136/53 07/18/18 17:00 71 18 142/58 97 07/18/18 16:30 71 18 138/55 95 07/18/18 16:00 71 18 131/55 95 07/18/18 15:30 74 18 125/58 98 07/18/18 15:00 75 18 124/46 97 07/18/18 14:30 76 18 130/54 95 07/18/18 14:00 97.7 F 73 18 132/72 100 Intake and Output 07/18/18 07/19/18 07/19/18 22:59 06:59 14:59 Intake Total 310 640 Balance 310 640 Intake: Intake, IV Titration 640 Amount Sodium Chloride 0.9% 1, 640 000 ml @ 80 mls/hr IV . [id number] [facility] Rx#:[id number] Blood Product 310 Rc Pheresis 2 As3 Unit 310 [id number] Other: Voiding Method Diaper Diaper Diaper Incontinent Incontinent Incontinent Weight 76 kg PHYSICAL EXAMINATION: GENERAL: 72-year-old gentleman in no acute distress at the time of my examination HEENT: Head is atraumatic, normocephalic. Pupils equal, round. Sclera anicteric. Conjunctiva are clear. Mucous membranes of the mouth are moist. Neck is supple. There is no elevated jugular venous pressure. No carotid bruit is heard. HEART EXAMINATION: Heart S1, S2 normal. No murmur or gallop heard. CHEST EXAMINATION: Lungs are clear to auscultation and precussion. No chest wall tenderness is noted on palpation or with deep breathing. ABDOMEN: Soft, nontender. Bowel sounds are heard. No organomegaly noted. EXTREMITIES: 2+ peripheral pulses with no evidence of peripheral edema and no calf tenderness noted. NEUROLOGIC patient is awake, alert and oriented 3. . . Results 07/19/18 06:13 07/18/18 14:15 Cardiac Enzymes 07/18/18 07/18/18 Range/Units 14:15 14:15 AST 22 (17-59) U/L CK-MB (CK-2) 2.8 H (0.0-2.4) ng/mL Troponin I <0.012 (0.000-0.034) ng/mL Coagulation 07/18/18 Range/Units 14:15 PT 12.1 H (9.0-12.0) sec APTT 30.2 H (22.0-30.0) sec CBC 07/18/18 07/19/18 Range/Units 14:15 06:13 WBC 8.0 9.2 (3.8-10.6) k/uL RBC 2.37 L 2.78 L (4.30-5.90) m/uL Hgb 7.1 L 7.9 L (13.0-17.5) gm/dL Hct 21.8 L 25.8 L (39.0-53.0) % Plt Count 290 278 (150-450) k/uL Comprehensive Metabolic Panel 07/18/18 Range/Units 14:15 Sodium 138 (137-145) mmol/L Potassium 4.5 (3.5-5.1) mmol/L Chloride 108 H (98-107) mmol/L Carbon Dioxide 24 (22-30) mmol/L BUN 38 H (9-20) mg/dL Creatinine 0.99 (0.66-1.25) mg/dL Glucose 143 H (74-99) mg/dL Calcium 8.8 (8.4-10.2) mg/dL AST 22 (17-59) U/L ALT 30 (21-72) U/L Alkaline Phosphatase 86 (38-126) U/L Total Protein 6.3 (6.3-8.2) g/dL Albumin 3.2 L (3.5-5.0) g/dL Current Medications Generic Name Dose Route Start Last Admin Trade Name Freq PRN Reason Stop Dose Admin Hydrocodone Bitart/Acetaminophen 1 each 07/18/18 16:39 07/19/18 09:32 Ong 10 PO 1 each Q6HR PRN Administration Pain Albuterol/Ipratropium 3 ml 07/18/18 16:39 Duoneb 0.5 Mg-3 Mg/3 Ml Soln INHALATION RT-QID PRN Shortness Of Breath Or Wheezing Atorvastatin Calcium 40 mg 07/18/18 21:00 07/18/18 20:37 Lipitor PO 40 mg HS ABBY Administration Bisacodyl 10 mg 07/18/18 16:39 Dulcolax RECTAL DAILY PRN Constipation Carbidopa/Levodopa 1 each 07/18/18 22:00 07/19/18 09:26 Sinemet 25-100 PO 1 each TID ABBY Administration Ezetimibe 10 mg 07/18/18 21:00 07/18/18 21:45 Zetia PO 10 mg DAILY@2100 ABBY Administration Ergocalciferol 50,000 unit 07/23/18 12:00 Vitamin D2 PO Mo@1200 ABBY Ferrous Sulfate 325 mg 07/18/18 17:00 07/19/18 09:27 Feosol PO 325 mg BID@0800,1700 ABBY Administration Finasteride 5 mg 07/19/18 09:00 07/19/18 09:26 Proscar PO 5 mg DAILY ABBY Administration Fluoxetine HCl 20 mg 07/19/18 09:00 07/19/18 09:27 Prozac PO 20 mg DAILY ABBY Administration Hydralazine HCl 10 mg 07/18/18 22:08 Apresoline IVP Q6HR PRN Blood Pressure - High Sodium Chloride 1,000 mls @ 80 mls/hr 07/18/18 16:45 07/19/18 05:20 Saline 0.9% IV 80 mls/hr .[id number] ABBY Administration Isosorbide Mononitrate 15 mg 07/19/18 09:00 07/19/18 09:26 Imdur PO 15 mg DAILY ABBY Administration Lisinopril 2.5 mg 07/19/18 09:00 07/19/18 09:26 Zestril PO 2.5 mg DAILY ABBY Administration Metoprolol Tartrate 12.5 mg 07/18/18 17:00 07/19/18 09:26 Lopressor PO 12.5 mg BID@0800,1700 ABBY Administration Multivitamins 1 each 07/18/18 17:30 07/18/18 20:37 Theragran PO 1 each W/SUPPER ABBY Administration Naloxone HCl 0.2 mg 07/18/18 16:37 Narcan IV Q2M PRN Opioid Reversal Nitroglycerin 0.4 mg 07/18/18 16:39 Nitrostat SUBLINGUAL Q5M PRN Chest Pain Pantoprazole Sodium 40 mg 07/18/18 21:00 07/19/18 09:27 Protonix IV 40 mg BID ABBY Administration Pregabalin 100 mg 07/18/18 17:00 07/19/18 09:26 Lyrica PO 100 mg BID@0800,1700 ABBY Administration Primidone 50 mg 07/19/18 00:00 07/19/18 09:26 Mysoline PO 50 mg Q8HR ABBY Administration Quetiapine Fumarate 100 mg 07/18/18 21:00 07/19/18 09:26 Seroquel PO 100 mg BID ABBY Administration Intake and Output 07/18/18 07/19/18 07/19/18 22:59 06:59 14:59 Intake Total 310 640 Balance 310 640 Intake: Intake, IV Titration 640 Amount Sodium Chloride 0.9% 1, 640 000 ml @ 80 mls/hr IV . [id number] [facility] Rx#:[id number] Blood Product 310 Rc Pheresis 2 As3 Unit 310 [id number] Other: Voiding Method Diaper Diaper Diaper Incontinent Incontinent Incontinent Weight 76 kg 07/19/18 06:13 07/18/18 14:15 EKG Interpretations (text) No EKG performed Assessment and Plan Plan: Assessment and plan #1 anemia, hemoglobin 6.7 on arrival, recent hospitalization with anemia of 6, patient did receive 2 unit of packed blood cells at that time. Received one unit on this occasion. Patient had been on dual antiplatelet therapy and xarelto. Upper GI performed a couple of weeks ago did not reveal any source of bleeding. #2 history of PE for which the patient had been on xarelto #3 coronary artery disease with recent stenting of the ostial/proximal and mid RCA, patient also has left main disease. Currently not on his dual antiplatelet therapy. #4 history of CVA #5 hypertension #6 hyperlipidemia #7 Parkinson's #8 history of major depression Plan Patient's dual antiplatelet therapy and xarelto are currently on hold. GI service plans on doing a colonoscopy. Heart recommendation is that the patient have his procedure as soon as possible, he needs to be resumed back on his dual antiplatelet therapy. Continue to follow. DNP note has been reviewed, I agree with a documented findings and plan of care. Patient was seen and examined.
[2018-07-19] MEDS: MULTIVITAMINS, THERA 1 EACH TAB PO SCH (17:03)
[2018-07-19] MEDS: ATORVASTATIN 40 MG TAB PO SCH (22:05)
[2018-07-20] MEDS: EZETIMIBE 10 MG TAB PO SCH ×2 (00:02→20:13)
[2018-07-20 08:07] LABS: Basophils # (A) 0.1 k/uL (0-0.2); Basophils % (A) 1 %; Eosinophils # (A) 0.4 k/uL (0-0.7); Eosinophils % (A) 6 %; HCT 27.3 % (39.0-53.0); HGB 8.4 gm/dL (13.0-17.5); Hypochromasia Slight; Lymphocytes % (A) 28 %; MCH 28.4 pg (25.0-35.0); MCHC 30.7 g/dL (31.0-37.0); MCV 92.5 fL (80.0-100.0); Mean Platelet Volume 6.8; Monocytes # (A) 0.4 k/uL (0-1.0); Monocytes % (A) 5 %; Neutrophils # (A) 4.3 k/uL (1.3-7.7); Neutrophils % (A) 58 %; Platelet Count 296 k/uL (150-450); RBC 2.95 m/uL (4.30-5.90); RDW 15.5 % (11.5-15.5); WBC 7.3 k/uL (3.8-10.6)
[2018-07-20 08:25] LABS: Anion Gap 4 mmol/L; Blood Urea Nitrogen 31 mg/dL (9-20); Calcium 8.8 mg/dL (8.4-10.2); Carbon Dioxide 23 mmol/L (22-30); Chloride 112 mmol/L (98-107); Glucose 85 mg/dL (74-99); Sodium 139 mmol/L (137-145)
[2018-07-20] MEDS: FERROUS SULFATE 325 MG TAB PO SCH ×2 (10:43→16:32)
[2018-07-20] MEDS: METOPROLOL TARTRATE 12.5 MG TAB PO SCH ×2 (10:44→16:32)
[2018-07-20] MEDS: PRIMIDONE 50 MG TAB PO SCH ×2 (10:46→16:31)
[2018-07-20] MEDS: PREGABALIN 100 MG CAP PO SCH ×2 (10:46→16:31)
[2018-07-20] MEDS: FLUoxetine HCL 20 MG CAP PO SCH (10:47)
--- NOTE | 2018-07-20 10:49 | P.PN ---
Subjective This is a pleasant 72 years old male with past medical history of pulmonary embolus, coronary artery disease, COPD, CVA/TIA, GERD, upper lipidemia, hypertension, Parkinson disease, BPH, depression, seizure with last seizure was in 2002. As per patient he was recently in the hospital for low hemoglobin that needed a blood transfusion about 2-3 weeks ago, today he was sent from his [facility] because of abnormal lab and low hemoglobin. However patient denies any symptoms. He denies chest pain, no dyspnea. No abdominal pain. No nausea vomiting. He has constipation. No urinary complaints. No fever. Patient at baseline can walk for short distance using her walker. On admission Vitas looks stable. CBC showing WBC of 8K, hemoglobin 6.7, and 7.1 , previously was in between 7.5-9.7. INR 1.. Sodium 138, potassium 4.5, creatinine 0.9. Is a status post one unit of blood transfusion. Chest x-ray is done and report is pending. Patient was started on Protonix and gentle hydration. 07/19/2018 Patient remains asymptomatic with no abdominal pain or nausea vomiting. He has 1 hard bowel movement this morning he wasn't sure with the color. He got one unit of blood yesterday and his hemoglobin went up from 7.1 to 7.9. Therefore recommend to hold 0 total for at least 2 days with proceeding with colonoscopy probably on this Monday. Due to recent history of numbness STEMI 2-3 weeks ago, cardiology consult and for pre-procedure evaluation and risk stratification 07/20/2018 Patient remains asymptomatic. Hw ua going for colonoscopy hopefully today.pre- op evaluation by cardiology team is appreciated, they recommended to start asa and Plavix soon after the procedure. Patient also has history of pulmonary embolism and his diltiazem hold also for there is same reason. Explained the risk while his of his antiplatelet and anticoagulation medication including but not limited for his heart attack and pulmonary embolism and he verbalized understanding and acceptance. His hemoglobin today is improved to 8.4. Patient remains on Protonix 40 mg IV twice a day CONSTITUTIONAL: No fever, no malaise, no fatigue. HEENT: No recent visual problems or hearing problems. Denied any sore throat. CARDIOVASCULAR: No orthopnea, PND, no palpitations, no syncope. PULMONARY: No shortness of breath, no cough, no hemoptysis. NEUROLOGICAL: No headaches, no weakness, no numbness. HEMATOLOGICAL: Denies any bleeding or petechiae. GENITOURINARY: Denies any burning micturition, frequency, or urgency. MUSCULOSKELETAL/RHEUMATOLOGICAL: Denies any joint pain, swelling, or any muscle pain. ENDOCRINE: Denies any polyuria or polydipsia. Medications reviewed and include: Lipitor, Dulcolax, Sinemet, vitamin D, Zetia, ferrous sulfate, finasteride, Prozac, hydralazine, [place], albuterol, isosorbide mononitrate, lisinopril, metoprolol, multivitamin, nitroglycerin, Protonix, Lyrica, primidone, Seroquel, sodium chloride infusion Objective - Vital Signs Vital signs: Vital Signs Temp 98.9 F 07/20/18 08:00 Pulse 61 07/20/18 08:00 Resp 18 07/20/18 08:00 BP 140/64 07/20/18 08:00 Pulse Ox 97 07/20/18 08:00 Intake & Output 07/19/18 07/20/18 07/20/18 18:59 06:59 18:59 Intake Total 550 Output Total 1200 Balance 550 -1200 Weight 74 kg Intake: Oral 550 Output: Urine 1200 Other: Voiding Method Diaper Diaper Diaper Incontinent Incontinent Incontinent # Bowel Movements 1 - Exam GENERAL: The patient is alert and oriented x3, not in any acute distress. Well developed, well nourished. HEENT: Pupils are round and equally reacting to light. EOMI. No scleral icterus. No conjunctival pallor. Normocephalic, atraumatic. No pharyngeal erythema. No thyromegaly. CARDIOVASCULAR: S1 and S2 present. No murmurs, rubs, or gallops. PULMONARY: Chest is clear to auscultation, no wheezing or crackles. ABDOMEN: Soft, nontender, nondistended, normoactive bowel sounds. No palpable organomegaly. MUSCULOSKELETAL: No joint swelling or deformity. EXTREMITIES: No cyanosis, clubbing, or pedal edema. NEUROLOGICAL: Gross neurological examination did not reveal any focal deficits. SKIN: No rashes. - Labs CBC & Chem 7: 07/20/18 07:33 07/20/18 07:33 Labs: Abnormal Lab Results - Last 24 Hours (Table) 07/20/18 07/20/18 Range/Units 07:33 07:33 RBC 2.95 L (4.30-5.90) m/uL Hgb 8.4 L (13.0-17.5) gm/dL Hct 27.3 L (39.0-53.0) % MCHC 30.7 L (31.0-37.0) g/dL Chloride 112 H (98-107) mmol/L BUN 31 H (9-20) mg/dL Assessment and Plan Assessment: Anemia, rule out acute blood loss anemia. History of PE History of COPD History of CVA/TIA History of GERD Hyperlipidemia Essential hypertension History of Parkinson disease History of BPH History of major depression History of seizure. Plan: This is a pleasant 72 years old male who presents because of anemia. We'll monitor his hemoglobin, we'll do our unsteadiness also check vitamin B12 and folic acid level. Check occult blood in stool. Call GI consult. Labs and medication were reviewed.. Continue same treatment. Continue with symptomatic treatment. Resume home medication. Monitor lytes and vitals. DVT and GI prophylaxis. Further recommendations of the clinical course of the patient DVT prophylaxis: no heparin in view of possible GI bleed. GI Prophylaxis: Protonix daily PT/OT: Pending Prognosis is guarded
[2018-07-20] MEDS: LISINOPRIL 2.5 MG TAB PO SCH (10:50)
[2018-07-20] MEDS: ISOSORBIDE MONONITRATE ER 15 MG TAB PO SCH (10:51)
[2018-07-20] MEDS: QUEtiapine 100 MG TAB PO SCH ×2 (10:52→20:13)
[2018-07-20] MEDS: CARBIDOPA-LEVODOPA 25-100 MG 1 EACH TAB PO SCH ×3 (10:53→20:13)
[2018-07-20] MEDS: FINASTERIDE 5 MG TAB PO SCH (11:00)
[2018-07-20] MEDS: PANTOPRAZOLE 40 MG/10 ML VIAL IV SCH ×2 (11:01→20:14)
[2018-07-20] MEDS: SODIUM CHLORIDE 0.9% 1,000 ML IV SCH ×2 (11:17→16:34)
[2018-07-20] MEDS ORDERED: BISACODYL 5 MG TABLET.DR PO STA (12:21)
--- NOTE | 2018-07-20 12:26 | P.PN ---
Subjective Progress Note Date: 07/20/18 Principal diagnosis: anemia Gi bleed No active bleeding. Hemoglobin 8.4. Medical and cardiac clearance obtained for colonoscopy tomorrow. Denies abdominal pain. Afebrile. Objective - Vital Signs Vital signs: Vital Signs Temp 98.9 F 07/20/18 08:00 Pulse 61 07/20/18 08:00 Resp 18 07/20/18 08:00 BP 140/64 07/20/18 08:00 Pulse Ox 97 07/20/18 08:00 Intake & Output 07/19/18 07/20/18 07/20/18 18:59 06:59 18:59 Intake Total 550 0 Output Total 1200 Balance 550 -1200 0 Weight 74 kg Intake: Oral 550 0 Output: Urine 1200 Other: Voiding Method Diaper Diaper Diaper Incontinent Incontinent Incontinent # Bowel Movements 1 - Exam General appearance: The patient is alert, oriented, in no acute distress. HET: Head is normocephalic and atraumatic. Pupils are equal and reactive. Oropharynx is clear without lesions. Neck: Supple without lymphadenopathy. Trachea midline. Heart: S1 S2. Regular rate and rhythm. Lungs: No crackles or wheezes are heard. Abdomen: Soft, nontender, nondistended with bowel sounds. No peritoneal signs. No palpable organomegaly or masses. Extremities: Normal skin color and turgor. No cyanosis, rash, ulceration, clubbing, or edema. Radial and pedal pulses are 2/4 bilaterally. Neurological: No focal deficits. Strength and sensation are grossly intact. - Labs CBC & Chem 7: 07/20/18 07:33 07/20/18 07:33 Labs: Abnormal Lab Results - Last 24 Hours (Table) 07/20/18 07/20/18 Range/Units 07:33 07:33 RBC 2.95 L (4.30-5.90) m/uL Hgb 8.4 L (13.0-17.5) gm/dL Hct 27.3 L (39.0-53.0) % MCHC 30.7 L (31.0-37.0) g/dL Chloride 112 H (98-107) mmol/L BUN 31 H (9-20) mg/dL Assessment and Plan (1) Symptomatic anemia Current Visit: Yes Status: Acute Code(s): D64.9 - ANEMIA, UNSPECIFIED SNOMED Code(s): 824550186 (2) Stool guaiac positive Current Visit: Yes Status: Acute Code(s): R19.5 - OTHER FECAL ABNORMALITIES SNOMED Code(s): 26073222 (3) Iron deficiency anemia Current Visit: Yes Status: Acute Code(s): D50.9 - IRON DEFICIENCY ANEMIA, UNSPECIFIED SNOMED Code(s): 96328387 (4) Acute blood loss anemia Current Visit: Yes Status: Acute Code(s): D62 - ACUTE POSTHEMORRHAGIC ANEMIA SNOMED Code(s): 151356524 (5) History of pulmonary embolus (PE) Current Visit: Yes Status: Acute Code(s): Z86.711 - PERSONAL HISTORY OF PULMONARY EMBOLISM SNOMED Code(s): 690844345 (6) History of non-ST elevation myocardial infarction (NSTEMI) Current Visit: Yes Status: Acute Code(s): I25.2 - OLD MYOCARDIAL INFARCTION SNOMED Code(s): 187731661 (7) Parkinson disease Current Visit: Yes Status: Acute Code(s): G20 - PARKINSON'S DISEASE SNOMED Code(s): 72322090 (8) CAD (coronary artery disease) Current Visit: Yes Status: Acute Code(s): I25.10 - ATHSCL HEART DISEASE OF [place] CORONARY ARTERY W/O ANG PCTRS SNOMED Code(s): 26496061 Plan: 1. Cardiac clearance obtained this was discussed with cardiology nurse practitioner Dr. Natalie Anna. Clear liquids. Nothing by mouth after midnight. Colonoscopy in a.m. possible small bowel capsule endoscopy pending colonoscopy findings. CBC monitoring. The sap bw developer has discussed the risks, benefits and alternative therapies for the above-mentioned procedure and for both sedation/analgesia as well as necessary blood product administration, if indicated, as they pertain to this patient. The patient has indicated understanding and acceptance of the risks and procedures discussed. Assessment and plan of care discussed with Dr. Sanchez
[2018-07-20] MEDS ORDERED: PEG 3350-NA SULF,BICARB,CL/KCL 4,000 ML BOTTLE PO ONE (15:00)
[2018-07-20] MEDS: MULTIVITAMINS, THERA 1 EACH TAB PO SCH (16:31)
[2018-07-20] MEDS: ATORVASTATIN 40 MG TAB PO SCH (20:13)
[2018-07-20] MEDS: HYDROcodone/APAP 10-325MG 1 EACH TAB PO PRN (20:13)
[2018-07-20] MEDS: DEXTROSE 5%-0.9% NACL 1,000 ML IV SCH (20:23)
[2018-07-21] MEDS: PRIMIDONE 50 MG TAB PO SCH ×4 (03:42→21:26)
[2018-07-21 07:15] LABS: Basophils # (A) 0.1 k/uL (0-0.2); Basophils % (A) 1 %; Eosinophils # (A) 0.3 k/uL (0-0.7); Eosinophils % (A) 5 %; HGB 8.3 gm/dL (13.0-17.5); Hypochromasia Slight; Lymphocytes # (A) 1.6 k/uL (1.0-4.8); Lymphocytes % (A) 24 %; MCH 30.4 pg (25.0-35.0); MCHC 33.1 g/dL (31.0-37.0); MCV 92.1 fL (80.0-100.0); Mean Platelet Volume 6.3; Monocytes # (A) 0.4 k/uL (0-1.0); Monocytes % (A) 6 %; Neutrophils # (A) 4.1 k/uL (1.3-7.7); Neutrophils % (A) 61 %; Platelet Count 288 k/uL (150-450); RBC 2.71 m/uL (4.30-5.90); RDW 15.9 % (11.5-15.5); WBC 6.7 k/uL (3.8-10.6)
[2018-07-21 07:26] LABS: Calcium 8.9 mg/dL (8.4-10.2); Potassium 4.5 mmol/L (3.5-5.1)
[2018-07-21] MEDS ORDERED: IV FLUID CONTINUATION 950 ML IV ONE (08:11)
[2018-07-21] MEDS ORDERED: PROPOFOL 10 MG/ML 20 ML VIAL IV ONE (08:19)
--- NOTE | 2018-07-21 08:56 | P.PCN ---
Date of Procedure: 07/21/18 Description of Procedure: BRIEF HISTORY: 72-year-old gentleman F resident history of CAD, PE maintained on Xarelto; last dose 07/18/2018, COPD, hypertension, Parkinson's, seizure disorder, hyperlipidemia admitted with reported low hemoglobin fatigue. Patient was hospitalized earlier this month non-ST elevated [place] iron deficiency anemia hemoglobin of 6 and positive FOBT but without overt bleeding such as hematemesis hematochezia melena. At that time he had not had a recent EGD or colonoscopy. He underwent EGD evaluation June 30 with unremarkable findings colonoscopy was deferred secondary to poor risk. Discharge hemoglobin was 7.5. He returns with a hemoglobin of 6.7 received 1 unit of blood present hemoglobin is 7.9. He is receiving a total of 4 units of blood this month. Repeat FOBT positive. Denies overt bleeding such as hematemesis hematochezia melena. PROCEDURE PERFORMED: Colonoscopy. PREOPERATIVE DIAGNOSIS: Anemia of acute blood loss, symptomatic anemia. ESTIMATED BLOOD LOSS: Minimal. IV sedation per Anesthesia. PROCEDURE: After informed consent was obtained, the patient, was brought into the endoscopy unit. IV sedation was administered by Anesthesia under continuous monitoring. Digital rectal examination was normal. Initially the Olympus CF- 190 flexible video colonoscope was then inserted in the rectum, gradually advanced into the cecum without any difficulty. Careful examination was performed as the scope was gradually being withdrawn. Ileocecal valve and the appendiceal orifice were visualized and appeared normal. Prep was good. Mucosa of the cecum, ascending colon, transverse colon, descending colon, sigmoid colon , and rectum appeared normal. Retroflexion was performed in the rectum and no lesions were seen, mild internal hemorrhoids were seen. The patient tolerated the procedure well. IMPRESSION: Normal-appearing colon from rectum to cecum. No signs of active bleeding or pathology to explain anemia. Mild internal hemorrhoids noted. RECOMMENDATIONS: Findings of this examination were discussed with the patient. Plan for video capsule endoscopy today. Continue to monitor hemoglobin and hematocrit and transfuse as needed.
[2018-07-21] MEDS: SODIUM CHLORIDE 0.9% 1,000 ML IV SCH ×2 (11:31→17:17)
[2018-07-21] MEDS: DEXTROSE 5%-0.9% NACL 1,000 ML IV SCH (11:31)
--- NOTE | 2018-07-21 12:19 | P.PN ---
Subjective This is a pleasant 72 years old male with past medical history of pulmonary embolus, coronary artery disease, COPD, CVA/TIA, GERD, upper lipidemia, hypertension, Parkinson disease, BPH, depression, seizure with last seizure was in 2002. As per patient he was recently in the hospital for low hemoglobin that needed a blood transfusion about 2-3 weeks ago, today [facility] was [facility] because of abnormal lab and low hemoglobin. However patient denies any symptoms. He denies chest pain, no dyspnea. No abdominal pain. No nausea vomiting. He has constipation. No urinary complaints. No fever. Patient at baseline can walk for short distance using her walker. On admission Vitas looks stable. CBC showing WBC of 8K, hemoglobin 6.7, and 7.1 , previously was in between 7.5-9.7. INR 1.. Sodium 138, potassium 4.5, creatinine 0.9. Is a status post one unit of blood transfusion. Chest x-ray is done and report is pending. Patient was started on Protonix and gentle hydration. 07/19/2018 Patient remains asymptomatic with no abdominal pain or nausea vomiting. He has 1 hard bowel movement this morning he wasn't sure with the color. He got one unit of blood yesterday and his hemoglobin went up from 7.1 to 7.9. Therefore recommend to hold 0 total for at least 2 days with proceeding with colonoscopy probably on this Monday. Due to recent history of numbness STEMI 2-3 weeks ago, cardiology consult and for pre-procedure evaluation and risk stratification 07/20/2018 Patient remains asymptomatic. Hw ua going for colonoscopy hopefully today.pre- op evaluation by cardiology team is appreciated, they recommended to start asa and Plavix soon after the procedure. Patient also has history of pulmonary embolism and his diltiazem hold also for there is same reason. Explained the risk while his of his antiplatelet and anticoagulation medication including but not limited for his heart attack and pulmonary embolism and he verbalized understanding and acceptance. His hemoglobin today is improved to 8.4. Patient remains on Protonix 40 mg IV twice a day 07/21/2018 Patient remains asymptomatic. He is a status post colonoscopy today, showing normal-appearing: And rectum. With mild internal hemorrhoids. Vital signs stable. Hemoglobin 8.3. BMP unremarkable CONSTITUTIONAL: No fever, no malaise, no fatigue. HEENT: No recent visual problems or hearing problems. Denied any sore throat. CARDIOVASCULAR: No orthopnea, PND, no palpitations, no syncope. PULMONARY: No shortness of breath, no cough, no hemoptysis. NEUROLOGICAL: No headaches, no weakness, no numbness. HEMATOLOGICAL: Denies any bleeding or petechiae. GENITOURINARY: Denies any burning micturition, frequency, or urgency. MUSCULOSKELETAL/RHEUMATOLOGICAL: Denies any joint pain, swelling, or any muscle pain. ENDOCRINE: Denies any polyuria or polydipsia. Medications reviewed and include: Lipitor, Dulcolax, Sinemet, vitamin D, Zetia, ferrous sulfate, finasteride, Prozac, hydralazine, [place], albuterol, isosorbide mononitrate, lisinopril, metoprolol, multivitamin, nitroglycerin, Protonix, Lyrica, primidone, Seroquel, sodium chloride infusion Objective - Vital Signs Vital signs: Vital Signs Temp 97.5 F L 07/21/18 11:33 Pulse 84 07/21/18 11:33 Resp 18 07/21/18 11:33 BP 170/73 07/21/18 11:33 Pulse Ox 98 07/21/18 11:33 Intake & Output 07/20/18 07/21/18 07/21/18 18:59 06:59 18:59 Intake Total 1480 200 Output Total 1325 404 8 Balance 155 -404 192 Weight 68 kg Intake: IV 200 Intake, IV Titration 400 Amount Sodium Chloride 0.9% 1, 400 000 ml @ 80 mls/hr IV . [id number] [facility] Rx#:[id number] Oral 1080 Output: Urine 1325 400 Stool 4 8 Other: Voiding Method Diaper Diaper Diaper Incontinent Incontinent Incontinent # Bowel Movements 4 - Exam GENERAL: The patient is alert and oriented x3, not in any acute distress. Well developed, well nourished. HEENT: Pupils are round and equally reacting to light. EOMI. No scleral icterus. No conjunctival pallor. Normocephalic, atraumatic. No pharyngeal erythema. No thyromegaly. CARDIOVASCULAR: S1 and S2 present. No murmurs, rubs, or gallops. PULMONARY: Chest is clear to auscultation, no wheezing or crackles. ABDOMEN: Soft, nontender, nondistended, normoactive bowel sounds. No palpable organomegaly. MUSCULOSKELETAL: No joint swelling or deformity. EXTREMITIES: No cyanosis, clubbing, or pedal edema. NEUROLOGICAL: Gross neurological examination did not reveal any focal deficits. SKIN: No rashes. - Labs CBC & Chem 7: 07/21/18 06:44 07/21/18 06:44 Labs: Abnormal Lab Results - Last 24 Hours (Table) 07/21/18 07/21/18 Range/Units 06:44 06:44 RBC 2.71 L (4.30-5.90) m/uL Hgb 8.3 L (13.0-17.5) gm/dL Hct 25.0 L (39.0-53.0) % RDW 15.9 H (11.5-15.5) % Chloride 110 H (98-107) mmol/L BUN 24 H (9-20) mg/dL Glucose 107 H (74-99) mg/dL Assessment and Plan Assessment: Anemia, rule out acute blood loss anemia. History of PE History of COPD History of CVA/TIA History of GERD Hyperlipidemia Essential hypertension History of Parkinson disease History of BPH History of major depression History of seizure. Plan: This is a pleasant 72 years old male who presents because of anemia. We'll monitor his hemoglobin, we'll do our unsteadiness also check vitamin B12 and folic acid level. Check occult blood in stool. Call GI consult. Labs and medication were reviewed.. Continue same treatment. Continue with symptomatic treatment. Resume home medication. Monitor lytes and vitals. DVT and GI prophylaxis. Further recommendations of the clinical course of the patient DVT prophylaxis: no heparin in view of possible GI bleed. GI Prophylaxis: Protonix daily PT/OT: Pending Prognosis is guarded
--- NOTE | 2018-07-21 14:20 | P.PN ---
Subjective Progress Note Date: 07/21/18 This is a 72-year-old gentleman with history of coronary artery disease, he presented to our hospital in mid April with a non-ST elevation OR , underwent successful stenting of the mid right coronary artery and ostial right coronary artery with a science stent. Patient has also history of hypertension, hyperlipidemia, pulmonary embolism, he presented most recently to the hospital earlier this month with symptomatic anemia, hemoglobin of 6. He was transfused 2 units of blood at that time. An EGD was also performed on that admission, on June 30, with unremarkable findings. A colonoscopy was deferred at that time secondary to his increased risk. On discharge to [facility] his hemoglobin was 7.5, he returns on this admission with hemoglobin of 6.7. Patient did receive a unit of packed red blood cells and hemoglobin came up to 7.9. In total the patient has received 4 units of packed red blood cells this month. At present the patient is off of Xarelto, he is also not on aspirin or Plavix. Chest x-ray on admission here revealed chronic changes with possible bronchitis or asthma. No acute process seen. Patient overall feels weak, but he denies any shortness of breath, no chest discomfort. Blood pressure 152/60 with a heart rate in the 70s, 98% on room air. White blood cell count 9.2, hemoglobin 7.9 this morning, platelet count 278. Sodium 138, potassium 4.5, BUN 38 and creatinine 0.9. Troponin 0.012. Stool for occult blood is positive. 07/21/2018 Patient was seen and examined this morning, he did undergo colonoscopy with no source of bleeding found. Currently undergoing capsule endoscopy. Once the patient is cleared from GI perspective, we will need to put him back on antiplatelet therapy along with xarelto. Today's hemodynamically stable. Hemoglobin today 8.3. Objective - Vital Signs Vital signs: Vital Signs Temp 97.5 F L 07/21/18 11:33 Pulse 84 07/21/18 11:33 Resp 18 07/21/18 11:33 BP 170/73 07/21/18 11:33 Pulse Ox 98 07/21/18 11:33 Intake & Output 07/20/18 07/21/18 07/21/18 18:59 06:59 18:59 Intake Total 1480 200 Output Total 1325 404 8 Balance 155 -404 192 Weight 68 kg Intake: IV 200 Intake, IV Titration 400 Amount Sodium Chloride 0.9% 1, 400 000 ml @ 80 mls/hr IV . [id number] [facility] Rx#:[id number] Oral 1080 Output: Urine 1325 400 Stool 4 8 Other: Voiding Method Diaper Diaper Diaper Incontinent Incontinent Incontinent # Bowel Movements 4 - Exam PHYSICAL EXAMINATION: GENERAL: 72-year-old gentleman in no acute distress at the time of my examination HEENT: Head is atraumatic, normocephalic. Pupils equal, round. Sclera anicteric. Conjunctiva are clear. Mucous membranes of the mouth are moist. Neck is supple. There is no elevated jugular venous pressure. No carotid bruit is heard. HEART EXAMINATION: Heart S1, S2 normal. No murmur or gallop heard. CHEST EXAMINATION: Lungs are clear to auscultation and precussion. No chest wall tenderness is noted on palpation or with deep breathing. ABDOMEN: Soft, nontender. Bowel sounds are heard. No organomegaly noted. EXTREMITIES: 2+ peripheral pulses with no evidence of peripheral edema and no calf tenderness noted. NEUROLOGIC patient is awake, alert and oriented 3. . - Labs CBC & Chem 7: 07/21/18 06:44 07/21/18 06:44 Labs: Abnormal Lab Results - Last 24 Hours (Table) 07/21/18 07/21/18 Range/Units 06:44 06:44 RBC 2.71 L (4.30-5.90) m/uL Hgb 8.3 L (13.0-17.5) gm/dL Hct 25.0 L (39.0-53.0) % RDW 15.9 H (11.5-15.5) % Chloride 110 H (98-107) mmol/L BUN 24 H (9-20) mg/dL Glucose 107 H (74-99) mg/dL Assessment and Plan Plan: Assessment and plan #1 anemia, hemoglobin 6.7 on arrival, recent hospitalization with anemia of 6, patient did receive 2 unit of packed blood cells at that time. Received one unit on this occasion. Patient had been on dual antiplatelet therapy and xarelto. Upper GI performed a couple of weeks ago did not reveal any source of bleeding. #2 history of PE for which the patient had been on xarelto #3 coronary artery disease with recent stenting of the ostial/proximal and mid RCA, patient also has left main disease. Currently not on his dual antiplatelet therapy. #4 history of CVA #5 hypertension #6 hyperlipidemia #7 Parkinson's #8 history of major depression Plan On endoscopy did not reveal any acute source of bleeding. Patient is currently undergoing a capsule endoscopy. Once cleared from GI perspective, we will resume the patient on Plavix along with xarelto. We will continue to follow. DNP note has been reviewed, I agree with a documented findings and plan of care. Patient was seen and examined.
[2018-07-21] MEDS: FLUoxetine HCL 20 MG CAP PO SCH (14:40)
[2018-07-21] MEDS: HYDROcodone/APAP 10-325MG 1 EACH TAB PO PRN ×2 (14:40→21:25)
[2018-07-21] MEDS: PREGABALIN 100 MG CAP PO SCH ×2 (14:41→18:03)
[2018-07-21] MEDS: FERROUS SULFATE 325 MG TAB PO SCH ×2 (14:41→18:04)
[2018-07-21] MEDS: METOPROLOL TARTRATE 12.5 MG TAB PO SCH ×2 (14:41→18:04)
[2018-07-21] MEDS: CARBIDOPA-LEVODOPA 25-100 MG 1 EACH TAB PO SCH ×3 (14:41→21:25)
[2018-07-21] MEDS: EZETIMIBE 10 MG TAB PO SCH (14:41)
[2018-07-21] MEDS: QUEtiapine 100 MG TAB PO SCH ×2 (14:41→22:46)
[2018-07-21] MEDS: PANTOPRAZOLE 40 MG/10 ML VIAL IV SCH ×2 (14:41→21:26)
[2018-07-21] MEDS: ISOSORBIDE MONONITRATE ER 15 MG TAB PO SCH (14:41)
[2018-07-21] MEDS: FINASTERIDE 5 MG TAB PO SCH (14:41)
[2018-07-21] MEDS: LISINOPRIL 2.5 MG TAB PO SCH (14:41)
[2018-07-21] MEDS: MULTIVITAMINS, THERA 1 EACH TAB PO SCH (18:07)
[2018-07-21] MEDS: ATORVASTATIN 40 MG TAB PO SCH (21:25)
[2018-07-22] MEDS: DEXTROSE 5%-0.9% NACL 1,000 ML IV SCH ×3 (06:58→23:48)
[2018-07-22 07:49] LABS: Basophils % (A) 0 %; Eosinophils # (A) 0.2 k/uL (0-0.7); Eosinophils % (A) 2 %; HCT 24.1 % (39.0-53.0); Hypochromasia Slight; Lymphocytes # (A) 1.5 k/uL (1.0-4.8); Lymphocytes % (A) 20 %; MCH 30.1 pg (25.0-35.0); MCV 90.9 fL (80.0-100.0); Mean Platelet Volume 6.3; Monocytes # (A) 0.4 k/uL (0-1.0); Monocytes % (A) 6 %; Neutrophils # (A) 5.2 k/uL (1.3-7.7); Neutrophils % (A) 69 %; Platelet Count 300 k/uL (150-450); RBC 2.65 m/uL (4.30-5.90); RDW 15.9 % (11.5-15.5); WBC 7.5 k/uL (3.8-10.6)
[2018-07-22] MEDS: HYDROcodone/APAP 10-325MG 1 EACH TAB PO PRN ×3 (09:06→22:54)
[2018-07-22] MEDS: EZETIMIBE 10 MG TAB PO SCH (09:06)
[2018-07-22] MEDS: PANTOPRAZOLE 40 MG/10 ML VIAL IV SCH ×2 (09:06→19:44)
[2018-07-22] MEDS: FERROUS SULFATE 325 MG TAB PO SCH ×2 (09:06→17:28)
[2018-07-22] MEDS: FLUoxetine HCL 20 MG CAP PO SCH (09:06)
[2018-07-22] MEDS: SODIUM CHLORIDE 0.9% 1,000 ML IV SCH ×2 (09:07→19:47)
[2018-07-22] MEDS: METOPROLOL TARTRATE 12.5 MG TAB PO SCH ×2 (09:07→17:27)
[2018-07-22] MEDS: FINASTERIDE 5 MG TAB PO SCH (09:07)
[2018-07-22] MEDS: CARBIDOPA-LEVODOPA 25-100 MG 1 EACH TAB PO SCH ×3 (09:07→19:44)
[2018-07-22] MEDS: PREGABALIN 100 MG CAP PO SCH ×2 (09:07→17:27)
[2018-07-22] MEDS: LISINOPRIL 2.5 MG TAB PO SCH (09:07)
[2018-07-22] MEDS: QUEtiapine 100 MG TAB PO SCH ×2 (09:07→19:47)
[2018-07-22] MEDS: ISOSORBIDE MONONITRATE ER 15 MG TAB PO SCH (09:07)
[2018-07-22] MEDS: PRIMIDONE 50 MG TAB PO SCH ×3 (09:07→22:54)
--- NOTE | 2018-07-22 09:46 | P.PN ---
Subjective This is a pleasant 72 years old male with past medical history of pulmonary embolus, coronary artery disease, COPD, CVA/TIA, GERD, upper lipidemia, hypertension, Parkinson disease, BPH, depression, seizure with last seizure was in 2002. As per patient he was recently in the hospital for low hemoglobin that needed a blood transfusion about 2-3 weeks ago, today he was sent from his retirement because of abnormal lab and low hemoglobin. However patient denies any symptoms. He denies chest pain, no dyspnea. No abdominal pain. No nausea vomiting. He has constipation. No urinary complaints. No fever. Patient at baseline can walk for short distance using her walker. On admission Vitas looks stable. CBC showing WBC of 8K, hemoglobin 6.7, and 7.1 , previously was in between 7.5-9.7. INR 1.. Sodium 138, potassium 4.5, creatinine 0.9. Is a status post one unit of blood transfusion. Chest x-ray is done and report is pending. Patient was started on Protonix and gentle hydration. 07/19/2018 Patient remains asymptomatic with no abdominal pain or nausea vomiting. He has 1 hard bowel movement this morning he wasn't sure with the color. He got one unit of blood yesterday and his hemoglobin went up from 7.1 to 7.9. Therefore recommend to hold 0 total for at least 2 days with proceeding with colonoscopy probably on this Monday. Due to recent history of numbness STEMI 2-3 weeks ago, cardiology consult and for pre-procedure evaluation and risk stratification 07/20/2018 Patient remains asymptomatic. Hw ua going for colonoscopy hopefully today.pre- op evaluation by cardiology team is appreciated, they recommended to start asa and Plavix soon after the procedure. Patient also has history of pulmonary embolism and his diltiazem hold also for there is same reason. Explained the risk while his of his antiplatelet and anticoagulation medication including but not limited for his heart attack and pulmonary embolism and he verbalized understanding and acceptance. His hemoglobin today is improved to 8.4. Patient remains on Protonix 40 mg IV twice a day 07/21/2018 Patient remains asymptomatic. He is a status post colonoscopy today, showing normal-appearing: And rectum. With mild internal hemorrhoids. Vital signs stable. Hemoglobin 8.3. BMP unremarkable 07/22/2018 Patient is asymptomatic. Colonoscopy was unremarkable. Pending capsule endoscopy. Cardiology follow-up is appreciated patient resume aspirin, Plavix and Xarelto after the results of capsule endoscopy which he had yesterday and the result is still pending. GI input is appreciated CONSTITUTIONAL: No fever, no malaise, no fatigue. HEENT: No recent visual problems or hearing problems. Denied any sore throat. CARDIOVASCULAR: No orthopnea, PND, no palpitations, no syncope. PULMONARY: No shortness of breath, no cough, no hemoptysis. NEUROLOGICAL: No headaches, no weakness, no numbness. HEMATOLOGICAL: Denies any bleeding or petechiae. GENITOURINARY: Denies any burning micturition, frequency, or urgency. MUSCULOSKELETAL/RHEUMATOLOGICAL: Denies any joint pain, swelling, or any muscle pain. ENDOCRINE: Denies any polyuria or polydipsia. Medications reviewed and include: Lipitor, Dulcolax, Sinemet, vitamin D, Zetia, ferrous sulfate, finasteride, Prozac, hydralazine, [place], albuterol, isosorbide mononitrate, lisinopril, metoprolol, multivitamin, nitroglycerin, Protonix, Lyrica, primidone, Seroquel, sodium chloride infusion Objective - Vital Signs Vital signs: Vital Signs Temp 97.5 F L 07/22/18 08:00 Pulse 79 07/22/18 08:00 Resp 18 07/22/18 08:00 BP 136/65 07/22/18 08:00 Pulse Ox 96 07/22/18 08:00 Intake & Output 07/21/18 07/22/18 07/22/18 18:59 06:59 18:59 Intake Total 200 Output Total 12 Balance 188 Weight 67 kg Intake: IV 200 Output: Stool 12 Other: Voiding Method Diaper Diaper Diaper Incontinent Incontinent Incontinent # Voids 1 - Labs CBC & Chem 7: 07/22/18 07:01 07/21/18 06:44 Labs: Abnormal Lab Results - Last 24 Hours (Table) 07/22/18 Range/Units 07:01 RBC 2.65 L (4.30-5.90) m/uL Hgb 8.0 L (13.0-17.5) gm/dL Hct 24.1 L (39.0-53.0) % RDW 15.9 H (11.5-15.5) % Assessment and Plan Assessment: Anemia, rule out acute blood loss anemia. History of PE History of COPD History of CVA/TIA History of GERD Hyperlipidemia Essential hypertension History of Parkinson disease History of BPH History of major depression History of seizure. Plan: This is a pleasant 72 years old male who presents because of anemia. We'll monitor his hemoglobin, we'll do our unsteadiness also check vitamin B12 and folic acid level. Check occult blood in stool. Call GI consult. Labs and medication were reviewed.. Continue same treatment. Continue with symptomatic treatment. Resume home medication. Monitor lytes and vitals. DVT and GI prophylaxis. Further recommendations of the clinical course of the patient DVT prophylaxis: no heparin in view of possible GI bleed. GI Prophylaxis: Protonix daily PT/OT: Pending Prognosis is guarded
--- NOTE | 2018-07-22 13:55 | P.PN ---
Subjective Progress Note Date: 07/22/18 This is a 72-year-old gentleman with history of coronary artery disease, he presented to our hospital in mid April with a non-ST elevation CT , underwent successful stenting of the mid right coronary artery and ostial right coronary artery, hypertension, hyperlipidemia, and pulmonary embolism. He presented most recently to the hospital earlier this month with symptomatic anemia, hemoglobin of 6. He was transfused 2 units of blood at that time. An EGD was also performed on that admission, on June 30, with unremarkable findings. A colonoscopy was deferred at that time secondary to his increased risk. On discharge to [facility] his hemoglobin was 7.5, he returns on this admission with hemoglobin of 6.7. Patient did receive a unit of packed red blood cells and hemoglobin came up to 7.9. In total the patient has received 4 units of packed red blood cells in the past month. At present the patient is off of Xarelto, he is also not on aspirin or Plavix. Chest x-ray on admission here revealed chronic changes with possible bronchitis or asthma. No acute process seen. Patient overall feels weak, but he denies any shortness of breath, no chest discomfort. Stool for occult blood is positive. He did undergo colonoscopy with no source of bleeding found. Also underwent capsule endoscopy. Objective - Vital Signs Vital signs: Vital Signs Temp 97.9 F 07/22/18 11:29 Pulse 59 L 07/22/18 11:29 Resp 18 07/22/18 11:29 BP 81/39 07/22/18 11:29 Pulse Ox 99 07/22/18 11:29 Intake & Output 07/21/18 07/22/18 07/22/18 18:59 06:59 18:59 Intake Total 200 Output Total 12 Balance 188 Weight 67 kg Intake: IV 200 Output: Stool 12 Other: Voiding Method Diaper Diaper Diaper Incontinent Incontinent Incontinent # Voids 1 - Exam GENERAL: 72-year-old gentleman in no acute distress at the time of my examination HEENT: Head is atraumatic, normocephalic. Pupils equal, round. Sclera anicteric. Conjunctiva are clear. Mucous membranes of the mouth are moist. Neck is supple. There is no elevated jugular venous pressure. No carotid bruit is heard. HEART EXAMINATION: Heart sounds are regular S1, S2 normal. No murmur or gallop heard. CHEST EXAMINATION: Lungs are clear to auscultation and precussion. No chest wall tenderness is noted on palpation or with deep breathing. ABDOMEN: Soft, nontender. Bowel sounds are heard. No organomegaly noted. EXTREMITIES: 2+ peripheral pulses with no evidence of peripheral edema and no calf tenderness noted. NEUROLOGIC patient is awake, alert and oriented 3 - Labs CBC & Chem 7: 07/22/18 07:01 07/21/18 06:44 Labs: Abnormal Lab Results - Last 24 Hours (Table) 07/22/18 Range/Units 07:01 RBC 2.65 L (4.30-5.90) m/uL Hgb 8.0 L (13.0-17.5) gm/dL Hct 24.1 L (39.0-53.0) % RDW 15.9 H (11.5-15.5) % Assessment and Plan Assessment: #1 anemia, with stool positive for occult blood #2 history of PE for which the patient had been on xarelto, currently on hold #3 coronary artery disease with recent stenting of the ostial/proximal and mid RCA, patient also has left main disease. Dual antiplatelet therapy currently on hold. #4 history of CVA #5 hypertension #6 hyperlipidemia #7 Parkinson's #8 history of major depression Plan: From cardiology's perspective, we will are awaiting clearance from GI perspective to resume Plavix and Xarelto. We will continue to follow the patient provide further recommendations accordingly. [employer]ING [employer]PERVIS[employer] note has been reviewed, I agree with a documented findings and plan of care. Patient was seen and examined.
[2018-07-22] MEDS: MULTIVITAMINS, THERA 1 EACH TAB PO SCH (17:28)
--- NOTE | 2018-07-22 17:36 | P.PN ---
Subjective Progress Note Date: 07/22/18 Principal diagnosis: Symptomatic anemia, stool positive for occult blood Patient is seen lying in bed with no abdominal pain reported. He is stating that he is tolerating his liquid diet. No bowel movement today or yesterday. Objective - Vital Signs Vital signs: Vital Signs Temp 97.8 F 07/22/18 16:00 Pulse 60 07/22/18 16:00 Resp 18 07/22/18 16:00 BP 142/65 07/22/18 16:00 Pulse Ox 98 07/22/18 16:00 Intake & Output 07/21/18 07/22/18 07/22/18 18:59 06:59 18:59 Intake Total 200 Output Total 12 4 Balance 188 -4 Weight 67 kg Intake: IV 200 Output: Stool 12 4 Other: Voiding Method Diaper Diaper Diaper Incontinent Incontinent Incontinent # Voids 1 - Exam On physical examination, patient appears comfortable in no apparent distress. HEAD: Normocephalic, atraumatic. EYES: No scleral icterus. No conjunctival injection. MOUTH: No lesions, tongue midline. NECK: Trachea midline, no gross abnormalities. CHEST: Decreased air entry in all lung hayes. ABDOMEN: Soft, obese. Bowel sounds are positive. No organomegaly. No guarding or rigidity. EXTREMITIES: No pedal edema. SKIN: No rashes, no jaundice. NEUROLOGIC: Alert and oriented. No focal deficits. - Labs CBC & Chem 7: 07/22/18 07:01 07/21/18 06:44 Labs: Abnormal Lab Results - Last 24 Hours (Table) 07/22/18 Range/Units 07:01 RBC 2.65 L (4.30-5.90) m/uL Hgb 8.0 L (13.0-17.5) gm/dL Hct 24.1 L (39.0-53.0) % RDW 15.9 H (11.5-15.5) % Assessment and Plan (1) Iron deficiency anemia Narrative/Plan: Symptomatic iron deficiency anemia of unknown etiology. The patient presented with reports of dark stool and was found to have positive stool testing for occult blood. However no source of bleeding found on recent EGD and colonoscopy on this admission. Video capsule endoscopy was performed and is pending. Current Visit: Yes Status: Acute Code(s): D50.9 - IRON DEFICIENCY ANEMIA, UNSPECIFIED SNOMED Code(s): 37765783 (2) Stool guaiac positive Current Visit: Yes Status: Acute Code(s): R19.5 - OTHER FECAL ABNORMALITIES SNOMED Code(s): 23819839 Plan: Supportive care Okay for regular diet Okay to resume anticoagulation/antiplatelet therapy Continue to monitor hemoglobin and transfuse as needed Patient completed video capsule endoscopy, images were being uploaded today with official read pending Continue iron supplementation Continue Protonix therapy Thank you for allowing us dysphagia in the care of the patient we will continue to follow
[2018-07-22] MEDS: ATORVASTATIN 40 MG TAB PO SCH (19:43)
[2018-07-22] MEDS: ASPIRIN 81 MG PO SCH (23:17)
[2018-07-22] MEDS ORDERED: CLOPIDOGREL 75 MG TAB PO SCH (23:45)
[2018-07-23] MEDS: HYDROcodone/APAP 10-325MG 1 EACH TAB PO PRN ×4 (04:56→23:06)
[2018-07-23] MEDS: RIVAROXABAN 15 MG TAB PO SCH ×2 (04:56→09:48)
[2018-07-23] MEDS: SODIUM CHLORIDE 0.9% 1,000 ML IV SCH ×2 (04:59→20:01)
[2018-07-23 06:02] LABS: Basophils # (A) 0.1 k/uL (0-0.2); Basophils % (A) 1 %; Eosinophils # (A) 0.2 k/uL (0-0.7); Eosinophils % (A) 3 %; HCT 25.1 % (39.0-53.0); HGB 8.2 gm/dL (13.0-17.5); Hypochromasia Slight; Lymphocytes # (A) 1.8 k/uL (1.0-4.8); Lymphocytes % (A) 23 %; MCH 30.4 pg (25.0-35.0); MCHC 32.7 g/dL (31.0-37.0); MCV 92.9 fL (80.0-100.0); Mean Platelet Volume 6.7; Monocytes # (A) 0.5 k/uL (0-1.0); Monocytes % (A) 6 %; Neutrophils % (A) 65 %; Platelet Count 322 k/uL (150-450); RBC 2.71 m/uL (4.30-5.90); RDW 15.8 % (11.5-15.5); WBC 7.7 k/uL (3.8-10.6)
[2018-07-23] MEDS: FINASTERIDE 5 MG TAB PO SCH (09:42)
[2018-07-23] MEDS: METOPROLOL TARTRATE 12.5 MG TAB PO SCH ×2 (09:42→17:16)
[2018-07-23] MEDS: PRIMIDONE 50 MG TAB PO SCH ×3 (09:42→23:06)
[2018-07-23] MEDS: LISINOPRIL 2.5 MG TAB PO SCH (09:42)
[2018-07-23] MEDS: CARBIDOPA-LEVODOPA 25-100 MG 1 EACH TAB PO SCH ×3 (09:42→20:00)
[2018-07-23] MEDS: PREGABALIN 100 MG CAP PO SCH ×2 (09:42→17:16)
[2018-07-23] MEDS: PANTOPRAZOLE 40 MG/10 ML VIAL IV SCH (09:42)
[2018-07-23] MEDS: ASPIRIN 81 MG PO SCH (09:43)
[2018-07-23] MEDS: QUEtiapine 100 MG TAB PO SCH ×2 (09:43→20:00)
[2018-07-23] MEDS: ISOSORBIDE MONONITRATE ER 15 MG TAB PO SCH (09:43)
[2018-07-23] MEDS: FLUoxetine HCL 20 MG CAP PO SCH (09:43)
[2018-07-23] MEDS: FERROUS SULFATE 325 MG TAB PO SCH ×2 (09:43→17:16)
[2018-07-23] MEDS: CLOPIDOGREL 75 MG TAB PO SCH (09:48)
[2018-07-23] MEDS ORDERED: ERGOCALCIFEROL 50,000 UNIT CAP PO SCH (12:00)
--- NOTE | 2018-07-23 15:33 | P.PN ---
Subjective Progress Note Date: 07/23/18 This is a 72-year-old gentleman with history of coronary artery disease, he presented to our hospital in mid April with a non-ST elevation ID , underwent successful stenting of the mid right coronary artery and ostial right coronary artery with a science stent. Patient has also history of hypertension, hyperlipidemia, pulmonary embolism, he presented most recently to the hospital earlier this month with symptomatic anemia, hemoglobin of 6. He was transfused 2 units of blood at that time. An EGD was also performed on that admission, on June 30, with unremarkable findings. A colonoscopy was deferred at that time secondary to his increased risk. On discharge to [facility] his hemoglobin was 7.5, he returns on this admission with hemoglobin of 6.7. Patient did receive a unit of packed red blood cells and hemoglobin came up to 7.9. In total the patient has received 4 units of packed red blood cells this month. At present the patient is off of Xarelto, he is also not on aspirin or Plavix. Chest x-ray on admission here revealed chronic changes with possible bronchitis or asthma. No acute process seen. Patient overall feels weak, but he denies any shortness of breath, no chest discomfort. Blood pressure 152/60 with a heart rate in the 70s, 98% on room air. White blood cell count 9.2, hemoglobin 7.9 this morning, platelet count 278. Sodium 138, potassium 4.5, BUN 38 and creatinine 0.9. Troponin 0.012. Stool for occult blood is positive. 07/21/2018 Patient was seen and examined this morning, he did undergo colonoscopy with no source of bleeding found. Currently undergoing capsule endoscopy. Once the patient is cleared from GI perspective, we will need to put him back on antiplatelet therapy along with xarelto. Today's hemodynamically stable. Hemoglobin today 8.3. 07/23/2018 Patient was seen and examined today, overall doing well. Hemodynamically stable. No results yet on his capsule endoscopy. Hemoglobin 8.2. Objective - Vital Signs Vital signs: Vital Signs Temp 97.7 F 07/23/18 08:25 Pulse 57 L 07/23/18 11:35 Resp 18 07/23/18 11:35 BP 105/53 07/23/18 11:35 Pulse Ox 96 07/23/18 11:35 Intake & Output 07/22/18 07/23/18 07/23/18 18:59 06:59 18:59 Intake Total 240 1280 Output Total 4 Balance 236 1280 Weight 67.5 kg Intake: Intake, IV Titration 1280 Amount Sodium Chloride 0.9% 1, 1280 000 ml @ 80 mls/hr IV . [id number] [facility] Rx#:[id number] Oral 240 Output: Stool 4 Other: Voiding Method Diaper Diaper Incontinent Incontinent # Voids 2 # Bowel Movements 1 - Exam PHYSICAL EXAMINATION: GENERAL: 72-year-old gentleman in no acute distress at the time of my examination HEENT: Head is atraumatic, normocephalic. Pupils equal, round. Sclera anicteric. Conjunctiva are clear. Mucous membranes of the mouth are moist. Neck is supple. There is no elevated jugular venous pressure. No carotid bruit is heard. HEART EXAMINATION: Heart S1, S2 normal. No murmur or gallop heard. CHEST EXAMINATION: Lungs are clear to auscultation and precussion. No chest wall tenderness is noted on palpation or with deep breathing. ABDOMEN: Soft, nontender. Bowel sounds are heard. No organomegaly noted. EXTREMITIES: 2+ peripheral pulses with no evidence of peripheral edema and no calf tenderness noted. NEUROLOGIC patient is awake, alert and oriented 3. . - Labs CBC & Chem 7: 07/23/18 05:44 07/21/18 06:44 Labs: Abnormal Lab Results - Last 24 Hours (Table) 07/23/18 Range/Units 05:44 RBC 2.71 L (4.30-5.90) m/uL Hgb 8.2 L (13.0-17.5) gm/dL Hct 25.1 L (39.0-53.0) % RDW 15.8 H (11.5-15.5) % Assessment and Plan Plan: Assessment and plan #1 anemia, hemoglobin 6.7 on arrival, recent hospitalization with anemia of 6, patient did receive 2 unit of packed blood cells at that time. Received one unit on this occasion. Patient had been on dual antiplatelet therapy and xarelto. Upper GI performed a couple of weeks ago did not reveal any source of bleeding. #2 history of PE for which the patient had been on xarelto #3 coronary artery disease with recent stenting of the ostial/proximal and mid RCA, patient also has left main disease. Currently not on his dual antiplatelet therapy. #4 history of CVA #5 hypertension #6 hyperlipidemia #7 Parkinson's #8 history of major depression Plan On endoscopy did not reveal any acute source of bleeding. Patient is currently undergoing a capsule endoscopy. Once cleared from GI perspective, we will resume the patient on Plavix along with xarelto. We will continue to follow. DNP note has been reviewed, I agree with a documented findings and plan of care. Patient was seen and examined.
[2018-07-23] MEDS: DEXTROSE 5%-0.9% NACL 1,000 ML IV SCH (16:24)
[2018-07-23] MEDS: MULTIVITAMINS, THERA 1 EACH TAB PO SCH (17:18)
--- NOTE | 2018-07-23 19:19 | P.PN ---
Subjective Progress Note Date: 07/23/18 Principal diagnosis: Symptomatic anemia, stool positive for occult blood Patient is seen lying in bed with no abdominal pain reported. He is stating that he is tolerating his liquid diet. No bowel movement today or yesterday. Objective - Vital Signs Vital signs: Vital Signs Temp 97.4 F L 07/23/18 16:00 Pulse 61 07/23/18 16:00 Resp 18 07/23/18 16:00 BP 109/54 07/23/18 16:00 Pulse Ox 98 07/23/18 16:00 Intake & Output 07/23/18 07/23/18 07/24/18 06:59 18:59 06:59 Intake Total 1280 240 Output Total 100 Balance 1280 140 Weight 67.5 kg Intake: Intake, IV Titration 1280 Amount Sodium Chloride 0.9% 1, 1280 000 ml @ 80 mls/hr IV . [id number] [facility] Rx#:[id number] Oral 240 Output: Urine 100 Other: Voiding Method Diaper Diaper Incontinent Incontinent # Voids 2 1 # Bowel Movements 1 - Exam On physical examination, patient appears comfortable in no apparent distress. HEAD: Normocephalic, atraumatic. EYES: No scleral icterus. No conjunctival injection. MOUTH: No lesions, tongue midline. NECK: Trachea midline, no gross abnormalities. CHEST: Decreased air entry in all lung hayes. ABDOMEN: Soft, obese. Bowel sounds are positive. No organomegaly. No guarding or rigidity. EXTREMITIES: No pedal edema. SKIN: No rashes, no jaundice. NEUROLOGIC: Alert and oriented. No focal deficits. - Labs CBC & Chem 7: 07/23/18 05:44 07/21/18 06:44 Labs: Abnormal Lab Results - Last 24 Hours (Table) 07/23/18 Range/Units 05:44 RBC 2.71 L (4.30-5.90) m/uL Hgb 8.2 L (13.0-17.5) gm/dL Hct 25.1 L (39.0-53.0) % RDW 15.8 H (11.5-15.5) % Assessment and Plan (1) Iron deficiency anemia Narrative/Plan: Symptomatic iron deficiency anemia of unknown etiology. The patient presented with reports of dark stool and was found to have positive stool testing for occult blood. However no source of bleeding found on recent EGD and colonoscopy on this admission. Video capsule endoscopy was performed and images still not bloated today, I discussed with the endoscopy department. Current Visit: Yes Status: Acute Code(s): D50.9 - IRON DEFICIENCY ANEMIA, UNSPECIFIED SNOMED Code(s): 60827987 (2) Stool guaiac positive Current Visit: Yes Status: Acute Code(s): R19.5 - OTHER FECAL ABNORMALITIES SNOMED Code(s): 36378631 Plan: Supportive care Okay for regular diet Okay to resume anticoagulation/antiplatelet therapy Continue to monitor hemoglobin and transfuse as needed Patient completed video capsule endoscopy, images still not uploaded today, official read is pending Thank you for allowing us dysphagia in the care of the patient we will continue to follow
[2018-07-23] MEDS: ATORVASTATIN 40 MG TAB PO SCH (19:59)
[2018-07-23] MEDS: EZETIMIBE 10 MG TAB PO SCH (20:00)
[2018-07-23] MEDS: PANTOPRAZOLE 40 MG TABLET PO SCH (20:00)
--- NOTE | 2018-07-23 23:20 | PN ---
PROGRESS NOTE DATE OF SERVICE: 07/26/2017 PRESENTING COMPLAINT: GI bleed. EGD was unremarkable. Did have small bowel capsule study. The former results are pending. INTERVAL HISTORY: The patient has presented with GI bleed. EGD was unremarkable. Did have a small bowel capsule study. Formal results are pending. Anticoagulation was okay to be resumed per GI. The patient is tolerating a diet. No abdominal pain. No further GI bleed next. REVIEW OF SYSTEMS: Done for constitutional, cardiovascular, GI, pulmonary; relevant findings as above. CURRENT MEDICATIONS: Reviewed that include aspirin, Plavix, Xarelto. PHYSICAL EXAMINATION: VITAL SIGNS: Temperature 97.4 pulse 61, respiratory 18, blood pressure 109/54 pulse ox 98% on room air GENERAL APPEARANCE: Sitting up, comfortable. EYES: Pupils equal. Conjunctive normal. Neck JVD not raised. Mass not palpable. Respiratory effort normal. Lungs decreased breath sounds. Cardiovascular: 1st and 2nd sounds normal. No edema. ABDOMEN: Soft, nontender. Liver and spleen not palpable. PSYCHIATRY: Answering questions appropriately. INVESTIGATIONS: White count 7.7, hemoglobin 8.2 assessment acute GI bleed acute GI bleed with no obvious source detected pending capsule endoscopy study. Vital signs stable. Temperature 97.4, pulse 61, respiratory rate 18, blood pressure 109/54, Pulse 98% on room air. 1. Coronary artery disease with the patient not felt to be a candidate for coronary bypass. 2. Pulmonary embolism in April of 2018 following left hip fracture. 3. Chronic obstructive pulmonary disease in an ex-smoker. 4. Hyperlipidemia. 5. Essential hypertension. 6. Benign prostatic hypertrophy. 7. Depression, not otherwise specified. PLAN: The patient is back on anti agents and Xarelto. Awaiting formal results of capsule endoscopy. Hopefully, patient can be discharged following the same. Patient remains because of 2 prior episodes of bleeding patient does remain on a high risk of bleeding. Patient also on Protonix. Care was discussed with the patient. Hopefully can be discharged back to the [facility] tomorrow. MMODL / IJN: [id number] /
[2018-07-24] MEDS: HYDROcodone/APAP 10-325MG 1 EACH TAB PO PRN ×2 (04:54→15:59)
[2018-07-24 07:06] LABS: Basophils % (A) 1 %; Eosinophils # (A) 0.3 k/uL (0-0.7); Eosinophils % (A) 5 %; HCT 25.3 % (39.0-53.0); Hypochromasia Slight; Lymphocytes # (A) 1.9 k/uL (1.0-4.8); Lymphocytes % (A) 30 %; MCH 29.6 pg (25.0-35.0); MCHC 31.7 g/dL (31.0-37.0); MCV 93.2 fL (80.0-100.0); Mean Platelet Volume 6.5; Monocytes # (A) 0.4 k/uL (0-1.0); Monocytes % (A) 6 %; Neutrophils # (A) 3.6 k/uL (1.3-7.7); Neutrophils % (A) 56 %; Platelet Count 304 k/uL (150-450); RBC 2.71 m/uL (4.30-5.90); RDW 15.5 % (11.5-15.5); WBC 6.4 k/uL (3.8-10.6)
[2018-07-24 08:45] VITALS: RESP 20
[2018-07-24] MEDS: ISOSORBIDE MONONITRATE ER 15 MG TAB PO SCH (09:26)
[2018-07-24] MEDS: CLOPIDOGREL 75 MG TAB PO SCH (09:26)
[2018-07-24] MEDS: PRIMIDONE 50 MG TAB PO SCH ×2 (09:26→16:00)
[2018-07-24] MEDS: QUEtiapine 100 MG TAB PO SCH (09:26)
[2018-07-24] MEDS: PREGABALIN 100 MG CAP PO SCH ×2 (09:26→16:00)
[2018-07-24] MEDS: FLUoxetine HCL 20 MG CAP PO SCH (09:26)
[2018-07-24] MEDS: ASPIRIN 81 MG PO SCH (09:26)
[2018-07-24] MEDS: RIVAROXABAN 15 MG TAB PO SCH (09:26)
[2018-07-24] MEDS: METOPROLOL TARTRATE 12.5 MG TAB PO SCH ×2 (09:26→16:00)
[2018-07-24] MEDS: FINASTERIDE 5 MG TAB PO SCH (09:26)
[2018-07-24] MEDS: LISINOPRIL 2.5 MG TAB PO SCH (09:26)
[2018-07-24] MEDS: FERROUS SULFATE 325 MG TAB PO SCH ×2 (09:26→16:00)
[2018-07-24] MEDS: CARBIDOPA-LEVODOPA 25-100 MG 1 EACH TAB PO SCH ×2 (09:26→16:00)
[2018-07-24] MEDS: PANTOPRAZOLE 40 MG TABLET PO SCH (09:26)
[2018-07-24] MEDS: SODIUM CHLORIDE 0.9% 1,000 ML IV SCH (09:27)
[2018-07-24 12:09] VITALS: BP 150/68; PULSE 59; TEMP 97.7
--- NOTE | 2018-07-24 15:31 | DS ---
DISCHARGE SUMMARY DATE OF ADMISSION: 07/18/2018 DATE OF DISCHARGE: 07/24/2018 FINAL DIAGNOSES: 1. Acute gastrointestinal bleed, source unknown. 2. Coronary artery disease with patient not felt to be a candidate for coronary bypass. 3. Chronic pulmonary embolism in April of 2018 following left hip fracture. 4. Chronic obstructive pulmonary disease in an ex-smoker. 5. Hyperlipidemia. 6. Essential hypertension. 7. Benign prostatic hypertrophy. 8. Depression, not otherwise specified. CONSULTATION: 1. Dr. Sanchez from GI. 2. Dr. Baptiste from Cardiology. HOSPITAL COURSE: This patient was admitted with a hemoglobin down to 7.1. Patient is on blood thinners. Patient did get a unit of blood. Patient did undergo colonoscopy, not EGD by Dr. Sanchez, that turned out to be essentially unremarkable. Patient did undergo a capsule study, informal result that is was negative. Patient remained stable. No further bleeding in the hospital. Hemoglobin was 8 at the time of discharge. PHYSICAL EXAMINATION: Temperature 97.7, pulse 59, respiration 20, blood pressure 160/68, pulse ox 98% on room air. LUNGS: Decreased breath sounds. PSYCH: Alert and oriented x3. INVESTIGATIONS: Hemoglobin is 8. DISCHARGE MEDICATION: 1. Lipitor 40 mg q.h.s. 2. Dulcolax 10 mg rectal daily p.r.n. 3. Sinemet 25/100 one tablet p.o. t.i.d. 4. 60 mg p.o. daily. 5. Dutasteride 0.5 mg p.o. daily. 6. Vitamin D2 fifty thousand units p.o. Monday. 7. Zetia 10 mg p.o. daily. 8. Prozac 20 mg p.o. daily. 9. Iron 325 p.o. b.i.d. 10.DuoNeb q.i.d. p.r.n. 11.Ensure Plus 1 can p.o. t.i.d. 12.Milk of magnesia 30 mL p.o. daily p.r.n. 13.Lopressor 12.5 p.o. b.i.d. 14.Multivitamin 1 tablet p.o. with supper. 15.Adult Fleet daily p.r.n. 16.Mysoline 50 mg p.o. q.8. 17.Seroquel XR 200 mg p.o. q.h.s. 18. Ellipta 62.5/25 one puff daily. 19.Nitrostat 0.4 sublingual q.5 p.r.n. 20.Plavix 75 mg p.o. daily. 21.Zestril 2.5 mg p.o. daily. 22.Xarelto 50 mg p.o. daily. 23.Imdur ER 50 mg p.o. daily. 24.[place] 10 one tablet p.o. q.6 p.r.n. 25.Prilosec 20 mg p.o. b.i.d. 26.Lyrica 100 mg p.o. b.i.d. DISPOSITION: Joseph. FOLLOWUP: Follow up with Dr. Tipton on 07/25/2018 CBC in 3 days. MMODL / PERLITAN: [id number] /
[2018-07-24] MEDS: MULTIVITAMINS, THERA 1 EACH TAB PO SCH (15:59)
--- NOTE | 2018-07-24 16:35 | P.PN ---
Subjective Progress Note Date: 07/24/18 This is a 72-year-old gentleman with history of coronary artery disease, he presented to our hospital in mid April with a non-ST elevation [place] , underwent successful stenting of the mid right coronary artery and ostial right coronary artery with a science stent. Patient has also history of hypertension, hyperlipidemia, pulmonary embolism, he presented most recently to the hospital earlier this month with symptomatic anemia, hemoglobin of 6. He was transfused 2 units of blood at that time. An EGD was also performed on that admission, on June 30, with unremarkable findings. A colonoscopy was deferred at that time secondary to his increased risk. On discharge to [facility] his hemoglobin was 7.5, he returns on this admission with hemoglobin of 6.7. Patient did receive a unit of packed red blood cells and hemoglobin came up to 7.9. In total the patient has received 4 units of packed red blood cells this month. At present the patient is off of Xarelto, he is also not on aspirin or Plavix. Chest x-ray on admission here revealed chronic changes with possible bronchitis or asthma. No acute process seen. Patient overall feels weak, but he denies any shortness of breath, no chest discomfort. Blood pressure 152/60 with a heart rate in the 70s, 98% on room air. White blood cell count 9.2, hemoglobin 7.9 this morning, platelet count 278. Sodium 138, potassium 4.5, BUN 38 and creatinine 0.9. Troponin 0.012. Stool for occult blood is positive. 07/21/2018 Patient was seen and examined this morning, he did undergo colonoscopy with no source of bleeding found. Currently undergoing capsule endoscopy. Once the patient is cleared from GI perspective, we will need to put him back on antiplatelet therapy along with xarelto. Today's hemodynamically stable. Hemoglobin today 8.3. 07/23/2018 Patient was seen and examined today, overall doing well. Hemodynamically stable. No results yet on his capsule endoscopy. Hemoglobin 8.2. 07/24/2018 Patient was seen and examined this morning, overall doing well. Patient was okayed by GI service to be resumed on anticoagulation and antiplatelets. We will continue with Plavix 75 mg and xarelto 15 mg, discontinue the aspirin. Follow-up appointment with Dr. Hughes in the office. Objective - Vital Signs Vital signs: Vital Signs Temp 97.7 F 07/24/18 12:00 Pulse 59 L 07/24/18 12:00 Resp 20 07/24/18 12:00 BP 150/68 07/24/18 12:00 Pulse Ox 98 07/24/18 12:00 Intake & Output 07/23/18 07/24/18 07/24/18 18:59 06:59 18:59 Intake Total 240 640 600 Output Total 100 Balance 140 640 600 Weight 67 kg 67 kg Intake: Intake, IV Titration 640 Amount Sodium Chloride 0.9% 1, 640 000 ml @ 80 mls/hr IV . [id number] [facility] Rx#:[id number] Oral 240 600 Output: Urine 100 Other: Voiding Method Diaper Diaper Diaper Incontinent Incontinent Incontinent # Voids 1 1 1 - Exam PHYSICAL EXAMINATION: GENERAL: 72-year-old gentleman in no acute distress at the time of my examination HEENT: Head is atraumatic, normocephalic. Pupils equal, round. Sclera anicteric. Conjunctiva are clear. Mucous membranes of the mouth are moist. Neck is supple. There is no elevated jugular venous pressure. No carotid bruit is heard. HEART EXAMINATION: Heart S1, S2 normal. No murmur or gallop heard. CHEST EXAMINATION: Lungs are clear to auscultation and precussion. No chest wall tenderness is noted on palpation or with deep breathing. ABDOMEN: Soft, nontender. Bowel sounds are heard. No organomegaly noted. EXTREMITIES: 2+ peripheral pulses with no evidence of peripheral edema and no calf tenderness noted. NEUROLOGIC patient is awake, alert and oriented 3. . - Labs CBC & Chem 7: 07/24/18 05:28 07/21/18 06:44 Labs: Abnormal Lab Results - Last 24 Hours (Table) 07/24/18 Range/Units 05:28 RBC 2.71 L (4.30-5.90) m/uL Hgb 8.0 L (13.0-17.5) gm/dL Hct 25.3 L (39.0-53.0) % Assessment and Plan Plan: Assessment and plan #1 anemia, hemoglobin 6.7 on arrival, recent hospitalization with anemia of 6, patient did receive 2 unit of packed blood cells at that time. Received one unit on this occasion. Patient had been on dual antiplatelet therapy and xarelto. Upper GI performed a couple of weeks ago did not reveal any source of bleeding. #2 history of PE for which the patient had been on xarelto #3 coronary artery disease with recent stenting of the ostial/proximal and mid RCA, patient also has left main disease. Currently not on his dual antiplatelet therapy. #4 history of CVA #5 hypertension #6 hyperlipidemia #7 Parkinson's #8 history of major depression Plan From cardiology's perspective, we'll resume the patient's Plavix 75 mg daily along with xarelto 15 mg daily. He may be able to be discharged home from our standpoint to follow-up with Dr. Hughes in the office post discharge. DNP note has been reviewed, I agree with a documented findings and plan of care. Patient was seen and examined.
== END 2018-07-24 17:10 | DRG 377 ==
LOC: EC 13:56 → 3SCARD 16:42
PROVIDERS: ADMIT Hospitalist; ATTEND Hospitalist
PROC: 30233N1 Transfusion of Nonautologous Red Blood Cells into Peripheral Vein, Percutaneous Approach (ICD-10-PCS; 2018-07-18)
PROC: 0DJD8ZZ Inspection of Lower Intestinal Tract, Via Natural or Artificial Opening Endoscopic (ICD-10-PCS; principal; 2018-07-21 08:00)
DX: K92.2 Gastrointestinal hemorrhage, unspecified (principal); I21.4 Non-ST elevation (NSTEMI) myocardial infarction; D62 Acute posthemorrhagic anemia; E78.5 Hyperlipidemia, unspecified; F32.9 Major depressive disorder, single episode, unspecified; F41.9 Anxiety disorder, unspecified; G20 Parkinson's disease; G40.909 Epilepsy, unspecified, not intractable, without status epilepticus; I10 Essential (primary) hypertension; I25.10 Atherosclerotic heart disease of native coronary artery without angina pectoris; J44.9 Chronic obstructive pulmonary disease, unspecified; K21.9 Gastro-esophageal reflux disease without esophagitis; K59.00 Constipation, unspecified; K64.8 Other hemorrhoids; N40.0 Benign prostatic hyperplasia without lower urinary tract symptoms; Z96.1 Presence of intraocular lens; Z87.891 Personal history of nicotine dependence; Z95.5 Presence of coronary angioplasty implant and graft; Z90.49 Acquired absence of other specified parts of digestive tract; Z86.711 Personal history of pulmonary embolism; I25.2 Old myocardial infarction; Z79.01 Long term (current) use of anticoagulants; Z79.02 Long term (current) use of antithrombotics/antiplatelets; Z79.899 Other long term (current) drug therapy; Z80.0 Family history of malignant neoplasm of digestive organs; Z86.73 Personal history of transient ischemic attack (TIA), and cerebral infarction without residual deficits; Z98.42 Cataract extraction status, left eye; Z98.41 Cataract extraction status, right eye
CPT/HCPCS: 36415; 45378; 71045; 80048; 80053; 82272; 82550; 82553; 82607; 82728; 82746; 83540; 83550; 83735; 84484; 85025; 85027; 85610; 85730; 86850; 86900; 86901; 86920; 91110; 96374; 99285